=== PATIENT | male | born 1960 | race Caucasian/White ===

== ENCOUNTER 2017-11-04 10:55 | Inpatient (IN) | payer MEDICARE, OTHER ==
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
[2017-11-04 12:04] LABS: Glucose,Whole Blood 127 mg/dL (75-99)
[2017-11-04 12:29] LABS: Basophils % (A) 0 %; Eosinophils # (A) 0.2 k/uL (0-0.7); Eosinophils % (A) 1 %; HCT 42.1 % (39.0-53.0); HGB 14.4 gm/dL (13.0-17.5); Lymphocytes # (A) 0.7 k/uL (1.0-4.8); Lymphocytes % (A) 4 %; MCH 30.8 pg (25.0-35.0); MCHC 34.3 g/dL (31.0-37.0); MCV 89.8 fL (80.0-100.0); Mean Platelet Volume 7.4; Monocytes # (A) 1.1 k/uL (0-1.0); Monocytes % (A) 6 %; Neutrophils # (A) 15.5 k/uL (1.3-7.7); Neutrophils % (A) 88 %; Platelet Count 260 k/uL (150-450); RBC 4.69 m/uL (4.30-5.90); WBC 17.7 k/uL (3.8-10.6)
[2017-11-04 12:39] LABS: ALT 57 U/L (21-72); AST 167 U/L (17-59); Albumin 4.5 g/dL (3.5-5.0); Alcohol <10 mg/dL; Alkaline Phosphatase 85 U/L (38-126); Amylase 288 U/L (30-110); Anion Gap 14 mmol/L; Blood Urea Nitrogen 32 mg/dL (9-20); Calcium 9.9 mg/dL (8.4-10.2); Carbon Dioxide 22 mmol/L (22-30); Chloride 113 mmol/L (98-107); Glucose 109 mg/dL (74-99); Lipase 163 U/L (23-300); Magnesium 2.3 mg/dL (1.6-2.3); Potassium 4.5 mmol/L (3.5-5.1); Sodium 149 mmol/L (137-145); Total Bilirubin 1.2 mg/dL (0.2-1.3)
[2017-11-04] MEDS ORDERED: SODIUM CHLORIDE 0.9% 2,000 ML IV ONE ×2 (13:06→14:16)
--- NOTE | 2017-11-04 13:08 | CT ---
EXAMINATION TYPE: CT brain wo con DATE OF EXAM: 11/04/2017 COMPARISON: NONE HISTORY: Weakness CT DLP: 1015.9 mGycm Automated exposure control for dose reduction was used. FINDINGS: Central structures are midline. There is no evidence of hydrocephalus. No acute focal lesion, mass ef fect or midline shift is seen. I do not see evidence of intracranial blood. Visualized portions of the paranasal sinuses and mastoids are clear. The bony calvarium is intact. IMPRESSION: NO ACUTE INTRACRANIAL ABNORMALITY.
--- NOTE | 2017-11-04 13:34 | XR ---
EXAMINATION TYPE: XR chest 2V DATE OF EXAM: 11/04/2017 HISTORY: cough. REFERENCE: NONE. FINDINGS: The lungs are clear. Pleural space are clear. The heart is not enlarged. There is mild ignacia bronchial cuffing. IMPRESSION: FINDINGS CONSISTENT WITH BUT NOT DIAGNOSTIC OF BRONCHITIS.
[2017-11-04 14:04] LABS: Troponin I 0.091 ng/mL (0.000-0.034)
[2017-11-04] MEDS ORDERED: ACETAMINOPHEN TAB 325 MG TAB PO PRN (14:25)
[2017-11-04] MEDS ORDERED: NALOXONE 0.4 MG/ML 1 ML VIAL IV PRN (14:25)
[2017-11-04] MEDS ORDERED: HEPARIN SODIUM,PORCINE 5,000 UNIT/ML 1 ML VIAL IV ONE (14:30)
[2017-11-04] MEDS ORDERED: SODIUM CHLORIDE 0.9% 1,000 ML IV SCH (14:30)
[2017-11-04] MEDS ORDERED: SODIUM CHLORIDE 0.9% 1,000 ML IV STA (14:35)
[2017-11-04] MEDS: HEPARIN SOD,PORK IN 0.45% NACL 25,000 UNIT in 0.45% NACL 1 500ML.BAG IV SCH (15:28)
[2017-11-04] MEDS ORDERED: hydrALAZINE HCL 20 MG/ML 1 ML VIAL IVP PRN (16:32)
[2017-11-04 17:03] LABS: Glucose,Whole Blood 116 mg/dL (75-99)
[2017-11-04 18:08] VITALS: BMI 24.9
[2017-11-04] MEDS: SODIUM CHLORIDE 0.45% 1,000 ML IV SCH (18:48)
[2017-11-04 19:32] LABS: Hemoglobin A1C 5.2 % (4.0-6.0)
[2017-11-04 20:29] LABS: Appearance,Urine Clear (Clear); Bilirubin,Urine Negative (Negative); Blood,Urine Moderate (Negative); Color,Urine Yellow; Glucose,Urine (UA) Negative (Negative); Ketones,Urine 1+ (Negative); Leukocyte Esterase,Urine Negative (Negative); Mucus,Urine Rare /hpf; Nitrite,Urine Negative (Negative); PH, Urine 5.5 (5.0-8.0); Protein,Urine Trace (Negative); RBC,Urine 1 /hpf (0-5); Specific Gravity,Urine 1.022 (1.001-1.035); Sperm,Urine Occasional /hpf; Squamous Epithelial Cell,Urine <1 /hpf (0-4); Urobilinogen,Urine <2.0 mg/dL (<2.0); WBC,Urine 4 /hpf (0-5)
[2017-11-04 20:37] LABS: Amphetamine Screen,Urine Detected (NotDetected); Barbiturate Screen,Urine Not Detected (NotDetected); Benzodiazepines Screen,Urine Not Detected (NotDetected); Cocaine Screen,Urine Not Detected (NotDetected); Methadone Screen, Urine Not Detected (NotDetected); Opiate Screen,Urine Not Detected (NotDetected); Oxycodone Screen, Urine Not Detected (NotDetected); Phencyclidine Screen,Urine Not Detected (NotDetected); Tricyclic Antidepressant,Urine Not Detected (NotDetected); Urn Cannabinoid Scrn Not Detected (NotDetected)
[2017-11-04 20:39] LABS: Glucose,Whole Blood 115 mg/dL (75-99)
[2017-11-04] MEDS: cloNIDine HCL 0.1 MG TAB PO SCH (20:46)
[2017-11-04] MEDS: FAMOTIDINE 20 MG TAB PO SCH (20:46)
[2017-11-04] MEDS: BACLOFEN 10 MG TAB PO SCH (20:46)
[2017-11-04 21:23] LABS: Troponin I 0.059 ng/mL (0.000-0.034)
[2017-11-04 21:25] LABS: Creatine Kinase MB 19.5 ng/mL (0.0-2.4)
[2017-11-05 01:05] LABS: Creatine Kinase MB 22.8 ng/mL (0.0-2.4); Troponin I 0.045 ng/mL (0.000-0.034)
[2017-11-05] MEDS: SODIUM CHLORIDE 0.45% 1,000 ML IV SCH ×2 (02:01→14:13)
[2017-11-05 05:59] LABS: Glucose,Whole Blood 135 mg/dL (75-99)
[2017-11-05 07:50] LABS: Anion Gap 5 mmol/L; Blood Urea Nitrogen 21 mg/dL (9-20); Carbon Dioxide 22 mmol/L (22-30); Chloride 110 mmol/L (98-107); Glucose 82 mg/dL (74-99); Potassium 4.2 mmol/L (3.5-5.1); Sodium 137 mmol/L (137-145)
[2017-11-05 08:03] LABS: Basophils # (A) 0.1 k/uL (0-0.2); Basophils % (A) 1 %; Eosinophils # (A) 0.2 k/uL (0-0.7); Eosinophils % (A) 2 %; HCT 36.1 % (39.0-53.0); HGB 12.1 gm/dL (13.0-17.5); Lymphocytes # (A) 1.7 k/uL (1.0-4.8); Lymphocytes % (A) 17 %; MCH 30.2 pg (25.0-35.0); MCHC 33.6 g/dL (31.0-37.0); MCV 89.9 fL (80.0-100.0); Mean Platelet Volume 8.4; Monocytes # (A) 0.7 k/uL (0-1.0); Monocytes % (A) 7 %; Neutrophils # (A) 6.8 k/uL (1.3-7.7); Neutrophils % (A) 72 %; Platelet Count 205 k/uL (150-450); RBC 4.02 m/uL (4.30-5.90); RDW 13.8 % (11.5-15.5); WBC 9.5 k/uL (3.8-10.6)
[2017-11-05 08:31] LABS: Creatine Kinase 12932 U/L (55-170)
[2017-11-05] MEDS: cloNIDine HCL 0.1 MG TAB PO SCH ×2 (09:02→20:19)
[2017-11-05] MEDS: FAMOTIDINE 20 MG TAB PO SCH ×2 (09:02→20:19)
[2017-11-05] MEDS: BACLOFEN 10 MG TAB PO SCH ×2 (09:03→20:19)
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
[2017-11-05 12:09] LABS: Glucose,Whole Blood 92 mg/dL (75-99)
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
[2017-11-05] MEDS: TAMSULOSIN 0.4 MG CAP.ER.24H PO SCH (15:24)
[2017-11-05] MEDS: HEPARIN SOD,PORK IN 0.45% NACL 25,000 UNIT in 0.45% NACL 1 500ML.BAG IV SCH (15:24)
[2017-11-05] MEDS: SODIUM CHLORIDE 0.9% 1,000 ML IV SCH ×3 (15:38→23:29)
--- NOTE | 2017-11-05 16:38 | P.PN ---
Subjective Progress Note Date: 11/05/17 Principal diagnosis: Rhabdomyolysis, acute renal failure, elevated troponins This is a 56-year-old male history diabetes and history of seizures in the past who was [place] in a local pond area after manipulating himself; police was able to locate him. Unclear exactly how he got there though was reported he was including someone was after him. He had been missing since yesterday. He did admit to try to drink some pond water because he was thirsty. He states he hurts all over though he denies any particular trauma. He was brought in by EMS for evaluation. No witnessed seizures are reported. 11/05/2017 Patient is resting comfortably in the bed with family at bedside; patient does not have any further complaint of chest pain; cardiology recommendations are noted- elevation in cardiac enzymes most likely secondary to acute renal failure ; patient does have cardiac risk factors namely diabetes, hypertension, hyperlipidemia and significant family history; cardiology is recommending to treat medically while in the hospital till renal failure improves; metoprolol and aspirin is added to current medical regimen- patient is tolerating well; echocardiogram is recommended with possible stress test versus cardiac catheterization as outpatient Objective - Vital Signs Vital signs: Vital Signs Temp 97.9 F 11/05/17 08:00 Pulse 80 11/05/17 08:00 Resp 16 11/05/17 08:00 BP 130/80 11/05/17 08:00 Pulse Ox 96 11/05/17 08:00 Intake & Output 11/04/17 11/05/17 11/05/17 18:59 06:59 18:59 Intake Total 701.868 748.132 Balance 701.868 748.132 Weight 81 kg 88.6 kg Intake: Intake, IV Titration 101.868 398.132 Amount Heparin Sod,Pork in 0.45% 101.868 398.132 NaCl 25,000 unit In 0.45 % NaCl 1 500ml.bag @ 12 UNITS/KG/HR 19.59 mls/hr IV .Q24H [facility] Rx#: [id number] Oral 600 350 Other: Voiding Method Urinal Urinal Urinal # Voids 3 3 - Exam - Constitutional General appearance: Present: average body habitus, cooperative, no acute distress - EENT Eyes: Present: anicteric sclerae, EOMI, PERRLA, normal appearance ENT: Present: hearing grossly normal, normal oropharynx Ears: bilateral: normal - Neck Neck: Present: normal ROM. Absent: lymphadenopathy, rigidity, thyromegaly Carotids: negative: bruit present Thyroid: bilateral: normal size, negative: enlarged, nodule - Respiratory Respiratory: bilateral: CTA, negative: rales, rhonchi, wheezing - Cardiovascular Rhythm: regular Heart sounds: normal: S1, S2 Abnormal Heart Sounds: Absent: systolic murmur, diastolic murmur - Gastrointestinal General gastrointestinal: Present: normal bowel sounds, soft. Absent: distended , organomegaly, tenderness - Genitourinary Genitourinary Comment(s): deferred - Integumentary Integumentary: Present: normal turgor. Absent: jaundiced, rash, ulcer - Neurologic Neurologic: Present: CNII-XII intact. Absent: focal deficits - Musculoskeletal Musculoskeletal: Present: gait normal, strength equal bilaterally - Psychiatric Psychiatric: Present: A&O x's 3, appropriate affect, intact judgment & insight - Labs CBC & Chem 7: 11/05/17 06:45 11/05/17 06:45 Labs: Abnormal Lab Results - Last 24 Hours (Table) 11/04/17 11/04/17 11/04/17 Range/Units 16:58 18:35 20:00 RBC (4.30-5.90) m/uL Hgb (13.0-17.5) gm/dL Hct (39.0-53.0) % APTT (22.0-30.0) sec Chloride (98-107) mmol/L BUN (9-20) mg/dL POC Glucose (mg/dL) 116 H (75-99) mg/dL Calcium (8.4-10.2) mg/dL Creatine Kinase (55-170) U/L Total Creatine Kinase 29843 H (55-170) U/L CK-MB (CK-2) 19.5 H* (0.0-2.4) ng/mL Troponin I 0.059 H* (0.000-0.034) ng/mL Urine Protein Trace H (Negative) Urine Ketones 1+ H (Negative) Urine Blood Moderate H (Negative) Urine Mucus Rare H (None) /hpf Urine Sperm Occasional H (None) /hpf Ur Amphetamines Screen Detected H (NotDetected) U Methamphetamines Scrn Detected H (NotDetected) 11/04/17 11/04/17 11/05/17 Range/Units 20:38 23:47 02:29 RBC (4.30-5.90) m/uL Hgb (13.0-17.5) gm/dL Hct (39.0-53.0) % APTT 41.9 H (22.0-30.0) sec Chloride (98-107) mmol/L BUN (9-20) mg/dL POC Glucose (mg/dL) 115 H (75-99) mg/dL Calcium (8.4-10.2) mg/dL Creatine Kinase (55-170) U/L Total Creatine Kinase 15788 H (55-170) U/L CK-MB (CK-2) 22.8 H* (0.0-2.4) ng/mL Troponin I 0.045 H* (0.000-0.034) ng/mL Urine Protein (Negative) Urine Ketones (Negative) Urine Blood (Negative) Urine Mucus (None) /hpf Urine Sperm (None) /hpf Ur Amphetamines Screen (NotDetected) U Methamphetamines Scrn (NotDetected) 11/05/17 11/05/17 11/05/17 Range/Units 05:53 06:45 06:45 RBC 4.02 L (4.30-5.90) m/uL Hgb 12.1 L (13.0-17.5) gm/dL Hct 36.1 L (39.0-53.0) % APTT (22.0-30.0) sec Chloride 110 H (98-107) mmol/L BUN 21 H (9-20) mg/dL POC Glucose (mg/dL) 135 H (75-99) mg/dL Calcium 8.0 L (8.4-10.2) mg/dL Creatine Kinase 16882 H (55-170) U/L Total Creatine Kinase (55-170) U/L CK-MB (CK-2) (0.0-2.4) ng/mL Troponin I (0.000-0.034) ng/mL Urine Protein (Negative) Urine Ketones (Negative) Urine Blood (Negative) Urine Mucus (None) /hpf Urine Sperm (None) /hpf Ur Amphetamines Screen (NotDetected) U Methamphetamines Scrn (NotDetected) 11/05/17 Range/Units 12:10 RBC (4.30-5.90) m/uL Hgb (13.0-17.5) gm/dL Hct (39.0-53.0) % APTT 51.7 H (22.0-30.0) sec Chloride (98-107) mmol/L BUN (9-20) mg/dL POC Glucose (mg/dL) (75-99) mg/dL Calcium (8.4-10.2) mg/dL Creatine Kinase (55-170) U/L Total Creatine Kinase (55-170) U/L CK-MB (CK-2) (0.0-2.4) ng/mL Troponin I (0.000-0.034) ng/mL Urine Protein (Negative) Urine Ketones (Negative) Urine Blood (Negative) Urine Mucus (None) /hpf Urine Sperm (None) /hpf Ur Amphetamines Screen (NotDetected) U Methamphetamines Scrn (NotDetected) Microbiology - Last 24 Hours (Table) 11/04/17 13:35 Blood Culture - Preliminary Blood No Growth after 24 hours Assessment and Plan Plan: 1. Rhabdomyolysis - We will admit the patient to telemetry - Start patient on IV fluids half normal saline and run at 125 mL an hour - We will monitor strict LISA's and daily weights along with renal function and electrolytes - Monitor total CPK levels 2. Acute renal failure - IV fluids half-normal saline 125 mL an hour - Monitor strict I&O's and renal function and electrolytes - Avoid nephrotoxins and hypotension - Nephrology is consulted; patient's are pending 3. Hypernatremia/ dehydration; as above 4. Elevated troponin rule out ACS - Monitor EKG and trend troponins - Recommend 2-D echocardiogram - Cardiology is consulted and recommendations are pending 5. Febrile illness /Leukocytosis; rule out sepsis - Leukocytosis could be associated with stress - We will panculture patient and monitor closely and consult ID if white blood count remains elevated or patient remains febrile 6. Transaminitis - Etiology is unclear; we will trend closely and order ultrasound of liver if levels remain elevated 7. Diabetes mellitus; by history - Patient is not on any anti-hyperglycemic agents - We will monitor Accu-Cheks closely with insulin sliding scale 8. Uncontrolled Hypertension; - Patient takes clonidine 0.5 mg twice a day; we will resume home dose - We will monitor closely; order IV hydralazine when necessary 9. Seizure disorder; continue home dose of Neurontin
--- NOTE | 2017-11-05 16:44 | P.HPIM ---
History of Present Illness H&P Date: 11/04/17 Chief Complaint: Dehydration This is a 56-year-old male history diabetes and history of seizures in the past who was found in a local pond area after manipulating himself; police was able to locate him. Unclear exactly how he got there though was reported he was including someone was after him. He had been missing since yesterday. He did admit to try to drink some pond water because he was thirsty. He states he hurts all over though he denies any particular trauma. He was brought in by EMS for evaluation. No witnessed seizures are reported. Review of Systems Constitutional: Reports chills, Reports fatigue, Reports poor appetite, Reports weakness, Denies fever Eyes: denies blurred vision, denies discharge Ears, nose, mouth and throat: Denies bleeding gums, Denies epistaxis Respiratory: Reports cough with sputum, Denies congestion, Denies hemoptysis, Denies sleep apnea Gastrointestinal: Denies abdominal pain, Denies coffee ground emesis, Denies indigestion, Denies nausea, Denies vomiting Genitourinary: Denies dysuria, Denies hematuria, Denies nocturia Musculoskeletal: Reports low back pain Integumentary: Denies color changes Neurological: Reports numbness, Denies convulsions, Denies loss of vision, Denies memory loss, Denies visual changes Endocrine: Denies cold intolerance, Denies heat intolerance Hematologic/Lymphatic: Denies easy bruising, Denies lymphadenopathy Allergic/Immunologic: Denies angioedema, Denies persistent infections, Denies urticaria Past Medical History Past Medical History: Diabetes Mellitus, Hypertension, Seizure Disorder History of Any Multi-Drug Resistant Organisms: None Reported Past Surgical History: No Surgical Hx Reported Past Psychological History: Depression Smoking Status: Never smoker Past Alcohol Use History: None Reported Past Drug Use History: None Reported Medications and Allergies Home Medications Medication Instructions Recorded Confirmed Type buPROPion HCL [Wellbutrin XL] 300 mg PO DAILY 03/24/16 11/04/17 History Baclofen [Lioresal] 20 mg PO BID 11/04/17 11/04/17 History Meloxicam [Mobic] 15 mg PO DAILY 11/04/17 11/04/17 History Ranitidine HCl [Zantac] 300 mg PO HS 11/04/17 11/04/17 History Tamsulosin HCl [Flomax] 0.4 mg PO HS 11/04/17 11/04/17 History cloNIDine HCL [Catapres] 0.1 mg PO BID 11/04/17 11/04/17 History Allergies Allergy/AdvReac Type Severity Reaction Status Date / Time No Known Allergies Allergy Verified 11/04/17 14:37 Physical Exam Vitals: Vital Signs Temp Pulse Resp BP Pulse Ox 11/04/17 15:19 97.6 F 90 16 142/92 94 L 11/04/17 13:06 98.8 F 110 H 18 153/92 98 11/04/17 11:00 100.7 F H 121 H 18 159/100 97 Intake and Output 11/04/17 11/04/17 11/04/17 06:59 14:59 22:59 Other: Weight 81.647 kg Results CBC & Chem 7: 11/04/17 12:18 11/04/17 12:18 Labs: Abnormal Lab Results - Last 24 Hours (Table) 11/04/17 11/04/17 11/04/17 Range/Units 11:03 12:02 12:18 WBC (3.8-10.6) k/uL Neutrophils # (1.3-7.7) k/uL Lymphocytes # (1.0-4.8) k/uL Monocytes # (0-1.0) k/uL Sodium 149 H (137-145) mmol/L Chloride 113 H (98-107) mmol/L BUN 32 H (9-20) mg/dL Creatinine 1.56 H (0.66-1.25) mg/dL Glucose 109 H (74-99) mg/dL POC Glucose (mg/dL) 127 H (75-99) mg/dL AST 167 H (17-59) U/L Total Creatine Kinase 65790 H (55-170) U/L CK-MB (CK-2) 16.0 H* (0.0-2.4) ng/mL Troponin I 0.091 H* (0.000-0.034) ng/mL Amylase 288 H (30-110) U/L 11/04/17 Range/Units 12:18 WBC 17.7 H (3.8-10.6) k/uL Neutrophils # 15.5 H (1.3-7.7) k/uL Lymphocytes # 0.7 L (1.0-4.8) k/uL Monocytes # 1.1 H (0-1.0) k/uL Sodium (137-145) mmol/L Chloride (98-107) mmol/L BUN (9-20) mg/dL Creatinine (0.66-1.25) mg/dL Glucose (74-99) mg/dL POC Glucose (mg/dL) (75-99) mg/dL AST (17-59) U/L Total Creatine Kinase (55-170) U/L CK-MB (CK-2) (0.0-2.4) ng/mL Troponin I (0.000-0.034) ng/mL Amylase (30-110) U/L Assessment and Plan Plan: 1. Rhabdomyolysis - We will admit the patient to telemetry - Start patient on IV fluids half normal saline and run at 125 mL an hour - We will monitor strict LISA's and daily weights along with renal function and electrolytes - Monitor total CPK levels 2. Acute renal failure - IV fluids half-normal saline 125 mL an hour - Monitor strict I&O's and renal function and electrolytes - Avoid nephrotoxins and hypotension - Nephrology is consulted; patient's are pending 3. Hypernatremia/ dehydration; as above 4. Elevated troponin rule out ACS - Monitor EKG and trend troponins - Recommend 2-D echocardiogram - Cardiology is consulted and recommendations are pending 5. Febrile illness /Leukocytosis; rule out sepsis - Leukocytosis could be associated with stress - We will panculture patient and monitor closely and consult ID if white blood count remains elevated or patient remains febrile 6. Transaminitis - Etiology is unclear; we will trend closely and order ultrasound of liver if levels remain elevated 7. Diabetes mellitus; by history - Patient is not on any anti-hyperglycemic agents - We will monitor Accu-Cheks closely with insulin sliding scale 8. Uncontrolled Hypertension; - Patient takes clonidine 0.5 mg twice a day; we will resume home dose - We will monitor closely; order IV hydralazine when necessary 9. Seizure disorder; continue home dose of Neurontin Time with Patient: Greater than 30
--- NOTE | 2017-11-05 17:18 | XR ---
EXAMINATION TYPE: XR chest 2V DATE OF EXAM: 11/05/2017 COMPARISON: Prior chest x-ray 11/04/2017 HISTORY: Shortness of breath, decreased lung sounds TECHNIQUE: Frontal and lateral views of the chest are obtained. FINDINGS: There is a patchy density present at the left lung base. No pneumothorax or pleural effusi on evident. Cardiomediastinal silhouette, pulmonary vascularity and elma within normal limits. There are overlying cardiac leads. IMPRESSION: Correlate for left lower lobe atelectasis versus pneumonia. Follow-up recommended.
[2017-11-05 17:35] LABS: Glucose,Whole Blood 93 mg/dL (75-99)
[2017-11-05] MEDS: traMADol 50 MG TAB PO PRN (19:28)
[2017-11-05] MEDS: AZITHROMYCIN 500 MG in DEXTROSE 5% IN WATER 250 ML IVPB SCH ×2 (20:18)
[2017-11-05] MEDS: METOPROLOL TARTRATE 12.5 MG TAB PO SCH (20:19)
[2017-11-05 20:51] LABS: Glucose,Whole Blood 159 mg/dL (75-99)
[2017-11-06] MEDS: diphenhydrAMINE 25 MG CAP PO PRN ×2 (02:02→10:50)
[2017-11-06] MEDS: buPROPion XL 300 MG TAB.ER.24H PO PRN ×2 (02:02→21:21)
[2017-11-06] MEDS: SODIUM CHLORIDE 0.9% 1,000 ML IV SCH ×3 (06:23→20:32)
[2017-11-06 06:33] LABS: Glucose,Whole Blood 127 mg/dL (75-99)
[2017-11-06 08:09] LABS: Anion Gap 4 mmol/L; Blood Urea Nitrogen 15 mg/dL (9-20); Calcium 8.3 mg/dL (8.4-10.2); Carbon Dioxide 24 mmol/L (22-30); Chloride 109 mmol/L (98-107); Glucose 100 mg/dL (74-99); Magnesium 2.1 mg/dL (1.6-2.3); Potassium 4.3 mmol/L (3.5-5.1); Sodium 137 mmol/L (137-145)
--- NOTE | 2017-11-06 09:09 | P.PN ---
Subjective Patient is seen in follow-up for acute kidney injury and rhabdomyolysis. Creatinine is down to 0.93 today. CK level is pending. Apparently his IV came out last night and therefore he did not receive continuous IV fluids. Oral intake is good. No vomiting or diarrhea. Vital signs are stable. General: The patient appeared well nourished and normally developed. HEENT: Head exam is unremarkable. Neck is without jugular venous distension. LUNGS: Lungs are clear to auscultation and percussion. Breath sounds decreased. HEART: Rate and Rhythm are regular. First and second heart sounds normal. No murmurs, rubs or gallops. ABDOMEN: Abdominal exam reveals normal bowel sounds. Non-tender and non- distended. No evidence of peritonitis. EXTREMITITES: No clubbing, cyanosis, or edema. Objective - Vital Signs Vital signs: Vital Signs Temp 97.0 F L 11/06/17 04:00 Pulse 70 11/06/17 04:00 Resp 18 11/06/17 04:00 BP 104/62 11/06/17 04:00 Pulse Ox 97 11/06/17 04:00 Intake & Output 11/05/17 11/06/17 11/06/17 18:59 06:59 18:59 Intake Total 289.614 0512 Balance 177.918 5152 Weight 89.7 kg Intake: Intake, IV Titration 238.486 3022 Amount Azithromycin 500 mg In 250 Dextrose 5% in Water 250 ml @ 125 mls/hr IVPB DAILY [facility] Rx#:[id number] Heparin Sod,Pork in 0.45% 398.132 NaCl 25,000 unit In 0.45 % NaCl 1 500ml.bag @ 12 UNITS/KG/HR 19.59 mls/hr IV .Q24H [facility] Rx#: [id number] Sodium Chloride 0.9% 1, 1200 000 ml @ 150 mls/hr IV . Q6H40M [facility] Rx#:[id number] Oral 350 Other: Voiding Method Urinal Urinal # Voids 3 2 - Labs CBC & Chem 7: 11/05/17 06:45 11/06/17 07:20 Labs: Abnormal Lab Results - Last 24 Hours (Table) 11/05/17 11/05/17 11/06/17 Range/Units 12:10 20:49 06:26 APTT 51.7 H (22.0-30.0) sec Chloride (98-107) mmol/L Glucose (74-99) mg/dL POC Glucose (mg/dL) 159 H 127 H (75-99) mg/dL Calcium (8.4-10.2) mg/dL 11/06/17 Range/Units 07:20 APTT (22.0-30.0) sec Chloride 109 H (98-107) mmol/L Glucose 100 H (74-99) mg/dL POC Glucose (mg/dL) (75-99) mg/dL Calcium 8.3 L (8.4-10.2) mg/dL Microbiology - Last 24 Hours (Table) 11/04/17 13:35 Blood Culture - Preliminary Blood No Growth after 24 hours Assessment and Plan Plan: Assessment: 1. Nonoliguric acute kidney injury mostly prerenal secondary to rhabdomyolysis. Improved. 2. Rhabdomyolysis secondary to immobility. CK level peaked at 14,413 this admission and was down to 12,932 yesterday. 3. Hypernatremia secondary to lack of oral water intake. Resolved. Plan: Resume normal saline at 150 mL an hour once has IV access. Avoid nephrotoxins. Repeat electrolytes and CK level tomorrow morning. Encourage oral intake.
[2017-11-06 09:11] LABS: Creatine Kinase 4889 U/L (55-170)
[2017-11-06] MEDS ORDERED: REGADENOSON 0.4 MG/5 ML SYRINGE IV ONE (09:57)
[2017-11-06] MEDS ORDERED: AMINOPHYLLINE 500 MG/20 ML VIAL IV PRN (09:57)
--- NOTE | 2017-11-06 09:57 | P.PN ---
Subjective Progress Note Date: 11/06/17 Principal diagnosis: Acute non-ST This is a pleasant 56-year-old gentleman with a past medical history significant for diabetes not on any medications, hypertension, and dyslipidemia , was admitted to the hospital with rhabdomyolysis. The patient gave a story of being followed by a group of people and hiding himself in the chang. Apparently the patient was down for about 8 hours. He was diagnosed with rhabdomyolysis and started on IV fluid with significant improvement in his creatinine. The patient was in acute renal failure when he presented to the hospital. We get involved in his care because of mildly abnormal cardiac enzymes and mildly abnormal troponin. The troponin is less than 1. The EKG showed sinus rhythm without any significant ST or T-wave abnormalities. The patient describes intermittent episodes of chest discomfort for the last several months. The discomfort is a sharp kind of discomfort in the mid of the chest, without any radiation to the arm or neck or shoulders, and without any associated symptoms. The patient stated that he was in intermediate in [place] and he was admitted to the hospital one time and underwent testing with unknown details. He stated that the stent where on the heart. On follow-up with the patient today, he stated experiencing intermittent episodes of chest tightness. An echocardiogram is in process to be done. He is on aspirin and metoprolol since yesterday. I did not start him on statin because of the abnormal liver function tests. I am repeating them. I do feel that the patient need to undergo either a stress test or heart catheterization to rule out any severe underlying coronary artery disease. Objective - Vital Signs Vital signs: Vital Signs Temp 97.0 F L 11/06/17 04:00 Pulse 70 11/06/17 04:00 Resp 18 11/06/17 04:00 BP 104/62 11/06/17 04:00 Pulse Ox 97 11/06/17 04:00 Intake & Output 11/05/17 11/06/17 11/06/17 18:59 06:59 18:59 Intake Total 755.634 0730 Balance 540.712 7100 Weight 89.7 kg Intake: Intake, IV Titration 183.110 2688 Amount Azithromycin 500 mg In 250 Dextrose 5% in Water 250 ml @ 125 mls/hr IVPB DAILY [facility] Rx#:[id number] Heparin Sod,Pork in 0.45% 398.132 NaCl 25,000 unit In 0.45 % NaCl 1 500ml.bag @ 12 UNITS/KG/HR 19.59 mls/hr IV .Q24H [facility] Rx#: [id number] Sodium Chloride 0.9% 1, 1200 000 ml @ 150 mls/hr IV . Q6H40M [facility] Rx#:[id number] Oral 350 Other: Voiding Method Urinal Urinal # Voids 3 2 - Constitutional General appearance: Present: no acute distress - Respiratory Respiratory: bilateral: CTA - Cardiovascular Rhythm: regular Heart sounds: normal: S1, S2 - Labs CBC & Chem 7: 11/05/17 06:45 11/06/17 07:20 Labs: Abnormal Lab Results - Last 24 Hours (Table) 11/05/17 11/05/17 11/06/17 Range/Units 12:10 20:49 06:26 APTT 51.7 H (22.0-30.0) sec Chloride (98-107) mmol/L Glucose (74-99) mg/dL POC Glucose (mg/dL) 159 H 127 H (75-99) mg/dL Calcium (8.4-10.2) mg/dL Creatine Kinase (55-170) U/L 11/06/17 Range/Units 07:20 APTT (22.0-30.0) sec Chloride 109 H (98-107) mmol/L Glucose 100 H (74-99) mg/dL POC Glucose (mg/dL) (75-99) mg/dL Calcium 8.3 L (8.4-10.2) mg/dL Creatine Kinase 4889 H (55-170) U/L Microbiology - Last 24 Hours (Table) 11/05/17 06:45 Blood Culture - Preliminary Blood No Growth after 24 hours 11/04/17 13:35 Blood Culture - Preliminary Blood No Growth after 24 hours Assessment and Plan Assessment: Assessment #1 rhabdomyolysis #2 acute kidney injury secondary to the above #3 diabetes #4 hypertension #5 dyslipidemia Plan #1 the abnormal cardiac enzymes is likely secondary to acute kidney injury. #2 severe underlying coronary artery disease needs to be ruled out in this gentleman who does have multiple risk factors including diabetes, hypertension, dyslipidemia, and significant family history of coronary artery disease. More importantly the patient was experiencing chest discomfort as an outpatient. #3 I would consider medical treatment at this point in view of the acute kidney injury. I am going to add aspirin and metoprolol to the current medical regimen #4 obtain an echocardiogram was Doppler #5 I am going to obtain a stress test for him tomorrow morning.
[2017-11-06] MEDS: cefTRIAXone IN SWFI 1,000 MG/10 ML SYRINGE IVP SCH (10:34)
[2017-11-06] MEDS: AZITHROMYCIN 500 MG in DEXTROSE 5% IN WATER 250 ML IVPB SCH ×2 (10:34)
[2017-11-06] MEDS: METOPROLOL TARTRATE 12.5 MG TAB PO SCH ×2 (10:49→20:29)
[2017-11-06] MEDS: FAMOTIDINE 20 MG TAB PO SCH ×2 (10:50→20:29)
[2017-11-06] MEDS: ASPIRIN 81 MG PO SCH (10:50)
[2017-11-06] MEDS: cloNIDine HCL 0.1 MG TAB PO SCH ×2 (10:50→20:29)
[2017-11-06] MEDS: BACLOFEN 10 MG TAB PO SCH ×2 (10:50→20:29)
[2017-11-06 11:04] LABS: ALT 70 U/L (21-72); AST 167 U/L (17-59)
[2017-11-06 12:07] LABS: Glucose,Whole Blood 99 mg/dL (75-99)
--- NOTE | 2017-11-06 15:06 | ECHOF ---
Referral Reason:NSTEMI MEASUREMENTS -------- HEIGHT: 180.3 cm WEIGHT: 89.4 kg BP: 104/62 IVSd: 0.9 cm (0.6 - 1.1) LVIDd: 4.1 cm (3.9 - 5.3) LVPWd: 1.0 cm (0.6 - 1.1) IVSs: 1.6 cm LVIDs: 2.6 cm LVPWs: 1.4 cm Ao Diam: 3.7 cm (2.0 - 3.7) LA Diam: 2.2 cm (2.7 - 3.8) AV Cusp: 1.7 cm (1.5 - 2.6) EPSS: 0.4 cm MV E Skyler: 1.07 m/s MV DecT: 155 ms MV A Skyler: 0.97 m/s MV E/A Ratio: 1.10 RAP: 5.00 mmHg RVSP: 27.57 mmHg MV EF SLOPE: 235.50 mm/s (70 - 150) MV EXCURSION: 22.91 mm (> 18.000) FINDINGS -------- Sinus rhythm. This was a technically good study. The left ventricular size is normal. There is mild concentric left ventricular hypertrophy. Overa ll left ventricular systolic function is normal with, an EF between 55 - 60 %. The right ventricle is normal in size and function. The left atrium is normal in size. The right atrium is normal in size. The aortic valve is trileaflet, and appears structurally normal. No aortic stenosis or regurgitation. Mild mitral regurgitation is present. Mild tricuspid regurgitation present. The right ventricular systolic pressure, as measured by Doppl er, is 27.57mmHg. Pulmonic valve appears structurally normal. The aortic root size is normal. The pericardium is normal. CONCLUSIONS -------- 1. Sinus rhythm. 2. This was a technically good study. 3. The left ventricular size is normal. 4. There is mild concentric left ventricular hypertrophy. 5. Overall left ventricular systolic function is normal with, an EF between 55 - 60 %. 6. The right ventricle is normal in size and function. 7. The left atrium is normal in size. 8. The right atrium is normal in size. 9. The aortic valve is trileaflet, and appears structurally normal. No aortic stenosis or regurgitati on. 10. Mild mitral regurgitation is present. 11. Mild tricuspid regurgitation present. 12. The right ventricular systolic pressure, as measured by Doppler, is 27.57mmHg. 13. Pulmonic valve appears structurally normal. 14. The aortic root size is normal. 15. The pericardium is normal. [employer] STERILIZER: Mayra Mac RDCS
--- NOTE | 2017-11-06 15:14 | CDI ---
Last Revision, March 2017 Documentation Clarification Form Date: 11/06/2017 12:00:00 AM From: Odalys Luna RN, CCDS Admit Date: 11/04/2017 2:25:00 PM Patient Name: Checo Frey Visit Number: [id number] Discharge Date: ATTENTION: The Clinical Documentation Specialists (CDI) and [facility] Coding Staff appreciate your assistance in clarifying documentation. Please respond to the clarification below the line at the bottom and electronically sign. The CDI & [facility] Coding staff will review the response and follow-up if needed. Please note: Queries are made part of the Legal Health Record. If you have any questions, please contact the author of this message via ITS. Dr. Hazel Chavez/Dr. Bethel Frye/Dr. Alvarado Uncontrolled hypertension is documented in your H/P and ongoing progress notes. Patient history/risk factors: Diabetes mellitus, Hypertension, Seizure Disorder Clinical Indicators: Found in pond and complaints he hurts all over. Vital signs: 159/100 121 18 100.7, 153/92 110 18 , 142/92 90 16, 162/102 96 16 Lab findings: WBC 17.7, CR 1.56, [place] [address], CK-MB 136.0, UDS: Methamphetamines detected, Amphetamines Detected CT Brain: No acute intracranial abnormality Treatment: Lopressor PO Apresoline IVP (PRN) Catapres PO In your professional opinion, can you please further clarify Uncontrolled hypertension? Hypertensive crisis hypertensive Urgency Hypertensive Emergency Other, please specify Unable to determine Please continue to document in your progress notes and discharge summary in order to capture severity of illness and risk of mortality. Include clinical findings that support your diagnosis. None of the above MTDD
[2017-11-06] MEDS: AZITHROMYCIN 500 MG TAB PO SCH (16:58)
[2017-11-06 17:16] LABS: Glucose,Whole Blood 138 mg/dL (75-99)
[2017-11-06] MEDS: CALAMINE/ZINC OXIDE LOTION 177 ML BTL TOPICAL PRN ×2 (18:03→22:27)
[2017-11-06 18:17] VITALS: RESP 18
[2017-11-06] MEDS: traMADol 50 MG TAB PO PRN (18:52)
[2017-11-06] MEDS: TAMSULOSIN 0.4 MG CAP.ER.24H PO SCH (20:29)
[2017-11-06 21:11] LABS: Glucose,Whole Blood 105 mg/dL (75-99)
[2017-11-07] MEDS: SODIUM CHLORIDE 0.9% 1,000 ML IV SCH ×2 (02:45→05:59)
[2017-11-07 06:22] LABS: Glucose,Whole Blood 92 mg/dL (75-99)
[2017-11-07 07:33] LABS: Anion Gap 4 mmol/L; Blood Urea Nitrogen 12 mg/dL (9-20); Calcium 8.6 mg/dL (8.4-10.2); Carbon Dioxide 23 mmol/L (22-30); Chloride 107 mmol/L (98-107); Creatine Kinase 1414 U/L (55-170); Glucose 99 mg/dL (74-99); Potassium 4.4 mmol/L (3.5-5.1); Sodium 134 mmol/L (137-145)
[2017-11-07] MEDS: cefTRIAXone IN SWFI 1,000 MG/10 ML SYRINGE IVP SCH (08:43)
--- NOTE | 2017-11-07 09:12 | P.PN ---
Subjective Patient is seen in follow-up for acute kidney injury and rhabdomyolysis. Creatinine is down to 0.9 today. CK level is down to 1414. Patient's IV came out and unable to put a new access in. He is scheduled to get a midline placed. Admits to chest discomfort. He is scheduled for a stress test today. No vomiting or diarrhea. States he wants to sleep. Vital signs are stable. General: The patient appeared well nourished and normally developed. HEENT: Head exam is unremarkable. Neck is without jugular venous distension. LUNGS: Lungs are clear to auscultation and percussion. Breath sounds decreased. HEART: Rate and Rhythm are regular. First and second heart sounds normal. No murmurs, rubs or gallops. ABDOMEN: Abdominal exam reveals normal bowel sounds. Non-tender and non- distended. No evidence of peritonitis. EXTREMITITES: No clubbing, cyanosis, or edema. Objective - Vital Signs Vital signs: Vital Signs Temp 97.2 F L 11/07/17 04:00 Pulse 86 11/07/17 04:00 Resp 18 11/07/17 04:00 BP 132/78 11/07/17 04:00 Pulse Ox 95 11/07/17 04:00 Intake & Output 11/06/17 11/07/17 11/07/17 18:59 06:59 18:59 Intake Total 540 Balance 540 Weight 89.7 kg Intake: Oral 540 Other: Voiding Method Urinal Urinal # Voids 2 2 - Labs CBC & Chem 7: 11/05/17 06:45 11/07/17 06:21 Labs: Abnormal Lab Results - Last 24 Hours (Table) 11/06/17 11/06/17 11/06/17 Range/Units 07:20 07:20 17:13 Sodium (137-145) mmol/L POC Glucose (mg/dL) 138 H (75-99) mg/dL AST 167 H (17-59) U/L Creatine Kinase 4889 H (55-170) U/L 11/06/17 11/07/17 Range/Units 21:00 06:21 Sodium 134 L (137-145) mmol/L POC Glucose (mg/dL) 105 H (75-99) mg/dL AST (17-59) U/L Creatine Kinase 1414 H (55-170) U/L Microbiology - Last 24 Hours (Table) 11/04/17 13:35 Blood Culture - Preliminary Blood No Growth after 48 hours 11/05/17 06:45 Blood Culture - Preliminary Blood No Growth after 24 hours Assessment and Plan Plan: Assessment: 1. Nonoliguric acute kidney injury mostly prerenal secondary to rhabdomyolysis. Improved. 2. Rhabdomyolysis secondary to immobility. CK level peaked at 14,413 this admission and down to 1414 today. 3. Hypernatremia secondary to lack of oral water intake. Resolved. Plan: Avoid nephrotoxins. Encouraged oral intake. No changes from nephrology standpoint.
[2017-11-07 09:15] VITALS: PULSE 80
[2017-11-07] MEDS: NITROGLYCERIN SL TABS 0.4 MG TAB SUBLINGUAL PRN ×2 (09:17→09:27)
[2017-11-07] MEDS: FAMOTIDINE 20 MG TAB PO SCH (09:36)
[2017-11-07] MEDS: ASPIRIN 81 MG PO SCH (09:36)
[2017-11-07] MEDS: METOPROLOL TARTRATE 12.5 MG TAB PO SCH (09:37)
[2017-11-07] MEDS: BACLOFEN 10 MG TAB PO SCH (09:37)
--- NOTE | 2017-11-07 10:38 | PN ---
PROGRESS NOTE DATE OF SERVICE: 11/06/2017 This 56-year-old gentleman admitted with rhabdomyolysis and renal failure is being closely monitored. At this time, renal failure has recovered completely. Cardiology is also planning medical treatment at this time with possible stress test tomorrow. No chest pain. No palpitations. No fever. PHYSICAL EXAMINATION: On exam, alert and oriented x3. Pulse 77, blood pressure 143/85, respiration 18, temperature is normal, pulse ox 95% on room air. HEENT: Conjunctivae normal. NECK: No JVD. CARDIOVASCULAR: S1 and S2 muffled. RESPIRATORY: Breath sounds diminished at the bases. No rhonchi, no crackles. ABDOMEN: Soft, nontender. No mass palpable. LEGS: No edema, no swelling. NERVOUS SYSTEM: No focal deficits. LABS: Creatine kinase 4889. Other labs are noted. ASSESSMENT: 1. Acute rhabdomyolysis with acute renal failure. 2. Hyponatremia and dehydration. 3. Elevated troponin for . 4. Febrile leukocytosis. 5. Transaminitis. 6. Diabetes mellitus type 2. 7. Hypertension. 8. Seizure disorder. RECOMMENDATIONS AND DISCUSSION: Recommend to continue current medications, continue monitoring and symptomatic treatment. Otherwise closely monitor. Guarded prognosis. Further recommendations to follow. MMODL / IJN: [id number] / MTDD
--- NOTE | 2017-11-07 12:45 | NM ---
EXAMINATION TYPE: NM stress lexiscan cardiolite DATE OF EXAM: 11/07/2017 COMPARISON: NONE HISTORY: 56-year-old male with chest pain TECHNIQUE: After the intravenous administration of 9.44 mCi Tc 99m Sestamibi - Cardiolite resting SP ECT images acquired 45 minutes post injection. The patient received 0.4mg Lexiscan, 25 mCi Tc 99m Sestamibi - Stress images obtained 30 minutes post injection FINDINGS: Review of stress and rest SPECT images demonstrates decreased perfusion along the inferior wall, more pronounced on rest suggesting diaphragmatic attenuation. Otherwise, no distinct perfusion abnormalit y. Gated analysis shows normal wall motion with an estimated left ventricular ejection fraction of 5 0 %. TID is calculated at 1.11, within normal limits. IMPRESSION: Some diaphragmatic attenuation along the inferior wall. Borderline to mildly decreased LVEF (50%). N o convincing scintigraphic evidence for reversible ischemia.
[2017-11-07] MEDS ORDERED: methylPREDNISolone SOD SUCCI 125 MG/2 ML VIAL IV STA (12:48)
[2017-11-07 12:58] VITALS: BP 122/86; TEMP 98
[2017-11-07] MEDS: diphenhydrAMINE 25 MG CAP PO PRN (12:58)
[2017-11-07] MEDS: traMADol 50 MG TAB PO PRN (12:58)
--- NOTE | 2017-11-07 12:59 | P.PN ---
Subjective Progress Note Date: 11/07/17 Principal diagnosis: Acute non-ST This is a pleasant 56-year-old gentleman with a past medical history significant for diabetes not on any medications, hypertension, and dyslipidemia , was admitted to the hospital with rhabdomyolysis. The patient gave a story of being followed by a group of people and hiding himself in the chang. Apparently the patient was down for about 8 hours. He was diagnosed with rhabdomyolysis and started on IV fluid with significant improvement in his creatinine. The patient was in acute renal failure when he presented to the hospital. We get involved in his care because of mildly abnormal cardiac enzymes and mildly abnormal troponin. The troponin is less than 1. The EKG showed sinus rhythm without any significant ST or T-wave abnormalities. The patient describes intermittent episodes of chest discomfort for the last several months. The discomfort is a sharp kind of discomfort in the mid of the chest, without any radiation to the arm or neck or shoulders, and without any associated symptoms. The patient stated that he was in snf in [place] and he was admitted to the hospital one time and underwent testing with unknown details. He stated that the stent where on the heart. On follow-up with the patient today, he stated experiencing intermittent episodes of chest tightness. An echocardiogram is in process to be done. He is on aspirin and metoprolol since yesterday. The patient is going to undergo a stress test later on today. Objective - Vital Signs Vital signs: Vital Signs Temp 98.0 F 11/07/17 12:45 Pulse 80 11/07/17 08:00 Resp 18 11/07/17 12:45 BP 122/86 11/07/17 12:45 Pulse Ox 98 11/07/17 12:45 Intake & Output 11/06/17 11/07/17 11/07/17 18:59 06:59 18:59 Intake Total 540 Balance 540 Weight 89.7 kg 89.358 kg Intake: Oral 540 Other: Voiding Method Urinal Urinal # Voids 2 2 - Constitutional General appearance: Present: no acute distress - Respiratory Respiratory: bilateral: CTA - Cardiovascular Rhythm: regular Heart sounds: normal: S1, S2 - Labs CBC & Chem 7: 11/05/17 06:45 11/07/17 06:21 Labs: Abnormal Lab Results - Last 24 Hours (Table) 11/06/17 11/06/17 11/07/17 Range/Units 17:13 21:00 06:21 Sodium 134 L (137-145) mmol/L POC Glucose (mg/dL) 138 H 105 H (75-99) mg/dL Creatine Kinase 1414 H (55-170) U/L Microbiology - Last 24 Hours (Table) 11/05/17 06:45 Blood Culture - Preliminary Blood No Growth after 48 hours 11/04/17 13:35 Blood Culture - Preliminary Blood No Growth after 48 hours Assessment and Plan Assessment: Assessment #1 rhabdomyolysis #2 acute kidney injury secondary to the above #3 diabetes #4 hypertension #5 dyslipidemia Plan #1 the abnormal cardiac enzymes is likely secondary to acute kidney injury. #2 severe underlying coronary artery disease needs to be ruled out in this gentleman who does have multiple risk factors including diabetes, hypertension, dyslipidemia, and significant family history of coronary artery disease. More importantly the patient was experiencing chest discomfort as an outpatient. #3 the patient is going to have a stress test later on today.
[2017-11-07] MEDS: cloNIDine HCL 0.1 MG TAB PO SCH (13:01)
[2017-11-07 13:10] LABS: Glucose,Whole Blood 100 mg/dL (75-99)
[2017-11-07] MEDS: AZITHROMYCIN 500 MG TAB PO SCH (16:51)
--- NOTE | 2017-11-07 17:06 | P.STRESS ---
- Stress Test Note Stress Test Results/Findings: Exam Performed: NM stress lexiscan cardiolite Exam Date: 11/07/17 Reason for Exam: CHEST PAIN Height: 5 ft 11 in Weight: 89.358 kg Protocol: LEXISCAN Stage: NA Duration of Exercise: NA Resting Heart Rate: 68 Resting Blood Pressure: 111/83 Maximum Achieved Heart Rate: 78 Maximum Achieved Blood Pressure: 116/66 85% PMHR: NA 100% PMHR: NA METS: NA Technologist Comment: Stress Test Results/Findings: Baseline heart rate 68 beats a minute Baseline blood pressure 111/83 mmHg. Patient received Lexiscan infusion per protocol. Baseline telemetry ECG was normal there was no ECG evidence for ischemia and arrhythmias are noted heart rate and blood pressure remained stable. Nuclear portion of the stress is reported separately Impression No ECG evidence of ischemia or arrhythmias during Lexiscan infusion
[2017-11-07 17:07] LABS: Glucose,Whole Blood 144 mg/dL (75-99)
--- NOTE | 2017-11-07 20:38 | DS ---
DISCHARGE SUMMARY FINAL DIAGNOSES: 1. Acute rhabdomyolysis with acute renal failure. 2. Hyponatremia and dehydration. 3. Elevated troponin, indeterminate. 4. Negative stress test. 5. Febrile leukocytosis. 6. Transaminitis. 7. Diabetes mellitus type 2. 8. Hypertension. 9. Seizure disorder. 10.Allergic skin reaction. DISCHARGE DISPOSITION: The patient will be discharged in stable condition with guarded prognosis. HISTORY OF PRESENT ILLNESS: This 56-year-old gentleman with a past medical history of multiple medical problems as mentioned earlier, being followed by Dr. Washington in the outpatient setting, admitted with multiple medical issues as mentioned earlier. The patient had rhabdomyolysis. The patient also was found in a ditch. Apparently patient also allergic reaction. The patient was treated symptomatically and Cardiology performed a stress test which was negative and the patient was discharged in stable condition with a guarded prognosis. Total time taken 35 minutes. EXAM: Vitals are stable. CARDIOVASCULAR: S1, S2 muffled. ABDOMEN: Soft. NERVOUS SYSTEM: Normal. DISCHARGE ADVICE AND MEDICATIONS: Diet is cardiac. Activity is limited until followup. Follow up with Dr. Washington in 2-3 days. MEDICATION: 1. Lioresal 20 mg p.o. b.i.d. 2. Wellbutrin XL 300 mg p.o. b.i.d. 3. Catapres 0.1 p.o. b.i.d. 4. Zantac 150 mg q.h.s. 5. Flomax 4.4 mg q.a.m. 6. Aspirin 81 mg daily. 7. Calamine lotion. 8. Benadryl 25 mg b.i.d. 9. Lopressor 12.5 mg b.i.d. 10.Steroid prednisone taper that will be 30 mg for 3 days, 20 for 3 days, 10 for 3 days. Followup labs CBC, BMP to Dr. Washington's office. MMODL / IJN: [id number] /
== END 2017-11-07 18:48 | disposition home or self-care (01) | DRG 558 ==
LOC: EC 10:55 → 6SEL 14:25
PROVIDERS: ADMIT Internal Medicine; ATTEND Internal Medicine
PROC: 05HY33Z Insertion of Infusion Device into Upper Vein, Percutaneous Approach (ICD-10-PCS; principal; 2017-11-07 09:50)
DX: M62.82 Rhabdomyolysis (principal); E87.0 Hyperosmolality and hypernatremia; E87.1 Hypo-osmolality and hyponatremia; N17.9 Acute kidney failure, unspecified; D72.829 Elevated white blood cell count, unspecified; E11.9 Type 2 diabetes mellitus without complications; E78.5 Hyperlipidemia, unspecified; E86.0 Dehydration; F32.9 Major depressive disorder, single episode, unspecified; T78.40XA Allergy, unspecified, initial encounter; G40.909 Epilepsy, unspecified, not intractable, without status epilepticus; I10 Essential (primary) hypertension; N42.9 Disorder of prostate, unspecified; R50.9 Fever, unspecified; R77.9 Abnormality of plasma protein, unspecified; R94.5 Abnormal results of liver function studies; Z79.899 Other long term (current) drug therapy; Z85.9 Personal history of malignant neoplasm, unspecified; Z83.3 Family history of diabetes mellitus; Z82.49 Family history of ischemic heart disease and other diseases of the circulatory system; Z79.1 Long term (current) use of non-steroidal anti-inflammatories (NSAID); X58.XXXA Exposure to other specified factors, initial encounter
CPT/HCPCS: 36415; 36569; 70450; 71046; 76937; 78452; 80048; 80053; 80306; 80320; 81001; 82140; 82150; 82272; 82550; 82553; 83036; 83605; 83690; 83735; 84450; 84460; 84484; 85025; 85379; 85730; 87040; 93005; 93017; 93306; 96360; 96361; 99291

== ENCOUNTER 2019-08-09 10:49 | Inpatient (IN) | payer MEDICARE ==
[2019-08-09] MEDS ORDERED: ONDANSETRON 4 MG/2 ML VIAL IVP STA (11:28)
[2019-08-09] MEDS ORDERED: SODIUM CHLORIDE 0.9% 1,000 ML IV STA (11:28)
[2019-08-09] MEDS ORDERED: KETOROLAC 30 MG/ML 1 ML VIAL IVP STA (11:28)
--- NOTE | 2019-08-09 11:34 | ED ---
General Adult HPI - General Chief complaint: Dizziness Stated complaint: cancer pt/weakness Time Seen by Provider: 08/09/19 10:58 Source: patient, family Mode of arrival: wheelchair Limitations: no limitations - History of Present Illness Initial comments: Patient is a 58-year-old male, with history of hypertension, seizure disorder, presenting to the emergency Department with multiple complaints. Patient states that for the past few days has been having increasing abdominal pain, bloating, decreased urine output. Patient states he has not had a bowel movement in one week. Patient is also complaining of lightheadedness and shortness of breath f or the past 1-2 weeks. Patient states he has history of prostate cancer many years ago and did receive treatment with radiation, he states he has not followed up but is currently not receiving any other treatment. Patient denies history of any abdominal surgeries. He denies fever, chills, cough, chest pain. He does admit to mild nausea, no vomiting. He has not been able to eat and drink very much for the last week. 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 Patient has no other complaints at this time. Upon arrival to the ER, patient's BP is elevated at 180/108, rest of vitals normal. - Related Data Home Medications Medication Instructions Recorded Confirmed buPROPion HCL [Wellbutrin XL] 300 mg PO DAILY 03/24/16 11/04/17 Baclofen [Lioresal] 20 mg PO BID 11/04/17 11/04/17 Ranitidine HCl [Zantac] 300 mg PO HS 11/04/17 11/04/17 Tamsulosin HCl [Flomax] 0.4 mg PO HS 11/04/17 11/04/17 cloNIDine HCL [Catapres] 0.1 mg PO BID 11/04/17 11/04/17 Previous Rx's Medication Instructions Recorded Amoxicillin/Potassium Clav 1 tab PO Q12HR #10 tab 11/07/17 [Augmentin 875-125 Tablet] Aspirin 81 mg PO DAILY #30 chew 11/07/17 Calamine/Zinc Oxide Lotion 1 applic TOPICAL BID PRN applic 11/07/17 [Calamine Lotion] Metoprolol Tartrate [Lopressor] 12.5 mg PO BID #60 tab 11/07/17 diphenhydrAMINE [Benadryl] 25 mg PO TID #12 capsule 11/07/17 predniSONE 10 mg PO DIRECTED #18 tab 11/07/17 Allergies Allergy/AdvReac Type Severity Reaction Status Date / Time No Known Allergies Allergy Verified 08/09/19 10:56 Review of Systems ROS Statement: Those systems with pertinent positive or pertinent negative responses have been documented in the HPI. ROS Other: All systems not noted in ROS Statement are negative. Past Medical History Past Medical History: Cancer, Diabetes Mellitus, Hypertension, Seizure Disorder Additional Past Medical History / Comment(s): pt was dx cancer but never followed with anyone, does not remember where its at History of Any Multi-Drug Resistant Organisms: None Reported Past Surgical History: No Surgical Hx Reported Past Psychological History: Depression Smoking Status: Never smoker Past Alcohol Use History: None Reported Past Drug Use History: None Reported - Past Family History Mother Family Medical History: Diabetes Mellitus Father Family Medical History: Diabetes Mellitus, Hypertension General Exam - General Exam Comments Initial Comments: GENERAL: Patient appears anxious, in no acute distress. HEAD: Atraumatic, normocephalic. EYES: Pupils equal round and reactive to light, extraocular movements intact, sclera anicteric, conjunctiva are normal. ENT: TMs normal, nares patent, oropharynx clear without exudates. Moist mucous membranes. NECK: Normal range of motion, supple without lymphadenopathy or JVD. LUNGS: Breath sounds clear to auscultation bilaterally and equal. No wheezes rales or rhonchi. HEART: Regular rate and rhythm without murmurs, rubs or gallops. ABDOMEN: Generalized abdominal tenderness, increased on the left and right sides. Mild left flank pain. Abdomen seems mildly distended. Hypoactive bowel sounds. No masses appreciated. : Deferred EXTREMITIES: Normal range of motion, no pitting or edema. No clubbing or cyanosis. NEUROLOGICAL: Cranial nerves II through XII grossly intact. Normal speech, normal gait. PSYCH: Normal mood, normal affect. SKIN: Warm, Dry, normal turgor, no rashes or lesions noted. Limitations: no limitations Course Vital Signs 08/09/19 08/09/19 08/09/19 10:52 12:53 13:07 Temperature 98.9 F Pulse Rate 80 74 80 Respiratory 18 Rate Blood Pressure 180/108 O2 Sat by Pulse 96 Oximetry EKG Findings - EKG Comments: EKG Findings:: Ventricular rate 72, [place] interval 178, QTc 451. Normal sinus rhythm, normal ECG. No signs of acute ischemia. Medical Decision Making - Medical Decision Making Patient is a 58-year-old male here for abdominal pain as well as lightheadedness for the past few days. History of hypertension, seizure disorder. Patient was hypertensive upon arrival, rest of vitals normal. On exam patient has generalized abdominal pain, lightheadedness. EKG reveals no significant findings. Lab work reveals acute kidney failure with BUN 53, creatinine 8.96, potassium was 6.4. Carbon dioxide is 19. Lactic acid is 0.9. Chest x-ray shows subsegmental atelectatic changes, correlate to exclude pneumonia. 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 Patient was given fluids, hyperkalemia cocktail. Patient will be admitted for acute kidney failure. Patient was accepted by Dr. Heredia. Dr. Pickering was also contacted and will be on consult. Case discussed in detail with Dr. Pascual. - Lab Data Result diagrams: 08/09/19 11:30 08/09/19 12:38 Lab Results 08/09/19 08/09/19 08/09/19 Range/Units 11:30 11:30 11:30 WBC 6.9 (3.8-10.6) k/uL RBC 4.33 (4.30-5.90) m/uL Hgb 12.8 L (13.0-17.5) gm/dL Hct 38.1 L (39.0-53.0) % MCV 87.9 (80.0-100.0) fL MCH 29.6 (25.0-35.0) pg MCHC 33.6 (31.0-37.0) g/dL RDW 12.4 (11.5-15.5) % Plt Count 277 (150-450) k/uL Neutrophils % 79 % Lymphocytes % 11 % Monocytes % 7 % Eosinophils % 2 % Basophils % 0 % Neutrophils # 5.5 (1.3-7.7) k/uL Lymphocytes # 0.8 L (1.0-4.8) k/uL Monocytes # 0.5 (0-1.0) k/uL Eosinophils # 0.1 (0-0.7) k/uL Basophils # 0.0 (0-0.2) k/uL PT 9.8 (9.0-12.0) sec INR 0.9 (<1.2) APTT 24.4 (22.0-30.0) sec Sodium 136 L (137-145) mmol/L Potassium 6.4 H* (3.5-5.1) mmol/L Chloride 104 (98-107) mmol/L Carbon Dioxide 19 L (22-30) mmol/L Anion Gap 13 mmol/L BUN 53 H (9-20) mg/dL Creatinine 8.96 H* (0.66-1.25) mg/dL Est GFR (CKD-EPI)AfAm 7 (>60 ml/min/1.73 sqM) Est GFR (CKD-EPI)NonAf 6 (>60 ml/min/1.73 sqM) Glucose 123 H (74-99) mg/dL Plasma Lactic Acid Joesph (0.7-2.0) mmol/L Calcium 8.5 (8.4-10.2) mg/dL Total Bilirubin 0.9 (0.2-1.3) mg/dL AST 32 (17-59) U/L ALT 12 (4-49) U/L Alkaline Phosphatase 55 (38-126) U/L Total Protein 7.2 (6.3-8.2) g/dL Albumin 4.2 (3.5-5.0) g/dL Amylase 43 (30-110) U/L Lipase 73 (23-300) U/L Serum Alcohol <10 mg/dL 08/09/19 08/09/19 Range/Units 11:30 12:38 WBC (3.8-10.6) k/uL RBC (4.30-5.90) m/uL Hgb (13.0-17.5) gm/dL Hct (39.0-53.0) % MCV (80.0-100.0) fL MCH (25.0-35.0) pg MCHC (31.0-37.0) g/dL RDW (11.5-15.5) % Plt Count (150-450) k/uL Neutrophils % % Lymphocytes % % Monocytes % % Eosinophils % % Basophils % % Neutrophils # (1.3-7.7) k/uL Lymphocytes # (1.0-4.8) k/uL Monocytes # (0-1.0) k/uL Eosinophils # (0-0.7) k/uL Basophils # (0-0.2) k/uL PT (9.0-12.0) sec INR (<1.2) APTT (22.0-30.0) sec Sodium 138 (137-145) mmol/L Potassium 6.1 H* (3.5-5.1) mmol/L Chloride 105 (98-107) mmol/L Carbon Dioxide 24 (22-30) mmol/L Anion Gap 9 mmol/L BUN 53 H (9-20) mg/dL Creatinine 8.87 H* (0.66-1.25) mg/dL Est GFR (CKD-EPI)AfAm 7 (>60 ml/min/1.73 sqM) Est GFR (CKD-EPI)NonAf 6 (>60 ml/min/1.73 sqM) Glucose 94 (74-99) mg/dL Plasma Lactic Acid Joesph 0.9 (0.7-2.0) mmol/L Calcium 8.3 L (8.4-10.2) mg/dL Total Bilirubin (0.2-1.3) mg/dL AST (17-59) U/L ALT (4-49) U/L Alkaline Phosphatase (38-126) U/L Total Protein (6.3-8.2) g/dL Albumin (3.5-5.0) g/dL Amylase (30-110) U/L Lipase (23-300) U/L Serum Alcohol mg/dL Critical Care Time Critical Care Time: Yes Total Critical Care Time: 35 (Patient condition the ER complaining of abdominal pain, weakness, low appetite 3 days. Patient was found to be hyperkalemic at 6.9 with acute renal failure. Time was used to review patient's files, lab work , imaging. She was given hyperkalemic cocktail. Patient will be admitted.) Disposition Clinical Impression: Acute renal failure, Hyperkalemia Disposition: ADMITTED IP TO THIS HOSP Condition: Good Is patient prescribed a controlled substance at d/c from ED?: No Referrals: Kassandra Washington MD [Primary Care Provider] - 1-2 days Decision Date: 08/09/19 Decision Time: 13:09
[2019-08-09 11:49] LABS: Basophils % (A) 0 %; Eosinophils # (A) 0.1 k/uL (0-0.7); Eosinophils % (A) 2 %; HCT 38.1 % (39.0-53.0); HGB 12.8 gm/dL (13.0-17.5); Lymphocytes # (A) 0.8 k/uL (1.0-4.8); Lymphocytes % (A) 11 %; MCH 29.6 pg (25.0-35.0); MCHC 33.6 g/dL (31.0-37.0); MCV 87.9 fL (80.0-100.0); Mean Platelet Volume 8.5; Monocytes # (A) 0.5 k/uL (0-1.0); Monocytes % (A) 7 %; Neutrophils # (A) 5.5 k/uL (1.3-7.7); Neutrophils % (A) 79 %; Platelet Count 277 k/uL (150-450); RBC 4.33 m/uL (4.30-5.90); RDW 12.4 % (11.5-15.5); WBC 6.9 k/uL (3.8-10.6)
[2019-08-09 11:56] LABS: ALT 12 U/L (4-49); AST 32 U/L (17-59); African American GFR (CKD) 7 (>60 ml/min/1.73 sqM); Albumin 4.2 g/dL (3.5-5.0); Alcohol <10 mg/dL; Alkaline Phosphatase 55 U/L (38-126); Amylase 43 U/L (30-110); Anion Gap 13 mmol/L; Blood Urea Nitrogen 53 mg/dL (9-20); Calcium 8.5 mg/dL (8.4-10.2); Carbon Dioxide 19 mmol/L (22-30); Chloride 104 mmol/L (98-107); Glucose 123 mg/dL (74-99); INR 0.9 (<1.2); Non-African American GFR(CKD) 6 (>60 ml/min/1.73 sqM); Partial Thromboplastin Time 24.4 sec (22.0-30.0); Prothrombin Time 9.8 sec (9.0-12.0); Sodium 136 mmol/L (137-145); Total Bilirubin 0.9 mg/dL (0.2-1.3); Total Protein 7.2 g/dL (6.3-8.2)
--- NOTE | 2019-08-09 12:08 | XR ---
EXAMINATION TYPE: XR chest 2V DATE OF EXAM: 08/09/2019 COMPARISON: Prior chest x-ray dated 11/05/2017 HISTORY: Dizziness, shortness of breath and abdomen pain TECHNIQUE: Frontal and lateral views of the chest are obtained. FINDINGS: Lung volumes are low. Probable subsegmental basilar atelectatic changes are noted. Cardiac mediastinal silhouette, pulmonary vascularity and elma are within normal limits. No evident airspace disease, pneumothorax, or pleural effusion. There are overlying cardiac leads. IMPRESSION: Probable subsegmental basilar atelectatic changes or scarring, correlate to exclude pneu monia. Low lung volumes.
[2019-08-09 12:09] LABS: Potassium 6.4 mmol/L (3.5-5.1)
[2019-08-09] MEDS ORDERED: INSULIN REGULAR 100 UNIT/ML VIAL IV ONE ×3 (12:20→20:53)
[2019-08-09] MEDS ORDERED: DEXTROSE 50% SYRINGE 50 ML IVP ONE (12:20)
[2019-08-09] MEDS ORDERED: ALBUTEROL NEB (CONC) 2.5 MG/0.5 ML INHALATION ONE (12:20)
[2019-08-09] MEDS ORDERED: SODIUM CHLORIDE 0.9% 1,000 ML IV ONE (12:25)
[2019-08-09] MEDS ORDERED: CALCIUM GLUCONATE 1 GM in SODIUM CHLORIDE 0.9% 100 ML IVPB ONE (12:30)
[2019-08-09 13:00] LABS: Calcium 8.3 mg/dL (8.4-10.2)
--- NOTE | 2019-08-09 13:04 | CT ---
EXAMINATION TYPE: CT abdomen pelvis wo con DATE OF EXAM: 08/09/2019 COMPARISON: None INDICATION: Abdominal pain, acute, nonlocalized DLP: 961.3 mGycm, Automated exposure control for dose reduction was used. CONTRAST: 0 mL of Isovue 300. Study performed without Oral Contrast TECHNIQUE: Axial images were obtained from above the diaphragm to the pubic rami in the axial plane a t 5 mm thick sections. Reconstructed images are reviewed on the computer in the coronal plane. FINDINGS: Limited CT sections are obtained through the lung bases. The lung bases are clear. CT ABDOMEN: Liver: Normal Spleen: Couple of punctate calcifications are present within the spleen compatible with granuloma. Pancreas: Normal Adrenal glands: The adrenal glands are normal. 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 No masses are evident. No hydronephrosis is present. No cysts are present. No renal stones are eviden t. Aorta: Vascular calcification is within the aorta. Inferior vena cava: Normal. CT PELVIS: Loops of bowel within the abdomen and pelvis are normal. Study is performed without oral contrast limiting bowel evaluation Appendix: Normal as visualized. Urinary bladder: Normal. Genitourinary structures: Prostate is slightly prominent and contains calcification. Left inguinal he rnia containing mesenteric fat is present. Smaller inguinal hernia may be present on the right with m esenteric fat. Osseous structures: No suspicious lytic or sclerotic lesions. Facet hypertrophy is present. IMPRESSIONS: 1. No suspicious abnormality to account for patient's abdomen pain
[2019-08-09] MEDS ORDERED: NALOXONE 0.4 MG/ML 1 ML VIAL IV PRN (13:05)
[2019-08-09 13:11] LABS: Potassium 6.1 mmol/L (3.5-5.1)
[2019-08-09] MEDS: SODIUM CHLORIDE 0.9% 1,000 ML IV SCH ×2 (13:43→21:45)
--- NOTE | 2019-08-09 14:34 | P.NPCON ---
History of Present Illness - Reason for Consult acute renal failure, hyperkalemia - History of Present Illness Reason for consultation: Acute kidney injury and hyperkalemia History of present illness: Patient is a 58-year-old male seen in renal consultation for acute kidney injury and hyperkalemia. Patient's creatinine on admission was 8.96 and potassium level was 6.4. Patient denies any personal history of kidney disease. Creatinine in October 2017 was 0.9. Patient presented to the hospital due to not feeling well overall. Patient states he's been having abdominal discomfort and has not been eating much for the last 5-6 days. However he is able to tolerate liquids. Patient's does complain of intermittent shortness of breath. There is no evidence of hypotension. In fact his blood pressure has been on the higher side this admission. No evidence of fluid overload noted on chest x-ray. He denies fever or chills. He denies regular use of nonsteroidals. No history of diabetes. 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 Patient did receive nebulized albuterol, IV insulin as well as IV calcium gluconate in the emergency room for hyperkalemia management. It is also noted that he got 30 mg of Toradol in the ER. He received 2 L of IV bolus of normal saline and is now maintained on normal saline at 1 25 mL an hour. No edema. He has been voiding. No evidence of urinary retention. No hematuria or dysuria. He is refusing Sam catheter placement due to pain and irritation. Vital signs are stable. General: The patient appeared well nourished and normally developed. HEENT: Head exam is unremarkable. Neck is without jugular venous distension. LUNGS: Lungs are clear to auscultation and percussion. Breath sounds decreased. HEART: Rate and Rhythm are regular. First and second heart sounds normal. No murmurs, rubs or gallops. ABDOMEN: Abdominal exam reveals normal bowel sounds. Non-tender and non- distended. EXTREMITITES: No clubbing, cyanosis, or edema. Past Medical History Past Medical History: Cancer, Diabetes Mellitus, Hypertension, Seizure Disorder Additional Past Medical History / Comment(s): pt was dx cancer but never followed with anyone, does not remember where its at History of Any Multi-Drug Resistant Organisms: None Reported Past Surgical History: No Surgical Hx Reported Past Psychological History: Depression Smoking Status: Never smoker Past Alcohol Use History: None Reported Past Drug Use History: None Reported - Past Family History Mother Family Medical History: Diabetes Mellitus Father Family Medical History: Diabetes Mellitus, Hypertension Medications and Allergies Home Medications Medication Instructions Recorded Confirmed Type buPROPion HCL [Wellbutrin XL] 300 mg PO DAILY 03/24/16 11/04/17 History Baclofen [Lioresal] 20 mg PO BID 11/04/17 11/04/17 History Ranitidine HCl [Zantac] 300 mg PO HS 11/04/17 11/04/17 History Tamsulosin HCl [Flomax] 0.4 mg PO HS 11/04/17 11/04/17 History cloNIDine HCL [Catapres] 0.1 mg PO BID 11/04/17 11/04/17 History Amoxicillin/Potassium Clav 1 tab PO Q12HR #10 tab 11/07/17 Rx [Augmentin 875-125 Tablet] Aspirin 81 mg PO DAILY #30 chew 11/07/17 Rx Calamine/Zinc Oxide Lotion 1 applic TOPICAL BID PRN applic 11/07/17 Rx [Calamine Lotion] Metoprolol Tartrate [Lopressor] 12.5 mg PO BID #60 tab 11/07/17 Rx diphenhydrAMINE [Benadryl] 25 mg PO TID #12 capsule 11/07/17 Rx predniSONE 10 mg PO DIRECTED #18 tab 11/07/17 Rx Allergies Allergy/AdvReac Type Severity Reaction Status Date / Time No Known Allergies Allergy Verified 08/09/19 10:56 Physical Exam Vitals: Vital Signs Temp Pulse Resp BP Pulse Ox 08/09/19 13:45 98.3 F 94 18 143/96 94 L 08/09/19 13:07 80 08/09/19 12:53 74 08/09/19 10:52 98.9 F 80 18 180/108 96 Intake and Output 08/08/19 08/09/19 08/09/19 22:59 06:59 14:59 Other: Weight 99.79 kg Results - Lab Results Most recent lab results Calcium 8.3 mg/dL (8.4-10.2) L 08/09/19 12:38 08/09/19 11:30 08/09/19 12:38 Assessment and Plan Plan: Assessment: 1. Acute kidney injury. Unclear etiology. Need to rule out glomerulonephritis. There is no evidence of urinary retention or hydronephrosis. No evidence of hypotension. Creatinine 8.96 on admission. Prior creatinine 0.9 in October 2017. 2. Benign hypertension. 3. Hyperkalemia secondary to acute kidney injury and metabolic acidosis. Medically treated with IV calcium, IV insulin, nebulized albuterol in the ER. 4. Metabolic acidosis secondary to acute kidney injury. Plan: Maintain normal saline at 125 mL an hour. Follow-up repeat labs from this afternoon. Patient is currently refusing a Sam catheter. He'll be given a urinal for strict I's and O's. Bladder scan to be done twice a day to make sure no urinary retention. Check urinalysis and serologies. Check urine eosinophils. Check phosphorus level. Quantify proteinuria. Doubt nephrotic range proteinuria as his albumin is 4.2. Check CK level. Continue to assess on daily basis for need for renal replacement therapy. Thank you for the consultation. I will continue to follow the patient with you during his hospital stay.
[2019-08-09 15:28] LABS: Glucose,Whole Blood 84 mg/dL (75-99)
[2019-08-09 15:30] LABS: Calcium 8.4 mg/dL (8.4-10.2); Potassium 5.5 mmol/L (3.5-5.1)
[2019-08-09] MEDS: cloNIDine HCL 0.1 MG TAB PO SCH ×2 (16:10→22:00)
[2019-08-09] MEDS ORDERED: SODIUM BICARB 8.4% 50 ML SYR (1 MEQ/ML) IV STA (16:22)
[2019-08-09] MEDS ORDERED: DEXTROSE 50% SYRINGE 50 ML IVP STA ×2 (16:25→20:53)
[2019-08-09 16:35] LABS: Glucose,Whole Blood 106 mg/dL (75-99)
[2019-08-09] MEDS: HYDROcodone/APAP 5-325MG 1 EACH TAB PO PRN ×2 (16:57→22:00)
[2019-08-09] MEDS ORDERED: FUROSEMIDE 10 MG/ML 4 ML VIAL IV STA (21:11)
[2019-08-09] MEDS ORDERED: SODIUM POLYSTYRENE SULFONATE 15 GM/60 ML BOTTLE PO STA (21:13)
[2019-08-09 21:19] LABS: Glucose,Whole Blood 100 mg/dL (75-99)
--- NOTE | 2019-08-09 21:33 | P.HPIM ---
History of Present Illness H&P Date: 08/09/19 Chief Complaint: Weakness 58-year-old male, with history of hypertension, seizure disorder, presenting to the emergency Department with multiple complaints. Patient states that for the past few days has been having increasing abdominal pain, bloating, decreased urine output. Patient states he has not had a bowel movement in one week. Patient is also complaining of lightheadedness and shortness of breath for the past 1-2 weeks. Patient states he has history of prostate cancer many years ago and did receive treatment with radiation, he states he has not followed up but is currently not receiving any other treatment. Patient denies history of any abdominal surgeries. He denies fever, chills, cough, chest pain. He does admit to mild nausea, no vomiting. He has not been able to eat and drink very much for the last week. 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 Patient has no other complaints at this time. Upon arrival to the ER, patient's BP is elevated at 180/108, rest of vitals normal. 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 Patient did receive nebulized albuterol, IV insulin as well as IV calcium gluconate in the emergency room for hyperkalemia management. It is also noted that he got 30 mg of Toradol in the ER. He received 2 L of IV bolus of normal saline and is now maintained on normal saline at 1 25 mL an hour. No edema. He has been voiding. No evidence of urinary retention. No hematuria or dysuria. He is refusing Sam catheter placement due to pain and irritation. Review of Systems REVIEW OF SYSTEMS: CONSTITUTIONAL: No fever, no malaise, no fatigue. HEENT: No recent visual problems or hearing problems. Denied any sore throat. CARDIOVASCULAR: No chest pain, orthopnea, PND, no palpitations, no syncope. PULMONARY: No shortness of breath, no cough, no hemoptysis. GASTROINTESTINAL: No diarrhea, no nausea, no vomiting, no abdominal pain. NEUROLOGICAL: No headaches, no weakness, no numbness. HEMATOLOGICAL: Denies any bleeding or petechiae. GENITOURINARY: Denies any burning micturition, frequency, or urgency. MUSCULOSKELETAL/RHEUMATOLOGICAL: Denies any joint pain, swelling, or any muscle pain. ENDOCRINE: Denies any polyuria or polydipsia. The rest of the 14-point review of systems is negative. Past Medical History Past Medical History: Cancer, Diabetes Mellitus, Hypertension, Seizure Disorder Additional Past Medical History / Comment(s): Prostate cancer, states had Radiation seeds about 2009. States quit taking Metformin. History of Any Multi-Drug Resistant Organisms: None Reported Past Surgical History: No Surgical Hx Reported Past Anesthesia/Blood Transfusion Reactions: No Reported Reaction Past Psychological History: Depression Smoking Status: Never smoker Past Alcohol Use History: None Reported Past Drug Use History: None Reported - Past Family History Mother Family Medical History: Diabetes Mellitus Father Family Medical History: Diabetes Mellitus, Hypertension Medications and Allergies Home Medications Medication Instructions Recorded Confirmed Type buPROPion HCL [Wellbutrin XL] 300 mg PO DAILY 03/24/16 08/09/19 History Baclofen [Lioresal] 20 mg PO BID 11/04/17 08/09/19 History Tamsulosin HCl [Flomax] 0.4 mg PO HS 11/04/17 08/09/19 History cloNIDine HCL [Catapres] 0.1 mg PO TID 11/04/17 08/09/19 History Ranitidine HCl 150 mg PO BID 08/09/19 08/09/19 History buPROPion XL [Wellbutrin Xl] 150 mg PO DAILY 08/09/19 08/09/19 History Allergies Allergy/AdvReac Type Severity Reaction Status Date / Time No Known Allergies Allergy Verified 08/09/19 15:19 Physical Exam Vitals: Vital Signs Temp Pulse Pulse Resp BP BP Pulse Ox 08/09/19 14:00 98.9 F 99 16 132/62 94 L 08/09/19 13:45 98.3 F 94 18 143/96 94 L 08/09/19 13:07 80 08/09/19 12:53 74 08/09/19 10:52 98.9 F 80 18 180/108 96 Intake and Output 08/09/19 08/09/19 08/09/19 06:59 14:59 22:59 Intake Total 1999 Balance 1999 Intake: IV 1999 Sodium Chloride 0.9% 1, 1000 000 ml @ 999 mls/hr IV . Q1H1M ONE Rx#:[id number] Sodium Chloride 0.9% 1, 1000 000 ml @ 999 mls/hr IV . Q1H1M STA Rx#:[id number] Other: # Voids 0 Weight 99.79 kg PHYSICAL EXAMINATION: GENERAL: The patient is alert and oriented x3, not in any acute distress. Well developed, well nourished. HEENT: Pupils are round and equally reacting to light. EOMI. No scleral icterus. No conjunctival pallor. Normocephalic, atraumatic. No pharyngeal erythema. No thyromegaly. CARDIOVASCULAR: S1 and S2 present. No murmurs, rubs, or gallops. PULMONARY: Chest is clear to auscultation, no wheezing or crackles. ABDOMEN: Soft, nontender, nondistended, normoactive bowel sounds. No palpable organomegaly. MUSCULOSKELETAL: No joint swelling or deformity. EXTREMITIES: No cyanosis, clubbing, or pedal edema. NEUROLOGICAL: Gross neurological examination did not reveal any focal deficits. SKIN: No rashes. Results CBC & Chem 7: 08/09/19 11:30 08/09/19 12:38 Labs: Abnormal Lab Results - Last 24 Hours (Table) 08/09/19 08/09/19 08/09/19 Range/Units 11:30 11:30 12:38 Hgb 12.8 L (13.0-17.5) gm/dL Hct 38.1 L (39.0-53.0) % Lymphocytes # 0.8 L (1.0-4.8) k/uL Sodium 136 L (137-145) mmol/L Potassium 6.4 H* 6.1 H* (3.5-5.1) mmol/L Carbon Dioxide 19 L (22-30) mmol/L BUN 53 H 53 H (9-20) mg/dL Creatinine 8.96 H* 8.87 H* (0.66-1.25) mg/dL Glucose 123 H (74-99) mg/dL Calcium 8.3 L (8.4-10.2) mg/dL Thrombosis Risk Factor Assmnt - Choose All That Apply Each Factor Represents 1 point: Age 41-60 years, Obesity (BMI >25) Each Risk Factor Represents 2 Points: Malignancy Thrombosis Risk Factor Assessment Total Risk Factor Score: 4 Thrombosis Risk Factor Assessment Level: Moderate Risk Assessment and Plan Assessment: 1. Acute kidney injury. Unclear etiology. - There is no evidence of urinary retention or hydronephrosis on CT of abdomen and pelvis done in ED. No evidence of hypotension. Creatinine 8.96 on admission. Prior creatinine 0.9 in October 2017. - Nephrology is consulted and patient is recommended to continue with IV fluids in form of normal saline at a rate of 1 25 mL an hour; patient has been refusing Sam catheter; we will monitor strict LISA's and bladder scan per urology recommendations twice a day to insure no urinary retention; nephrology workup with UA, serologies, urine eosinophil and phosphorus levels are pending; nephrology recommending to quantify proteinuria and monitor CK levels 2. Uncontrolled hypertension; we will restart home antihypertensive therapy in form of clonidine 0.1 mg 3 times a day and continue to monitor blood pressure closely 3. Hyperkalemia secondary to acute kidney injury and metabolic acidosis. Medically treated with IV calcium, IV insulin, nebulized albuterol in the ER; continue to monitor electrolytes. 4. Metabolic acidosis secondary to acute kidney injury; management as above. 5. Depression; continue home dose of Wellbutrin DVT prophylaxis; subcu heparin CODE STATUS; full code Time with Patient: Greater than 30
[2019-08-09] MEDS: TAMSULOSIN 0.4 MG CAP.ER.24H PO SCH (22:00)
[2019-08-09] MEDS: BACLOFEN 10 MG TAB PO SCH (22:00)
[2019-08-09] MEDS: HEPARIN SODIUM,PORCINE 5,000 UNIT/ML 1 ML VIAL SQ SCH (22:15)
[2019-08-09 22:32] LABS: Appearance,Urine Clear (Clear); Bacteria,Urine Rare /hpf; Bilirubin,Urine Negative (Negative); Blood,Urine Trace (Negative); Color,Urine Yellow; Glucose,Urine (UA) Negative (Negative); Ketones,Urine Negative (Negative); Leukocyte Esterase,Urine Negative (Negative); Mucus,Urine Rare /hpf; Nitrite,Urine Negative (Negative); Protein,Urine Trace (Negative); RBC,Urine 2 /hpf (0-5); Specific Gravity,Urine 1.013 (1.001-1.035); Urobilinogen,Urine <2.0 mg/dL (<2.0); WBC,Urine 4 /hpf (0-5)
[2019-08-09 22:34] LABS: Creatinine,Urine Random 126.1 mg/dL
[2019-08-09 22:42] LABS: Amphetamine Screen,Urine Not Detected (NotDetected); Barbiturate Screen,Urine Not Detected (NotDetected); Benzodiazepines Screen,Urine Not Detected (NotDetected); Cocaine Screen,Urine Not Detected (NotDetected); Methadone Screen, Urine Not Detected (NotDetected); Opiate Screen,Urine Detected (NotDetected); Oxycodone Screen, Urine Not Detected (NotDetected); Phencyclidine Screen,Urine Not Detected (NotDetected); Tricyclic Antidepressant,Urine Not Detected (NotDetected); Urn Cannabinoid Scrn Not Detected (NotDetected)
[2019-08-09 23:29] LABS: Hepatitis A Antibody IgM Non-Reactive (Non-Reactive); Hepatitis B Core IgM Non-Reactive (Non-Reactive); Hepatitis B Surface Antigen Non-Reactive (Non-Reactive); Hepatitis C IgG Antibody Reactive (Non-Reactive)
[2019-08-10 02:26] LABS: Calcium 8.1 mg/dL (8.4-10.2); Potassium 5.7 mmol/L (3.5-5.1)
[2019-08-10] MEDS ORDERED: FUROSEMIDE 10 MG/ML 4 ML VIAL IV STA (02:47)
[2019-08-10] MEDS: SODIUM CHLORIDE 0.9% 1,000 ML IV SCH ×3 (03:29→22:20)
[2019-08-10 06:06] LABS: Glucose,Whole Blood 97 mg/dL (75-99)
[2019-08-10 07:18] LABS: Basophils % (A) 0 %; Eosinophils # (A) 0.1 k/uL (0-0.7); Eosinophils % (A) 1 %; HCT 36.1 % (39.0-53.0); Lymphocytes # (A) 0.9 k/uL (1.0-4.8); Lymphocytes % (A) 9 %; MCH 30.1 pg (25.0-35.0); MCHC 33.3 g/dL (31.0-37.0); MCV 90.2 fL (80.0-100.0); Mean Platelet Volume 8.3; Monocytes # (A) 0.9 k/uL (0-1.0); Monocytes % (A) 8 %; Neutrophils # (A) 8.3 k/uL (1.3-7.7); Neutrophils % (A) 80 %; Platelet Count 240 k/uL (150-450); RBC 4.01 m/uL (4.30-5.90); RDW 12.8 % (11.5-15.5); WBC 10.4 k/uL (3.8-10.6)
[2019-08-10 07:35] LABS: Albumin 3.9 g/dL (3.5-5.0); Calcium 8.2 mg/dL (8.4-10.2); Phosphorus 6.3 mg/dL (2.5-4.5); Potassium 5.7 mmol/L (3.5-5.1); Total Bilirubin 0.7 mg/dL (0.2-1.3); Total Protein 6.7 g/dL (6.3-8.2)
[2019-08-10] MEDS: cloNIDine HCL 0.1 MG TAB PO SCH ×3 (09:15→22:59)
[2019-08-10] MEDS: buPROPion XL 300 MG TAB.ER.24H PO SCH (09:16)
[2019-08-10] MEDS: buPROPion XL 150 MG TAB.ER.24H PO SCH (09:16)
[2019-08-10] MEDS: HEPARIN SODIUM,PORCINE 5,000 UNIT/ML 1 ML VIAL SQ SCH ×2 (09:16→23:07)
[2019-08-10] MEDS: BACLOFEN 10 MG TAB PO SCH ×2 (09:16→22:59)
[2019-08-10] MEDS: HYDROcodone/APAP 5-325MG 1 EACH TAB PO PRN ×2 (09:17→15:20)
--- NOTE | 2019-08-10 10:22 | P.PN ---
Subjective Progress Note Date: 08/10/19 Principal diagnosis: This is a 58-year-old male with severe acute kidney injury and hyperkalemia. Etiology is still not determined. Patient has had previously rhabdomyolysis 2018 with CKs in the 19,000 range at a creatinine of 1.56 but which he recovered and his creatinine was 0.9 on 11/06/2027. He came in with the Carafate 0.96. He does admit taking nonsteroidals on a daily basis because of aches and pains. 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 Since admission his creatinine has stayed in the 9 range. Urine output has picked up E Sam catheter was placed because of post void residual of 400-500 mL. He is on IV fluids as well as Lasix to improve his potassium.potassium remains at 5.7 He has a Sam catheter, last 8 hour shift. 800 mL@900 mL of urine output with a Sam catheter He feels somewhat better denies any nausea vomiting. No chest pain shortness of breath. Objective - Vital Signs Vital signs: Vital Signs Temp 98.7 F 08/10/19 09:28 Pulse 99 08/10/19 09:28 Resp 20 08/10/19 09:28 BP 153/86 08/10/19 09:28 Pulse Ox 94 L 08/10/19 09:28 Intake & Output 08/09/19 08/10/19 08/10/19 18:59 06:59 18:59 Intake Total 2000 3080 125 Output Total 300 1400 Balance 1700 1680 125 Weight 99.79 kg 102.5 kg Intake: IV 2000 1000 Sodium Chloride 0.9% 1, 1000 000 ml @ 999 mls/hr IV . Q1H1M ONE Rx#:[id number] Sodium Chloride 0.9% 1, 1000 1000 000 ml @ 999 mls/hr IV . Q1H1M STA Rx#:[id number] Intake, IV Titration 1000 Amount Sodium Chloride 0.9% 1, 1000 000 ml @ 125 mls/hr IV . Q8H MARILYN Rx#:[id number] Oral 1080 125 Output: Urine 300 1400 Uretheral (Sam) 400 Other: Voiding Method Indwelling Catheter Indwelling Catheter # Voids 0 Awake alert oriented 3 but fairly severe choreoathetoid movements. No asterixis. HEENT exam no JVP neck is supple no facial asymmetry Lungs are clear to auscultation with good air entry bilaterally Heart sounds are unremarkable No murmur rub gallop Abdomen soft nontender Extreme exam was no edema Awake alert oriented with choreoathetoid movements. No asterixis. No focal motor deficit - Labs CBC & Chem 7: 08/10/19 06:28 08/10/19 06:28 Labs: Abnormal Lab Results - Last 24 Hours (Table) 08/09/19 08/09/19 08/09/19 Range/Units 11:30 11:30 12:38 RBC (4.30-5.90) m/uL Hgb 12.8 L (13.0-17.5) gm/dL Hct 38.1 L (39.0-53.0) % Neutrophils # (1.3-7.7) k/uL Lymphocytes # 0.8 L (1.0-4.8) k/uL Sodium 136 L (137-145) mmol/L Potassium 6.4 H* 6.1 H* (3.5-5.1) mmol/L Carbon Dioxide 19 L (22-30) mmol/L BUN 53 H 53 H (9-20) mg/dL Creatinine 8.96 H* 8.87 H* (0.66-1.25) mg/dL Glucose 123 H (74-99) mg/dL POC Glucose (mg/dL) (75-99) mg/dL Calcium 8.3 L (8.4-10.2) mg/dL Phosphorus (2.5-4.5) mg/dL Total Protein (PEP) (6.2-8.2) g/dL Urine Protein (Negative) Urine Blood (Negative) Urine Bacteria (None) /hpf Urine Mucus (None) /hpf U Random Total Protein (<12) mg/dL Urine Opiates Screen (NotDetected) MARTIN Screen (NEGATIVE) Hep C IgG Ab (Non-Reactive) 08/09/19 08/09/19 08/09/19 Range/Units 14:43 14:43 16:33 RBC (4.30-5.90) m/uL Hgb (13.0-17.5) gm/dL Hct (39.0-53.0) % Neutrophils # (1.3-7.7) k/uL Lymphocytes # (1.0-4.8) k/uL Sodium (137-145) mmol/L Potassium 5.5 H (3.5-5.1) mmol/L Carbon Dioxide (22-30) mmol/L BUN 53 H (9-20) mg/dL Creatinine 9.01 H* (0.66-1.25) mg/dL Glucose 71 L (74-99) mg/dL POC Glucose (mg/dL) 106 H (75-99) mg/dL Calcium (8.4-10.2) mg/dL Phosphorus (2.5-4.5) mg/dL Total Protein (PEP) 6.0 L (6.2-8.2) g/dL Urine Protein (Negative) Urine Blood (Negative) Urine Bacteria (None) /hpf Urine Mucus (None) /hpf U Random Total Protein (<12) mg/dL Urine Opiates Screen (NotDetected) MARTIN Screen POSITIVE H (NEGATIVE) Hep C IgG Ab Reactive H (Non-Reactive) 08/09/19 08/09/19 08/09/19 Range/Units 20:02 21:14 22:08 RBC (4.30-5.90) m/uL Hgb (13.0-17.5) gm/dL Hct (39.0-53.0) % Neutrophils # (1.3-7.7) k/uL Lymphocytes # (1.0-4.8) k/uL Sodium (137-145) mmol/L Potassium 5.7 H (3.5-5.1) mmol/L Carbon Dioxide (22-30) mmol/L BUN (9-20) mg/dL Creatinine (0.66-1.25) mg/dL Glucose (74-99) mg/dL POC Glucose (mg/dL) 100 H (75-99) mg/dL Calcium (8.4-10.2) mg/dL Phosphorus (2.5-4.5) mg/dL Total Protein (PEP) (6.2-8.2) g/dL Urine Protein (Negative) Urine Blood (Negative) Urine Bacteria (None) /hpf Urine Mucus (None) /hpf U Random Total Protein 24 H (<12) mg/dL Urine Opiates Screen (NotDetected) MARTIN Screen (NEGATIVE) Hep C IgG Ab (Non-Reactive) 08/09/19 08/10/19 08/10/19 Range/Units 22:08 01:45 06:28 RBC (4.30-5.90) m/uL Hgb (13.0-17.5) gm/dL Hct (39.0-53.0) % Neutrophils # (1.3-7.7) k/uL Lymphocytes # (1.0-4.8) k/uL Sodium (137-145) mmol/L Potassium 5.7 H 5.7 H (3.5-5.1) mmol/L Carbon Dioxide (22-30) mmol/L BUN 52 H 54 H (9-20) mg/dL Creatinine 9.15 H* 9.25 H* (0.66-1.25) mg/dL Glucose 71 L (74-99) mg/dL POC Glucose (mg/dL) (75-99) mg/dL Calcium 8.1 L 8.2 L (8.4-10.2) mg/dL Phosphorus 6.3 H (2.5-4.5) mg/dL Total Protein (PEP) (6.2-8.2) g/dL Urine Protein Trace H (Negative) Urine Blood Trace H (Negative) Urine Bacteria Rare H (None) /hpf Urine Mucus Rare H (None) /hpf U Random Total Protein (<12) mg/dL Urine Opiates Screen Detected H (NotDetected) MARTIN Screen (NEGATIVE) Hep C IgG Ab (Non-Reactive) 08/10/19 Range/Units 06:28 RBC 4.01 L (4.30-5.90) m/uL Hgb 12.0 L (13.0-17.5) gm/dL Hct 36.1 L (39.0-53.0) % Neutrophils # 8.3 H (1.3-7.7) k/uL Lymphocytes # 0.9 L (1.0-4.8) k/uL Sodium (137-145) mmol/L Potassium (3.5-5.1) mmol/L Carbon Dioxide (22-30) mmol/L BUN (9-20) mg/dL Creatinine (0.66-1.25) mg/dL Glucose (74-99) mg/dL POC Glucose (mg/dL) (75-99) mg/dL Calcium (8.4-10.2) mg/dL Phosphorus (2.5-4.5) mg/dL Total Protein (PEP) (6.2-8.2) g/dL Urine Protein (Negative) Urine Blood (Negative) Urine Bacteria (None) /hpf Urine Mucus (None) /hpf U Random Total Protein (<12) mg/dL Urine Opiates Screen (NotDetected) MARTIN Screen (NEGATIVE) Hep C IgG Ab (Non-Reactive) Assessment and Plan Assessment: Impression 1. Severe acute kidney injury possibly nonsteroidal related , rule out rhabdomyolysis as he has significant uncontrollable movement disorder. check uric acid to rule out uric acid nephropathy. MARTIN is positive other serologies pending. Urine protein to creatinine ratio is 24/126, urinalysis rather benign 2. Severe hyperkalemia, secondary to acute kidney injury heart 3. Possible outlet obstruction as he is post void residual. Currently has a Sam catheter 4. Mild degree of gap and non-gap acidosis secondary to acute kidney injury 5. Movement disorder, chronic Recommendation 1. Continue IV fluids and Lasix to improve potassium 2. Monitor labs 3. educated about possible need for dialysis and they also may need a biopsy 4. Check uric acid and total CPK to rule out rhabdomyolysis
[2019-08-10 10:24] LABS: Uric Acid 9.6 mg/dL (3.5-8.5)
[2019-08-10 11:21] LABS: Glucose,Whole Blood 95 mg/dL (75-99)
[2019-08-10] MEDS ORDERED: LORazepam 2 MG/ML INJ IV PRN (15:38)
[2019-08-10] MEDS ORDERED: LORazepam 0.5 MG TAB PO PRN (15:39)
--- NOTE | 2019-08-10 15:56 | P.PN ---
Subjective Progress Note Date: 08/10/19 Principal diagnosis: Acute renal failure Uncontrolled hypertension Hyperlipidemia 58-year-old male patient admitted to the hospital with acute renal failure 08/10/2019 Patient is seen and evaluated in room at bedside; nursing staff concerns about patient being very anxious Vital signs remained stable with a temperature of 98.7, pulse 99, respiration 20 and blood pressure 153 today 6 Laboratory review shows a creatinine of 9.25, BUN 54 and potassium level of 5.7 Nephrology is recommending to rule out rhabdomyolysis due to patient having significant dyskinesia; uric acid levels to rule out uric acid nephropathy; serologies have been ordered and RAMYA's positive Patient will continue with IV fluids and Lasix; patient might need renal biopsy and dialysis if remains unchanged Objective - Vital Signs Vital signs: Vital Signs Temp 97.3 F L 08/10/19 11:50 Pulse 78 08/10/19 11:50 Resp 20 08/10/19 11:50 BP 140/72 08/10/19 11:50 Pulse Ox 96 08/10/19 11:50 Intake & Output 08/09/19 08/10/19 08/10/19 18:59 06:59 18:59 Intake Total 2000 3080 125 Output Total 300 1400 Balance 1700 1680 125 Weight 99.79 kg 102.5 kg Intake: IV 2000 1000 Sodium Chloride 0.9% 1, 1000 000 ml @ 999 mls/hr IV . Q1H1M ONE Rx#:[id number] Sodium Chloride 0.9% 1, 1000 1000 000 ml @ 999 mls/hr IV . Q1H1M STA Rx#:[id number] Intake, IV Titration 1000 Amount Sodium Chloride 0.9% 1, 1000 000 ml @ 125 mls/hr IV . Q8H MARILYN Rx#:[id number] Oral 1080 125 Output: Urine 300 1400 Uretheral (Sam) 400 Other: Voiding Method Indwelling Catheter Indwelling Catheter # Voids 0 - Exam GENERAL: The patient is alert and oriented x3, not in any acute distress. Well developed, well nourished. HEENT: Pupils are round and equally reacting to light. EOMI. No scleral icterus. No conjunctival pallor. Normocephalic, atraumatic. No pharyngeal erythema. No thyromegaly. CARDIOVASCULAR: S1 and S2 present. No murmurs, rubs, or gallops. PULMONARY: Chest is clear to auscultation, no wheezing or crackles. ABDOMEN: Soft, nontender, nondistended, normoactive bowel sounds. No palpable organomegaly. MUSCULOSKELETAL: No joint swelling or deformity. EXTREMITIES: No cyanosis, clubbing, or pedal edema. NEUROLOGICAL: Gross neurological examination did not reveal any focal deficits. SKIN: No rashes. - Labs CBC & Chem 7: 08/10/19 06:28 08/10/19 06:28 Labs: Abnormal Lab Results - Last 24 Hours (Table) 08/09/19 08/09/19 08/09/19 Range/Units 14:43 14:43 16:33 RBC (4.30-5.90) m/uL Hgb (13.0-17.5) gm/dL Hct (39.0-53.0) % Neutrophils # (1.3-7.7) k/uL Lymphocytes # (1.0-4.8) k/uL Potassium 5.5 H (3.5-5.1) mmol/L BUN 53 H (9-20) mg/dL Creatinine 9.01 H* (0.66-1.25) mg/dL Glucose 71 L (74-99) mg/dL POC Glucose (mg/dL) 106 H (75-99) mg/dL Uric Acid (3.5-8.5) mg/dL Calcium (8.4-10.2) mg/dL Phosphorus (2.5-4.5) mg/dL Creatine Kinase (55-170) U/L Total Protein (PEP) 6.0 L (6.2-8.2) g/dL Urine Protein (Negative) Urine Blood (Negative) Urine Bacteria (None) /hpf Urine Mucus (None) /hpf U Random Total Protein (<12) mg/dL Urine Opiates Screen (NotDetected) MARTIN Screen POSITIVE H (NEGATIVE) Hep C IgG Ab Reactive H (Non-Reactive) 08/09/19 08/09/19 08/09/19 Range/Units 20:02 21:14 22:08 RBC (4.30-5.90) m/uL Hgb (13.0-17.5) gm/dL Hct (39.0-53.0) % Neutrophils # (1.3-7.7) k/uL Lymphocytes # (1.0-4.8) k/uL Potassium 5.7 H (3.5-5.1) mmol/L BUN (9-20) mg/dL Creatinine (0.66-1.25) mg/dL Glucose (74-99) mg/dL POC Glucose (mg/dL) 100 H (75-99) mg/dL Uric Acid (3.5-8.5) mg/dL Calcium (8.4-10.2) mg/dL Phosphorus (2.5-4.5) mg/dL Creatine Kinase (55-170) U/L Total Protein (PEP) (6.2-8.2) g/dL Urine Protein (Negative) Urine Blood (Negative) Urine Bacteria (None) /hpf Urine Mucus (None) /hpf U Random Total Protein 24 H (<12) mg/dL Urine Opiates Screen (NotDetected) MARTIN Screen (NEGATIVE) Hep C IgG Ab (Non-Reactive) 08/09/19 08/10/19 08/10/19 Range/Units 22:08 01:45 06:28 RBC (4.30-5.90) m/uL Hgb (13.0-17.5) gm/dL Hct (39.0-53.0) % Neutrophils # (1.3-7.7) k/uL Lymphocytes # (1.0-4.8) k/uL Potassium 5.7 H 5.7 H (3.5-5.1) mmol/L BUN 52 H 54 H (9-20) mg/dL Creatinine 9.15 H* 9.25 H* (0.66-1.25) mg/dL Glucose 71 L (74-99) mg/dL POC Glucose (mg/dL) (75-99) mg/dL Uric Acid (3.5-8.5) mg/dL Calcium 8.1 L 8.2 L (8.4-10.2) mg/dL Phosphorus 6.3 H (2.5-4.5) mg/dL Creatine Kinase (55-170) U/L Total Protein (PEP) (6.2-8.2) g/dL Urine Protein Trace H (Negative) Urine Blood Trace H (Negative) Urine Bacteria Rare H (None) /hpf Urine Mucus Rare H (None) /hpf U Random Total Protein (<12) mg/dL Urine Opiates Screen Detected H (NotDetected) MARTIN Screen (NEGATIVE) Hep C IgG Ab (Non-Reactive) 08/10/19 08/10/19 Range/Units 06:28 06:28 RBC 4.01 L (4.30-5.90) m/uL Hgb 12.0 L (13.0-17.5) gm/dL Hct 36.1 L (39.0-53.0) % Neutrophils # 8.3 H (1.3-7.7) k/uL Lymphocytes # 0.9 L (1.0-4.8) k/uL Potassium (3.5-5.1) mmol/L BUN (9-20) mg/dL Creatinine (0.66-1.25) mg/dL Glucose (74-99) mg/dL POC Glucose (mg/dL) (75-99) mg/dL Uric Acid 9.6 H (3.5-8.5) mg/dL Calcium (8.4-10.2) mg/dL Phosphorus (2.5-4.5) mg/dL Creatine Kinase 428 H (55-170) U/L Total Protein (PEP) (6.2-8.2) g/dL Urine Protein (Negative) Urine Blood (Negative) Urine Bacteria (None) /hpf Urine Mucus (None) /hpf U Random Total Protein (<12) mg/dL Urine Opiates Screen (NotDetected) MARTIN Screen (NEGATIVE) Hep C IgG Ab (Non-Reactive) Assessment and Plan Assessment: 1. Acute kidney injury. Unclear etiology. - There is no evidence of urinary retention or hydronephrosis on CT of abdomen and pelvis done in ED. No evidence of hypotension. Creatinine 8.96 on admission. Prior creatinine 0.9 in October 2017. - Nephrology is consulted and patient is recommended to continue with IV fluids in form of normal saline at a rate of 1 25 mL an hour; patient has been refusing Sam catheter; we will monitor strict LISA's and bladder scan per urology recom mendations twice a day to insure no urinary retention; nephrology workup with UA, serologies, urine eosinophil and phosphorus levels are pending; nephrology recommending to quantify proteinuria and monitor CK levels 2. Uncontrolled hypertension; we will restart home antihypertensive therapy in form of clonidine 0.1 mg 3 times a day and continue to monitor blood pressure closely 3. Hyperkalemia secondary to acute kidney injury and metabolic acidosis. Medically treated with IV calcium, IV insulin, nebulized albuterol in the ER; continue to monitor electrolytes. 4. Metabolic acidosis secondary to acute kidney injury; management as above. 5. Depression; continue home dose of Wellbutrin DVT prophylaxis; subcu heparin CODE STATUS; full code
[2019-08-10 16:41] LABS: Glucose,Whole Blood 81 mg/dL (75-99)
--- NOTE | 2019-08-10 17:08 | CONS ---
CONSULTATION DATE OF SERVICE: 08/10/2019. REASON FOR CONSULTATION: Dysphagia. HISTORY OF PRESENT ILLNESS: The patient is a 58-year-old white male who came to the emergency room yesterday complaining of increasing abdominal pain, abdominal bloating, decreased urine output, severe constipation, lightheadedness and dysphagia on and off for the last few weeks duration. The patient has prior history of seizure disorder, hypertension, and prostate cancer for which he underwent radiation therapy several years ago. He was also noted to have elevated BUN and creatinine during this hospitalization which were completely normal a year ago. We are consulted in evaluation of dysphagia. The patient states that he has a severe dry mouth and he has been having difficulty swallowing for the last 2 weeks. He denies any odynophagia. He does have history of gastroesophageal reflux disease and is maintained on ranitidine on outpatient basis. No history of esophagitis in the past. In the ER he had a CT of the abdomen and pelvis done that showed no evidence of hydronephrosis. PAST MEDICAL HISTORY: Significant for hypertension, diabetes mellitus, seizure disorder, prostate cancer. PAST SURGICAL HISTORY: None. MEDICATIONS AT HOME: Wellbutrin, Lioresal, Flomax, Catapres, ranitidine. ALLERGIES: None. SOCIAL HISTORY: No smoking. No alcohol use. FAMILY HISTORY: Mother diabetes mellitus. Father hypertension. REVIEW OF SYSTEMS: CARDIOPULMONARY: No chest pain, no shortness of breath. No dysuria or hematuria. MUSCULOSKELETAL: Unremarkable. SKIN: Unremarkable. ENDOCRINE: Unremarkable. PSYCHIATRIC: Unremarkable other than anxiety and depression. NEUROLOGY: History of seizure disorder. HEMATOLOGY: Unremarkable. ENDOCRINE: Unremarkable. CONSTITUTIONAL: No recent weight loss. No fever, chills, night sweats. PHYSICAL EXAMINATION: He appears comfortable. Blood pressure 153/86, pulse rate 99, temperature 98.7. HEENT examination unremarkable. Conjunctivae pink. Sclerae anicteric. Oral cavity no lesions. NECK: No JVD or lymph node enlargement. CHEST: Clear to auscultation. HEART: Regular rate and rhythm. ABDOMEN: Soft. Bowel sounds are positive. No organomegaly. EXTREMITIES: No pedal edema. NEURO: He has multiple involuntary movements involving the upper extremities. He is alert and oriented x3. No focal deficits. LAB DATA: At the time of admission to the hospital: WBC 6.9, hemoglobin 12.8, platelets normal. Basic metabolic panel is within normal limits. BUN 53, creatinine 9.01. Today, BUN is 52, creatinine is 9.15. AST, ALT, T-bilirubin and alkaline phosphatase are within normal limits. WBC 10.4, hemoglobin 12, platelets normal. ASSESSMENT: 1. Dysphagia to solids for the last 2 weeks duration. The patient states this is mostly related to severe dryness of the mouth, probably as a side effect of medications. This morning was eating pancakes for breakfast and was able to swallow reasonably well. He has no problems swallowing liquids. 2. Acute kidney injury. Nephrology following the patient closely. The patient's baseline creatinine was 1.2 a year ago, now it is 9.15. 3. History of seizure disorder. 4. History of anxiety, depression. RECOMMENDATIONS: In regards to the dysphagia, we will continue to monitor his oral intake closely. If he continues to have persistent symptoms we will consider imaging studies with a barium esophagogram. I will re-evaluate the patient tomorrow and further recommendations will follow. For now continue with current management and will follow with you closely. Thank you for this consultation. NUVIA / KARENN: [id number] /
[2019-08-10 21:01] LABS: Glucose,Whole Blood 70 mg/dL (75-99)
[2019-08-10 21:23] LABS: Glucose,Whole Blood 81 mg/dL (75-99)
[2019-08-10] MEDS: TAMSULOSIN 0.4 MG CAP.ER.24H PO SCH (22:59)
[2019-08-10 23:12] LABS: Glucose,Whole Blood 123 mg/dL (75-99)
[2019-08-11] MEDS: SODIUM CHLORIDE 0.9% 1,000 ML IV SCH ×4 (05:48→20:51)
[2019-08-11 05:53] LABS: Glucose,Whole Blood 103 mg/dL (75-99)
[2019-08-11 07:46] LABS: Potassium 5.8 mmol/L (3.5-5.1)
[2019-08-11] MEDS: BACLOFEN 10 MG TAB PO SCH (09:07)
[2019-08-11] MEDS: cloNIDine HCL 0.1 MG TAB PO SCH (09:07)
[2019-08-11] MEDS: HEPARIN SODIUM,PORCINE 5,000 UNIT/ML 1 ML VIAL SQ SCH ×2 (09:07→20:04)
[2019-08-11] MEDS: buPROPion XL 300 MG TAB.ER.24H PO SCH (09:07)
[2019-08-11] MEDS: buPROPion XL 150 MG TAB.ER.24H PO SCH (09:07)
--- NOTE | 2019-08-11 11:03 | PN ---
PROGRESS NOTE DATE OF DICTATION: 08/11/2019 The patient is a 58-year-old, pleasant, white male admitted to the hospital with uncontrolled hypertension, acute kidney failure, and tardive dyskinesia. This morning, patient has been having severe involuntary movements involving the entire body and has been extremely restless and anxious. As per the nursing staff, he has been drinking liquids without any dysphagia but he is complaining of dysphagia to solids. He reports no abdominal pain. No nausea or vomiting. PHYSICAL EXAMINATION: VITAL SIGNS: Stable. Blood pressure is 160/95, pulse rate 105, temperature 97.6. HEENT: Unremarkable. Conjunctivae pink. Sclerae anicteric. Oral cavity, no lesions. Extreme amount of involuntary movements precluding adequate examination of the abdomen and extremities have restless movements noted. NEURO: Tardive dyskinesia. Awake, oriented x3. LABS: From today, BUN is 55, creatinine 9.33. IMPRESSION: 1. Dysphagia to solids, no problem with liquids, probably related to dryness in the mouth from side effects from multiple medications he is taking, cannot rule out esophageal stricture. 2. Severe tardive dyskinesia, probably medication related. 3. Acute kidney failure. Nephrology following the patient closely. 4. Uncontrolled hypertension, improving. RECOMMENDATIONS: 1. We will obtain barium esophagram tomorrow to evaluate the swallowing and rule out esophageal stricture and, based on that, we will decide if he needs any endoscopic intervention. 2. Continue with current medications. 3. We will follow with you closely. Thank you for this consultation. NUVIA / RIYA: [id number] /
--- NOTE | 2019-08-11 11:23 | P.PN ---
Subjective Progress Note Date: 08/11/19 Principal diagnosis: This is a 58-year-old male with severe acute kidney injury and hyperkalemia. Etiology is still not determined. Patient has had previously rhabdomyolysis in 2018 with CKs in the 19,000 range at a creatinine of 1.56 but which he recovered and his creatinine was 0.9 on 11/06/2027. He came in with a creatinine of 9 Urine drug screen is positive for opiates. Urine protein to creatinine ratio is minimal 24/126. Urinalysis was a benign. There is no evidence of any hydronephrosis On computed tomography scan. MARTIN is positive, complement C3 and complement 4 are normal platelet count is normal therefore unlikely to be TTP. Cognition parameters are normal. Initially there was possibility of nonsteroidal related acute kidney injury as Yesterday he did admit to taking nonsteroidals frequently but today I spoke to his who says there is no such medication in his medication cabinet, he's been taking Tylenol though for headaches. She confirmed that usually he is quiet and not behaving the way he is behaving today which is extremely restless thrashing around completely disoriented and almost violent. His confirmed that he was paranoid but on medication he was very well controlled. He does wear a ankle tether because he is on parole in remote past he used to be a drug addict but he as been checked every 2 weeks and supposedly he is free of any medications or substance abuse. He does admit taking nonsteroidals on a daily basis because of aches and pains. 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 Since admission his creatinine has stayed in the 9 range. Urine output has picked up E Sam catheter was placed because of post void residual of 400-500 mL. He is on IV fluids as well as Lasix to improve his potassium.potassium remains at 5.7 He has a Sam catheter, last 8 hour shift. 800 mL@900 mL of urine output with a Sam catheter He feels somewhat better denies any nausea vomiting. No chest pain shortness of breath. Objective - Vital Signs Vital signs: Vital Signs Temp 97.6 F 08/11/19 08:00 Pulse 105 H 08/11/19 08:00 Resp 20 04/19/20 08:00 BP 160/95 08/11/19 08:00 Pulse Ox 92 L 08/11/19 08:00 Intake & Output 08/10/19 08/11/19 08/11/19 18:59 06:59 18:59 Intake Total 125 150 Output Total 1250 600 Balance -1125 -450 Weight 99.2 kg Intake: Oral 125 150 Output: Urine 1250 600 Other: Voiding Method Indwelling Catheter Indwelling Catheter Indwelling Catheter Examination was difficult as he was thrashing around and not able to do a good exam There is no facial asymmetry Lungs are clear to auscultation Heart sounds are unremarkable Abdomen soft Extremity exam was no edema He is extremely agitated confused and thrashing around - Labs CBC & Chem 7: 08/10/19 06:28 08/11/19 07:10 Labs: Abnormal Lab Results - Last 24 Hours (Table) 08/10/19 08/10/19 08/11/19 Range/Units 20:50 23:11 05:34 Potassium (3.5-5.1) mmol/L BUN (9-20) mg/dL Creatinine (0.66-1.25) mg/dL Glucose (74-99) mg/dL POC Glucose (mg/dL) 70 L 123 H 103 H (75-99) mg/dL 08/11/19 Range/Units 07:10 Potassium 5.8 H (3.5-5.1) mmol/L BUN 55 H (9-20) mg/dL Creatinine 9.33 H* (0.66-1.25) mg/dL Glucose 70 L (74-99) mg/dL POC Glucose (mg/dL) (75-99) mg/dL Assessment and Plan Assessment: Impression 1. Severe acute kidney injury possibly nonsteroidal related, although the patie nt admitted taking it yesterday but his is saying there is no such medication in his medication cabinet Rhabdomyolysis was ruled out with CPK is mildly elevated at 428 and uric acid is 9.6. Computed tomography scan of the abdomen does not show any hydronephrosis. MARTIN is positive complement C3-C4 normal urine protein to creatinine ratio is minimal at 44/126. urinalysis rather benign 2. Severe hyperkalemia, secondary to acute kidney injury heart 3. Possible outlet obstruction as he is post void residual. Currently has a Sam catheter 4. Mild degree of gap and non-gap acidosis secondary to acute kidney injury 5. Movement disorder, chronic. 6. Paranoid disorder controlled on Wellbutrin Recommendation 1. Patient has pulled out his Sam catheter and IV fluids. 2. Discussed in detail with his . We'll proceed with dialysis. He will need a Lui catheter for dialysis as well as sedation for dialysis. 3. He might be possibly withdrawing from opiates. 4. He will need a kidney biopsy if he does not require the next few days but is very difficult given his current state
[2019-08-11] MEDS: HYDROcodone/APAP 5-325MG 1 EACH TAB PO PRN (11:49)
[2019-08-11 12:16] LABS: Glucose,Whole Blood 71 mg/dL (75-99)
[2019-08-11] MEDS: PROPOFOL 1,000 MG in EMPTY BAG 1 BAG IV SCH ×4 (13:14→22:31)
[2019-08-11] MEDS: CISATRACURIUM 2 MG/ML 5 ML VIAL IV ONE ×2 (13:26→16:38)
--- NOTE | 2019-08-11 13:44 | XR ---
EXAMINATION TYPE: XR chest 1V portable DATE OF EXAM: 08/11/2019 HISTORY: Tube placement. REFERENCE: Previous study dated 08/09/2019. FINDINGS: The patient is intubated. ET tube is well at the level of the jewels and peaking into the r ight mainstem bronchus. This should be withdrawn 2 to 3 cm. There is left basilar airspace disease. There is right basilar atelectasis. The heart is not enlarged . There is blunting of the left CP angle. I could not exclude a tiny effusion. IMPRESSION: 1. LOW-LYING ET TUBE. THIS SHOULD BE WITHDRAWN 2 TO 3 CM. 2. LEFT BASILAR AIRSPACE DISEASE. 3. I COULD NOT EXCLUDE A SMALL LEFT-SIDED EFFUSION. THIS REPORT WAS PHONED TO KATHERINE IN THE ICU AT THE TIME OF REPORTING.
--- NOTE | 2019-08-11 14:21 | CONS ---
DATE OF CONSULTATION: 08/11/2019 This is a 58-year-old gentleman. I was called in by Dr. Caraballo, the senior label specialist, for urgent placement of hemodialysis catheter. The patient has acute kidney injury with renal failure with high BUN, creatinine, and potassium. The patient was seen in his room. He has severe involuntary movement involving the entire body and has been very restless. He has some kind of tardive dyskinesia symptoms. His creatinine is 9.33 and BUN is 55. The patient came with some abdominal pain. He has history of prostate cancer and had no treatment done in the past. The patient was seen in his room. He was lying on his belly and he is restless and moving upper and lower extremities. He pulled his IV and Sam catheter. PHYSICAL EXAMINATION: CHEST: Clear. ABDOMEN: Soft. Femorals were present. PLAN: This patient needs to be intubated urgently and patient needs urgent dialysis catheter. We will transfer him to the intensive care unit and place a dialysis catheter. MMODL / KARENN: [id number] / JENNY
--- NOTE | 2019-08-11 14:49 | XR ---
EXAMINATION TYPE: XR chest 1V portable DATE OF EXAM: 08/11/2019 COMPARISON: Today HISTORY: Check line placement TECHNIQUE: FINDINGS: Endotracheal tube is 4 cm from the jewels. Left jugular catheter has tip in the right atriu m. There is nasogastric tube in the distal stomach. There is no heart failure. There is poor inspirat ion with atelectasis at the lung bases. Heart size is normal. IMPRESSION: Bilateral basilar atelectasis unchanged. Tubing in good position.
--- NOTE | 2019-08-11 14:51 | CONS ---
DATE OF CONSULTATION: 08/11/2019 PREOP: Acute on chronic renal failure. PROCEDURE PERFORMED: 1. Ultrasound-guided dialysis catheter placed in the right femoral approach. 2. Placement of a central line ultrasound-guided left jugular approach. DESCRIPTION OF PROCEDURE: This patient was seen in his room. The patient has been intubated. He has a history of chronic renal failure and tardive dyskinesia. The right groin was prepped and drapes applied in a sterile manner. 1% lidocaine went to the right groin. Micropuncture introduced right femoral vein. Ultrasound-guided micropuncture guidewire was passed and 4-Moldovan dilator advanced on the top of the guidewire. Then we passed a regular guidewire without any resistance. After that, we placed the dilator and then we placed a dialysis catheter on top of the guidewire, flushed with heparin saline and hep-locked, secured with 3-0 nylon. This was done under local anesthesia. After that, left side of the neck was prepped and drapes applied in the usual sterile manner. 1% lidocaine infiltrated. Ultrasound-guided micropuncture introducer left jugular vein. Micropuncture guidewire was passed and 4-Moldovan dilator advanced on top of the guidewire. Then we passed a regular guidewire. Then dilator was advanced and then a triple-lumen central line catheter advanced on the top of the guidewire which was flushed with heparin saline and hep-locked. Secured with 3-0 nylon. Dressing applied. Patient tolerated the procedure well. MMODL / IJN: [id number] / [id number]
[2019-08-11] MEDS: NOREPINEPHRINE 8 MG in SODIUM CHLORIDE 0.9% 250 ML IV SCH (15:42)
[2019-08-11] MEDS ORDERED: CISATRACURIUM 2 MG/ML 5 ML VIAL IV ONE (16:00)
[2019-08-11 16:16] LABS: ABG Base Excess -4.3 mmol/L; ABG HCO3 21 mmol/L (21-25); ABG PCO2 38 mmHg (35-45); ABG PH 7.36 (7.35-7.45); ABG PO2 >400 mmHg (83-108); ABG TCO2 22 mmol/L (19-24); Allen Test Performed? Yes
--- NOTE | 2019-08-11 16:54 | CONS ---
CONSULTATION PULMONARY/CRITICAL CARE CONSULTATION: DATE OF CONSULTATION: August 11, 2019 HISTORY OF PRESENT ILLNESS: This is a 58-year-old male with a history of high blood pressure, seizure disorder, who apparently came to the emergency room on August 08 at 10:49 complaining of multiple things including abdominal pain, abdominal bloating, decreased urine output, constipation, lightheadedness, and shortness of breath for 1-2 weeks. The patient apparently has a history of prostate cancer many years ago and he has received treatment on radiation. He apparently had not had any followup. He denied any fever, chills or chest pain. There is no nausea or vomiting. He apparently did not have much in the way of p.o. fluids or solid foods in a week or so prior to coming to the ER. He did mention that he was recovering addict, according to the ER herminio. He was admitted to the hospital. Today, I was called that he was apparently found to be having abnormal movements in what they thought were extrapyramidal side effects. He apparently was taking Artane in the past. Anyway, he was found to have rhabdomyolysis, by the mechanical maintenance instructor, and the mechanical maintenance instructor recommended an emergent hemodialysis. Dr. Soto was called and came in and put a hemodialysis catheter in the patient and was also kind enough to put a central line in for the patient. The patient was intubated for airway protection and for his safety and transferring the patient to the ICU and doing both the lines and providing hemodialysis. This is the first time I was called about the patient even though he has been here for a couple days now. My nurse practitioner, Dr. Garcia was here and did do a quick evaluation of the patient in the ICU. Currently, he is on the ventilator. His settings include the volume assist- control mode rate of 20, tidal volume 500, FiO2 100%, PEEP of 5. Gases yet to be done. He is on norepinephrine at 0.03 mcg/kg/per minute and Diprivan at 50 mcg/kg per minute. He did receive Nimbex as a 1 time order for safety and putting in the lines. Currently, he is receiving hemodialysis. HOME MEDS: His home medications include Wellbutrin, Baclofen, ranitidine, Flomax, Catapres, Augmentin, aspirin, calamine lotion, metoprolol, Benadryl, and prednisone. Also, apparently, although it is not listed on his med list, he was on trihexyphenidyl which is Artane. ALLERGIES: Denied. PAST MEDICAL HISTORY: Positive for prostate cancer, diabetes, hypertension, and seizure disorder. SURGICAL HISTORY: Surgical history is apparently not reported. SOCIAL HISTORY: The patient apparently is a lifelong nonsmoker. Does not use alcohol or drugs, although he is apparently recovering addict, according to the ER herminio. FAMILY HISTORY: Positive for mother with diabetes and father with diabetes and hypertension. REVIEW OF SYSTEMS: Cannot be obtained, he is currently on the mechanical ventilator. From the ER herminio and from what I heard today of the issues related to the multiple complaints as I mentioned in my chief complaint, as well as to the abnormal movements that he was apparently having not just today, but also over the last couple of days. PHYSICAL EXAMINATION: VITAL SIGNS: Current vital signs are reviewed. Temperature is 97.6, heart rate 82, respiratory rate 18, blood pressure 128/76. His room air saturation was 93% apparently on the floor. His current saturations are 100%. He is currently sedated on the ventilator. Both on propofol at 60 mcg/kg per minute and the norepinephrine as I mentioned at 0.03 mcg/kg/per minute. HEENT: Examination is grossly unremarkable. He has an orally placed endotracheal tube and NG tube. NECK: Supple. CARDIOVASCULAR examination reveals regular rhythm rate. Heart rate about 100 beats per minute. S1, S2 normal. LUNGS: Reveal relatively clear breath sounds. A few scattered rhonchi. ABDOMEN: Soft. EXTREMITIES are intact. SKIN: Without rash. NEUROLOGIC: Examination cannot be adequately assessed at this time as he is quite heavily sedated. LABS: Reviewed. The only labs of note were a sodium 143, potassium 5.8, chloride 102, CO2 22, anion gap 19, BUN and creatinine were 55 and 9.33. These electrolytes are consistent with an anion gap metabolic acidosis. His calcium was 9. His drug screen was positive for opiates. His MARTIN screen was positive. His hep C screen was also positive. From yesterday, white count was 10.4, hemoglobin 12, hematocrit 36.1, and platelet count was 240,000. Medications are reviewed. He is on baclofen, Wellbutrin, chlorhexidine, he got 1 dose and Nimbex, clonidine, Lasix but that was discontinued, subcu heparin, [place], Ativan, Narcan, norepinephrine, Protonix, propofol Flomax, and saline IV. That is running at 20 mL an hour. ASSESSMENT: 1. Acute kidney injury, of unclear etiology, currently being evaluated by Nephrology. 2. Anion gap metabolic acidosis, requiring urgent hemodialysis. 3. Elective intubation and mechanical ventilation for airway protection and ease of hemodialysis and line placement. 4. Hyperkalemia. 5. Benign essential hypertension. 6. Anion gap metabolic acidosis. 7. Apparent tardive dyskinesia and/or extrapyramidal side effects secondary to Artane. 8. History of prostate cancer. 9. Diabetes mellitus. 10.History of seizure disorder. 11.Hepatitis C. PLAN: The patient is currently undergoing emergent hemodialysis. A hemodialysis catheter was placed by Dr. Soto. A central line was also placed by Dr. Soto. An art line will be placed by myself. Stat blood gas will be done. The patient remains on norepinephrine and Diprivan. The patient's medication list will be reviewed and adjusted accordingly. He is on a couple of medications that he cannot take at this time because they will worsen his blood pressure. Overall prognosis is guarded. Additional recommendations and suggestions are forthcoming. He was intubated by Anesthesia. Additional recommendations and suggestions are forthcoming. Prognosis is guarded. MMODL / IJN: [id number] / JENNY
--- NOTE | 2019-08-11 17:18 | P.PN ---
Subjective Progress Note Date: 08/11/19 Principal diagnosis: Acute renal failure Uncontrolled hypertension Hyperlipidemia 58-year-old male patient admitted to the hospital with acute renal failure 08/10/2019 Patient is seen and evaluated in room at bedside; nursing staff concerns about patient being very anxious Vital signs remained stable with a temperature of 98.7, pulse 99, respiration 20 and blood pressure 153 today 6 Laboratory review shows a creatinine of 9.25, BUN 54 and potassium level of 5.7 Nephrology is recommending to rule out rhabdomyolysis due to patient having significant dyskinesia; uric acid levels to rule out uric acid nephropathy; serologies have been ordered and RAMYA's positive Patient will continue with IV fluids and Lasix; patient might need renal biopsy and dialysis if remains unchanged 08/11/2019 Patient is seen and evaluated in ICU; nephrology recommended emergent dialysis; vascular surgery was consulted and hemodialysis catheter was placed; due to abnormal movements patient was intubated for airway protection and transferred to ICU; patient is currently undergoing emergent hemodialysis; patient is cur rently on norepinephrine and Diprivan Objective - Vital Signs Vital signs: Vital Signs Temp 97.6 F 08/11/19 12:00 Pulse 82 08/11/19 12:00 Resp 20 08/11/19 12:00 BP 128/76 08/11/19 12:00 Pulse Ox 93 L 08/11/19 12:00 Intake & Output 08/10/19 08/11/19 08/11/19 18:59 06:59 18:59 Intake Total 125 150 200 Output Total 1250 600 Balance -1125 -450 200 Weight 99.2 kg Intake: Oral 125 150 200 Output: Urine 1250 600 Other: Voiding Method Indwelling Catheter Indwelling Catheter Indwelling Catheter - Exam GENERAL: The patient is intubated HEENT: Pupils are round and equally reacting to light. CARDIOVASCULAR: S1 and S2 present. No murmurs, rubs, or gallops. PULMONARY: Chest is clear to auscultation, no wheezing or crackles. ABDOMEN: Soft, nontender, nondistended, normoactive bowel sounds. No palpable organomegaly. MUSCULOSKELETAL: No joint swelling or deformity. EXTREMITIES: No cyanosis, clubbing, or pedal edema. NEUROLOGICAL: Gross neurological examination did not reveal any focal deficits. SKIN: No rashes. - Labs CBC & Chem 7: 08/10/19 06:28 08/11/19 07:10 Labs: Abnormal Lab Results - Last 24 Hours (Table) 08/10/19 08/10/19 08/11/19 Range/Units 20:50 23:11 05:34 Potassium (3.5-5.1) mmol/L BUN (9-20) mg/dL Creatinine (0.66-1.25) mg/dL Glucose (74-99) mg/dL POC Glucose (mg/dL) 70 L 123 H 103 H (75-99) mg/dL 08/11/19 08/11/19 Range/Units 07:10 11:59 Potassium 5.8 H (3.5-5.1) mmol/L BUN 55 H (9-20) mg/dL Creatinine 9.33 H* (0.66-1.25) mg/dL Glucose 70 L (74-99) mg/dL POC Glucose (mg/dL) 71 L (75-99) mg/dL Assessment and Plan Assessment: 1. Acute kidney injury. Unclear etiology. - There is no evidence of urinary retention or hydronephrosis on CT of abdomen and pelvis done in ED. No evidence of hypotension. Creatinine 8.96 on admission. Prior creatinine 0.9 in October 2017. - Nephrology is consulted and patient is recommended to continue with IV fluids in form of normal saline at a rate of 1 25 mL an hour; patient has been refusing Sam catheter; we will monitor strict LISA's and bladder scan per urology recommendations twice a day to insure no urinary retention; nephrology workup with UA, serologies, urine eosinophil and phosphorus levels are pending; nephrology recommending to quantify proteinuria and monitor CK levels 2. Uncontrolled hypertension; we will restart home antihypertensive therapy in form of clonidine 0.1 mg 3 times a day and continue to monitor blood pressure closely 3. Hyperkalemia secondary to acute kidney injury and metabolic acidosis. Medically treated with IV calcium, IV insulin, nebulized albuterol in the ER; continue to monitor electrolytes. 4. Metabolic acidosis secondary to acute kidney injury; management as above. 5. Depression; continue home dose of Wellbutrin DVT prophylaxis; subcu heparin CODE STATUS; full code
[2019-08-11] MEDS: CHLORHEXIDINE GLUCONATE 15 ML CUP MUCOUS MEM SCH (20:04)
[2019-08-11] MEDS ORDERED: cloNIDine 0.1 MG/24HR PATCH TRANSDERM SCH (23:30)
[2019-08-11 23:46] LABS: Glucose,Whole Blood 68 mg/dL (75-99)
[2019-08-11] MEDS ORDERED: DEXTROSE 50% SYRINGE 50 ML IVP STA (23:47)
[2019-08-12 00:18] LABS: Glucose,Whole Blood 134 mg/dL (75-99)
[2019-08-12] MEDS: PROPOFOL 1,000 MG in EMPTY BAG 1 BAG IV SCH ×9 (01:04→21:57)
[2019-08-12] MEDS ORDERED: hydrALAZINE HCL 20 MG/ML 1 ML VIAL IVP STA (01:08)
[2019-08-12 04:29] LABS: Basophils % (A) 0 %; Eosinophils # (A) 0.2 k/uL (0-0.7); Eosinophils % (A) 3 %; HCT 35.1 % (39.0-53.0); HGB 11.8 gm/dL (13.0-17.5); Lymphocytes % (A) 14 %; MCH 30.3 pg (25.0-35.0); MCHC 33.6 g/dL (31.0-37.0); MCV 90.4 fL (80.0-100.0); Mean Platelet Volume 8.4; Monocytes # (A) 0.7 k/uL (0-1.0); Monocytes % (A) 9 %; Neutrophils # (A) 5.3 k/uL (1.3-7.7); Neutrophils % (A) 72 %; Platelet Count 210 k/uL (150-450); RBC 3.88 m/uL (4.30-5.90); RDW 12.8 % (11.5-15.5); WBC 7.3 k/uL (3.8-10.6)
--- NOTE | 2019-08-12 04:36 | PCN ---
PROCEDURE NOTE PROCEDURE: Right radial arterial line. PREOPERATIVE DIAGNOSIS: Frequent blood draws and blood gas monitoring. POSTOPERATIVE DIAGNOSIS: Frequent blood draws and blood gas monitoring. APNS: Dr. James ARTERIAL LINE PLACEMENT: Indications: Hemodynamic monitoring. A time-out was completed verifying correct patient, procedure, site, positioning, and implant(s) or special equipment if applicable. Giovani's test was performed to ensure adequate perfusion. The patient's right wrist was prepped and draped in sterile fashion. 1% Lidocaine was used to anesthetize the area. An 18G Arrow arterial line was introduced into the right radial artery. The catheter was threaded over the guide wire and the needle was removed with appropriate pulsatile blood return. Blood loss was minimal. The catheter was then sutured in place to the skin and a sterile dressing applied. Perfusion to the extremity distal to the point of catheter insertion was checked and found to be adequate. The patient tolerated the procedure well and there were no complications. There was no immediate complication. There was good waveform and blood pressure reading. There was informed consent and universal timeout. There was no immediate complication. The catheter was sutured in place and sterile dressing was applied by the nurse. MMODL / IJN: [id number] /
[2019-08-12 04:38] LABS: Calcium 8.8 mg/dL (8.4-10.2); Potassium 4.4 mmol/L (3.5-5.1)
[2019-08-12 05:31] LABS: Glucose,Whole Blood 74 mg/dL (75-99)
[2019-08-12 05:40] LABS: ABG Base Excess -2.3 mmol/L; ABG HCO3 23 mmol/L (21-25); ABG Oxygen Saturation 98.5 % (94-97); ABG PCO2 40 mmHg (35-45); ABG PH 7.37 (7.35-7.45); ABG PO2 124 mmHg (83-108); ABG TCO2 24 mmol/L (19-24); Allen Test Performed? Yes
[2019-08-12] MEDS: SODIUM CHLORIDE 0.9% 1,000 ML IV SCH ×4 (06:26→20:36)
--- NOTE | 2019-08-12 07:31 | XR ---
EXAMINATION TYPE: XR chest 1V portable DATE OF EXAM: 08/12/2019 COMPARISON: NONE HISTORY: SOB, Follow Up FINDINGS: Indwelling tubes and catheters are unchanged. Scattered interstitial infiltrates persist. Additional atelectasis or infiltrate at the lung bases. N o significant change. Stable appearance of the cardio-mediastinal structures at this time. IMPRESSION: 1. Stable portable chest. Clinical correlation and follow up until resolution is recommended.
[2019-08-12 08:39] LABS: Glucose,Whole Blood 78 mg/dL (75-99)
[2019-08-12] MEDS: PANTOPRAZOLE 40 MG/10 ML VIAL IV SCH (09:05)
[2019-08-12] MEDS: CHLORHEXIDINE GLUCONATE 15 ML CUP MUCOUS MEM SCH ×2 (09:05→20:02)
[2019-08-12] MEDS: HEPARIN SODIUM,PORCINE 5,000 UNIT/ML 1 ML VIAL SQ SCH ×2 (09:05→20:02)
--- NOTE | 2019-08-12 10:11 | P.PN ---
Subjective Progress Note Date: 08/12/19 Is a 58-year-old male patient was Hospital as for multiple complaints of abdominal pain, abdominal bloating and decreased urine output in addition to shortness of breath a few weeks duration. The patient has history of prostate cancer of she years duration and the patient was being treated with radiation therapy. The patient at the time of admission denied having any fever or chills. He is on intake was quite diminished and he came into the hospital for those reason the patient was found to be having some abnormal body movements related to extrapyramidal side effects of medication. He was taking Artane in the past. In the hospital, the patient was found to have rhabdomyolysis and acute kidney injury. He was intubated for airway protection and he was transferred to the intensive care unit. The patient is a time of admission had acute kidney injury with hyperkalemia and his creatinine at time of admission was 8.9 with a potassium level of 6.4. He does not have any history of chronic kidney disease. 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 After being trialed on IV fluids, the patient's renal function got worse and the patient had to be dialyzed regarding his acute kidney failure. Note that the patient has had previous episodes of rhabdomyolysis. His urine toxin was positive for opiates. The rest of urinalysis was benign. MARTIN was positive and the complements including C3 and C4 were normal. his hepatitis C IgG antibodies were reactive. As such, the exact cause of his acute kidney injury was not known. It was suspected to be related to nonsteroidal anti-inflammatory medication. Dialysis was initiated via yesterday via Lui catheter was placed by vascular surgery. The patient is being contemplated also for a kidney biopsy.. In terms of his pulmonary status, he shouldn't is currently intubated on a mechanical ventilator. His assist-control mode of ventilation at the rate of 20 with tidal volume of 500 and a PEEP of 5 and FiO2 is being gradually titrated to maintain a saturation above 90%. He was also requiring a low dose norepinephrine infusion for blood pressure control. Is on Diprivan for sedation. The chest x-ray post intubation showed no significant abnormalities. ET tube was in a good location. The patient has a left IJ triple-lumen catheter in place and the blood gases showed adequate oxygenation. The patient was On IV fluids and he is receiving normal saline at the rate of 125 mL an hour. Norepinephrine for blood pressure control and propofol for sedation. On today's evaluation of 08/12/2019, the patient remains on a mechanical ventilator. He is on assist control of 20 with a tidal volume of 500 and a PEEP of 5 with an FiO2 of 40%. Blood gas show pH of 7.37 with a pCO2 of 40 and pO2 124. Chest x-ray shows some atelectatic changes and small effusion the lung bases. The patient remains on propofol at 75 g. The patient remains on normal saline at the rate 125 mL an hour. The plan is to proceed with dialysis today. The white cell count is at 7.3. The creatinine is at 6.4. Urine output has been in the order of 1.8 L over the past 24 hours. Objective - Vital Signs Vital signs: Vital Signs Temp 96.5 F L 08/12/19 04:00 Pulse 66 08/12/19 06:00 Resp 20 08/12/19 06:00 BP 167/88 08/12/19 06:00 Pulse Ox 99 08/12/19 06:00 Intake & Output 08/11/19 08/11/19 08/12/19 06:59 18:59 06:59 Intake Total 150 4137.507 5336.726 Output Total 600 1290 587 Balance -450 842.743 3271.726 Weight 99.2 kg 99.2 kg Intake: IV 750 1408 Pressure Bag 0.9NS 33 Sodium Chloride 0.9% 1, 750 1375 000 ml @ 125 mls/hr IV . Q8H MARILYN Rx#:[id number] Intake, IV Titration 109.278 480.726 Amount Norepinephrine 8 mg In 9.278 5.44 Sodium Chloride 0.9% 250 ml @ 0.05 MCG/KG/MIN 9. 598 mls/hr IV .Q24H MARILYN Rx#:[id number] Propofol 1,000 mg In 100.000 475.286 Empty Bag 1 bag @ Titrate IV .Q0M MARILYN Rx#: [id number] Oral 150 200 Hemodialysis 500 Output: Gastric Drainage 700 100 Urine 600 590 487 Other: Voiding Method Indwelling Catheter Indwelling Catheter Indwelling Catheter ABP, PAP, CO, CI - Last Documented Arterial Blood Pressure 200/81 - Exam GENERAL: The patient is intubatedand on the mechanical ventilator as well sedated for now, orogastric and orotracheal tube are both in place and the patient has a left IJ triple-lumen catheter in place. Head exam was generally normal. There was no scleral icterus or corneal arcus. Mucous membranes were moist. Neck was supple and without jugular venous distension, thyromegaly, or carotid bruits. Carotids were easily palpable bilaterally. There was no adenopathy. Cardiac exam revealed the PMI to be normally situated and sized. The rhythm was regular and no extrasystoles were noted during several minutes of auscultation. The first and second heart sounds were normal and physiologic splitting of the second heart sound was noted. There were no murmurs, rubs, clicks, or gallops. Abdominal exam revealed normal bowel sounds. The abdomen was soft, non-tender, and without masses, organomegaly, or appreciable enlargement of the abdominal aorta. Lungs were clear to auscultation and percussion, and with normal diaphragmatic excursion. No wheezes or rales were noted. Examination of the extremities revealed easily palpable radial, femoral and pedal pulses. There was no cyanosis, clubbing or edema. Examination of the skin revealed no evidence of significant rashes, suspicious appearing nevi or other concerning lesions. Neurologically the patient is sedated, comfortable - Labs CBC & Chem 7: 08/12/19 04:08/12/19 04:20 Labs: Abnormal Lab Results - Last 24 Hours (Table) 08/11/19 08/11/19 08/11/19 Range/Units 07:10 11:59 16:11 RBC (4.30-5.90) m/uL Hgb (13.0-17.5) gm/dL Hct (39.0-53.0) % ABG pO2 >400 H (83-108) mmHg ABG O2 Saturation 100.0 H (94-97) % Potassium 5.8 H (3.5-5.1) mmol/L BUN 55 H (9-20) mg/dL Creatinine 9.33 H* (0.66-1.25) mg/dL Glucose 70 L (74-99) mg/dL POC Glucose (mg/dL) 71 L (75-99) mg/dL 08/11/19 08/12/19 08/12/19 Range/Units 23:45 00:17 04:20 RBC 3.88 L (4.30-5.90) m/uL Hgb 11.8 L (13.0-17.5) gm/dL Hct 35.1 L (39.0-53.0) % ABG pO2 (83-108) mmHg ABG O2 Saturation (94-97) % Potassium (3.5-5.1) mmol/L BUN (9-20) mg/dL Creatinine (0.66-1.25) mg/dL Glucose (74-99) mg/dL POC Glucose (mg/dL) 68 L 134 H (75-99) mg/dL 08/12/19 08/12/19 08/12/19 Range/Units 04:20 05:30 05:35 RBC (4.30-5.90) m/uL Hgb (13.0-17.5) gm/dL Hct (39.0-53.0) % ABG pO2 124 H (83-108) mmHg ABG O2 Saturation 98.5 H (94-97) % Potassium (3.5-5.1) mmol/L BUN 37 H (9-20) mg/dL Creatinine 6.43 H (0.66-1.25) mg/dL Glucose (74-99) mg/dL POC Glucose (mg/dL) 74 L (75-99) mg/dL Assessment and Plan Plan: 1. acute respiratory failure, the patient was not hypoxic nor he was hypercapnic. The patient's was having abnormal movements and he was anxious and altered and the patient had to be intubated for airway protection and got transferred to the intensive care unit. For that reason pulmonary and critical care services were involved. Chest x-ray showed no evidence of an acute pneumonia. ET tube is in a good location. The patient is oxygenating and ventilating well for now. 2 acute kidney injury possibly nonsteroidal related, and there are no other obvious causes. No evidence of any significant rhabdomyolysis. CAT scan of the abdomen did not show any significant hydronephrosis. The patient has a positive MARTIN. The complements are within normal. He has hepatitis C IgG was reactive. N evertheless he doesn't have any significant proteinuria. He may need a kidney biopsy for further investigation. For now the patient is receiving dialysis for complications related to acute kidney injury. 3 Severe hyperkalemia, secondary to acute kidney injury , currently on hemodialysis for history of prostate cancer receiving radiation therapy with questionable outlet obstruction as high post void residual. Currently has a Sam catheternd the patient's risk of the abdomen did not show any significanth ydronephrosis 4. Mild degree of gap and non-gap acidosis secondary to acute kidney injury 5. Movement disorder, chronic. 6. Paranoid disorder controlled on Wellbutrin 7 hypertension 8 history of seizure disorder 9 history of diabetes mellitus Plan Continue vent support for another 24 hours Neurology evaluation in regards to the movement disorder prior to considering any extubation Chest x-ray and blood gases was noted The patient on propofol at 75 g Hemodialysis today We are seeing improvement in the urine output We'll continue to follow and will make further recommendations based on her progress. The patient will be also started on enteral feeding for nutritional support. This evaluation was done and more than 30 minutes and this is a critically care evaluation. Time with Patient: Greater than 30
[2019-08-12 10:31] LABS: C-ANCA <1:20 Titer (<1:20)
--- NOTE | 2019-08-12 12:17 | P.PN ---
Subjective 58-year-old male appears to have been admitted for acute renal failure which appears to be secondary to nonsteroidal anti-inflammatory medications patient has a movement disorder and appears to have some automatic movements because of which they were unable to place a dialysis catheter. Patient was subsequently intubated because of his mental status and his automatic movements. I'm unable to assess him neurologically. And a had a lengthy discussion with the nursing staff and neurologist patient that it appears to have had a movement disorder or cardiac dyskinesia in the past and has been, noncompliant with medications. Patient is also on high-dose of Wellbutrin which can cause myoclonus and seizures EEG is being obtained and neurology recommended an MRI to rule out any stroke that may have precipitated his movement disorder not clear what kind of movement disorder patient has, there possibility of hemibellismus, myoclonus or even seizure. Neurology will evaluate the patient once patient is extubated and off sedation. Patient most probably can be extubated today patient did receive her dialysis catheter and patient received hemodialysis. Review of systems: Unable to obtain due to her clinical condition All inpatient medications were reviewed and appropriate changes in these medications as dictated in the interval history and assessment and plan. Objective - Vital Signs Vital signs: Vital Signs Temp 98.2 F 08/12/19 08:00 Pulse 89 08/12/19 10:00 Resp 20 08/12/19 10:00 BP 158/106 08/12/19 10:00 Pulse Ox 98 08/12/19 10:00 Intake & Output 08/11/19 08/12/19 08/12/19 18:59 06:59 18:59 Intake Total 4320.644 1356.942 612 Output Total 1290 587 208 Balance 382.710 6429.942 404 Weight 99.2 kg 99.2 kg Intake: IV 750 1408 512 Pressure Bag 0.9NS 33 12 Sodium Chloride 0.9% 1, 750 1375 500 000 ml @ 125 mls/hr IV . Q8H [facility] Rx#:[id number] Intake, IV Titration 109.278 546.942 100 Amount Norepinephrine 8 mg In 9.278 5.44 Sodium Chloride 0.9% 250 ml @ 0.05 MCG/KG/MIN 9. 598 mls/hr IV .Q24H [facility] Rx#:[id number] Propofol 1,000 mg In 100.000 541.502 100 Empty Bag 1 bag @ Titrate IV .[facility] Rx#: [id number] Oral 200 Hemodialysis 500 Output: Gastric Drainage 700 100 Urine 590 487 208 Other: Voiding Method Indwelling Catheter Indwelling Catheter Indwelling Catheter ABP, PAP, CO, CI - Last Documented Arterial Blood Pressure 146/97 - Exam PHYSICAL EXAMINATION: GENERAL: Patient is intubated and sedated HEENT: Pupils are round and equally reacting to light. EOMI. No scleral icterus. No conjunctival pallor. Normocephalic, atraumatic. No pharyngeal erythema. No thyromegaly. CARDIOVASCULAR: S1 and S2 present. No murmurs, rubs, or gallops. PULMONARY: Chest is clear to auscultation, no wheezing or crackles. ABDOMEN: Soft, nontender, nondistended, normoactive bowel sounds. No palpable organomegaly. MUSCULOSKELETAL: No joint swelling or deformity. EXTREMITIES: No cyanosis, clubbing, or pedal edema. NEUROLOGICAL: Patient is sedated unable to assess SKIN: No rashes. - Labs CBC & Chem 7: 08/12/19 04:20 08/12/19 04:20 Labs: Abnormal Lab Results - Last 24 Hours (Table) 08/11/19 08/11/19 08/11/19 Range/Units 11:59 16:11 23:45 RBC (4.30-5.90) m/uL Hgb (13.0-17.5) gm/dL Hct (39.0-53.0) % ABG pO2 >400 H (83-108) mmHg ABG O2 Saturation 100.0 H (94-97) % BUN (9-20) mg/dL Creatinine (0.66-1.25) mg/dL POC Glucose (mg/dL) 71 L 68 L (75-99) mg/dL 08/12/19 08/12/19 08/12/19 Range/Units 00:17 04: 04:20 RBC 3.88 L (4.30-5.90) m/uL Hgb 11.8 L (13.0-17.5) gm/dL Hct 35.1 L (39.0-53.0) % ABG pO2 (83-108) mmHg ABG O2 Saturation (94-97) % BUN 37 H (9-20) mg/dL Creatinine 6.43 H (0.66-1.25) mg/dL POC Glucose (mg/dL) 134 H (75-99) mg/dL 08/12/19 08/12/19 Range/Units 05:30 05:35 RBC (4.30-5.90) m/uL Hgb (13.0-17.5) gm/dL Hct (39.0-53.0) % ABG pO2 124 H (83-108) mmHg ABG O2 Saturation 98.5 H (94-97) % BUN (9-20) mg/dL Creatinine (0.66-1.25) mg/dL POC Glucose (mg/dL) 74 L (75-99) mg/dL Microbiology - Last 24 Hours (Table) 08/11/19 22:30 Sputum Culture - Preliminary Sputum Assessment and Plan Plan: -Acute renal failure: Appears to be in a state induced patient was started on hemodialysis. She doesn't have eosinophilia him a trace proteinuria, anticoagulation has hepatitis C IgG antibody positive any positive. Patient received hemodialysis. Patient doesn't have rhabdomyolysis. Patient has a Sam catheter there was a concern about postobstructive uropathy -Hypertension uncontrolled patient was started on clonidine with better controlled blood pressures -Hyperkalemia secondary to renal failure which resolved -Possible myoclonus versus hemiballismus versus choreoathetoid movements versus tardive dyskinesia: Neurology will evaluate the patient will cut down the dose of Wellbutrin obtain an MRI and EEG will be obtained as well, rule out stroke -History of seizure disorder, Wellbutrin dose is being decreased as mentioned above -Depression
[2019-08-12 12:20] LABS: Glucose,Whole Blood 75 mg/dL (75-99)
[2019-08-12 13:02] LABS: DNA Double-Stranded NEGATIVE (NEGATIVE)
[2019-08-12] MEDS: cloNIDine 0.2 MG/24HR PATCH TRANSDERM SCH (13:29)
[2019-08-12 13:57] LABS: Albumin 3.42 g/dL (3.80-4.90); Gamma Globulin 0.74 g/dL (0.70-1.50)
--- NOTE | 2019-08-12 14:41 | P.PN ---
Subjective Progress Note Date: 08/12/19 Principal diagnosis: Dysphagia, hepatitis C antibody positive 58-year-old male who is been intubated since initial consultation yesterday. GI was called to evaluate for concerned over solid food dysphagia. Patient had required hemodialysis with his movement disorder prohibitive of catheter placement and was subsequently intubated. Swallow evaluation with x-ray esophagram had been ordered which has not been performed secondary to the above- mentioned. Objective - Vital Signs Vital signs: Vital Signs Temp 98.1 F 08/12/19 12:00 Pulse 82 08/12/19 13:00 Resp 20 08/12/19 13:00 BP 150/110 08/12/19 13:00 Pulse Ox 98 08/12/19 13:00 Intake & Output 08/11/19 08/12/19 08/12/19 18:59 06:59 18:59 Intake Total 2073.131 0569.942 968 Output Total 1290 587 308 Balance 092.938 3408.942 660 Weight 99.2 kg 99.2 kg Intake: IV 750 1408 768 Pressure Bag 0.9NS 33 18 Sodium Chloride 0.9% 1, 750 1375 750 000 ml @ 125 mls/hr IV . Q8H [facility] Rx#:[id number] Intake, IV Titration 109.278 546.942 200 Amount Norepinephrine 8 mg In 9.278 5.44 Sodium Chloride 0.9% 250 ml @ 0.05 MCG/KG/MIN 9. 598 mls/hr IV .Q24H [facility] Rx#:[id number] Propofol 1,000 mg In 100.000 541.502 200 Empty Bag 1 bag @ Titrate IV .Q0M [facility] Rx#: [id number] Oral 200 Hemodialysis 500 Output: Gastric Drainage 700 100 Urine 590 487 308 Other: Voiding Method Indwelling Catheter Indwelling Catheter Indwelling Catheter ABP, PAP, CO, CI - Last Documented Arterial Blood Pressure 174/96 - Exam On physical examination, patient appears comfortable in no apparent distress. HEAD: Normocephalic, atraumatic. EYES: No scleral icterus. No conjunctival injection. MOUTH: No lesions, tongue midline, endotracheal tube in place. NECK: Trachea midline, no gross abnormalities. CHEST: Coarse respiratory noises in all lung cheung ABDOMEN: Soft, nontender to palpation. Bowel sounds are positive. No organomegaly. No guarding or rigidity. EXTREMITIES: No pedal edema. SKIN: No rashes, no jaundice. NEUROLOGIC: Intubated and sedated. - Labs CBC & Chem 7: 08/12/19 04:20 08/12/19 04:20 Labs: Abnormal Lab Results - Last 24 Hours (Table) 08/09/19 08/11/19 08/11/19 Range/Units 14:43 16:11 23:45 RBC (4.30-5.90) m/uL Hgb (13.0-17.5) gm/dL Hct (39.0-53.0) % ABG pO2 >400 H (83-108) mmHg ABG O2 Saturation 100.0 H (94-97) % BUN (9-20) mg/dL Creatinine (0.66-1.25) mg/dL POC Glucose (mg/dL) 68 L (75-99) mg/dL Albumin (PEP) 3.42 L (3.80-4.90) g/dL 08/12/19 08/12/19 08/12/19 Range/Units 00:17 04:20 04:20 RBC 3.88 L (4.30-5.90) m/uL Hgb 11.8 L (13.0-17.5) gm/dL Hct 35.1 L (39.0-53.0) % ABG pO2 (83-108) mmHg ABG O2 Saturation (94-97) % BUN 37 H (9-20) mg/dL Creatinine 6.43 H (0.66-1.25) mg/dL POC Glucose (mg/dL) 134 H (75-99) mg/dL Albumin (PEP) (3.80-4.90) g/dL 08/12/19 08/12/19 Range/Units 05:30 05:35 RBC (4.30-5.90) m/uL Hgb (13.0-17.5) gm/dL Hct (39.0-53.0) % ABG pO2 124 H (83-108) mmHg ABG O2 Saturation 98.5 H (94-97) % BUN (9-20) mg/dL Creatinine (0.66-1.25) mg/dL POC Glucose (mg/dL) 74 L (75-99) mg/dL Albumin (PEP) (3.80-4.90) g/dL Microbiology - Last 24 Hours (Table) 08/11/19 22:30 Gram Stain - Preliminary Sputum Sputum Culture - Preliminary Assessment and Plan (1) Esophageal dysphagia Narrative/Plan: 58-year-old male with multiple medical comorbidities currently undergoing tr eatment for acute kidney failure requiring hemodialysis, rhabdomyolysis, movement disorder of unknown etiology was complained of solid food dysphagia. Swallow evaluation ordered with esophagram which is not then performed as the patient required intubation for catheter placement. Unknown etiology, with suspicion for medication effect with a stricture less likely. We'll hold off further evaluation until extubated. Current Visit: Yes Status: Acute Code(s): R13.10 - DYSPHAGIA, UNSPECIFIED SNOMED Code(s): 51947702 (2) Hepatitis C antibody positive in blood Narrative/Plan: Hepatitis C antibody positive in the patient's blood. Unknown hepatitis status, may be secondary to prior exposure and clearance or active infection with further evaluation ordered. Current Visit: Yes Status: Acute Code(s): R76.8 - OTHER SPECIFIED ABNORMAL IMMUNOLOGICAL FINDINGS IN SERUM SNOMED Code(s): 951969714 Plan: Supportive care Nothing by mouth at this time, intubated and sedated stated, but okay to initiate tube feeds as needed Defer swallow evaluation until patient is extubated Hepatitis C genotype and viral load ordered Defer management of movement disorder, acute kidney failure and other medical comorbidities to consulting services Thank you for allowing us to participate in the care of the patient we will continue to follow
--- NOTE | 2019-08-12 15:21 | PN ---
PROGRESS NOTE Patient is seen for followup for acute kidney injury. Patient was started on dialysis over the weekend. He will receive his second treatment today. Patient is seen on dialysis. Urology has been consulted for the mental status changes and abnormal movements that patient had prior to his intubation and sedation for dialysis. He has had good urine output with 24 hour output of about 1.8 L. The patient is stable on the vent. FiO2 is at 40%. His blood pressure has been slightly on the higher side. He is not on any pressors. PHYSICAL EXAMINATION: Today, patient is on the vent. He is sedated, comfortable. Bilateral breath sounds are heard. Abdomen is soft, nontender. Examination of lower extremities shows no significant edema. 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 LABS: Show hemoglobin 11.8, white cell count 7.3 sodium 142, potassium 4.2, chloride 104, BUN 37, creatinine 6.43. Hepatitis C antibody. IgG was positive. Other serologies negative except for MARTIN, which was high, which was positive. Complement levels are not low. ASSESSMENT: 1. Acute kidney injury, ATN versus underlying acute GN, currently started on dialysis. So far MARTIN is positive. All other serologies are negative. UA was quite benign appearing, therefore I doubt acute active GN. However, patient will need a kidney biopsy in the next few days. 2. Altered mentation, etiology unclear, possible withdrawal. Neurology has been consulted. 3. Severe hyperkalemia associated with acute kidney injury, now improved. 4. Mild metabolic acidosis, gap and non gap, currently improved with dialysis. 5. Paranoid disorder maintained on Wellbutrin with previous history of seizures. Rule out underlying seizures. PLAN: Repeat hemodialysis in a.m. Wean off sedation depending on the EEG result by tomorrow and consider kidney biopsy down the road. Continue to avoid nephrotoxic agents and will monitor for possible recovery of renal function. MMODL / IJN: [id number] /
[2019-08-12] MEDS ORDERED: buPROPion 75 MG TAB PO SCH (16:00)
--- NOTE | 2019-08-12 17:38 | P.CNNES ---
History of Present Illness Consult date: 08/12/19 Reason for Consult: Abnormal involuntary movements Chief complaint: Chorea-like movements. History of Present Illness: This is a new neurology consult requested for further advice and recommendations for a 58-year-old male who was admitted for abdominal pain and acute renal failure. The history provided is from the ICU nurse who acquired this history today directly from his spouse. This patient has past medical history significant for hepatitis C, hypertension and is in remission for prostate cancer. Patient also has a history of diabetes and is noncompliant with management. The history is also remarkable for substance abuse with primarily steroids marijuana and stimulants. The patient was incarcerated for 13 years for drug charges and is currently tethered with ankle bracelet. He reportedly undergoes drug testing every several weeks since the past 2 years. Urine drug screen does however show opioids. According to report this patient has a history of severe restless legs over the last several years. For reasons unclear he developed tardive dyskinesia with oral pupil dyskinesias several months ago. He has a history of abnormal movements in his hands which are observed to be chorea-like once off sedation. According to the spouse the abnormal hand movements in his arms and hands has been going on for the past year. He is known to be taking Wellbutrin and has been using this as an inhaling medication. There is also concerned by his spouse that he has overdosed on this. She reportedly has to lock up his medications so he will not over take them. He has a history of being put on Artane possibly during the incarceration. For paranoia. This only worsened his altered mental status and then was discontinued. The only other medication that his reports that he takes is Tylenol with caffeine, this could be possibly codeine. Past medical history as described above. Social history. Patient was to his current and then remarried again 2 years ago. They're known have 2 children he is disabled. Review of Systems Due to the patient being intubated a review of systems was not obtainable at this time. Past Medical History Past Medical History: Cancer, Diabetes Mellitus, Hypertension, Seizure Disorder Additional Past Medical History / Comment(s): Prostate cancer, states had Radiation seeds about 2009. States quit taking Metformin. History of Any Multi-Drug Resistant Organisms: None Reported Past Surgical History: No Surgical Hx Reported Past Anesthesia/Blood Transfusion Reactions: No Reported Reaction Past Psychological History: Depression Smoking Status: Never smoker Past Alcohol Use History: None Reported Past Drug Use History: None Reported - Past Family History Mother Family Medical History: Diabetes Mellitus Father Family Medical History: Diabetes Mellitus, Hypertension Medications and Allergies Home Medications Medication Instructions Recorded Confirmed Type buPROPion HCL [Wellbutrin XL] 300 mg PO DAILY 03/24/16 08/09/19 History Baclofen [Lioresal] 20 mg PO BID 11/04/17 08/09/19 History Tamsulosin HCl [Flomax] 0.4 mg PO HS 11/04/17 08/09/19 History cloNIDine HCL [Catapres] 0.1 mg PO TID 11/04/17 08/09/19 History Ranitidine HCl 150 mg PO BID 08/09/19 08/09/19 History buPROPion XL [Wellbutrin Xl] 150 mg PO DAILY 08/09/19 08/09/19 History Allergies Allergy/AdvReac Type Severity Reaction Status Date / Time No Known Allergies Allergy Verified 08/09/19 15:19 Physical Examination - Vital Signs Vital Signs: Vital Signs Temp Pulse Pulse Resp BP BP Pulse Ox 08/12/19 16:25 97.7 F 74 20 165/92 08/12/19 14:00 80 20 169/111 99 08/12/19 13:00 82 20 150/110 98 08/12/19 12:00 98.1 F 81 20 158/102 98 08/12/19 11:00 81 20 133/100 98 08/12/19 10:00 89 20 158/106 98 08/12/19 09:00 74 20 164/105 99 08/12/19 08:00 98.2 F 68 30 H 155/97 99 08/12/19 07:00 68 20 148/94 99 08/12/19 06:00 66 20 167/88 99 08/12/19 05:00 64 20 168/102 99 08/12/19 04:00 96.5 F L 62 20 137/92 99 08/12/19 03:00 69 20 136/84 99 08/12/19 02:00 70 20 137/81 98 08/12/19 01:00 64 20 169/104 98 08/12/19 00:00 96.1 F L 65 20 146/93 98 08/11/19 23:00 64 20 146/95 99 08/11/19 22:00 60 20 122/81 100 08/11/19 21:00 67 20 119/77 98 08/11/19 20:00 96.5 F L 62 20 119/78 99 08/11/19 19:00 66 20 120/73 99 08/11/19 18:00 70 20 123/76 99 Intake and Output 08/12/19 08/12/19 08/12/19 06:59 14:59 22:59 Intake Total 7548.720 5885 94.488 Output Total 543 587 3947 Balance 976.008 766 -1105.512 Intake: IV 1024 1024 Pressure Bag 0.9NS 24 24 Sodium Chloride 0.9% 1, 1000 1000 000 ml @ 125 mls/hr IV . Q8H [facility] Rx#:[id number] Intake, IV Titration 354.008 200 94.488 Amount Propofol 1,000 mg In 354.008 200 94.488 Empty Bag 1 bag @ Titrate IV .Q0M [facility] Rx#: [id number] Output: Urine 402 458 Hemodialysis 1200 Other: Voiding Method Indwelling Catheter Indwelling Catheter Weight 99.2 kg 99.2 kg ABP, PAP, CO, CI - Last 8 Hours Arterial Blood Pressure 156/96 Arterial Blood Pressure 174/96 Arterial Blood Pressure 210/96 Arterial Blood Pressure 183/98 Arterial Blood Pressure 146/97 Patient was taken off sedation to perform neurological exam. Mental status: Intubated. Unable to follow commands. Pupils: 3 mm symmetric sluggishly reactive to light. Cranial nerve examination: Roving eye movements. No purposeful tracking. Face appears symmetric. Very depressed gag reflex. Motor examination: Patient is moving all 4 extremities equally. Chorea-like movements are noted in the upper extremities involving the arms and hands. The lower extremities are notable restlessness flexion and extension frequently. No fasciculations or tremors noted. Deep tendon reflexes: Depressed throughout. Plantar responses are flexor bilate rally. No ankle clonus is elicited. Sensory examination: Patient does withdraw bilaterally on both feet with plantar stimulation. Gen. exam: HEENT: Mildly injected sclera. Pulses: Radial pedal pulses appear equal and symmetric. Extremities: No edema noted in the feet however mild edema nonpitting is noted in the hands bilaterally. Skin: Multiple bruises of different ages noted in the upper extremities. No rash petechia or hemorrhage noted. Results - Laboratory Findings CBC and BMP: 08/12/19 04:20 08/12/19 04:20 Abnormal Lab Findings: Abnormal Labs 08/09/19 08/09/19 08/09/19 11:30 11:30 12:38 RBC Hgb 12.8 L Hct 38.1 L Neutrophils # Lymphocytes # 0.8 L ABG pO2 ABG O2 Saturation Sodium 136 L Potassium 6.4 H* 6.1 H* Carbon Dioxide 19 L BUN 53 H 53 H Creatinine 8.96 H* 8.87 H* Glucose 123 H POC Glucose (mg/dL) Uric Acid Calcium 8.3 L Phosphorus Creatine Kinase Total Protein (PEP) Albumin (PEP) Urine Protein Urine Blood Urine Bacteria Urine Mucus U Random Total Protein Urine Opiates Screen MARTIN Screen Hep C IgG Ab 08/09/19 08/09/19 08/09/19 14:43 14:43 16:33 RBC Hgb Hct Neutrophils # Lymphocytes # ABG pO2 ABG O2 Saturation Sodium Potassium 5.5 H Carbon Dioxide BUN 53 H Creatinine 9.01 H* Glucose 71 L POC Glucose (mg/dL) 106 H Uric Acid Calcium Phosphorus Creatine Kinase Total Protein (PEP) 6.0 L Albumin (PEP) 3.42 L Urine Protein Urine Blood Urine Bacteria Urine Mucus U Random Total Protein Urine Opiates Screen MARTIN Screen POSITIVE H Hep C IgG Ab Reactive H 08/09/19 08/09/19 08/09/19 20:02 21:14 22:08 RBC Hgb Hct Neutrophils # Lymphocytes # ABG pO2 ABG O2 Saturation Sodium Potassium 5.7 H Carbon Dioxide BUN Creatinine Glucose POC Glucose (mg/dL) 100 H Uric Acid Calcium Phosphorus Creatine Kinase Total Protein (PEP) Albumin (PEP) Urine Protein Urine Blood Urine Bacteria Urine Mucus U Random Total Protein 24 H Urine Opiates Screen MARTIN Screen Hep C IgG Ab 08/09/19 08/10/19 08/10/19 22:08 01:45 06:28 RBC Hgb Hct Neutrophils # Lymphocytes # ABG pO2 ABG O2 Saturation Sodium Potassium 5.7 H 5.7 H Carbon Dioxide BUN 52 H 54 H Creatinine 9.15 H* 9.25 H* Glucose 71 L POC Glucose (mg/dL) Uric Acid Calcium 8.1 L 8.2 L Phosphorus 6.3 H Creatine Kinase Total Protein (PEP) Albumin (PEP) Urine Protein Trace H Urine Blood Trace H Urine Bacteria Rare H Urine Mucus Rare H U Random Total Protein Urine Opiates Screen Detected H MARTIN Screen Hep C IgG Ab 08/10/19 08/10/19 08/10/19 06:28 06:28 20:50 RBC 4.01 L Hgb 12.0 L Hct 36.1 L Neutrophils # 8.3 H Lymphocytes # 0.9 L ABG pO2 ABG O2 Saturation Sodium Potassium Carbon Dioxide BUN Creatinine Glucose POC Glucose (mg/dL) 70 L Uric Acid 9.6 H Calcium Phosphorus Creatine Kinase 428 H Total Protein (PEP) Albumin (PEP) Urine Protein Urine Blood Urine Bacteria Urine Mucus U Random Total Protein Urine Opiates Screen MARTIN Screen Hep C IgG Ab 08/10/19 08/11/19 08/11/19 23:11 05:34 07:10 RBC Hgb Hct Neutrophils # Lymphocytes # ABG pO2 ABG O2 Saturation Sodium Potassium 5.8 H Carbon Dioxide BUN 55 H Creatinine 9.33 H* Glucose 70 L POC Glucose (mg/dL) 123 H 103 H Uric Acid Calcium Phosphorus Creatine Kinase Total Protein (PEP) Albumin (PEP) Urine Protein Urine Blood Urine Bacteria Urine Mucus U Random Total Protein Urine Opiates Screen MARTIN Screen Hep C IgG Ab 08/11/19 08/11/19 08/11/19 11:59 16:11 23:45 RBC Hgb Hct Neutrophils # Lymphocytes # ABG pO2 >400 H ABG O2 Saturation 100.0 H Sodium Potassium Carbon Dioxide BUN Creatinine Glucose POC Glucose (mg/dL) 71 L 68 L Uric Acid Calcium Phosphorus Creatine Kinase Total Protein (PEP) Albumin (PEP) Urine Protein Urine Blood Urine Bacteria Urine Mucus U Random Total Protein Urine Opiates Screen MARTIN Screen Hep C IgG Ab 08/12/19 08/12/19 08/12/19 00:17 04:20 04:20 RBC 3.88 L Hgb 11.8 L Hct 35.1 L Neutrophils # Lymphocytes # ABG pO2 ABG O2 Saturation Sodium Potassium Carbon Dioxide BUN 37 H Creatinine 6.43 H Glucose POC Glucose (mg/dL) 134 H Uric Acid Calcium Phosphorus Creatine Kinase Total Protein (PEP) Albumin (PEP) Urine Protein Urine Blood Urine Bacteria Urine Mucus U Random Total Protein Urine Opiates Screen MARTIN Screen Hep C IgG Ab 08/12/19 08/12/19 05:30 05:35 RBC Hgb Hct Neutrophils # Lymphocytes # ABG pO2 124 H ABG O2 Saturation 98.5 H Sodium Potassium Carbon Dioxide BUN Creatinine Glucose POC Glucose (mg/dL) 74 L Uric Acid Calcium Phosphorus Creatine Kinase Total Protein (PEP) Albumin (PEP) Urine Protein Urine Blood Urine Bacteria Urine Mucus U Random Total Protein Urine Opiates Screen MARTIN Screen Hep C IgG Ab - Diagnostic Findings EKG: report reviewed Chest x-ray: report reviewed Abdominal x-ray: report reviewed Assessment and Plan Assessment: This is a 58 show male with a complicated past medical history admitted for abdominal pain and acute kidney injury. Patient is now for first time in his life on dialysis. He was required to be intubated sedated due to the abnormal involuntary movements and inability to sustain a line for dialysis. Based on this patient's history and age high on the differential would be Winkler's disease. In the 40s and 50s is the peak time when symptoms may begin the manifest. Other causes for chorea include metabolic disturbance as well as structural brain mass lesions in the extrapyramidal system and the brain such as the caudate. Summary 1. Abnormal involuntary movements characteristic of chorea 2. History of severe restless leg syndrome, confirmed on exam. 3. Acute kidney injury requiring dialysis. 4. Significant history for substance abuse and currently misusing Wellbutrin as inhalant with history of overdosing on Wellbutrin. 5. History suspicious for excessive serotonin syndrome. Plan: Recommendations 1. Obtain MRI of the brain without contrast to further evaluate for neurodegenerative disease or other intracranial pathology such as structural mass lesion. 2. MRA of the head and neck without contrast to rule out large vessel occlusion/aneurysm high-grade stenosis. 3. EEG to rule out subclinical seizure activity. 4. Anemia workup to rule out secondary etiology for restless leg syndrome. 5. Metabolic workup to further evaluate possible excessive serotonin syndrome. 6. CK to assess for muscle damage. This may be a reason for the increase creatinine leading to kidney failure. This patient's prognosis remains very guarded. Further recommendations will be made as this case evolves. Thank you for allowing me to produce pain in the care of your patient.
[2019-08-12 19:18] LABS: Glucose,Whole Blood 84 mg/dL (75-99)
[2019-08-12] MEDS: NOREPINEPHRINE 8 MG in SODIUM CHLORIDE 0.9% 250 ML IV SCH (19:21)
[2019-08-12] MEDS: buPROPion 75 MG TAB PO SCH (20:02)
[2019-08-12] MEDS ORDERED: hydrALAZINE HCL 50 MG TAB PO SCH (21:00)
[2019-08-13] MEDS: PROPOFOL 1,000 MG in EMPTY BAG 1 BAG IV SCH ×10 (00:07→21:52)
[2019-08-13 00:31] LABS: Glucose,Whole Blood 85 mg/dL (75-99)
[2019-08-13 04:48] LABS: Basophils % (A) 0 %; Eosinophils # (A) 0.2 k/uL (0-0.7); Eosinophils % (A) 2 %; HCT 38.8 % (39.0-53.0); HGB 12.8 gm/dL (13.0-17.5); Lymphocytes # (A) 0.6 k/uL (1.0-4.8); Lymphocytes % (A) 7 %; MCH 30.4 pg (25.0-35.0); MCHC 32.8 g/dL (31.0-37.0); MCV 92.6 fL (80.0-100.0); Mean Platelet Volume 8.8; Monocytes # (A) 0.7 k/uL (0-1.0); Monocytes % (A) 8 %; Neutrophils # (A) 7.2 k/uL (1.3-7.7); Neutrophils % (A) 81 %; Platelet Count 176 k/uL (150-450); RBC 4.19 m/uL (4.30-5.90); RDW 13.2 % (11.5-15.5); WBC 8.9 k/uL (3.8-10.6)
[2019-08-13 04:56] LABS: Calcium 8.3 mg/dL (8.4-10.2); Potassium 4.3 mmol/L (3.5-5.1)
[2019-08-13 05:14] LABS: ABG HCO3 20 mmol/L (21-25); ABG Oxygen Saturation 97.6 % (94-97); ABG PCO2 34 mmHg (35-45); ABG PH 7.38 (7.35-7.45); ABG PO2 101 mmHg (83-108); ABG TCO2 21 mmol/L (19-24)
[2019-08-13] MEDS: SODIUM CHLORIDE 0.9% 1,000 ML IV SCH ×3 (05:37→16:26)
[2019-08-13 06:16] LABS: Allen Test Performed? no
--- NOTE | 2019-08-13 08:08 | XR ---
EXAMINATION TYPE: XR chest 1V portable DATE OF EXAM: 08/13/2019 COMPARISON: 08/12/2019 INDICATION: Tube placement TECHNIQUE: Single frontal view of the chest is obtained. FINDINGS: The heart size is normal. The pulmonary vasculature is normal. Suspicious infiltrates are not evident. There are some mild stable scattered lung markings present Endotracheal tube tip is 8.7 cm above the jewels. This can be advanced. Nasogastric tube transverses the thorax the tip within the abdomen. Left central venous catheter is present with the tip in the ri ght atrium. IMPRESSION: 1. Endotracheal tube is been pulled back somewhat from the prior examination, currently 8.7 cm above the jewels. This can be advanced. 2. Remaining lines and catheters appear stable in position. 3. Minimal stable lung markings are present.
[2019-08-13] MEDS ORDERED: HEPARIN SODIUM,PORCINE 5,000 UNIT/ML 1 ML VIAL ONE (08:30)
[2019-08-13] MEDS: hydrALAZINE HCL 25 MG TAB PO SCH ×3 (08:34→20:13)
[2019-08-13] MEDS: CHLORHEXIDINE GLUCONATE 15 ML CUP MUCOUS MEM SCH ×2 (08:34→20:12)
[2019-08-13] MEDS: HEPARIN SODIUM,PORCINE 5,000 UNIT/ML 1 ML VIAL SQ SCH ×2 (08:34→20:13)
[2019-08-13] MEDS: PANTOPRAZOLE 40 MG/10 ML VIAL IV SCH (08:34)
[2019-08-13] MEDS: buPROPion 75 MG TAB PO SCH ×2 (08:36→20:12)
--- NOTE | 2019-08-13 11:28 | P.PN ---
Subjective Progress Note Date: 08/13/19 Is a 58-year-old male patient was Hospital as for multiple complaints of abdominal pain, abdominal bloating and decreased urine output in addition to shortness of breath a few weeks duration. The patient has history of prostate cancer of she years duration and the patient was being treated with radiation therapy. The patient at the time of admission denied having any fever or chills. He is on intake was quite diminished and he came into the hospital for those reason the patient was found to be having some abnormal body movements related to extrapyramidal side effects of medication. He was taking Artane in the past. In the hospital, the patient was found to have rhabdomyolysis and acute kidney injury. He was intubated for airway protection and he was transferred to the intensive care unit. The patient is a time of admission had acute kidney injury with hyperkalemia and his creatinine at time of admission was 8.9 with a potassium level of 6.4. He does not have any history of chronic kidney disease. 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 After being trialed on IV fluids, the patient's renal function got worse and the patient had to be dialyzed regarding his acute kidney failure. Note that the patient has had previous episodes of rhabdomyolysis. His urine toxin was positive for opiates. The rest of urinalysis was benign. MARTIN was positive and the complements including C3 and C4 were normal. his hepatitis C IgG antibodies were reactive. As such, the exact cause of his acute kidney injury was not known. It was suspected to be related to nonsteroidal anti-inflammatory medication. Dialysis was initiated via yesterday via Lui catheter was placed by vascular surgery. The patient is being contemplated also for a kidney biopsy.. In terms of his pulmonary status, he shouldn't is currently intubated on a mechanical ventilator. His assist-control mode of ventilation at the rate of 20 with tidal volume of 500 and a PEEP of 5 and FiO2 is being gradually titrated to maintain a saturation above 90%. He was also requiring a low dose norepinephrine infusion for blood pressure control. Is on Diprivan for sedation. The chest x-ray post intubation showed no significant abnormalities. ET tube was in a good location. The patient has a left IJ triple-lumen catheter in place and the blood gases showed adequate oxygenation. The patient was On IV fluids and he is receiving normal saline at the rate of 125 mL an hour. Norepinephrine for blood pressure control and propofol for sedation. On today's evaluation of 08/12/2019, the patient remains on a mechanical ventilator. He is on assist control of 20 with a tidal volume of 500 and a PEEP of 5 with an FiO2 of 40%. Blood gas show pH of 7.37 with a pCO2 of 40 and pO2 124. Chest x-ray shows some atelectatic changes and small effusion the lung bases. The patient remains on propofol at 75 g. The patient remains on normal saline at the rate 125 mL an hour. The plan is to proceed with dialysis today. The white cell count is at 7.3. The creatinine is at 6.4. Urine output has been in the order of 1.8 L over the past 24 hours. On today's evaluation of 08/13/2019 on seeing this patient for a follow-up in the intensive care unit. The patient remains intubated on a mechanical ventilator. This morning, the patient assist-control mode at the rate of 20 with tidal volume of 500 and FiO2 of 40% with a PEEP of 5. The blood gases showed a pH of 7.38 with a pCO2 of 34 and pO2 of 100. The patient's chest x-ray stable. The patient is on normal saline today to 125 mL an hour. Urine output is adequate. The patient underwent dialysis. The patient is on propofol at 75 g per KG per minute. I was inclined and extubating this patient. However I was told that he has significant amount of movement disorder which may essential ly and that our ability to dialyze him. Furthermore, on having further discussion with nephrology, it seems that the patient will ultimately have a permacath insertion and for that reason a delayed the extubation process. For now, the patient has a positive fluid balance of 1.8 L over the past 24 hours. He is afebrile. The urine output is in order of a liter or more on a daily basis. The BUN is at 31 with a creatinine of 4.3. The patient is quite comfortable was sedation with propofol and no movement disorder has been noted. 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 Objective - Vital Signs Vital signs: Vital Signs Temp 98.1 F 08/13/19 08:00 Pulse 99 04/21/20 11:00 Resp 18 08/13/19 11:00 BP 105/77 08/13/19 11:00 Pulse Ox 96 08/13/19 11:00 Intake & Output 08/12/19 08/13/19 08/13/19 18:59 06:59 18:59 Intake Total 0764.407 0728.000 564.048 Output Total 1658 836 145 Balance 993.067 0228.000 419.048 Weight 99.2 kg 99.2 kg Intake: IV 1533 1676 407 Pressure Bag 0.9NS 33 51 12 Sodium Chloride 0.9% 1, 1500 1625 395 000 ml @ 125 mls/hr IV . Q8H MARILYN Rx#:[id number] Intake, IV Titration 394.488 472.000 87.048 Amount Propofol 1,000 mg In 394.488 472.000 87.048 Empty Bag 1 bag @ Titrate IV .Q0M MARILYN Rx#: [id number] Tube Feeding 120 40 Other 120 30 Output: Urine 458 836 145 Hemodialysis 1200 Other: Voiding Method Indwelling Catheter Indwelling Catheter Indwelling Catheter ABP, PAP, CO, CI - Last Documented Arterial Blood Pressure 110/61 - Exam GENERAL: The patient is intubatedand on the mechanical ventilator as well sedated for now, orogastric and orotracheal tube are both in place and the mamie ent has a left IJ triple-lumen catheter in place. Head exam was generally normal. There was no scleral icterus or corneal arcus. Mucous membranes were moist. Neck was supple and without jugular venous distension, thyromegaly, or carotid bruits. Carotids were easily palpable bilaterally. There was no adenopathy. Cardiac exam revealed the PMI to be normally situated and sized. The rhythm was regular and no extrasystoles were noted during several minutes of auscultation. The first and second heart sounds were normal and physiologic splitting of the second heart sound was noted. There were no murmurs, rubs, clicks, or gallops. Abdominal exam revealed normal bowel sounds. The abdomen was soft, non-tender, and without masses, organomegaly, or appreciable enlargement of the abdominal aorta. Lungs were clear to auscultation and percussion, and with normal diaphragmatic excursion. No wheezes or rales were noted. Examination of the extremities revealed easily palpable radial, femoral and pedal pulses. There was no cyanosis, clubbing or edema. Examination of the skin revealed no evidence of significant rashes, suspicious appearing nevi or other concerning lesions. Neurologically the patient is sedated, comfortable - Labs CBC & Chem 7: 08/13/19 04:35 08/13/19 04:35 Labs: Abnormal Lab Results - Last 24 Hours (Table) 08/09/19 08/09/19 08/12/19 Range/Units 14:43 15:02 20:20 RBC (4.30-5.90) m/uL Hgb (13.0-17.5) gm/dL Hct (39.0-53.0) % Lymphocytes # (1.0-4.8) k/uL ABG pCO2 (35-45) mmHg ABG HCO3 (21-25) mmol/L ABG O2 Saturation (94-97) % Carbon Dioxide (22-30) mmol/L BUN (9-20) mg/dL Creatinine (0.66-1.25) mg/dL Calcium (8.4-10.2) mg/dL Ferritin 440.1 H (22.0-322.0) ng/mL CK-MB (CK-2) (0.0-2.4) ng/mL Albumin (PEP) 3.42 L (3.80-4.90) g/dL Tot Complement (CH50) >96 H (42 - 95) U/mL 08/12/19 08/13/19 08/13/19 Range/Units 20:20 04:35 04:35 RBC 4.19 L (4.30-5.90) m/uL Hgb 12.8 L (13.0-17.5) gm/dL Hct 38.8 L (39.0-53.0) % Lymphocytes # 0.6 L (1.0-4.8) k/uL ABG pCO2 (35-45) mmHg ABG HCO3 (21-25) mmol/L ABG O2 Saturation (94-97) % Carbon Dioxide 19 L (22-30) mmol/L BUN 31 H (9-20) mg/dL Creatinine 4.39 H (0.66-1.25) mg/dL Calcium 8.3 L (8.4-10.2) mg/dL Ferritin (22.0-322.0) ng/mL CK-MB (CK-2) 4.8 H (0.0-2.4) ng/mL Albumin (PEP) (3.80-4.90) g/dL Tot Complement (CH50) (42 - 95) U/mL 08/13/19 Range/Units 05:13 RBC (4.30-5.90) m/uL Hgb (13.0-17.5) gm/dL Hct (39.0-53.0) % Lymphocytes # (1.0-4.8) k/uL ABG pCO2 34 L (35-45) mmHg ABG HCO3 20 L (21-25) mmol/L ABG O2 Saturation 97.6 H (94-97) % Carbon Dioxide (22-30) mmol/L BUN (9-20) mg/dL Creatinine (0.66-1.25) mg/dL Calcium (8.4-10.2) mg/dL Ferritin (22.0-322.0) ng/mL CK-MB (CK-2) (0.0-2.4) ng/mL Albumin (PEP) (3.80-4.90) g/dL Tot Complement (CH50) (42 - 95) U/mL Microbiology - Last 24 Hours (Table) 08/11/19 22:30 Gram Stain - Preliminary Sputum Sputum Culture - Preliminary Presumptive Staph aureus Assessment and Plan Plan: 1. acute respiratory failure, the patient was not hypoxic nor he was hypercapnic. The patient's was having abnormal movements and he was anxious and altered and the patient had to be intubated for airway protection and got transferred to the intensive care unit. For that reason pulmonary and critical care services were involved. Chest x-ray showed no evidence of an acute pneumonia. ET tube needs to be pushed and as the patient's ET tube is sitting high in the trachea.. The patient is oxygenating and ventilating well for now. The chest echo was reviewed. Blood gases was reviewed. The reason the patient remains intubated because of his extensive movement disorder which would hinder our ability to dialyze and for that reason we The patient a mechanical ventilator pending further workup and possible permacath insertion. 2 acute kidney injury possibly nonsteroidal related, and there are no other obvious causes. No evidence of any significant rhabdomyolysis. CAT scan of the abdomen did not show any significant hydronephrosis. The patient has a positive MARTIN. The complements are within normal. He has hepatitis C IgG was reactive. Nevertheless he doesn't have any significant proteinuria. He may need a kidney biopsy for further investigation. For now, nephrology is considering a permacath insertion 3 Severe hyperkalemia, secondary to acute kidney injury , currently on hemodialysis 4 history of prostate cancer receiving radiation therapy with questionable outlet obstruction as high post void residual. Currently has a Sam catheter and the patient's risk of the abdomen did not show any significant hydronephrosis 5 Movement disorder, chronic. 6 Paranoid disorder controlled on Wellbutrin 7 hypertension 8 history of seizure disorder 9 history of diabetes mellitus 10 movement disorder, possibly related to underlying [place]'s chorea Plan Continue vent support for now , till the renal workup is completed. The patient is possibly looking for a permacath insertion would like him to stay quite comfortable without any significant movement disorder at a time of this procedure. For that reason I delayed extubation today. Proceed with also hemodialysis per nephrology recommendation The patient on propofol at 75 g Hemodialysis today, with possible permacath catheter insertion We are seeing improvement in the urine output We'll continue to follow and will make further recommendations based on her progress. The patient will be also started on enteral feeding for nutritional support. This evaluation was done and more than 30 minutes and this is a critically care evaluation. I am ready to extubate the patient was his neurologic workup is completed. Time with Patient: Greater than 30
[2019-08-13 12:08] LABS: Glucose,Whole Blood 93 mg/dL (75-99)
[2019-08-13 12:45] LABS: ANA Pattern Speckled
[2019-08-13] MEDS: NOREPINEPHRINE 8 MG in SODIUM CHLORIDE 0.9% 250 ML IV SCH (12:48)
[2019-08-13 14:23] LABS: C-ANCA <1:20 Titer (<1:20)
[2019-08-13] MEDS ORDERED: LIDOCAINE 1% INJ 10MG/ML (20 ML MDV) SQ ONE (14:24)
--- NOTE | 2019-08-13 14:59 | PN ---
PROGRESS NOTE Patient is seen for followup for acute kidney injury, currently he is hemodialysis dependent. Patient is having his third treatment today. He remains sedated and on the vent. Yesterday, sedation was decreased and patient had recurrence of his involuntary choreoathetoid movements. 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 MRI has been ordered. Patient will proceed with permanent dialysis catheter placement as he will continue to require dialysis and this should be done prior to his extubation as it will be easier while he is sedated. I have also requested the kidney biopsy to be performed before patient is extubated. We do not have a clear cut etiology for his underlying acute kidney injury at this time. PHYSICAL EXAMINATION: This morning, patient was seen while on dialysis. He is sedated, blood pressure about 100 mmHg systolic, diastolic about 50-54, heart rate 92 per minute patient is afebrile. Examination shows bilateral breath sounds are heard. Abdomen is soft, nontender. Examination of lower extremities shows no significant edema. HOME VIS[employer]OR [employer] START exam cannot be performed. LABS: Show hemoglobin 12.8 sodium 139, potassium 4.3, chloride 105, CO2 is 19, BUN 31, creatinine 4.39. ASSESSMENT: 1. Acute kidney injury, possible ATN, unlikely to be acute GN. However, since there is no clear-cut etiology for the acute kidney injury and with positive MARTIN, I will proceed with kidney biopsy. Hopefully, this will be done while patient is still sedated. Interventional Radiology can get it done tomorrow. 2. 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 3. Sputum culture growing Staph aureus, maintained currently not on any antibiotics. 4. Hypertension. Started on clonidine patch and maintained on oral hydralazine. 5. Severe hyperkalemia associated with acute kidney injury, now resolved. 6. Paranoid disorder maintained on Wellbutrin prior to admission. PLAN: Proceed with kidney biopsy while patient is on the vent and proceed with permanent dialysis catheter placement as well. We will assess his labs tomorrow for repeat dialysis treatment in a.m. MMODL / IJN: [id number] /
--- NOTE | 2019-08-13 15:20 | OP ---
OPERATIVE REPORT PREOPERATIVE DIAGNOSIS: Acute on chronic renal failure. PROCEDURE: Ultrasound-guided 23 cm dialysis catheter placement in right jugular vein. SEDATION TIME: Sedation time is 26 minutes. PROCEDURE DESCRIPTION: This patient was brought to the experimental machining lab manager. The patient had been intubated. The right side of the neck and chest was prepped and draped in a sterile manner. Lidocaine 1% was infiltrated. Ultrasound-guided micropuncture was introduced into the right jugular vein. Micropuncture guidewire was passed and a 4 [place] dilator was advanced on top of the guidewire. Then the tunnel was created. Through the tunnel we brought a 23 cm dialysis catheter. After the dilator was advanced, the sheath was advanced on the top of the guidewire. Through the sheath we introduced the dialysis catheter. Tip of the catheter was in the superior vena cava and atrial junction. Sheath was removed, flushed with heparin and saline and Hep-locked, secured with 3-0 nylon. Dressing was applied. Patient tolerated the procedure well. MMODL / IJN: [id number] /
[2019-08-13 15:46] LABS: INR 0.9 (<1.2); Prothrombin Time 9.5 sec (9.0-12.0)
--- NOTE | 2019-08-13 16:04 | P.PN ---
Subjective 58-year-old male appears to have been admitted for acute renal failure which appears to be secondary to nonsteroidal anti-inflammatory medications patient has a movement disorder and appears to have some automatic movements because of which they were unable to place a dialysis catheter. Patient was subsequently intubated because of his mental status and his automatic movements. I'm unable to assess him neurologically. And a had a lengthy discussion with the nursing staff and neurologist patient that it appears to have had a movement disorder or cardiac dyskinesia in the past and has been, noncompliant with medications. Patient is also on high-dose of Wellbutrin which can cause myoclonus and seizures EEG is being obtained and neurology recommended an MRI to rule out any stroke that may have precipitated his movement disorder not clear what kind of movement disorder patient has, there possibility of hemibellismus, myoclonus or even seizure. Neurology will evaluate the patient once patient is extubated and off sedation. Patient most probably can be extubated today patient did receive her dialysis catheter and patient received hemodialysis. Review of systems: Unable to obtain due to her clinical condition All inpatient medications were reviewed and appropriate changes in these medications as dictated in the interval history and assessment and plan. 08/13/2019 Patient remains to the ICU, intubated and sedated. Patient remains on normal saline at 75 mL/h and is getting dialysis. Patient kept on intubation and mechanical ventilation partly because of excessive twitching and muscular movement and he had a dialysis catheter placed today. Neurologist evaluated for possible cardiac versus other, left ventricular workup included an MRA of the brain, EEG, me any Water, CK level. While wood science professor recommended a biopsy in view of elevated creatinine with no clear cause other than history of NSAID use and elevated MARTIN level. Sputum culture is growing staph, mostly contaminant versus colonization, patient with no fever or leukocytosis Review of systems: N/a Active Medications Generic Name Dose Route Start Last Admin Trade Name Freq PRN Reason Stop Dose Admin Bupropion HCl 150 mg 08/12/19 21:00 08/13/19 08:36 Wellbutrin PO 150 mg BID MARILYN Administration Chlorhexidine Gluconate 15 ml 08/11/19 21:00 08/13/19 08:34 Peridex MUCOUS MEM 15 ml BID MARILYN Administration Clonidine HCl 1 patch 08/12/19 12:30 08/12/19 13:29 Catapres-Tts 0.2mg Patch TRANSDERM 1 patch Q7D MARILYN Administration Heparin Sodium (Porcine) 5,000 unit 08/09/19 21:00 08/13/19 08:34 Heparin SQ 5,000 unit Q12HR MARILYN Administration Hydralazine HCl 25 mg 08/13/19 09:00 08/13/19 08:34 Apresoline PO 25 mg TID MARILYN Administration Propofol 1,000 mg/ IV Solution 100 mls @ 0 mls/hr 08/11/19 13:15 08/13/19 12:47 IV 75 mcg/kg/min .Q0M MARILYN 44.64 mls/hr Administration Protocol Titrate Sodium Chloride 1,000 mls @ 20 mls/hr 08/11/19 13:15 08/12/19 19:22 Saline 0.9% IV Not Given .Q24H MARILYN Norepinephrine Bitartrate 8 mg 258 mls @ 9.598 mls/hr 08/11/19 15:15 08/13/19 12:48 / Sodium Chloride IV Not Given .Q24H MARILYN Protocol 0.05 MCG/KG/MIN Naloxone HCl 0.2 mg 08/09/19 13:05 Narcan IV Q2M PRN Opioid Reversal Pantoprazole Sodium 40 mg 08/12/19 09:00 08/13/19 08:34 Protonix IV 40 mg DAILY MARILYN Administration Objective - Vital Signs Vital signs: Vital Signs Temp 98.7 F 08/13/19 12:00 Pulse 90 08/13/19 13:00 Resp 14 08/13/19 13:00 BP 94/72 08/13/19 13:00 Pulse Ox 95 08/13/19 13:00 Intake & Output 08/12/19 08/13/19 08/13/19 18:59 06:59 18:59 Intake Total 5354.357 4556.000 760.048 Output Total 2312 074 7893 Balance 143.253 2930.000 -984.952 Weight 99.2 kg 99.2 kg 99.2 kg Intake: IV 1533 1676 453 Pressure Bag 0.9NS 33 51 18 Sodium Chloride 0.9% 1, 1500 1625 435 000 ml @ 125 mls/hr IV . Q8H MARILYN Rx#:[id number] Intake, IV Titration 394.488 472.000 187.048 Amount Propofol 1,000 mg In 394.488 472.000 187.048 Empty Bag 1 bag @ Titrate IV .Q0M [facility] Rx#: [id number] Tube Feeding 120 60 Other 120 60 Output: Urine 458 836 245 Hemodialysis 1200 1500 Other: Voiding Method Indwelling Catheter Indwelling Catheter Indwelling Catheter ABP, PAP, CO, CI - Last Documented Arterial Blood Pressure 108/55 - Exam -GENERAL: Intubated and sedated HEENT: Pupils are round and equally reacting to light. EOMI. No scleral icterus. No conjunctival pallor. Normocephalic, atraumatic. No pharyngeal erythema. No thyromegaly. CARDIOVASCULAR: S1 and S2 present. No murmurs, rubs, or gallops. PULMONARY: Chest is clear to auscultation, no wheezing or crackles. ABDOMEN: Soft, nontender, nondistended, normoactive bowel sounds. No palpable organomegaly. MUSCULOSKELETAL: No joint swelling or deformity. EXTREMITIES: No cyanosis, clubbing, or pedal edema. -NEUROLOGICAL: Gross neurological examination did not reveal any focal deficits. Multiple and involuntary muscle twitches SKIN: No rashes. No petechiae - Labs CBC & Chem 7: 08/13/19 04:35 08/13/19 04:35 Labs: Abnormal Lab Results - Last 24 Hours (Table) 08/09/19 08/12/19 08/12/19 Range/Units 15:02 20:20 20:20 RBC (4.30-5.90) m/uL Hgb (13.0-17.5) gm/dL Hct (39.0-53.0) % Lymphocytes # (1.0-4.8) k/uL ABG pCO2 (35-45) mmHg ABG HCO3 (21-25) mmol/L ABG O2 Saturation (94-97) % Carbon Dioxide (22-30) mmol/L BUN (9-20) mg/dL Creatinine (0.66-1.25) mg/dL Calcium (8.4-10.2) mg/dL Ferritin 440.1 H (22.0-322.0) ng/mL CK-MB (CK-2) 4.8 H (0.0-2.4) ng/mL Tot Complement (CH50) >96 H (42 - 95) U/mL 04/21/20 04/21/20 04/21/20 Range/Units 04:35 04:35 05:13 RBC 4.19 L (4.30-5.90) m/uL Hgb 12.8 L (13.0-17.5) gm/dL Hct 38.8 L (39.0-53.0) % Lymphocytes # 0.6 L (1.0-4.8) k/uL ABG pCO2 34 L (35-45) mmHg ABG HCO3 20 L (21-25) mmol/L ABG O2 Saturation 97.6 H (94-97) % Carbon Dioxide 19 L (22-30) mmol/L BUN 31 H (9-20) mg/dL Creatinine 4.39 H (0.66-1.25) mg/dL Calcium 8.3 L (8.4-10.2) mg/dL Ferritin (22.0-322.0) ng/mL CK-MB (CK-2) (0.0-2.4) ng/mL Tot Complement (CH50) (42 - 95) U/mL Microbiology - Last 24 Hours (Table) 08/11/19 22:30 Gram Stain - Preliminary Sputum Sputum Culture - Preliminary Presumptive Staph aureus Assessment and Plan Assessment: -Acute renal failure: Status post hemodialysis. Dialysis catheter was placed, nephrology following the case closely. And the planing for kidney biopsy -Involuntary muscle twitches, suspicious for chorea or smiley chorea neurologist on the case, recommend an MRA and EEG and workup. Patient remains intubated to protect airway -Hypertension uncontrolled patient was started on clonidine with better controlled blood pressures -Hyperkalemia secondary to renal failure, improving -History of seizure disorder -Depression, Wellbutrin dose is being decreased by my colleague DVT prophylaxis: Subcutaneous heparin GI prophylaxis: Pepcid Prognosis guarded
--- NOTE | 2019-08-13 16:26 | IR ---
EXAMINATION TYPE: IR cvc insert central tunneled DATE OF EXAM: 08/13/2019 CLINICAL HISTORY: Failed dialysis. TECHNIQUE: Fluoroscopy. COMPARISON: None. FINDINGS: Fluoroscopic guidance was provided during right internal jugular dialysis catheter inserti on procedure performed by Dr. Soto. A total of 1.6 minutes of fluoroscopic time was utilized duri ng the procedure and 3 spot images are acquired. Images acquired show placement of large bore right i nternal jugular dialysis catheter with tips terminating at cavoatrial junction and right atrium. IMPRESSION: As Above.
--- NOTE | 2019-08-13 16:30 | XR ---
EXAMINATION TYPE: XR chest 1V confirm line [facility] DATE OF EXAM: 08/13/2019 CLINICAL HISTORY: Hemodialysis catheter placement. TECHNIQUE: Single AP portable semiupright view of the chest is obtained. COMPARISON: Chest x-ray from earlier today an older studies FINDINGS: There is new dual-lumen right internal jugular dialysis catheter with tips terminating in SVC and caval atrial junction. Stable left internal jugular central venous catheter. Stable endotrach eal and orogastric tubes. Cardiac silhouette size stable and within normal limits. Persistent patchy left basilar opacity. Righ t lung remains clear. Stable low lung volumes. No pneumothorax. Osseous structures are intact. IMPRESSION: 1. New right internal jugular dual-lumen dialysis catheter with tips in SVC and cavoatrial junction. No pneumothorax noted. 2. Stable high positioning of endotracheal tube near cervicothoracic junction, advise advancing rough ly 5 cm to be more ideal position. 3. Persistent low lung volumes with small left pleural effusion and associated patchy left basilar at electasis and/or infiltrate.
[2019-08-13 18:03] LABS: Glucose,Whole Blood 78 mg/dL (75-99)
--- NOTE | 2019-08-13 18:27 | P.PN ---
Subjective Progress Note Date: 08/13/19 Principal diagnosis: Dysphagia, hepatitis C antibody positive 58-year-old male who is been intubated since initial consultation yesterday. GI was called to evaluate for concerned over solid food dysphagia. Patient had required hemodialysis with his movement disorder prohibitive of catheter placement and was subsequently intubated. Swallow evaluation with x-ray esophagram had been ordered which has not been performed secondary to the above- mentioned. Objective - Vital Signs Vital signs: Vital Signs Temp 98.1 F 08/13/19 08:00 Pulse 94 08/13/19 10:00 Resp 20 08/13/19 10:00 BP 117/86 08/13/19 10:00 Pulse Ox 96 08/13/19 10:00 Intake & Output 08/12/19 08/13/19 08/13/19 18:59 06:59 18:59 Intake Total 7304.954 4890.000 531.048 Output Total 1658 836 100 Balance 091.299 5783.000 431.048 Weight 99.2 kg 99.2 kg Intake: IV 1533 1676 384 Pressure Bag 0.9NS 33 51 9 Sodium Chloride 0.9% 1, 1500 1625 375 000 ml @ 125 mls/hr IV . Q8H MARILYN Rx#:[id number] Intake, IV Titration 394.488 472.000 87.048 Amount Propofol 1,000 mg In 394.488 472.000 87.048 Empty Bag 1 bag @ Titrate IV .Q0M MARILYN Rx#: [id number] Tube Feeding 120 30 Other 120 30 Output: Urine 458 836 100 Hemodialysis 1200 Other: Voiding Method Indwelling Catheter Indwelling Catheter Indwelling Catheter ABP, PAP, CO, CI - Last Documented Arterial Blood Pressure 139/72 - Exam On physical examination, patient appears comfortable in no apparent distress. HEAD: Normocephalic, atraumatic. EYES: No scleral icterus. No conjunctival injection. MOUTH: No lesions, tongue midline, endotracheal tube in place. NECK: Trachea midline, no gross abnormalities. CHEST: Coarse respiratory noises in all lung cheung ABDOMEN: Soft, nontender to palpation. Bowel sounds are positive. No organomega ly. No guarding or rigidity. EXTREMITIES: No pedal edema. SKIN: No rashes, no jaundice. NEUROLOGIC: Intubated and sedated. - Labs CBC & Chem 7: 08/13/19 04:35 08/13/19 04:35 Labs: Abnormal Lab Results - Last 24 Hours (Table) 08/09/19 08/09/19 08/12/19 Range/Units 14:43 15:02 20:20 RBC (4.30-5.90) m/uL Hgb (13.0-17.5) gm/dL Hct (39.0-53.0) % Lymphocytes # (1.0-4.8) k/uL ABG pCO2 (35-45) mmHg ABG HCO3 (21-25) mmol/L ABG O2 Saturation (94-97) % Carbon Dioxide (22-30) mmol/L BUN (9-20) mg/dL Creatinine (0.66-1.25) mg/dL Calcium (8.4-10.2) mg/dL Ferritin 440.1 H (22.0-322.0) ng/mL CK-MB (CK-2) (0.0-2.4) ng/mL Albumin (PEP) 3.42 L (3.80-4.90) g/dL Tot Complement (CH50) >96 H (42 - 95) U/mL 08/12/19 08/13/19 08/13/19 Range/Units 20:20 04:35 04:35 RBC 4.19 L (4.30-5.90) m/uL Hgb 12.8 L (13.0-17.5) gm/dL Hct 38.8 L (39.0-53.0) % Lymphocytes # 0.6 L (1.0-4.8) k/uL ABG pCO2 (35-45) mmHg ABG HCO3 (21-25) mmol/L ABG O2 Saturation (94-97) % Carbon Dioxide 19 L (22-30) mmol/L BUN 31 H (9-20) mg/dL Creatinine 4.39 H (0.66-1.25) mg/dL Calcium 8.3 L (8.4-10.2) mg/dL Ferritin (22.0-322.0) ng/mL CK-MB (CK-2) 4.8 H (0.0-2.4) ng/mL Albumin (PEP) (3.80-4.90) g/dL Tot Complement (CH50) (42 - 95) U/mL 08/13/19 Range/Units 05:13 RBC (4.30-5.90) m/uL Hgb (13.0-17.5) gm/dL Hct (39.0-53.0) % Lymphocytes # (1.0-4.8) k/uL ABG pCO2 34 L (35-45) mmHg ABG HCO3 20 L (21-25) mmol/L ABG O2 Saturation 97.6 H (94-97) % Carbon Dioxide (22-30) mmol/L BUN (9-20) mg/dL Creatinine (0.66-1.25) mg/dL Calcium (8.4-10.2) mg/dL Ferritin (22.0-322.0) ng/mL CK-MB (CK-2) (0.0-2.4) ng/mL Albumin (PEP) (3.80-4.90) g/dL Tot Complement (CH50) (42 - 95) U/mL Microbiology - Last 24 Hours (Table) 08/11/19 22:30 Gram Stain - Preliminary Sputum Sputum Culture - Preliminary Assessment and Plan (1) Esophageal dysphagia Narrative/Plan: 58-year-old male with multiple medical comorbidities currently undergoing treatment for acute kidney failure requiring hemodialysis, rhabdomyolysis, movement disorder of unknown etiology was complained of solid food dysphagia. Swallow evaluation ordered with esophagram which is not then performed as the patient required intubation for catheter placement. Unknown etiology, with suspicion for medication effect with a stricture less likely. We'll hold off further evaluation until extubated. Current Visit: Yes Status: Acute Code(s): R13.10 - DYSPHAGIA, UNSPECIFIED SNOMED Code(s): 04498663 (2) Hepatitis C antibody positive in blood Narrative/Plan: Hepatitis C antibody positive in the patient's blood. Unknown hepatitis status, may be secondary to prior exposure and clearance or active infection with further evaluation ordered. Current Visit: Yes Status: Acute Code(s): R76.8 - OTHER SPECIFIED ABNORMAL IMMUNOLOGICAL FINDINGS IN SERUM SNOMED Code(s): 195967316 Plan: Supportive care Nothing by mouth at this time, intubated and sedated stated, but okay to initiate tube feeds as needed Defer swallow evaluation until patient is extubated Hepatitis C genotype and viral load ordered, can follow-up after discharge for further evaluation with gastroenterology and possible treatment with antiviral medications Defer management of movement disorder, acute kidney failure and other medical comorbidities to consulting services Thank you for allowing us to participate in the care of the patient we will continue to follow
--- NOTE | 2019-08-13 19:31 | P.PN ---
Subjective Progress Note Date: 08/13/19 Principal diagnosis: Corrhea hemiballismus SUBJECTIVE: per nursing staff, patient has remained sedated throughout the day on ventilator intubated. Plan is for a renal biopsy to determine why this patient went into acute renal failure with no clear trigger. Nursing reports that when the sedation is taken off there is a return of chorea-like movements in the upper extremities with extensive movement of the legs. Objective - Vital Signs Vital signs: Vital Signs Temp 98 F 08/13/19 16:00 Pulse 87 08/13/19 19:00 Resp 21 08/13/19 19:00 BP 111/70 08/13/19 19:00 Pulse Ox 95 08/13/19 19:00 Intake & Output 08/13/19 08/13/19 08/14/19 06:59 18:59 06:59 Intake Total 2388.000 959.048 33 Output Total 836 1945 50 Balance 1552.000 -985.952 -17 Weight 99.2 kg 99.2 kg Intake: IV 1676 522 23 Pressure Bag 0.9NS 51 27 3 Sodium Chloride 0.9% 1, 1625 495 20 000 ml @ 125 mls/hr IV . Q8H MARILYN Rx#:[id number] Intake, IV Titration 472.000 287.048 Amount Propofol 1,000 mg In 472.000 287.048 Empty Bag 1 bag @ Titrate IV .Q0M MARILYN Rx#: [id number] Tube Feeding 120 90 10 Other 120 60 Output: Urine 836 445 50 Hemodialysis 1500 Other: Voiding Method Indwelling Catheter Indwelling Catheter ABP, PAP, CO, CI - Last Documented Arterial Blood Pressure 102/56 - Exam the patient was not formally examined today due to still being under sedation. - Labs CBC & Chem 7: 08/13/19 04:35 08/13/19 04:35 Labs: Abnormal Lab Results - Last 24 Hours (Table) 08/09/19 08/12/19 08/12/19 Range/Units 15:02 20:20 20:20 RBC (4.30-5.90) m/uL Hgb (13.0-17.5) gm/dL Hct (39.0-53.0) % Lymphocytes # (1.0-4.8) k/uL ABG pCO2 (35-45) mmHg ABG HCO3 (21-25) mmol/L ABG O2 Saturation (94-97) % Carbon Dioxide (22-30) mmol/L BUN (9-20) mg/dL Creatinine (0.66-1.25) mg/dL Calcium (8.4-10.2) mg/dL Ferritin 440.1 H (22.0-322.0) ng/mL CK-MB (CK-2) 4.8 H (0.0-2.4) ng/mL Tot Complement (CH50) >96 H (42 - 95) U/mL 08/13/19 08/13/19 08/13/19 Range/Units 04:35 04:35 05:13 RBC 4.19 L (4.30-5.90) m/uL Hgb 12.8 L (13.0-17.5) gm/dL Hct 38.8 L (39.0-53.0) % Lymphocytes # 0.6 L (1.0-4.8) k/uL ABG pCO2 34 L (35-45) mmHg ABG HCO3 20 L (21-25) mmol/L ABG O2 Saturation 97.6 H (94-97) % Carbon Dioxide 19 L (22-30) mmol/L BUN 31 H (9-20) mg/dL Creatinine 4.39 H (0.66-1.25) mg/dL Calcium 8.3 L (8.4-10.2) mg/dL Ferritin (22.0-322.0) ng/mL CK-MB (CK-2) (0.0-2.4) ng/mL Tot Complement (CH50) (42 - 95) U/mL Microbiology - Last 24 Hours (Table) 08/11/19 22:30 Gram Stain - Preliminary Sputum Sputum Culture - Preliminary Presumptive Staph aureus Assessment and Plan Assessment: This is a 58 show male with a complicated past medical history admitted for abdominal pain and acute kidney injury. Patient is now for first time in his life on dialysis. He was required to be intubated sedated due to the abnormal involuntary movements and inability to sustain a line for dialysis. Based on this patient's history and age high on the differential would be Ferry's disease. In the 40s and 50s is the peak time when symptoms may begin the manifest. Other causes for chorea include metabolic disturbance as well as structural brain mass lesions in the extrapyramidal system and the brain such as the caudate. Summary 1. Abnormal involuntary movements characteristic of chorea 2. History of severe restless leg syndrome, confirmed on exam. 3. Acute kidney injury requiring dialysis. 4. Significant history for substance abuse and currently misusing Wellbutrin as inhalant with history of overdosing on Wellbutrin. 5. History suspicious for excessive serotonin syndrome. Plan: plan:we'll proceed with starting a very low dose of an atypical antipsychotic such as olanzapine to help better control the chorea and hemiballismus-like movements. After review the literature this medication started at low dose seems to be the safest with a lower side effect profile for causing tardive dyskinesia. This medication is also hepatically cleared. Plan will be discharged on 5 mg tonight and continue with 5 mg daily. This can be given down his NG tube. Once the patient can be extubated and reassessed, we should proceed with an MRI of the brain without contrast due to renal impairment, as well as an EEG to rule out subclinical seizure activity. Next This patient's prognosis remains guarded. Recommendations will be made daily as the patient will be followed by neurology. We'll plan on family meeting this week to discuss further his symptom onset for these dyskinesias. There is a high probability based on the current history I have for suspicion for neurodegenerative disease such as Tenisha's.
[2019-08-13] MEDS: OLANZapine 5 MG TAB PO SCH (20:12)
[2019-08-13 23:49] LABS: Glucose,Whole Blood 105 mg/dL (75-99)
[2019-08-14] MEDS: PROPOFOL 1,000 MG in EMPTY BAG 1 BAG IV SCH ×7 (00:20→22:49)
[2019-08-14 04:51] LABS: ABG Base Excess -5.5 mmol/L; ABG HCO3 20 mmol/L (21-25); ABG Oxygen Saturation 95.3 % (94-97); ABG PCO2 32 mmHg (35-45); ABG PH 7.39 (7.35-7.45); ABG PO2 78 mmHg (83-108); ABG TCO2 21 mmol/L (19-24)
[2019-08-14 05:32] LABS: Basophils % (A) 0 %; Eosinophils # (A) 0.4 k/uL (0-0.7); Eosinophils % (A) 4 %; HCT 37.7 % (39.0-53.0); HGB 12.7 gm/dL (13.0-17.5); Lymphocytes # (A) 0.8 k/uL (1.0-4.8); Lymphocytes % (A) 8 %; MCH 30.8 pg (25.0-35.0); MCHC 33.6 g/dL (31.0-37.0); MCV 91.6 fL (80.0-100.0); Mean Platelet Volume 9.8; Monocytes # (A) 0.6 k/uL (0-1.0); Monocytes % (A) 7 %; Neutrophils # (A) 7.3 k/uL (1.3-7.7); Neutrophils % (A) 78 %; Platelet Count 173 k/uL (150-450); RBC 4.12 m/uL (4.30-5.90); RDW 12.9 % (11.5-15.5); WBC 9.4 k/uL (3.8-10.6)
[2019-08-14 05:41] LABS: Allen Test Performed? no
[2019-08-14 05:52] LABS: Calcium 8.8 mg/dL (8.4-10.2); Potassium 4.2 mmol/L (3.5-5.1)
[2019-08-14] MEDS: HEPARIN SODIUM,PORCINE 5,000 UNIT/ML 1 ML VIAL SQ SCH ×2 (07:44→20:17)
--- NOTE | 2019-08-14 08:42 | XR ---
EXAMINATION TYPE: XR chest 1V portable DATE OF EXAM: 08/14/2019 COMPARISON: 08/13/2019 HISTORY: Lines and tube placement. TECHNIQUE: Single frontal view of the chest is obtained. FINDINGS: The endotracheal tube is cephalad in position terminating in the cervical region and shoul d be advanced 5 to 6 cm for more optimal placement. Enteric tube courses off the distal [id number] is appropriately placed. Dual lumen hemodialysis right-sided internal jugular approach catheter and left-sided internal jugular central venous catheter are stable. Overall low lung volumes with bluntin g of the left costophrenic angle. No new focal consolidation. Partially obscured cardiomediastinal si lhouette also appears stable. IMPRESSION: 1. Again recommendation is for advancement of the endotracheal tube approximately 5 to 6 cm as it is currently cephalad in placement. 2. Trace left pleural effusion.
[2019-08-14] MEDS: buPROPion 75 MG TAB PO SCH ×2 (08:59→20:17)
[2019-08-14] MEDS: CHLORHEXIDINE GLUCONATE 15 ML CUP MUCOUS MEM SCH ×2 (08:59→20:17)
[2019-08-14] MEDS: OLANZapine 5 MG TAB PO SCH (09:00)
[2019-08-14] MEDS: hydrALAZINE HCL 25 MG TAB PO SCH ×3 (09:00→20:18)
[2019-08-14] MEDS: PANTOPRAZOLE 40 MG/10 ML VIAL IV SCH (09:00)
[2019-08-14] MEDS: ACETAMINOPHEN TAB 325 MG TAB PO PRN (09:50)
[2019-08-14] MEDS: CLEVIDIPINE BUTYRATE 25 MG in EMPTY BAG 1 BAG IV SCH ×2 (09:56→16:42)
[2019-08-14] MEDS ORDERED: MORPHINE SULFATE 2 MG/ML SYRINGE IVP STA ×2 (11:08→11:29)
[2019-08-14 11:16] LABS: % Iron Saturation 21.82 (15.00-50.00)
[2019-08-14 11:26] LABS: Folate, Serum 3.3 ng/mL
--- NOTE | 2019-08-14 11:27 | P.PN ---
Subjective 58-year-old male appears to have been admitted for acute renal failure which appears to be secondary to nonsteroidal anti-inflammatory medications patient has a movement disorder and appears to have some automatic movements because of which they were unable to place a dialysis catheter. Patient was subsequently intubated because of his mental status and his automatic movements. I'm unable to assess him neurologically. And a had a lengthy discussion with the nursing staff and neurologist patient that it appears to have had a movement disorder or cardiac dyskinesia in the past and has been, noncompliant with medications. Patient is also on high-dose of Wellbutrin which can cause myoclonus and seizures EEG is being obtained and neurology recommended an MRI to rule out any stroke that may have precipitated his movement disorder not clear what kind of movement disorder patient has, there possibility of hemibellismus, myoclonus or even seizure. Neurology will evaluate the patient once patient is extubated and off sedation. Patient most probably can be extubated today patient did receive her dialysis catheter and patient received hemodialysis. Review of systems: Unable to obtain due to her clinical condition All inpatient medications were reviewed and appropriate changes in these medications as dictated in the interval history and assessment and plan. 08/13/2019 Patient remains to the ICU, intubated and sedated. Patient remains on normal saline at 75 mL/h and is getting dialysis. Patient kept on intubation and mechanical ventilation partly because of excessive twitching and muscular movement and he had a dialysis catheter placed today. Neurologist evaluated for possible cardiac versus other, left ventricular workup included an MRA of the brain, EEG, me any Water, CK level. While emergency room technician recommended a biopsy in view of elevated creatinine with no clear cause other than history of NSAID use and elevated MARTIN level. Sputum culture is growing staph, mostly contaminant versus colonization, patient with no fever or leukocytosis 08/14/2019 Patient remains in the ICU intubated and sedated, his IV fluid was stopped. He is developing fever of 101 today, with tachycardia 101/117. The 2529. Blood pressure 135/85. Oxygen saturation 96% WBC is 9.4K, hemoglobin 12.7. Sodium 136, creatinine is slightly improving 3.35. Neurologist evaluated the patient and started on olanzapine Sputum chest x-ray: No focal infiltrate culture is growing MSSA, patient got 1 dose of Rocephin today. Chest x-ray: No acute infiltrate, recommend to advance the endotracheal tube in approximately 5-6 cm. Pulmonary service on the case. Review of systems: N/a Active Medications Generic Name Dose Route Start Last Admin Trade Name Freq PRN Reason Stop Dose Admin Bupropion HCl 150 mg 08/12/19 21:00 08/13/19 08:36 Wellbutrin PO 150 mg BID MARILYN Administration Chlorhexidine Gluconate 15 ml 08/11/19 21:00 08/13/19 08:34 Peridex MUCOUS MEM 15 ml BID MARILYN Administration Clonidine HCl 1 patch 08/12/19 12:30 08/12/19 13:29 Catapres-Tts 0.2mg Patch TRANSDERM 1 patch Q7D MARILYN Administration Heparin Sodium (Porcine) 5,000 unit 08/09/19 21:00 08/13/19 08:34 Heparin SQ 5,000 unit Q12HR MARILYN Administration Hydralazine HCl 25 mg 08/13/19 09:00 08/13/19 08:34 Apresoline PO 25 mg TID MARILYN Administration Propofol 1,000 mg/ IV Solution 100 mls @ 0 mls/hr 08/11/19 13:15 08/13/19 12:47 IV 75 mcg/kg/min .Q0M MARILYN 44.64 mls/hr Administration Protocol Titrate Sodium Chloride 1,000 mls @ 20 mls/hr 08/11/19 13:15 08/12/19 19:22 Saline 0.9% IV Not Given .Q24H MARILYN Norepinephrine Bitartrate 8 mg 258 mls @ 9.598 mls/hr 08/11/19 15:15 08/13/19 12:48 / Sodium Chloride IV Not Given .Q24H MARILYN Protocol 0.05 MCG/KG/MIN Naloxone HCl 0.2 mg 08/09/19 13:05 Narcan IV Q2M PRN Opioid Reversal Pantoprazole Sodium 40 mg 08/12/19 09:00 08/13/19 08:34 Protonix IV 40 mg DAILY MARILYN Administration Objective - Vital Signs Vital signs: Vital Signs Temp 101 F H 08/14/19 09:00 Pulse 117 H 08/14/19 10:00 Resp 29 H 08/14/19 10:00 BP 135/85 08/14/19 10:00 Pulse Ox 96 08/14/19 10:00 Intake & Output 08/13/19 08/14/19 08/14/19 18:59 06:59 18:59 Intake Total 1059.048 796.904 198.488 Output Total 1945 662 270 Balance -885.952 134.904 -71.512 Weight 99.2 kg 99.1 kg Intake: IV 522 309 104 Pressure Bag 0.9NS 27 69 24 Sodium Chloride 0.9% 1, 495 240 80 000 ml @ 125 mls/hr IV . Q8H MARILYN Rx#:[id number] Intake, IV Titration 387.048 397.904 94.488 Amount Propofol 1,000 mg In 387.048 397.904 94.488 Empty Bag 1 bag @ Titrate IV .Q0M MARILYN Rx#: [id number] Tube Feeding 90 60 0 Other 60 30 Output: Urine 445 662 270 Hemodialysis 1500 Other: Voiding Method Indwelling Catheter Indwelling Catheter ABP, PAP, CO, CI - Last Documented Arterial Blood Pressure 179/84 - Exam -GENERAL: Intubated and sedated HEENT: Pupils are round and equally reacting to light. EOMI. No scleral icterus. No conjunctival pallor. Normocephalic, atraumatic. No pharyngeal erythema. No thyromegaly. CARDIOVASCULAR: S1 and S2 present. No murmurs, rubs, or gallops. PULMONARY: Chest is clear to auscultation, no wheezing or crackles. ABDOMEN: Soft, nontender, nondistended, normoactive bowel sounds. No palpable organomegaly. MUSCULOSKELETAL: No joint swelling or deformity. EXTREMITIES: No cyanosis, clubbing, or pedal edema. -NEUROLOGICAL: Gross neurological examination did not reveal any focal deficits. Multiple and involuntary muscle twitches SKIN: No rashes. No petechiae - Labs CBC & Chem 7: 08/14/19 04:15 08/14/19 04:15 Labs: Abnormal Lab Results - Last 24 Hours (Table) 08/13/19 08/14/19 08/14/19 Range/Units 23:48 04:15 04:15 RBC 4.12 L (4.30-5.90) m/uL Hgb 12.7 L (13.0-17.5) gm/dL Hct 37.7 L (39.0-53.0) % Lymphocytes # 0.8 L (1.0-4.8) k/uL ABG pCO2 (35-45) mmHg ABG pO2 (83-108) mmHg ABG HCO3 (21-25) mmol/L Sodium 136 L (137-145) mmol/L Carbon Dioxide 18 L (22-30) mmol/L BUN 28 H (9-20) mg/dL Creatinine 3.35 H (0.66-1.25) mg/dL POC Glucose (mg/dL) 105 H (75-99) mg/dL 08/14/19 Range/Units 04:50 RBC (4.30-5.90) m/uL Hgb (13.0-17.5) gm/dL Hct (39.0-53.0) % Lymphocytes # (1.0-4.8) k/uL ABG pCO2 32 L (35-45) mmHg ABG pO2 78 L (83-108) mmHg ABG HCO3 20 L (21-25) mmol/L Sodium (137-145) mmol/L Carbon Dioxide (22-30) mmol/L BUN (9-20) mg/dL Creatinine (0.66-1.25) mg/dL POC Glucose (mg/dL) (75-99) mg/dL Microbiology - Last 24 Hours (Table) 08/11/19 22:30 Gram Stain - Preliminary Sputum Sputum Culture - Preliminary Staphylococcus aureus Assessment and Plan Assessment: -Acute renal failure: Status post hemodialysis. Dialysis catheter was placed, nephrology following the case closely. And the planing for kidney biopsy -Involuntary muscle twitches, suspicious for chorea or smiley chorea neurologist on the case, recommend an MRA and EEG and workup. Patient remains intubated to protect airway. Neurologist recommended small dose of antipsychotic -Fever with sputum culture growing MSSA, chest x-ray showing no consolidation. WBC is within normal limits. Patient got 1 dose of Rocephin. Follow-up temperature -Hypertension uncontrolled patient was started on clonidine with better controlled blood pressures -Hyperkalemia secondary to renal failure, improving -History of seizure disorder -Depression, Wellbutrin dose is being decreased by my colleague DVT prophylaxis: Subcutaneous heparin GI prophylaxis: Pepcid Prognosis guarded
--- NOTE | 2019-08-14 12:04 | XR ---
EXAMINATION TYPE: XR chest 1V portable DATE OF EXAM: 08/14/2019 COMPARISON: 08/14/2019 HISTORY: Endotracheal tube placement TECHNIQUE: Single frontal view of the chest is obtained. FINDINGS: Endotracheal tube has been slightly advanced in the interim now terminating just above the level of the clavicles. This is located approximately 8 cm from the jewels and continued advancement is recommended. This could be advanced 3 to 4 cm for optimal placement. Other lines and tubes appear similar. Again there are low lung volumes and a trace left pleural effusion. No new focal consolidat ion. IMPRESSION: Endotracheal tube has been slightly advanced in the interim although this could be advan luis daniel approximately 3 to 4 cm for optimal placement.
[2019-08-14] MEDS ORDERED: CISATRACURIUM 2 MG/ML 5 ML VIAL IV ONE (12:15)
[2019-08-14] MEDS ORDERED: VANCOMYCIN IV PER PHARMACY 1 EACH MISC MISCELLANE PRN (12:28)
[2019-08-14] MEDS ORDERED: VANCOMYCIN 1,500 MG in SODIUM CHLORIDE 0.9% 250 ML IVPB SCH (13:00)
[2019-08-14] MEDS: MORPHINE SULFATE 2 MG/ML SYRINGE IVP PRN ×2 (13:01→17:46)
--- NOTE | 2019-08-14 13:08 | P.PN ---
Subjective Progress Note Date: 08/14/19 Is a 58-year-old male patient was Hospital as for multiple complaints of abdominal pain, abdominal bloating and decreased urine output in addition to shortness of breath a few weeks duration. The patient has history of prostate cancer of she years duration and the patient was being treated with radiation therapy. The patient at the time of admission denied having any fever or chills. He is on intake was quite diminished and he came into the hospital for those reason the patient was found to be having some abnormal body movements related to extrapyramidal side effects of medication. He was taking Artane in the past. In the hospital, the patient was found to have rhabdomyolysis and acute kidney injury. He was intubated for airway protection and he was transferred to the intensive care unit. The patient is a time of admission had acute kidney injury with hyperkalemia and his creatinine at time of admission was 8.9 with a potassium level of 6.4. He does not have any history of chronic kidney disease. 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 After being trialed on IV fluids, the patient's renal function got worse and the patient had to be dialyzed regarding his acute kidney failure. Note that the patient has had previous episodes of rhabdomyolysis. His urine toxin was positive for opiates. The rest of urinalysis was benign. MARTIN was positive and the complements including C3 and C4 were normal. his hepatitis C IgG antibodies were reactive. As such, the exact cause of his acute kidney injury was not known. It was suspected to be related to nonsteroidal anti-inflammatory medication. Dialysis was initiated via yesterday via Lui catheter was placed by vascular surgery. The patient is being contemplated also for a kidney biopsy.. In terms of his pulmonary status, he shouldn't is currently intubated on a mechanical ventilator. His assist-control mode of ventilation at the rate of 20 with tidal volume of 500 and a PEEP of 5 and FiO2 is being gradually titrated to maintain a saturation above 90%. He was also requiring a low dose norepinephrine infusion for blood pressure control. Is on Diprivan for sedation. The chest x-ray post intubation showed no significant abnormalities. ET tube was in a good location. The patient has a left IJ triple-lumen catheter in place and the blood gases showed adequate oxygenation. The patient was On IV fluids and he is receiving normal saline at the rate of 125 mL an hour. Norepinephrine for blood pressure control and propofol for sedation. On today's evaluation of 08/12/2019, the patient remains on a mechanical ventilator. He is on assist control of 20 with a tidal volume of 500 and a PEEP of 5 with an FiO2 of 40%. Blood gas show pH of 7.37 with a pCO2 of 40 and pO2 124. Chest x-ray shows some atelectatic changes and small effusion the lung bases. The patient remains on propofol at 75 g. The patient remains on normal saline at the rate 125 mL an hour. The plan is to proceed with dialysis today. The white cell count is at 7.3. The creatinine is at 6.4. Urine output has been in the order of 1.8 L over the past 24 hours. On today's evaluation of 08/13/2019 on seeing this patient for a follow-up in the intensive care unit. The patient remains intubated on a mechanical ventilator. This morning, the patient assist-control mode at the rate of 20 with tidal volume of 500 and FiO2 of 40% with a PEEP of 5. The blood gases showed a pH of 7.38 with a pCO2 of 34 and pO2 of 100. The patient's chest x-ray stable. The patient is on normal saline today to 125 mL an hour. Urine output is adequate. The patient underwent dialysis. The patient is on propofol at 75 g per KG per minute. I was inclined and extubating this patient. However I was told that he has significant amount of movement disorder which may essential ly and that our ability to dialyze him. Furthermore, on having further discussion with nephrology, it seems that the patient will ultimately have a permacath insertion and for that reason a delayed the extubation process. For now, the patient has a positive fluid balance of 1.8 L over the past 24 hours. He is afebrile. The urine output is in order of a liter or more on a daily basis. The BUN is at 31 with a creatinine of 4.3. The patient is quite comfortable was sedation with propofol and no movement disorder has been noted. 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 On 08/12/2019, the patient is being seen in follow-up. The plan is to proceed with a kidney biopsy today for this patient. For that reason the patient was still Intubated on a mechanical ventilator. He underwent his permacath insertion yesterday without any complication. Chest x-ray following Insertion shows no complications. This morning, the patient remains on a mechanical ventilator. He remains on assist control mode at the rate of 20 with tidal volume of 500 and FiO2 of 40% with a PEEP of 5. He is pH of 7.39 with a pCO2 of 32 and pO2 of 78. He was having significant amount of rest or secretions in the sputum culture came back presumptive staph aureus. Subsequently, the patient started having increased fever and increased respiratory distress while being on a mechanical ventilator. Based on that, the patient was started on a combination of Rocephin and vancomycin as broad- spectrum antibiotic coverage pending further cultures from the sputum analysis. The patient's white cell count of 9.4 and hemoglobin is at 12.7. Urine output is normal to 30-40 mL an hour and the patient underwent hemodialysis yesterday and the patient's creatinine is down to 3.35 with a BUN of 28. Serum bicarb is at 18. The neck fluid balance over the past 24 hours has been -1 L over the past 24 hours including dialysis ultrafiltration. Monitor the patient's temperature investigation with some tachycardia with a heart rate and up to 120. There was also drop in her pulse ox down to 91%. The series of chest x-rays showed the no orotracheal tube was high in the trachea. Adjustments were made and that she was pushed and accordingly. The tube was advanced. Again the lung volume is were low and there was a trace left-sided pleural effusion without any new focal consolidation. Objective - Vital Signs Vital signs: Vital Signs Temp 101.4 F H 08/14/19 11:00 Pulse 121 H 08/14/19 12:00 Resp 28 H 08/14/19 12:00 BP 117/76 08/14/19 12:00 Pulse Ox 91 L 08/14/19 12:00 Intake & Output 08/13/19 08/14/19 08/14/19 18:59 06:59 18:59 Intake Total 1059.048 796.904 350.488 Output Total 1945 662 345 Balance -885.952 134.904 5.488 Weight 99.2 kg 99.1 kg Intake: IV 522 309 156 Pressure Bag 0.9NS 27 69 36 Sodium Chloride 0.9% 1, 495 240 120 000 ml @ 125 mls/hr IV . Q8H MARILYN Rx#:[id number] Intake, IV Titration 387.048 397.904 194.488 Amount Propofol 1,000 mg In 387.048 397.904 194.488 Empty Bag 1 bag @ Titrate IV .Q0M MARILYN Rx#: [id number] Tube Feeding 90 60 0 Other 60 30 Output: Urine 445 662 345 Hemodialysis 1500 Other: Voiding Method Indwelling Catheter Indwelling Catheter ABP, PAP, CO, CI - Last Documented Arterial Blood Pressure 179/84 - Exam GENERAL: The patient is intubatedand on the mechanical ventilator as well sedat ed for now, orogastric and orotracheal tube are both in place and the patient has a left IJ triple-lumen catheter in place. The patient has increased secretions and orotracheal tube. The patient has a permacath over the right IJ area. Head exam was generally normal. There was no scleral icterus or corneal arcus. Mucous membranes were moist. Neck was supple and without jugular venous distension, thyromegaly, or carotid bruits. Carotids were easily palpable bilaterally. There was no adenopathy. Cardiac exam revealed the PMI to be normally situated and sized. The rhythm was regular and no extrasystoles were noted during several minutes of auscultation. The first and second heart sounds were normal and physiologic splitting of the second heart sound was noted. There were no murmurs, rubs, clicks, or gallops. Abdominal exam revealed normal bowel sounds. The abdomen was soft, non-tender, and without masses, organomegaly, or appreciable enlargement of the abdominal aorta. Lungs were clear to auscultation and percussion, and with normal diaphragmatic excursion. No wheezes or rales were noted. Examination of the extremities revealed easily palpable radial, femoral and pedal pulses. There was no cyanosis, clubbing or edema. Examination of the skin revealed no evidence of significant rashes, suspicious appearing nevi or other concerning lesions. Neurologically the patient is sedated, comfortable - Labs CBC & Chem 7: 08/14/19 04:15 08/14/19 04:15 Labs: Abnormal Lab Results - Last 24 Hours (Table) 08/13/19 08/14/19 08/14/19 Range/Units 23:48 04:15 04:15 RBC 4.12 L (4.30-5.90) m/uL Hgb 12.7 L (13.0-17.5) gm/dL Hct 37.7 L (39.0-53.0) % Lymphocytes # 0.8 L (1.0-4.8) k/uL ABG pCO2 (35-45) mmHg ABG pO2 (83-108) mmHg ABG HCO3 (21-25) mmol/L Sodium (137-145) mmol/L Carbon Dioxide (22-30) mmol/L BUN (9-20) mg/dL Creatinine (0.66-1.25) mg/dL POC Glucose (mg/dL) 105 H (75-99) mg/dL Iron 48 L (65-175) ug/dL TIBC 220 L (228-460) ug/dL Ferritin 428.0 H (22.0-322.0) ng/mL Vitamin B12 114.0 L (200.0-944.0) pg/mL 08/14/19 08/14/19 Range/Units 04:15 04:50 RBC (4.30-5.90) m/uL Hgb (13.0-17.5) gm/dL Hct (39.0-53.0) % Lymphocytes # (1.0-4.8) k/uL ABG pCO2 32 L (35-45) mmHg ABG pO2 78 L (83-108) mmHg ABG HCO3 20 L (21-25) mmol/L Sodium 136 L (137-145) mmol/L Carbon Dioxide 18 L (22-30) mmol/L BUN 28 H (9-20) mg/dL Creatinine 3.35 H (0.66-1.25) mg/dL POC Glucose (mg/dL) (75-99) mg/dL Iron (65-175) ug/dL TIBC (228-460) ug/dL Ferritin (22.0-322.0) ng/mL Vitamin B12 (200.0-944.0) pg/mL Microbiology - Last 24 Hours (Table) 08/11/19 22:30 Gram Stain - Final Sputum Sputum Culture - Final Staphylococcus aureus Assessment and Plan Plan: 1. acute respiratory failure, the patient was not hypoxic nor he was h ypercapnic. The patient's was having abnormal movements and he was anxious and altered and the patient had to be intubated for airway protection and got transferred to the intensive care unit. For that reason pulmonary and critical care services were involved. The patient was kept intubated on mechanical ventilator as the patient had some renal workup needs to be done. He was placed on the mechanical ventilator upon the request of the veterinary technician assistant wanted a permacath insertion and a kidney biopsy done on this patient. Noted the patient is an extensive movement disorder and was not possible to undergo this procedure unless the patient was sedated on mechanical ventilator. For that reason, The patient on a mechanical ventilator. Nevertheless, there is a concern of developing a pneumonia. Sputum is showing presumptive staph aureus. The patient be started on broad-spectrum antibiotics especially the patient is having increased fever. He is going to restart and accommodation Rocephin and vancomycin. Permacath is already been inserted. 2 acute kidney injury possibly nonsteroidal related, and there are no other obvious causes. No evidence of any significant rhabdomyolysis. CAT scan of the abdomen did not show any significant hydronephrosis. The patient has a positive MARTIN. The complements are within normal. He has hepatitis C IgG was reactive. Nevertheless he doesn't have any significant proteinuria. He may need a kidney biopsy for further investigation The permacath as been inserted and the patient is looking for a kidney biopsy today. 3 Severe hyperkalemia, secondary to acute kidney injury , currently on hemodialysis 4 history of prostate cancer receiving radiation therapy with questionable outlet obstruction as high post void residual. Currently has a Sam catheter and the patient's risk of the abdomen did not show any significant hydronephrosis 5 Movement disorder, chronic. 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 We'll continue to follow. Condition is critical and case was discussed with various consultants including interventional radiology This evaluation was done and more than 30 minutes and this is a critically care evaluation. I am ready to extubate the patient was his neurologic workup is completed. Time with Patient: Greater than 30
[2019-08-14 13:32] LABS: Glucose,Whole Blood 80 mg/dL (75-99)
[2019-08-14 13:38] LABS: Anti-Glomerular Basement Memb 3 UNITS (0-20)
--- NOTE | 2019-08-14 13:52 | XR ---
EXAMINATION TYPE: XR chest 1V portable DATE OF EXAM: 08/14/2019 CLINICAL HISTORY: ET tube adjustment. TECHNIQUE: Single AP portable frontal view of the chest is obtained. COMPARISON: Chest x-ray from earlier today an older studies FINDINGS: Further advancement of endotracheal tube now terminating superior aspect of the aortic kno b roughly 2 to 3 cm above jewels. Orogastric tube terminates in the duodenum. Stable left internal ju gular and large bore right internal jugular dialysis catheters. Persistent low lung volumes with mild central vascular congestion. No new suspicious focal airspace o pacity. Patchy left basilar atelectasis. Cardiac silhouette size is stable and upper limits of normal . Osseous structures are intact. IMPRESSION: Improved positioning of endotracheal tube after advancing. Other findings stable with low lung volumes along with patchy left basilar atelectasis and perhaps mild central vascular congestion .
--- NOTE | 2019-08-14 13:55 | PN ---
PROGRESS NOTE Patient is seen for followup for acute kidney injury, currently hemodialysis dependent. He continues to have fair amount of urine output with 100-40 mL an hour. The patient has had 3 consecutive treatments. This morning he had fever. Patient is scheduled for kidney biopsy. Hopefully, it can be performed. He continues to have the involuntary movements on and off, particularly when the sedation is decreased. PHYSICAL EXAMINATION: Today, patient is on the vent. He is sedated. Blood pressure this morning 140/86, heart rate 125 per minute. He is running a fever of 101.4 degrees this morning. Examination shows abdomen is soft, nontender. Examination of the lower extremities shows no significant edema. Patient is currently on the vent. LABS: Show sodium 136, potassium 4.2, chloride 105, CO2 is 18, BUN 28, creatinine 3.35. ASSESSMENT: 1. Acute kidney injury ATN most likely; however, in view of positive MARTIN and unclear etiology for the acute kidney injury, a kidney biopsy is being considered. If we are able to get the kidney biopsy today, it will be better for the patient as I doubt that we will be able to perform it down the road due to his significant involuntary movements. 2. 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 3. Metabolic acidosis, status post sodium bicarb, expect further improvement with ongoing dialysis. 4. Hypertension, currently on Cleviprex drip, maintained on a clonidine patch as well, add oral calcium channel blockers if patient remains hypertensive. 5. Fever most likely from pneumonia. Sputum culture is growing Staphylococcus aureus. Okay to use vancomycin for now. 6. History of paranoid disorder maintained on Wellbutrin prior to admission, currently discontinued. PLAN: 1. Try to obtain kidney biopsy today while patient is still intubated and sedated. I will plan for hemodialysis tomorrow. 2. Continue to avoid nephrotoxic medications. Okay to use vancomycin given the ongoing fever and Staph aureus in the sputum. Patient has fair urine output. Therefore, he still has a good chance for renal recovery. MMODL / IJN: [id number] /
[2019-08-14] MEDS ORDERED: ACETAMINOPHEN IV (For NPO) 1,000 MG in EMPTY BAG 1 BAG IVPB PRN (14:02)
[2019-08-14 15:11] LABS: HCV Qualitative Result Not detected (Not detected); HCV Quant Log <1.08 (<1.08); HCV Quantitative Result <12 IU/mL (<12)
[2019-08-14] MEDS: SODIUM CHLORIDE 0.9% 1,000 ML IV SCH (16:44)
[2019-08-14] MEDS: NOREPINEPHRINE 8 MG in SODIUM CHLORIDE 0.9% 250 ML IV SCH (16:45)
[2019-08-14 18:59] LABS: Glucose,Whole Blood 89 mg/dL (75-99)
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
[2019-08-15 00:41] LABS: Glucose,Whole Blood 95 mg/dL (75-99)
[2019-08-15] MEDS: PROPOFOL 1,000 MG in EMPTY BAG 1 BAG IV SCH ×5 (00:48→10:10)
[2019-08-15 04:15] LABS: HCT 37.9 % (39.0-53.0); HGB 12.5 gm/dL (13.0-17.5); MCH 30.6 pg (25.0-35.0); MCV 92.8 fL (80.0-100.0); Mean Platelet Volume 8.9; Platelet Count 159 k/uL (150-450); RBC 4.08 m/uL (4.30-5.90); RDW 13.2 % (11.5-15.5); WBC 16.4 k/uL (3.8-10.6)
[2019-08-15 04:26] LABS: Calcium 8.9 mg/dL (8.4-10.2)
[2019-08-15 05:26] LABS: ABG Base Excess -7.9 mmol/L; ABG HCO3 18 mmol/L (21-25); ABG Oxygen Saturation 95.2 % (94-97); ABG PCO2 31 mmHg (35-45); ABG PH 7.36 (7.35-7.45); ABG PO2 80 mmHg (83-108); ABG TCO2 19 mmol/L (19-24); Allen Test Performed? Yes
--- NOTE | 2019-08-15 07:24 | XR ---
EXAMINATION TYPE: XR chest 1V portable DATE OF EXAM: 08/15/2019 CLINICAL HISTORY: Difficulty breathing progress study. TECHNIQUE: Single AP portable supine view of the chest is obtained. COMPARISON: Chest x-ray from one day earlier and older studies. FINDINGS: Redemonstration of endotracheal tube, orogastric tube, left internal jugular central venou s catheter, and large bore right internal jugular dialysis catheter. Unable to visualize tip of oroga stric tube on current study. Other tubes and catheters stable. Persistent low lung volumes with patchy left basilar linear atelectasis. No new suspicious focal airs pace opacity, pleural effusion, or pneumothorax seen bilaterally. Cardiac silhouette size is stable a nd upper limits of normal. Osseous structures are intact. IMPRESSION: Overall stable findings, low lung volumes with patchy left basilar atelectasis remain p resent.
[2019-08-15] MEDS: hydrALAZINE HCL 25 MG TAB PO SCH ×3 (08:29→20:02)
[2019-08-15] MEDS: PANTOPRAZOLE 40 MG/10 ML VIAL IV SCH (08:30)
[2019-08-15] MEDS: HEPARIN SODIUM,PORCINE 5,000 UNIT/ML 1 ML VIAL SQ SCH ×2 (08:30→20:02)
[2019-08-15] MEDS: OLANZapine 5 MG TAB PO SCH (08:30)
[2019-08-15] MEDS: buPROPion 75 MG TAB PO SCH ×2 (08:30→20:02)
[2019-08-15] MEDS: CHLORHEXIDINE GLUCONATE 15 ML CUP MUCOUS MEM SCH (08:30)
[2019-08-15 11:41] LABS: Glucose,Whole Blood 105 mg/dL (75-99)
--- NOTE | 2019-08-15 13:18 | P.PN ---
Subjective Progress Note Date: 08/15/19 Is a 58-year-old male patient was Hospital as for multiple complaints of abdominal pain, abdominal bloating and decreased urine output in addition to shortness of breath a few weeks duration. The patient has history of prostate cancer of she years duration and the patient was being treated with radiation therapy. The patient at the time of admission denied having any fever or chills. He is on intake was quite diminished and he came into the hospital for those reason the patient was found to be having some abnormal body movements related to extrapyramidal side effects of medication. He was taking Artane in the past. In the hospital, the patient was found to have rhabdomyolysis and acute kidney injury. He was intubated for airway protection and he was transferred to the intensive care unit. The patient is a time of admission had acute kidney injury with hyperkalemia and his creatinine at time of admission was 8.9 with a potassium level of 6.4. He does not have any history of chronic kidney disease. 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 After being trialed on IV fluids, the patient's renal function got worse and the patient had to be dialyzed regarding his acute kidney failure. Note that the patient has had previous episodes of rhabdomyolysis. His urine toxin was positive for opiates. The rest of urinalysis was benign. MARTIN was positive and the complements including C3 and C4 were normal. his hepatitis C IgG antibodies were reactive. As such, the exact cause of his acute kidney injury was not known. It was suspected to be related to nonsteroidal anti-inflammatory medication. Dialysis was initiated via yesterday via Lui catheter was placed by vascular surgery. The patient is being contemplated also for a kidney biopsy.. In terms of his pulmonary status, he shouldn't is currently intubated on a mechanical ventilator. His assist-control mode of ventilation at the rate of 20 with tidal volume of 500 and a PEEP of 5 and FiO2 is being gradually titrated to maintain a saturation above 90%. He was also requiring a low dose norepinephrine infusion for blood pressure control. Is on Diprivan for sedation. The chest x-ray post intubation showed no significant abnormalities. ET tube was in a good location. The patient has a left IJ triple-lumen catheter in place and the blood gases showed adequate oxygenation. The patient was On IV fluids and he is receiving normal saline at the rate of 125 mL an hour. Norepinephrine for blood pressure control and propofol for sedation. On today's evaluation of 08/12/2019, the patient remains on a mechanical ventilator. He is on assist control of 20 with a tidal volume of 500 and a PEEP of 5 with an FiO2 of 40%. Blood gas show pH of 7.37 with a pCO2 of 40 and pO2 124. Chest x-ray shows some atelectatic changes and small effusion the lung bases. The patient remains on propofol at 75 g. The patient remains on normal saline at the rate 125 mL an hour. The plan is to proceed with dialysis today. The white cell count is at 7.3. The creatinine is at 6.4. Urine output has been in the order of 1.8 L over the past 24 hours. On today's evaluation of 08/13/2019 on seeing this patient for a follow-up in the intensive care unit. The patient remains intubated on a mechanical ventilator. This morning, the patient assist-control mode at the rate of 20 with tidal volume of 500 and FiO2 of 40% with a PEEP of 5. The blood gases showed a pH of 7.38 with a pCO2 of 34 and pO2 of 100. The patient's chest x-ray stable. The patient is on normal saline today to 125 mL an hour. Urine output is adequate. The patient underwent dialysis. The patient is on propofol at 75 g per KG per minute. I was inclined and extubating this patient. However I was told that he has significant amount of movement disorder which may essential ly and that our ability to dialyze him. Furthermore, on having further discussion with nephrology, it seems that the patient will ultimately have a permacath insertion and for that reason a delayed the extubation process. For now, the patient has a positive fluid balance of 1.8 L over the past 24 hours. He is afebrile. The urine output is in order of a liter or more on a daily basis. The BUN is at 31 with a creatinine of 4.3. The patient is quite comfortable was sedation with propofol and no movement disorder has been noted. 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 On 08/14/2019, the patient is being seen in follow-up. The plan is to proceed with a kidney biopsy today for this patient. For that reason the patient was still Intubated on a mechanical ventilator. He underwent his permacath insertion yesterday without any complication. Chest x-ray following Insertion shows no complications. This morning, the patient remains on a mechanical ventilator. He remains on assist control mode at the rate of 20 with tidal volume of 500 and FiO2 of 40% with a PEEP of 5. He is pH of 7.39 with a pCO2 of 32 and pO2 of 78. He was having significant amount of rest or secretions in the sputum culture came back presumptive staph aureus. Subsequently, the patient started having increased fever and increased respiratory distress while being on a mechanical ventilator. Based on that, the patient was started on a combination of Rocephin and vancomycin as broad- spectrum antibiotic coverage pending further cultures from the sputum analysis. The patient's white cell count of 9.4 and hemoglobin is at 12.7. Urine output is normal to 30-40 mL an hour and the patient underwent hemodialysis yesterday and the patient's creatinine is down to 3.35 with a BUN of 28. Serum bicarb is at 18. The neck fluid balance over the past 24 hours has been -1 L over the past 24 hours including dialysis ultrafiltration. Monitor the patient's temperature investigation with some tachycardia with a heart rate and up to 120. There was also drop in her pulse ox down to 91%. The series of chest x-rays showed the no orotracheal tube was high in the trachea. Adjustments were made and that she was pushed and accordingly. The tube was advanced. Again the lung volume is were low and there was a trace left-sided pleural effusion without any new focal consolidation. On 08/15/2019, patient is being seen for a follow-up in the intensive care unit. I had a lengthy discussion with the patient's neurologist. There is a concern that the patient may have had movement disorder due to chronic snorting of Wellbutrin. In any rate, no kidney biopsy was done and the patient is producing a good urine output and the patient will not have hemodialysis today and the plan is to wean him off the mechanical ventilator today. Note that the patient was doing poorly yesterday. He had several spikes of temperature and further cultures from the sputum showed positive MSSA. Chest exit shows some limited atelectasis in the left lung base. ET tube is in a good location. He was covered with broad-spectrum antibiotics including a combination of Rocephin and vancomycin. Vancomycin can be discontinued today and the patient sputum cultures positive for MSSA. Note that the patient earlier this morning was on a Diprivan at the rate of 75 mg per KG per minute. The patient is also on assist control mode at the rate of 20 with tidal volume of 500 and FiO2 of 40% with a PEEP of 5. He is patient of 7.36 with a pCO2 of 31 and pO2 of 80. He was also recommended to restart baclofen as the patient could potentially go with rapid baclofen withdrawal once this medications been discontinued and the patient has a negative fluid balance of 751 mL. This is based on a 24-hour fluid balance. Objective - Vital Signs Vital signs: Vital Signs Temp 98.3 F 08/15/19 08:00 Pulse 93 08/15/19 11:00 Resp 25 H 08/15/19 11:00 BP 123/78 08/15/19 11:00 Pulse Ox 98 08/15/19 11:00 Intake & Output 08/14/19 08/15/19 08/15/19 18:59 06:59 18:59 Intake Total 670.021 857.647 477.369 Output Total 1330 847 460 Balance -659.979 10.647 17.369 Weight 104.6 kg Intake: IV 192 266 156 Pressure Bag 0.9NS 72 66 36 Sodium Chloride 0.9% 1, 120 000 ml @ 125 mls/hr IV . Q8H MARILYN Rx#:[id number] Sodium Chloride 0.9% 1, 200 120 000 ml @ 20 mls/hr IV . Q24H MARILYN Rx#:[id number] Intake, IV Titration 458.021 401.647 251.369 Amount ACETAMINOPHEN IV (For NPO 100 ) 1,000 mg In Empty Bag 1 bag @ 400 mls/hr IVPB Q6HR PRN Rx#:[id number] Clevidipine Butyrate 25 13.533 13.2 mg In Empty Bag 1 bag @ 1 MG/HR 2 mls/hr IV .Q24H MARILYN Rx#:[id number] Propofol 1,000 mg In 294.488 388.447 251.369 Empty Bag 1 bag @ Titrate IV .Q0M MARILYN Rx#: [id number] cefTRIAXone 1 gm In 50 Sodium Chloride 0.9% 50 ml @ 100 mls/hr IVPB ONCE STA Rx#:[id number] Tube Feeding 20 100 70 Other 90 Output: Gastric Drainage 500 Urine 830 847 460 Other: Voiding Method Indwelling Catheter Indwelling Catheter Indwelling Catheter ABP, PAP, CO, CI - Last Documented Arterial Blood Pressure 169/65 - Exam GENERAL: The patient is intubatedand on the mechanical ventilator as well sedated for now, orogastric and orotracheal tube are both in place and the patient has a left IJ triple-lumen catheter in place. The patient has increased secretions and orotracheal tube. The patient has a permacath over the right IJ area. Head exam was generally normal. There was no scleral icterus or corneal arcus. Mucous membranes were moist. Neck was supple and without jugular venous distension, thyromegaly, or carotid bruits. Carotids were easily palpable bilaterally. There was no adenopathy. Cardiac exam revealed the PMI to be normally situated and sized. The rhythm was regular and no extrasystoles were noted during several minutes of auscultation. The first and second heart sounds were normal and physiologic splitting of the second heart sound was noted. There were no murmurs, rubs, clicks, or gallops. Abdominal exam revealed normal bowel sounds. The abdomen was soft, non-tender, and without masses, organomegaly, or appreciable enlargement of the abdominal aorta. Lungs were clear to auscultation and percussion, and with normal diaphragmatic excursion. No wheezes or rales were noted. Examination of the extremities revealed easily palpable radial, femoral and peda l pulses. There was no cyanosis, clubbing or edema. Examination of the skin revealed no evidence of significant rashes, suspicious appearing nevi or other concerning lesions. Neurologically the patient is sedated, comfortable while on sedation. We've noted that the movement disorder with restart once the patient is off sedation. When the process of giving this patient sedation holiday in anticipation for extubation today. - Labs CBC & Chem 7: 08/15/19 04:00 08/15/19 04:00 Labs: Abnormal Lab Results - Last 24 Hours (Table) 08/15/19 08/15/19 08/15/19 Range/Units 04:00 04:00 05:23 WBC 16.4 H (3.8-10.6) k/uL RBC 4.08 L (4.30-5.90) m/uL Hgb 12.5 L (13.0-17.5) gm/dL Hct 37.9 L (39.0-53.0) % ABG pCO2 31 L (35-45) mmHg ABG pO2 80 L (83-108) mmHg ABG HCO3 18 L (21-25) mmol/L Carbon Dioxide 16 L (22-30) mmol/L BUN 30 H (9-20) mg/dL Creatinine 2.87 H (0.66-1.25) mg/dL POC Glucose (mg/dL) (75-99) mg/dL 08/15/19 Range/Units 11:39 WBC (3.8-10.6) k/uL RBC (4.30-5.90) m/uL Hgb (13.0-17.5) gm/dL Hct (39.0-53.0) % ABG pCO2 (35-45) mmHg ABG pO2 (83-108) mmHg ABG HCO3 (21-25) mmol/L Carbon Dioxide (22-30) mmol/L BUN (9-20) mg/dL Creatinine (0.66-1.25) mg/dL POC Glucose (mg/dL) 105 H (75-99) mg/dL Microbiology - Last 24 Hours (Table) 08/14/19 12:20 Gram Stain - Preliminary Sputum Sputum Culture - Preliminary Presumptive Staph aureus 08/14/19 12:45 Urine Culture - Preliminary Urine,Catheterized 08/11/19 22:30 Gram Stain - Final Sputum Sputum Culture - Final Staphylococcus aureus Assessment and Plan Plan: 1. acute respiratory failure, the patient was not hypoxic nor he was hypercapnic. The patient's was having abnormal movements and he was anxious and altered and the patient had to be intubated for airway protection and got transferred to the intensive care unit. For that reason pulmonary and critical care services were involved. On 08/15/2019, the patient remains intubated on a mechanical ventilator. The sputum was copious and the cultures revealed MSSA. The chest x-ray still free of any pulmonary infiltrates. The patient was given Rocephin and vancomycin and vancomycin can be discontinued. The patient was febrile and currently his fever broke and no temperature spikes have been witnessed over the past 8-12 hours. He remains hemodynamically stable. 2 acute kidney injury possibly nonsteroidal related, and there are no other obvious causes. No evidence of any significant rhabdomyolysis. CAT scan of the abdomen did not show any significant hydronephrosis. The patient has a positive MARTIN. The complements are within normal. He has hepatitis C IgG was reactive. Nevertheless he doesn't have any significant proteinuria. He may need a kidney biopsy for further investigation The permacath as been inserted and the patient was supposed to undergo a kidney biopsy, however, this current canceled by nephrology and interventional radiology as the patient's urine output improved and the patient started producing better urine output and the creatinine is down to 2.8 with a BUN of 30. 3 Severe hyperkalemia, secondary to acute kidney injury , currently on hemodialysis, potassium level is normalized 4 history of prostate cancer receiving radiation therapy with questionable outlet obstruction as high post void residual. Currently has a Sam catheter and the patient's risk of the abdomen did not show any significant hydronephrosis 5 Movement disorder, chronic. 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 Plan Stop the sedation and check a set of weaning parameters in intensive patient for extubation. One concern is that the patient is going to have extensive movement disorder and going to work with neurology in this regard. Baclofen was restarted to prevent any baclofen related withdrawal effect Monitor the fever pattern The sputum culture was positive for MSSA. We'll continue the Rocephin and will discontinue the vancomycin Keep the permacath in place and hold dialysis for now, no plans for kidney biopsy Hold enteral feeding for nutritional support in anticipation for extubation Possible weaning and extubation Monitor blood pressure and use clevidipine drip for blood pressure control. The patient is currently on no pressors. Neurology follow-up Nephrology follow-up We'll continue to follow. Condition is critical and case was discussed with various consultants including a phone call that was done with poison control This evaluation was done and more than 30 minutes and this is a critically care evaluation. I am ready to extubate the patient hopefully today and we'll nai nue monitoring him clinically. Time with Patient: Greater than 30
[2019-08-15] MEDS: BACLOFEN 10 MG TAB PO SCH ×2 (14:28→20:02)
[2019-08-15] MEDS: NOREPINEPHRINE 8 MG in SODIUM CHLORIDE 0.9% 250 ML IV SCH (14:28)
--- NOTE | 2019-08-15 15:48 | PN ---
PROGRESS NOTE Patient is seen for followup for acute kidney injury. He did not have the biopsy yesterday, patient was unstable. However, today his creatinine has improved further without dialysis. He continues to have good urine output at about 100-50 mL an hour. Patient remains on sedation. He remains on the vent. Cleviprex drip is discontinued. PHYSICAL EXAMINATION: This morning, blood pressure 163/83, heart rate 112 per minute, patient is afebrile. Examination of the lower extremities shows no evidence of edema. Patient is tolerating tube feeds. Abdomen is soft, nontender. Breath sounds are present. BOIL[employer]OM [employer]ATOR exam cannot be performed as patient is sedated. LABS: Show sodium 137, potassium 4.0, chloride 106, CO2 is 16, BUN 30, creatinine 2.87. ASSESSMENT: 1. Acute kidney injury most likely acute tubular necrosis. Patient did have positive MARTIN with mild proteinuria and hematuria and therefore kidney biopsy was ordered; however, patient was unstable and could not go for a biopsy. This morning, his renal function has improved. He continues to have good urine output and we will hold off on dialysis for now. 2. Metabolic acidosis associated with renal failure, maintained on oral sodium bicarb. Initially; however, this was discontinued, but now as patient was on dialysis; however, now since patient will not be dialyzed, I will add oral sodium bicarb tablets. 3. Pneumonia Staphylococcus aureus growing in sputum cultures, maintained on antibiotics, status post vancomycin as well. 4. 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 The patient has not had the MRI yet as he has been unstable. PLAN: Hold hemodialysis. Add oral sodium bicarb, continue off of IV fluids for now and repeat labs in a.m. I would like to avoid nephrotoxic medications as there is recovery of renal function. I see that vancomycin has now been discontinued, which is appropriate. MMODL / IJN: [id number] /
[2019-08-15 18:09] LABS: Glucose,Whole Blood 106 mg/dL (75-99)
--- NOTE | 2019-08-15 19:40 | P.PN ---
Subjective 58-year-old male appears to have been admitted for acute renal failure which appears to be secondary to nonsteroidal anti-inflammatory medications patient has a movement disorder and appears to have some automatic movements because of which they were unable to place a dialysis catheter. Patient was subsequently intubated because of his mental status and his automatic movements. I'm unable to assess him neurologically. And a had a lengthy discussion with the nursing staff and neurologist patient that it appears to have had a movement disorder or cardiac dyskinesia in the past and has been, noncompliant with medications. Patient is also on high-dose of Wellbutrin which can cause myoclonus and seizures EEG is being obtained and neurology recommended an MRI to rule out any stroke that may have precipitated his movement disorder not clear what kind of movement disorder patient has, there possibility of hemibellismus, myoclonus or even seizure. Neurology will evaluate the patient once patient is extubated and off sedation. Patient most probably can be extubated today patient did receive her dialysis catheter and patient received hemodialysis. Review of systems: Unable to obtain due to her clinical condition All inpatient medications were reviewed and appropriate changes in these medications as dictated in the interval history and assessment and plan. 08/13/2019 Patient remains to the ICU, intubated and sedated. Patient remains on normal saline at 75 mL/h and is getting dialysis. Patient kept on intubation and mechanical ventilation partly because of excessive twitching and muscular movement and he had a dialysis catheter placed today. Neurologist evaluated for possible cardiac versus other, left ventricular workup included an MRA of the brain, EEG, me any Water, CK level. While mirror machine feeder recommended a biopsy in view of elevated creatinine with no clear cause other than history of NSAID use and elevated MARTIN level. Sputum culture is growing staph, mostly contaminant versus colonization, patient with no fever or leukocytosis 08/14/2019 Patient remains in the ICU intubated and sedated, his IV fluid was stopped. He is developing fever of 101 today, with tachycardia 101/117. The 2529. Blood pressure 135/85. Oxygen saturation 96% WBC is 9.4K, hemoglobin 12.7. Sodium 136, creatinine is slightly improving 3.35. Neurologist evaluated the patient and started on olanzapine Sputum chest x-ray: No focal infiltrate culture is growing MSSA, patient got 1 dose of Rocephin today. Chest x-ray: No acute infiltrate, recommend to advance the endotracheal tube in approximately 5-6 cm. Pulmonary service on the case. 08/15/2019 Patient in the ICU, yet still undergoing weaning trial and closely by pulmonary team. Patient showing gradual improvement. Kidney function is also improving and his creatinine down to 2.87, no kidney biopsy done. Patient was restarted on baclofen to prevent withdrawal Patient was continued on Rocephin and review of MSSA and sputum culture with fever yesterday 100-102 with increased WBC 16.4 K Review of systems: N/a Active Medications Generic Name Dose Route Start Last Admin Trade Name Freq PRN Reason Stop Dose Admin Acetaminophen 650 mg 08/14/19 09:12 08/14/19 09:50 Tylenol Tab PO 650 mg Q6HR PRN Administration Fever and/ or Pain Baclofen 20 mg 08/15/19 11:30 08/15/19 14:28 Lioresal PO Not Given BID MARILYN Bupropion HCl 150 mg 08/12/19 21:00 08/15/19 08:30 Wellbutrin PO 150 mg BID MARILYN Administration Clonidine HCl 1 patch 08/12/19 12:30 08/12/19 13:29 Catapres-Tts 0.2mg Patch TRANSDERM 1 patch Q7D MARILYN Administration Heparin Sodium (Porcine) 5,000 unit 08/09/19 21:00 08/15/19 08:30 Heparin SQ 5,000 unit Q12HR MARILYN Administration Hydralazine HCl 25 mg 08/13/19 09:00 08/15/19 16:17 Apresoline PO Not Given TID MARILYN Sodium Chloride 1,000 mls @ 20 mls/hr 08/11/19 13:15 08/14/19 16:44 Saline 0.9% IV 20 mls/hr .Q24H MARILYN Administration Norepinephrine Bitartrate 8 mg 258 mls @ 9.598 mls/hr 08/11/19 15:15 08/15/19 14:28 / Sodium Chloride IV Not Given .Q24H MARILYN Protocol 0.05 MCG/KG/MIN Clevidipine 25 mg/ IV Solution 50 mls @ 2 mls/hr 08/14/19 09:30 08/14/19 20:00 IV 0 mg/hr .Q24H MARILYN 0 mls/hr Titration Protocol 1 MG/HR Ceftriaxone Sodium 2 gm/ 50 mls @ 100 mls/hr 08/15/19 09:00 08/15/19 10:11 Sodium Chloride IVPB 100 mls/hr Q24HR MARILYN Administration Morphine Sulfate 2 mg 08/14/19 12:27 08/14/19 17:46 Morphine Sulfate (Inj) IVP 2 mg Q4H PRN Administration Pain/Discomfort Naloxone HCl 0.2 mg 08/09/19 13:05 Narcan IV Q2M PRN Opioid Reversal Olanzapine 5 mg 08/13/19 19:30 08/15/19 08:30 Zyprexa PO 5 mg DAILY MARILYN Administration Pantoprazole Sodium 40 mg 08/12/19 09:00 08/15/19 08:30 Protonix IV 40 mg DAILY MARILYN Administration Sodium Bicarbonate 650 mg 08/15/19 21:00 Sodium Bicarbonate Tab PO BID [facility] Objective - Vital Signs Vital signs: Vital Signs Temp 98.7 F 08/15/19 12:00 Pulse 112 H 08/15/19 14:00 Resp 20 08/15/19 14:00 BP 132/87 08/15/19 14:00 Pulse Ox 95 08/15/19 14:00 Intake & Output 08/14/19 08/15/19 08/15/19 18:59 06:59 18:59 Intake Total 670.021 857.647 529.369 Output Total 1330 847 560 Balance -659.979 10.647 -30.631 Weight 104.6 kg 104.6 kg Intake: IV 192 266 208 Pressure Bag 0.9NS 72 66 48 Sodium Chloride 0.9% 1, 120 000 ml @ 125 mls/hr IV . Q8H MARILYN Rx#:[id number] Sodium Chloride 0.9% 1, 200 160 000 ml @ 20 mls/hr IV . Q24H MARILYN Rx#:[id number] Intake, IV Titration 458.021 401.647 251.369 Amount ACETAMINOPHEN IV (For NPO 100 ) 1,000 mg In Empty Bag 1 bag @ 400 mls/hr IVPB Q6HR PRN Rx#:[id number] Clevidipine Butyrate 25 13.533 13.2 mg In Empty Bag 1 bag @ 1 MG/HR 2 mls/hr IV .Q24H MARILYN Rx#:[id number] Propofol 1,000 mg In 294.488 388.447 251.369 Empty Bag 1 bag @ Titrate IV .Q0M MARILYN Rx#: [id number] cefTRIAXone 1 gm In 50 Sodium Chloride 0.9% 50 ml @ 100 mls/hr IVPB ONCE [facility] Rx#:[id number] Tube Feeding 20 100 70 Other 90 Output: Gastric Drainage 500 Urine 830 847 560 Other: Voiding Method Indwelling Catheter Indwelling Catheter Indwelling Catheter ABP, PAP, CO, CI - Last Documented Arterial Blood Pressure 187/80 - Exam -GENERAL: Intubated and sedated HEENT: Pupils are round and equally reacting to light. EOMI. No scleral icterus. No conjunctival pallor. Normocephalic, atraumatic. No pharyngeal erythema. No thyromegaly. CARDIOVASCULAR: S1 and S2 present. No murmurs, rubs, or gallops. PULMONARY: Chest is clear to auscultation, no wheezing or crackles. ABDOMEN: Soft, nontender, nondistended, normoactive bowel sounds. No palpable organomegaly. MUSCULOSKELETAL: No joint swelling or deformity. EXTREMITIES: No cyanosis, clubbing, or pedal edema. -NEUROLOGICAL: Gross neurological examination did not reveal any focal deficits. Multiple and involuntary muscle twitches SKIN: No rashes. No petechiae - Labs CBC & Chem 7: 08/15/19 04:00 08/15/19 04:00 Labs: Abnormal Lab Results - Last 24 Hours (Table) 08/15/19 08/15/19 08/15/19 Range/Units 04:00 04:00 05:23 WBC 16.4 H (3.8-10.6) k/uL RBC 4.08 L (4.30-5.90) m/uL Hgb 12.5 L (13.0-17.5) gm/dL Hct 37.9 L (39.0-53.0) % ABG pCO2 31 L (35-45) mmHg ABG pO2 80 L (83-108) mmHg ABG HCO3 18 L (21-25) mmol/L Carbon Dioxide 16 L (22-30) mmol/L BUN 30 H (9-20) mg/dL Creatinine 2.87 H (0.66-1.25) mg/dL POC Glucose (mg/dL) (75-99) mg/dL 08/15/19 Range/Units 11:39 WBC (3.8-10.6) k/uL RBC (4.30-5.90) m/uL Hgb (13.0-17.5) gm/dL Hct (39.0-53.0) % ABG pCO2 (35-45) mmHg ABG pO2 (83-108) mmHg ABG HCO3 (21-25) mmol/L Carbon Dioxide (22-30) mmol/L BUN (9-20) mg/dL Creatinine (0.66-1.25) mg/dL POC Glucose (mg/dL) 105 H (75-99) mg/dL Microbiology - Last 24 Hours (Table) 08/14/19 12:28 Blood Culture - Preliminary Blood No Growth after 24 hours 08/14/19 12:20 Gram Stain - Preliminary Sputum Sputum Culture - Preliminary Presumptive Staph aureus 08/14/19 12:45 Urine Culture - Preliminary Urine,Catheterized 08/11/19 22:30 Gram Stain - Final Sputum Sputum Culture - Final Staphylococcus aureus Assessment and Plan Assessment: -Acute renal failure: Status post hemodialysis. Dialysis catheter was placed, nephrology following the case closely. And the planing for kidney biopsy -Involuntary muscle twitches, suspicious for chorea or smiley chorea neurologist on the case, recommend an MRA and EEG and workup. Patient remains intubated to protect airway. Neurologist recommended small dose of antipsychotic. restarted on baclofen -Fever with sputum culture growing MSSA, chest x-ray showing no consolidation. WBC is elevated. Continue with of Rocephin. Follow-up temperature -Hypertension uncontrolled patient was started on clonidine with better cont rolled blood pressures -Hyperkalemia secondary to renal failure, improving -History of seizure disorder -Depression, Wellbutrin dose is being decreased by my colleague DVT prophylaxis: Subcutaneous heparin GI prophylaxis: Pepcid Prognosis guarded
[2019-08-15] MEDS: ACETAMINOPHEN TAB 325 MG TAB PO PRN (20:01)
[2019-08-15] MEDS: CYANOCOBALAMIN 1,000 MCG/ML 1 ML VIAL IM SCH (20:01)
[2019-08-15] MEDS: SODIUM BICARBONATE TAB 650 MG TAB PO SCH (20:02)
[2019-08-15] MEDS: SODIUM CHLORIDE 0.9% 1,000 ML IV SCH (20:03)
[2019-08-16 00:07] LABS: Glucose,Whole Blood 89 mg/dL (75-99)
[2019-08-16] MEDS: ACETAMINOPHEN TAB 325 MG TAB PO PRN (03:46)
[2019-08-16] MEDS: MORPHINE SULFATE 2 MG/ML SYRINGE IVP PRN (03:46)
[2019-08-16 05:21] LABS: Calcium 8.9 mg/dL (8.4-10.2); Potassium 3.9 mmol/L (3.5-5.1)
[2019-08-16 05:28] LABS: Basophils # (A) 0.1 k/uL (0-0.2); Basophils % (A) 0 %; Eosinophils # (A) 0.3 k/uL (0-0.7); Eosinophils % (A) 2 %; HCT 36.3 % (39.0-53.0); HGB 11.9 gm/dL (13.0-17.5); Lymphocytes # (A) 0.6 k/uL (1.0-4.8); Lymphocytes % (A) 4 %; MCH 31.1 pg (25.0-35.0); MCHC 32.8 g/dL (31.0-37.0); MCV 94.9 fL (80.0-100.0); Mean Platelet Volume 9.9; Monocytes # (A) 0.9 k/uL (0-1.0); Monocytes % (A) 6 %; Neutrophils # (A) 13.9 k/uL (1.3-7.7); Neutrophils % (A) 87 %; Platelet Count 153 k/uL (150-450); RBC 3.83 m/uL (4.30-5.90); RDW 13.1 % (11.5-15.5); WBC 15.9 k/uL (3.8-10.6)
[2019-08-16 05:53] LABS: Glucose,Whole Blood 173 mg/dL (75-99)
--- NOTE | 2019-08-16 07:12 | XR ---
EXAMINATION TYPE: XR chest 1V portable DATE OF EXAM: 08/16/2019 Comparison: 08/15/2019 Clinical History: 58-year-old male Tube placement Findings: Right-sided double-lumen hemodialysis catheter with tips in the upper right atrium. The left CVC tip at the cavoatrial junction. Low lung volumes with mild patchy bibasilar opacity, probably atelectasis . Heart upper limits of normal in size. Visualized upper and mid lungs are clear. Impression: Relatively stable; hypoventilatory changes with mild patchy bibasilar opacity, probable atelectasis.
[2019-08-16 09:06] VITALS: BMI 31.6
[2019-08-16] MEDS ORDERED: LORazepam 2 MG/ML INJ IV STA (09:33)
[2019-08-16] MEDS: SODIUM BICARBONATE TAB 650 MG TAB PO SCH ×2 (09:48→20:59)
[2019-08-16] MEDS: OLANZapine 5 MG TAB PO SCH (09:48)
[2019-08-16] MEDS: buPROPion 75 MG TAB PO SCH ×2 (09:48→21:25)
[2019-08-16] MEDS: BACLOFEN 10 MG TAB PO SCH ×2 (09:48→20:59)
[2019-08-16] MEDS: hydrALAZINE HCL 25 MG TAB PO SCH ×3 (09:48→21:41)
[2019-08-16] MEDS: HEPARIN SODIUM,PORCINE 5,000 UNIT/ML 1 ML VIAL SQ SCH ×2 (09:49→21:00)
[2019-08-16] MEDS: PANTOPRAZOLE 40 MG/10 ML VIAL IV SCH (09:49)
[2019-08-16] MEDS: CLEVIDIPINE BUTYRATE 25 MG in EMPTY BAG 1 BAG IV SCH (09:50)
--- NOTE | 2019-08-16 11:17 | PN ---
PROGRESS NOTE Patient is seen for followup for acute kidney injury. Patient's renal function has started to improve, he has had good urine output. We did not dialyze him yesterday and his creatinine has further decreased to about 2.7 from 2.87 yesterday. Patient was extubated yesterday. He is currently doing fairly well. He does not have significant choreoathetoid movements at this point. PHYSICAL EXAMINATION: On examination, blood pressure this morning 124/59, heart rate 105 per minute. He is afebrile. Discussed with nursing staff. No edema noted. Patient is comfortable. Abdomen is soft, nontender. He is maintained on clear liquids. Patient is following commands. LABS: Show sodium 140, potassium 3.9, chloride 111, CO2 is 16, BUN 31, creatinine 2.71, hemoglobin 11.9 g/dL. ASSESSMENT: 1. Acute kidney injury, most likely acute tubular necrosis. Patient did have positive MARTIN and there was trace blood and protein in the urine and initially kidney biopsy was scheduled. However, renal function started to improve and we are currently holding off on dialysis as well as a kidney biopsy for now. 2. Uremia on initial admission, currently improved significantly. 3. 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 These have improved significantly. Current at this time. Patient is off the vent and sedation and he seems to be doing well. 4. Metabolic acidosis associated with renal failure, maintained on oral sodium bicarb. 5. Respiratory failure, mainly patient was intubated secondary to significant abnormal movements and we were not able to dialyze him or place dialysis catheter. He is currently extubated and doing well. 6. Pneumonia with sputum culture growing Staphylococcus aureus, maintained on ceftriaxone. 7. Hypertension, currently controlled blood pressure increases when patient is agitated. PLAN: Continue with oral sodium bicarb. Continue off of IV fluids. Avoid nephrotoxic medications. Continue to watch for renal recovery and we will continue to hold off on dialysis and a kidney biopsy as well for now. MMODL / IJN: [id number] /
--- NOTE | 2019-08-16 11:29 | MR ---
EXAMINATION TYPE: MR brain wo con DATE OF EXAM: 08/16/2019 COMPARISON: Correlation CT 11/04/2017 HISTORY: 58-year-old male [place] TECHNIQUE: Multiplanar, multisequence images of the brain and brainstem were acquired without IV con trast. Diffusion weighted imaging is performed. FINDINGS: Mild motion degradation of the exam. No evidence for acute infarction, hemorrhage, mass, mass effect, midline shift, herniation, effacemen t of basal cisterns, or extra-axial fluid collection. The ventricles and sulci are age-appropriate. Major intracranial flow voids are intact. T2/FLAIR weighted sequences show moderate scattered burden of bright white matter changes particularl y in the subcortical deep white matter regions of the cerebral hemispheres, most numerous in the bifr ontal lobes but also within the right parietal lobe and left subinsular region. Midline structures demonstrate normal morphology. The craniocervical junction is normal. Mild to moderate mucosal thickening ethmoid air cells and maxillary sinuses. IMPRESSION: 1. No acute intracranial abnormality seen. 2. Moderate scattered burden of white white matter change likely relating to chronic small vessel isc hemic disease. Chronic migraines, demyelinating disease, vasculitis, and Lyme's disease or some other differential considerations.
--- NOTE | 2019-08-16 11:36 | MR ---
EXAMINATION TYPE: MR angio head/neck wo con DATE OF EXAM: 08/16/2019 COMPARISON: Correlation MRI brain same day HISTORY: 58-year-old male [place] TECHNIQUE: High resolution 3-D [id number] images focusing on the [place] of [place] were performed without contrast.. Additional 2-D and 3-D [id number] imaging of the neck vasculature. 3-D recons tructions generated on a dedicated independent workstation. FINDINGS: HEAD: Vertebral and basilar arteries are patent. Prominent left posterior communicating artery. The internal carotid arteries are patent as is the remainder of the anterior circulation. No aneurysmal changes. NECK: There appears to be bovine configuration to the aortic arch. The vertebral arteries appear codominant with preserved flow related enhancement throughout the cours e. The right common and internal carotid arteries appear patent. Left common and internal carotid arteries appear patent. No loss of flow-related enhancement. IMPRESSION: 1. Head: No large vessel intracranial arterial occlusion or aneurysmal change. 2. Neck: Preserved flow related enhancement within the carotid and vertebral arteries of the neck wit hout any evident narrowing.
--- NOTE | 2019-08-16 11:42 | EEG ---
ELECTROENCEPHALOGRAM REPORT DATE OF SERVICE: 08/15/2019. DATE OF INTERPRETATION: 08/16/2019. HISTORY: This is an inpatient EEG performed in the intensive care unit on a 58-year-old gentleman who presented with acute kidney injury, altered mental status and severe abnormal involuntary movements consistent with chorea-like movements. The patient required intubation in order to undergo hemodialysis due to the severity of his abnormal involuntary movements. This patient was abusing Wellbutrin by inhalation, which is thought to have lowered his potential seizure threshold. The patient also suffers from severe history of restless legs syndrome. No prior EEG is available for comparison. MEDICATIONS: Baclofen. Wellbutrin. Zyprexa. TECHNICAL REPORT: This is an inpatient EEG performed on the Plink EEG monitor with electrodes placed according to the International 10-20 system and a single EKG channel. Simultaneous video EEG monitoring was performed. This EEG was reviewed in both the longitudinal bipolar, common average referential and transverse montages. Photic stimulation was performed. Hyperventilation was not performed due to the patient's underlying medical condition. The recording begins with the patient awake, the technologist reports that she is unable to get the patient to relax. There is excessive motion movement artifact with intermittent periods where the background attenuates. The wake background consists of an 8 to maximum 9 Hz posterior dominant rhythm that is of low amplitude. Increased beta activity is prominent over the anterior and central head regions. Frequently during the first portion of the study, there was excessive artifact over the left frontal head region. Photic stimulation was performed at various flash frequencies and failed to elicit consistent driving response. Following photic stimulation, the patient appears to transition in drowsiness. This is associated with an attenuation of the background rhythm. The appearance is slow rolling eye movements and increase in beta activity anteriorly and centrally. This is consistent with stage 1 sleep report/drowsiness. At 13:41:57 there is increased abrupt muscle artifact noted consistent with an arousal. The posterior dominant rhythm resumes to 8 Hz of low amplitude, symmetric, consistent with wakefulness. At 13:45:37 a significant increase in motion and movement artifact occur in the patient; however, there is an increase in muscle artifact occurring; however, the patient by video appears to be clinically quiet and sleeping. This obscures the background. Following this, there continues to be increased motion movement artifact now associated with the patient moving. Deeper stages of sleep were not achieved. IMPRESSION: This overall appears to be a normal awake and drowsy EEG study. The study at times was difficult to interpret due to excessive motion and movement artifact. No asymmetry was noted between the hemispheres. No epileptiform discharges occurred, electrographic seizures, nor clinical seizures. No abnormalities were noted during photic stimulation, nor in the EKG tracing. CLINICAL CORRELATION: A normal awake, drowsy EEG does not preclude an underlying seizure tendency. Further clinical correlation is needed. If clinically indicated, serial EEGs are recommended and/or a more prolonged overnight study. MMODL / IJN: [id number] / MTDD
[2019-08-16 12:28] LABS: Glucose,Whole Blood 116 mg/dL (75-99)
--- NOTE | 2019-08-16 13:36 | P.PN ---
Subjective Progress Note Date: 08/16/19 Is a 58-year-old male patient was Hospital as for multiple complaints of abdominal pain, abdominal bloating and decreased urine output in addition to shortness of breath a few weeks duration. The patient has history of prostate cancer of she years duration and the patient was being treated with radiation therapy. The patient at the time of admission denied having any fever or chills. He is on intake was quite diminished and he came into the hospital for those reason the patient was found to be having some abnormal body movements related to extrapyramidal side effects of medication. He was taking Artane in the past. In the hospital, the patient was found to have rhabdomyolysis and acute kidney injury. He was intubated for airway protection and he was transferred to the intensive care unit. The patient is a time of admission had acute kidney injury with hyperkalemia and his creatinine at time of admission was 8.9 with a potassium level of 6.4. He does not have any history of chronic kidney disease. 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 After being trialed on IV fluids, the patient's renal function got worse and the patient had to be dialyzed regarding his acute kidney failure. Note that the patient has had previous episodes of rhabdomyolysis. His urine toxin was positive for opiates. The rest of urinalysis was benign. MARTIN was positive and the complements including C3 and C4 were normal. his hepatitis C IgG antibodies were reactive. As such, the exact cause of his acute kidney injury was not known. It was suspected to be related to nonsteroidal anti-inflammatory medication. Dialysis was initiated via yesterday via Lui catheter was placed by vascular surgery. The patient is being contemplated also for a kidney biopsy.. In terms of his pulmonary status, he shouldn't is currently intubated on a mechanical ventilator. His assist-control mode of ventilation at the rate of 20 with tidal volume of 500 and a PEEP of 5 and FiO2 is being gradually titrated to maintain a saturation above 90%. He was also requiring a low dose norepinephrine infusion for blood pressure control. Is on Diprivan for sedation. The chest x-ray post intubation showed no significant abnormalities. ET tube was in a good location. The patient has a left IJ triple-lumen catheter in place and the blood gases showed adequate oxygenation. The patient was On IV fluids and he is receiving normal saline at the rate of 125 mL an hour. Norepinephrine for blood pressure control and propofol for sedation. On today's evaluation of 08/12/2019, the patient remains on a mechanical ventilator. He is on assist control of 20 with a tidal volume of 500 and a PEEP of 5 with an FiO2 of 40%. Blood gas show pH of 7.37 with a pCO2 of 40 and pO2 124. Chest x-ray shows some atelectatic changes and small effusion the lung bases. The patient remains on propofol at 75 g. The patient remains on normal saline at the rate 125 mL an hour. The plan is to proceed with dialysis today. The white cell count is at 7.3. The creatinine is at 6.4. Urine output has been in the order of 1.8 L over the past 24 hours. On today's evaluation of 08/13/2019 on seeing this patient for a follow-up in the intensive care unit. The patient remains intubated on a mechanical ventilator. This morning, the patient assist-control mode at the rate of 20 with tidal volume of 500 and FiO2 of 40% with a PEEP of 5. The blood gases showed a pH of 7.38 with a pCO2 of 34 and pO2 of 100. The patient's chest x-ray stable. The patient is on normal saline today to 125 mL an hour. Urine output is adequate. The patient underwent dialysis. The patient is on propofol at 75 g per KG per minute. I was inclined and extubating this patient. However I was told that he has significant amount of movement disorder which may essential ly and that our ability to dialyze him. Furthermore, on having further discussion with nephrology, it seems that the patient will ultimately have a permacath insertion and for that reason a delayed the extubation process. For now, the patient has a positive fluid balance of 1.8 L over the past 24 hours. He is afebrile. The urine output is in order of a liter or more on a daily basis. The BUN is at 31 with a creatinine of 4.3. The patient is quite comfortable was sedation with propofol and no movement disorder has been noted. 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 On 08/14/2019, the patient is being seen in follow-up. The plan is to proceed with a kidney biopsy today for this patient. For that reason the patient was still Intubated on a mechanical ventilator. He underwent his permacath insertion yesterday without any complication. Chest x-ray following Insertion shows no complications. This morning, the patient remains on a mechanical ventilator. He remains on assist control mode at the rate of 20 with tidal volume of 500 and FiO2 of 40% with a PEEP of 5. He is pH of 7.39 with a pCO2 of 32 and pO2 of 78. He was having significant amount of rest or secretions in the sputum culture came back presumptive staph aureus. Subsequently, the patient started having increased fever and increased respiratory distress while being on a mechanical ventilator. Based on that, the patient was started on a combination of Rocephin and vancomycin as broad- spectrum antibiotic coverage pending further cultures from the sputum analysis. The patient's white cell count of 9.4 and hemoglobin is at 12.7. Urine output is normal to 30-40 mL an hour and the patient underwent hemodialysis yesterday and the patient's creatinine is down to 3.35 with a BUN of 28. Serum bicarb is at 18. The neck fluid balance over the past 24 hours has been -1 L over the past 24 hours including dialysis ultrafiltration. Monitor the patient's temperature investigation with some tachycardia with a heart rate and up to 120. There was also drop in her pulse ox down to 91%. The series of chest x-rays showed the no orotracheal tube was high in the trachea. Adjustments were made and that she was pushed and accordingly. The tube was advanced. Again the lung volume is were low and there was a trace left-sided pleural effusion without any new focal consolidation. On 08/15/2019, patient is being seen for a follow-up in the intensive care unit. I had a lengthy discussion with the patient's neurologist. There is a concern that the patient may have had movement disorder due to chronic snorting of Wellbutrin. In any rate, no kidney biopsy was done and the patient is producing a good urine output and the patient will not have hemodialysis today and the plan is to wean him off the mechanical ventilator today. Note that the patient was doing poorly yesterday. He had several spikes of temperature and further cultures from the sputum showed positive MSSA. Chest exit shows some limited atelectasis in the left lung base. ET tube is in a good location. He was covered with broad-spectrum antibiotics including a combination of Rocephin and vancomycin. Vancomycin can be discontinued today and the patient sputum cultures positive for MSSA. Note that the patient earlier this morning was on a Diprivan at the rate of 75 mg per KG per minute. The patient is also on assist control mode at the rate of 20 with tidal volume of 500 and FiO2 of 40% with a PEEP of 5. He is patient of 7.36 with a pCO2 of 31 and pO2 of 80. He was also recommended to restart baclofen as the patient could potentially go with rapid baclofen withdrawal once this medications been discontinued and the patient has a negative fluid balance of 751 mL. This is based on a 24-hour fluid balance. On 08/16/2019, the patient is extubated and he is awake and alert and following commands. In fact his body movements has improved significantly and I was not able to appreciate any significant abnormality body movements and this morning's evaluation. He is taking clear liquid diet and this can be easily advanced. The patient was found to have MSSA in the sputum and the patient was given IV Rocephin. He is afebrile this morning. Chest x-ray showed no evidence of any pneumonia. He is producing adequate amount of urine output. Kidney biopsy has not been done. The patient is alert and appropriate. The serum bicarb is at 16. BUN is at 31 with a creatinine of 2.7. With that fluid balance is -649 mL over the past 24 hours. The MRA of the brain was completed and showed no evidence of any large vessel intracranial abnormalities. MRI of the brain showed some scattered burden of white matter changes likely related to chronic small vessel ischemia. EEG was also done this morning under the care of neurology and this was a awake and drowsy EEG and he was within normal limits. No seizure activity has been noted. Objective - Vital Signs Vital signs: Vital Signs Temp 99.0 F 08/16/19 09:00 Pulse 100 08/16/19 10:00 Resp 14 08/16/19 10:00 BP 137/72 08/16/19 12:00 Pulse Ox 94 L 08/16/19 10:00 Intake & Output 08/15/19 08/16/19 08/16/19 18:59 06:59 18:59 Intake Total 627.369 276 92 Output Total 960 830 270 Balance -332.631 -554 -178 Weight 104.6 kg 103 kg 103 kg Intake: IV 306 276 92 Pressure Bag 0.9NS 66 36 12 Sodium Chloride 0.9% 1, 240 240 80 000 ml @ 20 mls/hr IV . Q24H [facility] Rx#:[id number] Intake, IV Titration 251.369 Amount Propofol 1,000 mg In 251.369 Empty Bag 1 bag @ Titrate IV .Q0M [facility] Rx#: [id number] Tube Feeding 70 Output: Urine 960 830 270 Other: Voiding Method Indwelling Catheter Indwelling Catheter Indwelling Catheter ABP, PAP, CO, CI - Last Documented Arterial Blood Pressure 154/55 - Exam GENERAL: The patient is extubated and currently is on oxygen by nasal cannula has a left IJ triple-lumen catheter in place. The patient has increased secretions and orotracheal tube. The patient has a permacath over the right IJ area. Head exam was generally normal. There was no scleral icterus or corneal arcus. Mucous membranes were moist. Neck was supple and without jugular venous distension, thyromegaly, or carotid bruits. Carotids were easily palpable bilaterally. There was no adenopathy. Cardiac exam revealed the PMI to be normally situated and sized. The rhythm was regular and no extrasystoles were noted during several minutes of auscultation. The first and second heart sounds were normal and physiologic splitting of the second heart sound was noted. There were no murmurs, rubs, clicks, or gallops. Abdominal exam revealed normal bowel sounds. The abdomen was soft, non-tender, and without masses, organomegaly, or appreciable enlargement of the abdominal aorta. Lungs were clear to auscultation and percussion, and with normal diaphragmatic excursion. No wheezes or rales were noted. Examination of the extremities revealed easily palpable radial, femoral and pedal pulses. There was no cyanosis, clubbing or edema. Examination of the skin revealed no evidence of significant rashes, suspicious appearing nevi or other concerning lesions. Neurologically the patient is awake and appropriate and following commands and answering questions appropriately. No focal neurological deficit. I was not able to appreciate any abnormal movement disorder on this patient. - Labs CBC & Chem 7: 08/16/19 04:25 08/16/19 04:25 Labs: Abnormal Lab Results - Last 24 Hours (Table) 08/15/19 08/16/19 08/16/19 Range/Units 18:08 04:25 04:25 WBC 15.9 H (3.8-10.6) k/uL RBC 3.83 L (4.30-5.90) m/uL Hgb 11.9 L (13.0-17.5) gm/dL Hct 36.3 L (39.0-53.0) % Neutrophils # 13.9 H (1.3-7.7) k/uL Lymphocytes # 0.6 L (1.0-4.8) k/uL Chloride 111 H (98-107) mmol/L Carbon Dioxide 16 L (22-30) mmol/L BUN 31 H (9-20) mg/dL Creatinine 2.71 H (0.66-1.25) mg/dL Glucose 126 H (74-99) mg/dL POC Glucose (mg/dL) 106 H (75-99) mg/dL 08/16/19 08/16/19 Range/Units 05:52 12:26 WBC (3.8-10.6) k/uL RBC (4.30-5.90) m/uL Hgb (13.0-17.5) gm/dL Hct (39.0-53.0) % Neutrophils # (1.3-7.7) k/uL Lymphocytes # (1.0-4.8) k/uL Chloride (98-107) mmol/L Carbon Dioxide (22-30) mmol/L BUN (9-20) mg/dL Creatinine (0.66-1.25) mg/dL Glucose (74-99) mg/dL POC Glucose (mg/dL) 173 H 116 H (75-99) mg/dL Microbiology - Last 24 Hours (Table) 08/14/19 12:20 Gram Stain - Final Sputum Sputum Culture - Final Staphylococcus aureus 08/14/19 12:45 Urine Culture - Final Urine,Catheterized 08/14/19 12:28 Blood Culture - Preliminary Blood No Growth after 24 hours Assessment and Plan Plan: 1. acute respiratory failure, the patient was not hypoxic nor he was hypercapnic. The patient's was having abnormal movements and he was anxious and altered and the patient had to be intubated for airway protection and got transferred to the intensive care unit. For that reason pulmonary and critical care services were involved. On 08/16/2019, the patient is extubated. The patient was found to have MSSA in the sputum and there was no evidence of any pneumonia on today's chest x-ray. There are antibiotic as well as simplifies IV Rocephin and vancomycin has been discontinued. I had to cover him with antibiotics as the patient developed fever and there was a concern of a ventilator. Pneumonia. For that reason he was still done Rocephin for an MSSA cultured in his sputum. He is currently ex tubated on oxygen by nasal cannula. Oxygen is flowing at 4 L per minute. 2 acute kidney injury possibly nonsteroidal related, and there are no other obvious causes. No evidence of any significant rhabdomyolysis. CAT scan of the abdomen did not show any significant hydronephrosis. The patient has a positive MARTIN. The complements are within normal. He has hepatitis C IgG was reactive. Nevertheless he doesn't have any significant proteinuria. The kidney biopsy was not done. This was postponed today later stage. The patient is producing adequate amount of urine output. Nephrology is on the case and the patient was placed on oral bicarbonate for non-anion gap metabolic acidosis. 3 Severe hyperkalemia, secondary to acute kidney injury , currently on hemodialysis, potassium level is normalized 4 history of prostate cancer receiving radiation therapy with questionable outlet obstruction as high post void residual. Currently has a Sam catheter and the patient's risk of the abdomen did not show any significant hydronephrosis 5 Movement disorder, chronic. 6 Paranoid disorder controlled on Wellbutrin 7 hypertension 8 history of seizure disorder 9 history of diabetes mellitus 10 movement disorder, possibly related to underlying [place]'s chorea versus a drug induced [employer] injury causing an underlying movement disorder.MRI/MRA of the brain was negative. EEG was negative. Movement disorder is improved on today's evaluation of the patient was taken off sedation. Plan Keep the patient extubated on 4 L per minute nasal cannula Continue IV Rocephin Monitor fever pattern Keep the permacath in place for now and there is no need for hemodialysis. Put the patient oral bicarb Monitor blood pressure and utilizes clonidine transdermal patch for blood pressure control Advance diet as tolerated EEG and MRI/MRA of the brain has been negative Follow-up with neurology The patient can reach respiratory medical surgical floor with remote telemetry. Consult physical therapy We'll continue to follow.
[2019-08-16] MEDS: CYANOCOBALAMIN 1,000 MCG/ML 1 ML VIAL IM SCH (15:53)
[2019-08-16 18:55] LABS: Glucose,Whole Blood 119 mg/dL (75-99)
[2019-08-16] MEDS: SODIUM CHLORIDE 0.9% 1,000 ML IV SCH (19:35)
[2019-08-16] MEDS ORDERED: CYANOCOBALAMIN 1,000 MCG/ML 1 ML VIAL IM STA (20:52)
--- NOTE | 2019-08-16 20:54 | P.PN ---
Subjective 58-year-old male appears to have been admitted for acute renal failure which appears to be secondary to nonsteroidal anti-inflammatory medications patient has a movement disorder and appears to have some automatic movements because of which they were unable to place a dialysis catheter. Patient was subsequently intubated because of his mental status and his automatic movements. I'm unable to assess him neurologically. And a had a lengthy discussion with the nursing staff and neurologist patient that it appears to have had a movement disorder or cardiac dyskinesia in the past and has been, noncompliant with medications. Patient is also on high-dose of Wellbutrin which can cause myoclonus and seizures EEG is being obtained and neurology recommended an MRI to rule out any stroke that may have precipitated his movement disorder not clear what kind of movement disorder patient has, there possibility of hemibellismus, myoclonus or even seizure. Neurology will evaluate the patient once patient is extubated and off sedation. Patient most probably can be extubated today patient did receive her dialysis catheter and patient received hemodialysis. Review of systems: Unable to obtain due to her clinical condition All inpatient medications were reviewed and appropriate changes in these medications as dictated in the interval history and assessment and plan. 08/13/2019 Patient remains to the ICU, intubated and sedated. Patient remains on normal saline at 75 mL/h and is getting dialysis. Patient kept on intubation and mechanical ventilation partly because of excessive twitching and muscular movement and he had a dialysis catheter placed today. Neurologist evaluated for possible cardiac versus other, left ventricular workup included an MRA of the brain, EEG, me any Water, CK level. While language asst recommended a biopsy in view of elevated creatinine with no clear cause other than history of NSAID use and elevated MARTIN level. Sputum culture is growing staph, mostly contaminant versus colonization, patient with no fever or leukocytosis 08/14/2019 Patient remains in the ICU intubated and sedated, his IV fluid was stopped. He is developing fever of 101 today, with tachycardia 101/117. The 2529. Blood pressure 135/85. Oxygen saturation 96% WBC is 9.4K, hemoglobin 12.7. Sodium 136, creatinine is slightly improving 3.35. Neurologist evaluated the patient and started on olanzapine Sputum chest x-ray: No focal infiltrate culture is growing MSSA, patient got 1 dose of Rocephin today. Chest x-ray: No acute infiltrate, recommend to advance the endotracheal tube in approximately 5-6 cm. Pulmonary service on the case. 08/15/2019 Patient in the ICU, yet still undergoing weaning trial and closely by pulmonary team. Patient showing gradual improvement. Kidney function is also improving and his creatinine down to 2.87, no kidney biopsy done. Patient was restarted on baclofen to prevent withdrawal Patient was continued on Rocephin and review of MSSA and sputum culture with fever yesterday 100-102 with increased WBC 16.4 K 08/16/2019 Patient is more awake today he answers some questions appropriately, however it was back to sleep thereafter so. No muscle twitches was noted Patient is a status post extubation and currently on 4 L oxygen via nasal cannula, he had fever of 1 or 2 yesterday and 100 today. White cell count slightly trending down, sputum culture is growing MSSA and he remains on Huey ephin for now. EEG showing no seizure MRI showing moderate white matter disease and MRA of the brain is negative for aneurysm or stenosis Objective - Vital Signs Vital signs: Vital Signs Temp 98.9 F 08/16/19 15:45 Pulse 105 H 08/16/19 15:45 Resp 17 08/16/19 15:45 BP 115/71 08/16/19 15:45 Pulse Ox 95 08/16/19 15:45 Intake & Output 08/16/19 08/16/19 08/17/19 06:59 18:59 06:59 Intake Total 276 292 Output Total 830 1005 Balance -554 713 Weight 103 kg 103 kg Intake: IV 276 92 Pressure Bag 0.9NS 36 12 Sodium Chloride 0.9% 1, 240 80 000 ml @ 20 mls/hr IV . Q24H [facility] Rx#:[id number] Oral 200 Output: Urine 830 1005 Other: Voiding Method Indwelling Catheter Indwelling Catheter ABP, PAP, CO, CI - Last Documented Arterial Blood Pressure 154/55 - Exam -GENERAL: Intubated and sedated HEENT: Pupils are round and equally reacting to light. EOMI. No scleral icterus. No conjunctival pallor. Normocephalic, atraumatic. No pharyngeal erythema. No thyromegaly. CARDIOVASCULAR: S1 and S2 present. No murmurs, rubs, or gallops. PULMONARY: Chest is clear to auscultation, no wheezing or crackles. ABDOMEN: Soft, nontender, nondistended, normoactive bowel sounds. No palpable organomegaly. MUSCULOSKELETAL: No joint swelling or deformity. EXTREMITIES: No cyanosis, clubbing, or pedal edema. -NEUROLOGICAL: Gross neurological examination did not reveal any focal deficits. Multiple and involuntary muscle twitches SKIN: No rashes. No petechiae - Labs CBC & Chem 7: 08/16/19 04:25 08/16/19 04:25 Labs: Abnormal Lab Results - Last 24 Hours (Table) 08/16/19 08/16/19 08/16/19 Range/Units 04:25 04:25 05:52 WBC 15.9 H (3.8-10.6) k/uL RBC 3.83 L (4.30-5.90) m/uL Hgb 11.9 L (13.0-17.5) gm/dL Hct 36.3 L (39.0-53.0) % Neutrophils # 13.9 H (1.3-7.7) k/uL Lymphocytes # 0.6 L (1.0-4.8) k/uL Chloride 111 H (98-107) mmol/L Carbon Dioxide 16 L (22-30) mmol/L BUN 31 H (9-20) mg/dL Creatinine 2.71 H (0.66-1.25) mg/dL Glucose 126 H (74-99) mg/dL POC Glucose (mg/dL) 173 H (75-99) mg/dL 08/16/19 08/16/19 Range/Units 12:26 18:44 WBC (3.8-10.6) k/uL RBC (4.30-5.90) m/uL Hgb (13.0-17.5) gm/dL Hct (39.0-53.0) % Neutrophils # (1.3-7.7) k/uL Lymphocytes # (1.0-4.8) k/uL Chloride (98-107) mmol/L Carbon Dioxide (22-30) mmol/L BUN (9-20) mg/dL Creatinine (0.66-1.25) mg/dL Glucose (74-99) mg/dL POC Glucose (mg/dL) 116 H 119 H (75-99) mg/dL Microbiology - Last 24 Hours (Table) 08/14/19 12:28 Blood Culture - Preliminary Blood No Growth after 48 hours 08/14/19 12:20 Gram Stain - Final Sputum Sputum Culture - Final Staphylococcus aureus 08/14/19 12:45 Urine Culture - Final Urine,Catheterized Assessment and Plan Assessment: -Acute renal failure: Status post hemodialysis. Dialysis catheter was placed, nephrology following the case closely. And the planing for kidney biopsy -Involuntary muscle twitches, suspicious for chorea or smiley chorea jossie rologist on the case, MRA and EEG were done showing white matter disease with no seizure activity. Neurologist following the patient. restarted on baclofen -Possible pneumonia with Fever with sputum culture growing MSSA, chest x-ray showing no consolidation. WBC is elevated. Continue with of Rocephin. Follow- up temperature -Hypertension uncontrolled patient was started on clonidine with better controlled blood pressures -Hyperkalemia secondary to renal failure, improving -History of seizure disorder -Depression, Wellbutrin dose is being decreased by my colleague DVT prophylaxis: Subcutaneous heparin GI prophylaxis: Pepcid Prognosis guarded
[2019-08-16] MEDS: ONDANSETRON 4 MG/2 ML VIAL IVP PRN (21:29)
[2019-08-17 00:08] LABS: Glucose,Whole Blood 99 mg/dL (75-99)
--- NOTE | 2019-08-17 01:06 | PN ---
PROGRESS NOTE DATE OF SERVICE: 08/16/2019 SUBJECTIVE: The patient reports that he has been feeling quite nauseated throughout the day, even more so now. He was transferred from ICU today and reports that he feels extremely weak and not well. OBJECTIVE: Review of the MRI of the brain shows evidence of moderate scattered white matter changes in the subcortical deep white matter in both cerebral hemispheres. This involves primarily the bifrontal lobes along with the right parietal lobe and the left subinsular region. There appears to be no acute intracranial pathology. The MRA of the head and neck did not show any evidence of high-grade stenosis, large vessel occlusion or dissection. EXAMINATION: The exam was limited due to the patient's nausea. MENTAL STATUS: The patient is drowsy, but able to follow commands. His speech is slow, but fluent. He is oriented to time, place, and person. Pupils are 2 mm, equally reactive to light and accommodation. CRANIAL NERVE EXAMINATION: Patient is able to track well. No nystagmus is noted on vertical or horizontal gaze. His face appears symmetric. There is some mild tongue protrusion, but no fasciculations. No deviation of the tongue noted. Shoulder shrug is symmetric. Motor examination is limited due to the patient's nausea. There is some very mild chorea-like movements noted in his hands, left greater than right. When his arms are held outstretched, there is an exacerbation of chorea-like movements in the left upper arm. Throughout the examination he was having repetitive flexion and extension of the legs consistent with restless legs syndrome. No fasciculations were noted in the muscles. No distal wasting noted. Overall, his strength appears normal but formal testing was deferred due to the patient's nausea. Due to the patient's nausea, both deep tendon reflexes, sensory exam and gait examination will be deferred until tomorrow. ASSESSMENT: SUMMARY: 1. Acute renal failure of undetermined etiology, status post hemodialysis, slowly resolving. 2. 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 3. Confirmed vitamin B12 deficiency. 4. Hypertension. 5. Mood disorder with substance abuse addiction history. RECOMMENDATIONS: 1. Start Zofran 4 mg IV now q.4 to q.6 hours p.r.n. nausea. 2. Continue with neuro checks q.4 hours while awake. 3. Continue with behavioral health recommendations. 4. Continue with Zyprexa at low dose 5 mg at bedtime for movement disorder. 5. Maintain lower dose of Wellbutrin at 150 mg b.i.d. Wellbutrin is a combination of both dopaminergic and norepinephrine receptor stimulation. Excessive dopaminergic activation can actually exacerbate chorea. 6. Maintain baclofen at current lower dose. 7. B12 1000 mcg IM for a total 5 days and then transition to 100 mg thereafter. Followup level prior to discharge. 8. Case management to assist the patient to transfer to acute rehab within the next week if possible. 9. Begin Feosol liquid 300 mg b.i.d. with meals for anemia. This is the most common secondary cause for restless legs syndrome. This patient's iron level and total iron-binding capacity were abnormally low. This patient's prognosis continues to remain guarded. Neurology will be following closely and communicating with family and staff management plans and prognosis. NUVIA / RIYA: [id number] /
[2019-08-17 07:01] LABS: Glucose,Whole Blood 161 mg/dL (75-99)
[2019-08-17] MEDS: buPROPion XL 150 MG TAB.ER.24H PO SCH (07:07)
[2019-08-17] MEDS: cloNIDine HCL 0.1 MG TAB PO SCH (07:07)
[2019-08-17] MEDS: buPROPion XL 300 MG TAB.ER.24H PO SCH (07:07)
[2019-08-17] MEDS: CYANOCOBALAMIN 1,000 MCG/ML 1 ML VIAL IM SCH (07:29)
[2019-08-17] MEDS: PANTOPRAZOLE 40 MG/10 ML VIAL IV SCH (07:29)
[2019-08-17] MEDS: buPROPion 75 MG TAB PO SCH ×2 (07:29→20:09)
[2019-08-17] MEDS: FERROUS SULFATE ORAL ELIXIR 300 MG/5 ML CUP PO SCH ×2 (07:29→17:06)
[2019-08-17] MEDS: HEPARIN SODIUM,PORCINE 5,000 UNIT/ML 1 ML VIAL SQ SCH ×2 (07:30→20:09)
[2019-08-17] MEDS: BACLOFEN 10 MG TAB PO SCH ×2 (07:30→20:09)
[2019-08-17] MEDS: hydrALAZINE HCL 25 MG TAB PO SCH ×3 (07:30→20:08)
[2019-08-17] MEDS: SODIUM BICARBONATE TAB 650 MG TAB PO SCH ×2 (07:30→20:09)
[2019-08-17] MEDS: OLANZapine 5 MG TAB PO SCH (07:31)
--- NOTE | 2019-08-17 07:43 | XR ---
EXAMINATION TYPE: XR chest 1V portable DATE OF EXAM: 08/17/2019 HISTORY: Tube placement. REFERENCE: Previous study dated 08/16/2019. FINDINGS: A large-bore, double-lumen catheter is in place via a right internal jugular approach. Its tip is in the right atrium. The patient has taken a relatively poor inspiration. There is some atelectasis or early infiltrate at the left lung base. The right lung is clear. Heart size upper limits of normal. I cannot exclude a s mall left effusion. IMPRESSION: ATELECTASIS VERSUS LIMITED INFILTRATE, LEFT LUNG BASE.
[2019-08-17] MEDS: ACETAMINOPHEN TAB 325 MG TAB PO PRN ×2 (07:46→19:30)
[2019-08-17 08:07] LABS: Basophils # (A) 0.1 k/uL (0-0.2); Basophils % (A) 0 %; Eosinophils # (A) 0.3 k/uL (0-0.7); Eosinophils % (A) 3 %; HCT 33.3 % (39.0-53.0); HGB 10.8 gm/dL (13.0-17.5); Lymphocytes # (A) 0.4 k/uL (1.0-4.8); Lymphocytes % (A) 4 %; MCH 30.1 pg (25.0-35.0); MCHC 32.3 g/dL (31.0-37.0); Mean Platelet Volume 8.6; Monocytes # (A) 0.6 k/uL (0-1.0); Monocytes % (A) 5 %; Neutrophils % (A) 87 %; Platelet Count 169 k/uL (150-450); RBC 3.57 m/uL (4.30-5.90); WBC 11.5 k/uL (3.8-10.6)
[2019-08-17 08:18] LABS: Calcium 9.1 mg/dL (8.4-10.2); Potassium 3.7 mmol/L (3.5-5.1)
[2019-08-17] MEDS: CLEVIDIPINE BUTYRATE 25 MG in EMPTY BAG 1 BAG IV SCH (09:56)
[2019-08-17 11:27] LABS: Glucose,Whole Blood 159 mg/dL (75-99)
--- NOTE | 2019-08-17 12:07 | P.PN ---
Subjective Progress Note Date: 08/17/19 Principal diagnosis: Acute renal failure Is a 58-year-old male patient was Hospital as for multiple complaints of abdominal pain, abdominal bloating and decreased urine output in addition to shortness of breath a few weeks duration. The patient has history of prostate cancer of she years duration and the patient was being treated with radiation therapy. The patient at the time of admission denied having any fever or chills. He is on intake was quite diminished and he came into the hospital for those reason the patient was found to be having some abnormal body movements related to extrapyramidal side effects of medication. He was taking Artane in the past. In the hospital, the patient was found to have rhabdomyolysis and acute kidney injury. He was intubated for airway protection and he was transferred to the intensive care unit. The patient is a time of admission had acute kidney injury with hyperkalemia and his creatinine at time of admission was 8.9 with a potassium level of 6.4. He does not have any history of chronic kidney disease. 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 After being trialed on IV fluids, the patient's renal function got worse and the patient had to be dialyz ed regarding his acute kidney failure. Note that the patient has had previous episodes of rhabdomyolysis. His urine toxin was positive for opiates. The rest of urinalysis was benign. MARTIN was positive and the complements including C3 and C4 were normal. his hepatitis C IgG antibodies were reactive. As such, the exact cause of his acute kidney injury was not known. It was suspected to be related to nonsteroidal anti-inflammatory medication. Dialysis was initiated via yesterday via Lui catheter was placed by vascular surgery. The patient is being contemplated also for a kidney biopsy.. In terms of his pulmonary status, he shouldn't is currently intubated on a mechanical ventilator. His assist-control mode of ventilation at the rate of 20 with tidal volume of 500 and a PEEP of 5 and FiO2 is being gradually titrated to maintain a saturation above 90%. He was also requiring a low dose norepinephrine infusion for blood pressure control. Is on Diprivan for sedation. The chest x-ray post intubation showed no significant abnormalities. ET tube was in a good location. The mamie ent has a left IJ triple-lumen catheter in place and the blood gases showed adequate oxygenation. The patient was On IV fluids and he is receiving normal saline at the rate of 125 mL an hour. Norepinephrine for blood pressure control and propofol for sedation. On today's evaluation of 08/12/2019, the patient remains on a mechanical ventilator. He is on assist control of 20 with a tidal volume of 500 and a PEEP of 5 with an FiO2 of 40%. Blood gas show pH of 7.37 with a pCO2 of 40 and pO2 124. Chest x-ray shows some atelectatic changes and small effusion the lung bases. The patient remains on propofol at 75 g. The patient remains on normal saline at the rate 125 mL an hour. The plan is to proceed with dialysis today. The white cell count is at 7.3. The creatinine is at 6.4. Urine output has been in the order of 1.8 L over the past 24 hours. On today's evaluation of 08/13/2019 on seeing this patient for a follow-up in the intensive care unit. The patient remains intubated on a mechanical ventilator. This morning, the patient assist-control mode at the rate of 20 with tidal volume of 500 and FiO2 of 40% with a PEEP of 5. The blood gases showed a pH of 7.38 with a pCO2 of 34 and pO2 of 100. The patient's chest x-ray stable. The patient is on normal saline today to 125 mL an hour. Urine output is adequate. The patient underwent dialysis. The patient is on propofol at 75 g per KG per minute. I was inclined and extubating this patient. However I was told that he has significant amount of movement disorder which may essentially and that our ability to dialyze him. Furthermore, on having further discussion with nephrology, it seems that the patient will ultimately have a permacath insertion and for that reason a delayed the extubation process. For now, the patient has a positive fluid balance of 1.8 L over the past 24 hours. He is afebrile. The urine output is in order of a liter or more on a daily basis. The BUN is at 31 with a creatinine of 4.3. The patient is quite comfortable was sedation with propofol and no movement disorder has been noted. 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 On 08/14/2019, the patient is being seen in follow-up. The plan is to proceed with a kidney biopsy today for this patient. For that reason the patient was still Intubated on a mechanical ventilator. He underwent his permacath insertion yesterday without any complication. Chest x-ray following Insertion shows no complications. This morning, the patient remains on a mechanical ventilator. He remains on assist control mode at the rate of 20 with tidal volume of 500 and FiO2 of 40% with a PEEP of 5. He is pH of 7.39 with a pCO2 of 32 and pO2 of 78. He was having significant amount of rest or secretions in the sputum culture came back presumptive staph aureus. Subsequently, the patient started having increased fever and increased respiratory distress while being on a mechanical ventilator. Based on that, the patient was started on a combination of Rocephin and vancomycin as broad- spectrum antibiotic coverage pending further cultures from the sputum analysis. The patient's white cell count of 9.4 and hemoglobin is at 12.7. Urine output is normal to 30-40 mL an hour and the patient underwent hemodialysis yesterday and the patient's creatinine is down to 3.35 with a BUN of 28. Serum bicarb is at 18. The neck fluid balance over the past 24 hours has been -1 L over the pas t 24 hours including dialysis ultrafiltration. Monitor the patient's temperature investigation with some tachycardia with a heart rate and up to 120. There was also drop in her pulse ox down to 91%. The series of chest x-rays showed the no orotracheal tube was high in the trachea. Adjustments were made and that she was pushed and accordingly. The tube was advanced. Again the lung volume is were low and there was a trace left-sided pleural effusion without any new focal consolidation. On 08/15/2019, patient is being seen for a follow-up in the intensive care unit. I had a lengthy discussion with the patient's neurologist. There is a concern that the patient may have had movement disorder due to chronic snorting of Wellbutrin. In any rate, no kidney biopsy was done and the patient is producing a good urine output and the patient will not have hemodialysis today and the plan is to wean him off the mechanical ventilator today. Note that the patient was doing poorly yesterday. He had several spikes of temperature and further cultures from the sputum showed positive MSSA. Chest exit shows some limited atelectasis in the left lung base. ET tube is in a good location. He was covered with broad-spectrum antibiotics including a combination of Rocephin and vancomycin. Vancomycin can be discontinued today and the patient sputum cultures positive for MSSA. Note that the patient earlier this morning was on a Diprivan at the rate of 75 mg per KG per minute. The patient is also on assist control mode at the rate of 20 with tidal volume of 500 and FiO2 of 40% with a PEEP of 5. He is patient of 7.36 with a pCO2 of 31 and pO2 of 80. He was also recommended to restart baclofen as the patient could potentially go with rapid baclofen withdrawal once this medications been discontinued and the patient has a negative fluid balance of 751 mL. This is based on a 24-hour fluid balance. On 08/16/2019, the patient is extubated and he is awake and alert and following commands. In fact his body movements has improved significantly and I was not able to appreciate any significant abnormality body movements and this morning's evaluation. He is taking clear liquid diet and this can be easily advanced. The patient was found to have MSSA in the sputum and the patient was given IV Rocephin. He is afebrile this morning. Chest x-ray showed no evidence of any pneumonia. He is producing adequate amount of urine output. Kidney biopsy has not been done. The patient is alert and appropriate. The serum bicarb is at 16. BUN is at 31 with a creatinine of 2.7. With that fluid balance is -649 mL over the past 24 hours. The MRA of the brain was completed and showed no evidence of any large vessel intracranial abnormalities. MRI of the brain showed some scattered burden of white matter changes likely related to chronic small vessel ischemia. EEG was also done this morning under the care of neurology and this was a awake and drowsy EEG and he was within normal limits. No seizure activity has been noted. The patient was seen today 08/17/2019 in follow-up on the regular medical floor. He is awake and alert in no acute distress. He is drifting off to sleep e asily. He is having some abnormal movements again today though not as severe as previous. He is maintaining good O2 saturations in the mid 90s on 4 L/m per nasal cannula. He's been afebrile. Hemodynamically stable. Chest x-ray reveals some atelectatic changes and left lung base right lung is clear. Sputum cultures positive for Staphylococcus aureus. Urine culture reveals no growth. Catheter tip culture is pending. White count 11.5. Hemoglobin 10.8. Sodium 142. Potassium 3.7. Bicarb 24. Creatinine 2.59. He is continued on ceftriaxone. Continued on sodium bicarb tablets. Objective - Vital Signs Vital signs: Vital Signs Temp 98.5 F 08/17/19 07:00 Pulse 98 08/17/19 07:00 Resp 18 08/17/19 07:00 BP 141/67 08/17/19 07:00 Pulse Ox 95 08/17/19 07:00 Intake & Output 08/16/19 08/17/19 08/17/19 18:59 06:59 18:59 Intake Total 292 Output Total 1005 1200 Balance -713 -1200 Weight 103 kg Intake: IV 92 Pressure Bag 0.9NS 12 Sodium Chloride 0.9% 1, 80 000 ml @ 20 mls/hr IV . Q24H MARILYN Rx#:[id number] Oral 200 Output: Urine 1005 1200 Other: Voiding Method Indwelling Catheter Indwelling Catheter Indwelling Catheter ABP, PAP, CO, CI - Last Documented Arterial Blood Pressure 154/55 - Exam GENERAL: Alert, pleasant 58-year-old gentleman, on oxygen at 4 L/m per by nasal cannula. With some abnormal movements today. has a left IJ triple-lumen catheter in place. The patient has increased sec retions and orotracheal tube. The patient has a permacath over the right IJ area. Head exam was generally normal. There was no scleral icterus or corneal arcus. Mucous membranes were moist. Neck was supple and without jugular venous distension, thyromegaly, or carotid bruits. Carotids were easily palpable bilaterally. There was no adenopathy. Cardiac exam revealed the PMI to be normally situated and sized. The rhythm was regular and no extrasystoles were noted during several minutes of auscultation. The first and second heart sounds were normal and physiologic splitting of the second heart sound was noted. There were no murmurs, rubs, clicks, or gallops. Abdominal exam revealed normal bowel sounds. The abdomen was soft, non-tender, and without masses, organomegaly, or appreciable enlargement of the abdominal aorta. Lungs with crackles in the left lung base. Right lung clear. Examination of the extremities revealed easily palpable radial, femoral and pedal pulses. There was no cyanosis, clubbing or edema. Examination of the skin revealed no evidence of significant rashes, suspicious appearing nevi or other concerning lesions. Neurologically the patient is awake and appropriate and following commands and answering questions appropriately. No focal neurological deficit. Today with some abnormal movements. - Labs CBC & Chem 7: 08/17/19 07:34 08/17/19 07:34 Labs: Abnormal Lab Results - Last 24 Hours (Table) 08/16/19 08/16/19 08/17/19 Range/Units 12:26 18:44 07:00 WBC (3.8-10.6) k/uL RBC (4.30-5.90) m/uL Hgb (13.0-17.5) gm/dL Hct (39.0-53.0) % Neutrophils # (1.3-7.7) k/uL Lymphocytes # (1.0-4.8) k/uL Chloride (98-107) mmol/L BUN (9-20) mg/dL Creatinine (0.66-1.25) mg/dL Glucose (74-99) mg/dL POC Glucose (mg/dL) 116 H 119 H 161 H (75-99) mg/dL 08/17/19 08/17/19 08/17/19 Range/Units 07:34 07:34 11:26 WBC 11.5 H (3.8-10.6) k/uL RBC 3.57 L (4.30-5.90) m/uL Hgb 10.8 L (13.0-17.5) gm/dL Hct 33.3 L (39.0-53.0) % Neutrophils # 10.0 H (1.3-7.7) k/uL Lymphocytes # 0.4 L (1.0-4.8) k/uL Chloride 108 H (98-107) mmol/L BUN 34 H (9-20) mg/dL Creatinine 2.59 H (0.66-1.25) mg/dL Glucose 144 H (74-99) mg/dL POC Glucose (mg/dL) 159 H (75-99) mg/dL Microbiology - Last 24 Hours (Table) 08/16/19 15:20 Catheter Tip Culture - Preliminary Catheter Tip 08/14/19 12:28 Blood Culture - Preliminary Blood No Growth after 48 hours 08/14/19 12:20 Gram Stain - Final Sputum Sputum Culture - Final Staphylococcus aureus Assessment and Plan Assessment: 1. acute respiratory failure, the patient was not hypoxic nor he was hypercapnic. The patient's was having abnormal movements and he was anxious and altered and the patient had to be intubated for airway protection and got transferred to the intensive care unit. For that reason pulmonary and critical care services were involved. He was successfully extubated and currently on the regular medical floor. 4 L/m per nasal cannula 2 acute kidney injury possibly nonsteroidal related, and there are no other obvious causes. No evidence of any significant rhabdomyolysis. CAT scan of the abdomen did not show any significant hydronephrosis. The patient has a positive MARTIN. The complements are within normal. He has hepatitis C IgG was reactive. Nevertheless he doesn't have any significant proteinuria. The kidney biopsy was not done. This was postponed until a later stage. The patient is producing adequate amount of urine output. Nephrology is on the case and the patient was placed on oral bicarbonate for non-anion gap metabolic acidosis., Improved. Creatinine 2.59. Bicarb 24. 3 Severe hyperkalemia, secondary to acute kidney injury , potassium level is normalized currently 3.7 4 history of prostate cancer receiving radiation therapy with questionable outlet obstruction as high post void residual. Currently has a Sam catheter and the patient's risk of the abdomen did not show any significant hydronephrosis 5 Movement disorder, chronic. 6 Paranoid disorder controlled on Wellbutrin 7 hypertension 8 history of seizure disorder 9 history of diabetes mellitus 10 movement disorder, possibly related to underlying Cheshire's chorea versus a drug induced [employer] injury causing an underlying movement disorder. MRI/MRA of the brain was negative. EEG was negative. Plan The patient was seen and evaluated by Dr. Spencer Chest x-ray reviewed With a bit more abnormal movements today compared to yesterday Able to protect his airway well on 4 L nasal cannula Bicarb improving Creatinine improving Nephrology and neurology on the case We'll continue to follow I, the cosigning physician, performed a history & physical examination of the patient. Lungs sounds with crackles in the left lung base. Maintaining good O2 saturations in the 90s on 4 L/m per nasal cannula I discussed the assessment and plan of care with my nurse practitioner, Ann Garcia. I attest to the above note as dictated by her.
--- NOTE | 2019-08-17 13:13 | PN ---
PROGRESS NOTE He was started on hemodialysis as he was uremic. Renal function has started to improve and patient's last dialysis was on . He has good urine output. Patient was extubated and transferred out of the ICU. Serum creatinine today is down to 2.59 from 2.7 yesterday. The patient does not have any further involuntary movements or movement suggestive of extrapyramidal side effects, mostly drug effect. He is comfortable. He denies any significant complaints. PHYSICAL EXAMINATION: Blood pressure this morning was 141/67, heart rate 98 per minute. Patient is afebrile. Examination shows no significant edema bilateral lower extremities. Abdomen is soft, nontender. The patient is awake. He is answering questions. Does not appear to have any significant involuntary movements. LABS: Show sodium 142, potassium 3.7, chloride 108, BUN 34, serum creatinine 2.59. ASSESSMENT: 1. Acute kidney injury most likely acute tubular necrosis, currently improving. MARTIN was positive. UA showed trace protein, trace blood. Initially, kidney biopsy was scheduled, but it was not done as renal function started to improve. The patient had been on hemodialysis with last dialysis on 08/13/2019. He had 3 treatments, currently dialysis is on hold and renal function continues to improve. 2. Hypertension, controlled. 3. Metabolic acidosis maintained on oral sodium bicarb and improving. 4. Pneumonia with sputum culture growing Staph aureus, maintained on ceftriaxone, status post vancomycin initially. PLAN: Continue to encourage increased oral intake. I will likely discontinue the sodium bicarb tomorrow. Continue off IV fluids for now. MMODL / IJN: [id number] /
--- NOTE | 2019-08-17 13:32 | P.PN ---
Subjective 58-year-old male appears to have been admitted for acute renal failure which appears to be secondary to nonsteroidal anti-inflammatory medications patient has a movement disorder and appears to have some automatic movements because of which they were unable to place a dialysis catheter. Patient was subsequently intubated because of his mental status and his automatic movements. I'm unable to assess him neurologically. And a had a lengthy discussion with the nursing staff and neurologist patient that it appears to have had a movement disorder or cardiac dyskinesia in the past and has been, noncompliant with medications. Patient is also on high-dose of Wellbutrin which can cause myoclonus and seizures EEG is being obtained and neurology recommended an MRI to rule out any stroke that may have precipitated his movement disorder not clear what kind of movement disorder patient has, there possibility of hemibellismus, myoclonus or even seizure. Neurology will evaluate the patient once patient is extubated and off sedation. Patient most probably can be extubated today patient did receive her dialysis catheter and patient received hemodialysis. Review of systems: Unable to obtain due to her clinical condition All inpatient medications were reviewed and appropriate changes in these medications as dictated in the interval history and assessment and plan. 08/13/2019 Patient remains to the ICU, intubated and sedated. Patient remains on normal saline at 75 mL/h and is getting dialysis. Patient kept on intubation and mechanical ventilation partly because of excessive twitching and muscular movement and he had a dialysis catheter placed today. Neurologist evaluated for possible cardiac versus other, left ventricular workup included an MRA of the brain, EEG, me any Water, CK level. While lube man recommended a biopsy in view of elevated creatinine with no clear cause other than history of NSAID use and elevated MARTIN level. Sputum culture is growing staph, mostly contaminant versus colonization, patient with no fever or leukocytosis 08/14/2019 Patient remains in the ICU intubated and sedated, his IV fluid was stopped. He is developing fever of 101 today, with tachycardia 101/117. The 2529. Blood pressure 135/85. Oxygen saturation 96% WBC is 9.4K, hemoglobin 12.7. Sodium 136, creatinine is slightly improving 3.35. Neurologist evaluated the patient and started on olanzapine Sputum chest x-ray: No focal infiltrate culture is growing MSSA, patient got 1 dose of Rocephin today. Chest x-ray: No acute infiltrate, recommend to advance the endotracheal tube in approximately 5-6 cm. Pulmonary service on the case. 08/15/2019 Patient in the ICU, yet still undergoing weaning trial and closely by pulmonary team. Patient showing gradual improvement. Kidney function is also improving and his creatinine down to 2.87, no kidney biopsy done. Patient was restarted on baclofen to prevent withdrawal Patient was continued on Rocephin and review of MSSA and sputum culture with fever yesterday 100-102 with increased WBC 16.4 K 08/16/2019 Patient is more awake today he answers some questions appropriately, however it was back to sleep thereafter so. No muscle twitches was noted Patient is a status post extubation and currently on 4 L oxygen via nasal cannula, he had fever of 1 or 2 yesterday and 100 today. White cell count slightly trending down, sputum culture is growing MSSA and he remains on Huey ephin for now. EEG showing no seizure MRI showing moderate white matter disease and MRA of the brain is negative for aneurysm or stenosis 08/17/2019 Patient has improvement mentation and he follows, however he's more drowsy today. No muscle twitches, he remains on 4 L oxygen via nasal cannula Down to 11.5 K, and creatinine showed slight improvement down to 2.5 He had low-grade temperature yesterday of 100.4, patient remains on Rocephin for now. Patient follow up closely by from a GI and pulmonary services. Objective - Vital Signs Vital signs: Vital Signs Temp 98.5 F 08/17/19 07:00 Pulse 98 08/17/19 07:00 Resp 18 08/17/19 07:00 BP 141/67 08/17/19 07:00 Pulse Ox 95 08/17/19 07:00 Intake & Output 08/16/19 08/17/19 08/17/19 18:59 06:59 18:59 Intake Total 292 Output Total 1005 1200 Balance -713 -1200 Weight 103 kg Intake: IV 92 Pressure Bag 0.9NS 12 Sodium Chloride 0.9% 1, 80 000 ml @ 20 mls/hr IV . Q24H [facility] Rx#:[id number] Oral 200 Output: Urine 1005 1200 Other: Voiding Method Indwelling Catheter Indwelling Catheter Indwelling Catheter ABP, PAP, CO, CI - Last Documented Arterial Blood Pressure 154/55 - Exam -GENERAL: Intubated and sedated HEENT: Pupils are round and equally reacting to light. EOMI. No scleral icterus. No conjunctival pallor. Normocephalic, atraumatic. No pharyngeal erythema. No thyromegaly. CARDIOVASCULAR: S1 and S2 present. No murmurs, rubs, or gallops. PULMONARY: Chest is clear to auscultation, no wheezing or crackles. ABDOMEN: Soft, nontender, nondistended, normoactive bowel sounds. No palpable organomegaly. MUSCULOSKELETAL: No joint swelling or deformity. EXTREMITIES: No cyanosis, clubbing, or pedal edema. -NEUROLOGICAL: Gross neurological examination did not reveal any focal deficits. Multiple and involuntary muscle twitches SKIN: No rashes. No petechiae - Labs CBC & Chem 7: 08/17/19 07:34 08/17/19 07:34 Labs: Abnormal Lab Results - Last 24 Hours (Table) 08/16/19 08/17/19 08/17/19 Range/Units 18:44 07:00 07:34 WBC (3.8-10.6) k/uL RBC (4.30-5.90) m/uL Hgb (13.0-17.5) gm/dL Hct (39.0-53.0) % Neutrophils # (1.3-7.7) k/uL Lymphocytes # (1.0-4.8) k/uL Chloride 108 H (98-107) mmol/L BUN 34 H (9-20) mg/dL Creatinine 2.59 H (0.66-1.25) mg/dL Glucose 144 H (74-99) mg/dL POC Glucose (mg/dL) 119 H 161 H (75-99) mg/dL 08/17/19 08/17/19 Range/Units 07:34 11:26 WBC 11.5 H (3.8-10.6) k/uL RBC 3.57 L (4.30-5.90) m/uL Hgb 10.8 L (13.0-17.5) gm/dL Hct 33.3 L (39.0-53.0) % Neutrophils # 10.0 H (1.3-7.7) k/uL Lymphocytes # 0.4 L (1.0-4.8) k/uL Chloride (98-107) mmol/L BUN (9-20) mg/dL Creatinine (0.66-1.25) mg/dL Glucose (74-99) mg/dL POC Glucose (mg/dL) 159 H (75-99) mg/dL Microbiology - Last 24 Hours (Table) 08/16/19 15:20 Catheter Tip Culture - Preliminary Catheter Tip 08/14/19 12:28 Blood Culture - Preliminary Blood No Growth after 48 hours Assessment and Plan Assessment: -Acute renal failure: Status post hemodialysis. Dialysis catheter was placed, nephrology following the case closely. And the planing for kidney biopsy -Involuntary muscle twitches, suspicious for chorea or smiley chorea neurologist on the case, MRA and EEG were done showing white matter disease with no seizure activity. Neurologist following the patient. restarted on baclofen -Possible pneumonia with Fever with sputum culture growing MSSA, chest x-ray showing no consolidation. WBC is elevated. Continue with of Rocephin. Follow- up temperature -Hypertension uncontrolled patient was started on clonidine with better controlled blood pressures -Hyperkalemia secondary to renal failure, improving -History of seizure disorder -Depression, Wellbutrin dose is being decreased by my colleague DVT prophylaxis: Subcutaneous heparin GI prophylaxis: Pepcid Prognosis guarded
[2019-08-17] MEDS: SODIUM CHLORIDE 0.9% 1,000 ML IV SCH (13:35)
[2019-08-17 16:39] LABS: Glucose,Whole Blood 125 mg/dL (75-99)
[2019-08-17 17:18] LABS: Hepatitis B Surface AB- Quant 3.5 mIU/mL; Hepatitis B Surface Antibody Non-Reactive (Non-Reactive)
[2019-08-18 03:50] LABS: Glucose,Whole Blood 110 mg/dL (75-99)
[2019-08-18] MEDS: ONDANSETRON 4 MG/2 ML VIAL IVP PRN (04:47)
[2019-08-18] MEDS: ACETAMINOPHEN TAB 325 MG TAB PO PRN (06:16)
[2019-08-18 07:08] LABS: Glucose,Whole Blood 136 mg/dL (75-99)
[2019-08-18] MEDS: PANTOPRAZOLE 40 MG/10 ML VIAL IV SCH (07:27)
[2019-08-18] MEDS: FERROUS SULFATE ORAL ELIXIR 300 MG/5 ML CUP PO SCH ×2 (07:27→17:08)
[2019-08-18] MEDS: buPROPion 75 MG TAB PO SCH ×2 (07:28→22:51)
[2019-08-18] MEDS: OLANZapine 5 MG TAB PO SCH (07:28)
[2019-08-18] MEDS: SODIUM BICARBONATE TAB 650 MG TAB PO SCH ×2 (07:28→22:51)
[2019-08-18] MEDS: BACLOFEN 10 MG TAB PO SCH ×2 (07:28→22:51)
[2019-08-18] MEDS: hydrALAZINE HCL 25 MG TAB PO SCH ×3 (07:28→22:50)
[2019-08-18] MEDS: HEPARIN SODIUM,PORCINE 5,000 UNIT/ML 1 ML VIAL SQ SCH ×2 (07:29→22:51)
[2019-08-18] MEDS: CLEVIDIPINE BUTYRATE 25 MG in EMPTY BAG 1 BAG IV SCH (07:43)
[2019-08-18 08:05] LABS: Basophils # (A) 0.1 k/uL (0-0.2); Basophils % (A) 1 %; Eosinophils # (A) 0.3 k/uL (0-0.7); Eosinophils % (A) 3 %; HCT 33.6 % (39.0-53.0); Lymphocytes # (A) 0.5 k/uL (1.0-4.8); Lymphocytes % (A) 5 %; MCH 29.9 pg (25.0-35.0); MCHC 32.6 g/dL (31.0-37.0); MCV 91.9 fL (80.0-100.0); Mean Platelet Volume 8.8; Monocytes # (A) 0.9 k/uL (0-1.0); Monocytes % (A) 9 %; Neutrophils # (A) 8.6 k/uL (1.3-7.7); Neutrophils % (A) 80 %; Platelet Count 213 k/uL (150-450); RBC 3.66 m/uL (4.30-5.90); RDW 12.9 % (11.5-15.5); WBC 10.7 k/uL (3.8-10.6)
[2019-08-18 08:12] LABS: Calcium 9.2 mg/dL (8.4-10.2)
[2019-08-18] MEDS: CYANOCOBALAMIN 1,000 MCG/ML 1 ML VIAL IM SCH (09:25)
--- NOTE | 2019-08-18 11:50 | P.PN ---
Subjective Progress Note Date: 08/18/19 Principal diagnosis: Acute renal failure Is a 58-year-old male patient was Hospital as for multiple complaints of abdominal pain, abdominal bloating and decreased urine output in addition to shortness of breath a few weeks duration. The patient has history of prostate cancer of she years duration and the patient was being treated with radiation therapy. The patient at the time of admission denied having any fever or chills. He is on intake was quite diminished and he came into the hospital for those reason the patient was found to be having some abnormal body movements related to extrapyramidal side effects of medication. He was taking Artane in the past. In the hospital, the patient was found to have rhabdomyolysis and acute kidney injury. He was intubated for airway protection and he was transferred to the intensive care unit. The patient is a time of admission had acute kidney injury with hyperkalemia and his creatinine at time of admission was 8.9 with a potassium level of 6.4. He does not have any history of chronic kidney disease. 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 After being trialed on IV fluids, the patient's renal function got worse and the patient had to be dialyz ed regarding his acute kidney failure. Note that the patient has had previous episodes of rhabdomyolysis. His urine toxin was positive for opiates. The rest of urinalysis was benign. MARTIN was positive and the complements including C3 and C4 were normal. his hepatitis C IgG antibodies were reactive. As such, the exact cause of his acute kidney injury was not known. It was suspected to be related to nonsteroidal anti-inflammatory medication. Dialysis was initiated via yesterday via Lui catheter was placed by vascular surgery. The patient is being contemplated also for a kidney biopsy.. In terms of his pulmonary status, he shouldn't is currently intubated on a mechanical ventilator. His assist-control mode of ventilation at the rate of 20 with tidal volume of 500 and a PEEP of 5 and FiO2 is being gradually titrated to maintain a saturation above 90%. He was also requiring a low dose norepinephrine infusion for blood pressure control. Is on Diprivan for sedation. The chest x-ray post intubation showed no significant abnormalities. ET tube was in a good location. The mamie ent has a left IJ triple-lumen catheter in place and the blood gases showed adequate oxygenation. The patient was On IV fluids and he is receiving normal saline at the rate of 125 mL an hour. Norepinephrine for blood pressure control and propofol for sedation. On today's evaluation of 08/12/2019, the patient remains on a mechanical ventilator. He is on assist control of 20 with a tidal volume of 500 and a PEEP of 5 with an FiO2 of 40%. Blood gas show pH of 7.37 with a pCO2 of 40 and pO2 124. Chest x-ray shows some atelectatic changes and small effusion the lung bases. The patient remains on propofol at 75 g. The patient remains on normal saline at the rate 125 mL an hour. The plan is to proceed with dialysis today. The white cell count is at 7.3. The creatinine is at 6.4. Urine output has been in the order of 1.8 L over the past 24 hours. On today's evaluation of 08/13/2019 on seeing this patient for a follow-up in the intensive care unit. The patient remains intubated on a mechanical ventilator. This morning, the patient assist-control mode at the rate of 20 with tidal volume of 500 and FiO2 of 40% with a PEEP of 5. The blood gases showed a pH of 7.38 with a pCO2 of 34 and pO2 of 100. The patient's chest x-ray stable. The patient is on normal saline today to 125 mL an hour. Urine output is adequate. The patient underwent dialysis. The patient is on propofol at 75 g per KG per minute. I was inclined and extubating this patient. However I was told that he has significant amount of movement disorder which may essentially and that our ability to dialyze him. Furthermore, on having further discussion with nephrology, it seems that the patient will ultimately have a permacath insertion and for that reason a delayed the extubation process. For now, the patient has a positive fluid balance of 1.8 L over the past 24 hours. He is afebrile. The urine output is in order of a liter or more on a daily basis. The BUN is at 31 with a creatinine of 4.3. The patient is quite comfortable was sedation with propofol and no movement disorder has been noted. 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 On 08/14/2019, the patient is being seen in follow-up. The plan is to proceed with a kidney biopsy today for this patient. For that reason the patient was still Intubated on a mechanical ventilator. He underwent his permacath insertion yesterday without any complication. Chest x-ray following Insertion shows no complications. This morning, the patient remains on a mechanical ventilator. He remains on assist control mode at the rate of 20 with tidal volume of 500 and FiO2 of 40% with a PEEP of 5. He is pH of 7.39 with a pCO2 of 32 and pO2 of 78. He was having significant amount of rest or secretions in the sputum culture came back presumptive staph aureus. Subsequently, the patient started having increased fever and increased respiratory distress while being on a mechanical ventilator. Based on that, the patient was started on a combination of Rocephin and vancomycin as broad- spectrum antibiotic coverage pending further cultures from the sputum analysis. The patient's white cell count of 9.4 and hemoglobin is at 12.7. Urine output is normal to 30-40 mL an hour and the patient underwent hemodialysis yesterday and the patient's creatinine is down to 3.35 with a BUN of 28. Serum bicarb is at 18. The neck fluid balance over the past 24 hours has been -1 L over the pas t 24 hours including dialysis ultrafiltration. Monitor the patient's temperature investigation with some tachycardia with a heart rate and up to 120. There was also drop in her pulse ox down to 91%. The series of chest x-rays showed the no orotracheal tube was high in the trachea. Adjustments were made and that she was pushed and accordingly. The tube was advanced. Again the lung volume is were low and there was a trace left-sided pleural effusion without any new focal consolidation. On 08/15/2019, patient is being seen for a follow-up in the intensive care unit. I had a lengthy discussion with the patient's neurologist. There is a concern that the patient may have had movement disorder due to chronic snorting of Wellbutrin. In any rate, no kidney biopsy was done and the patient is producing a good urine output and the patient will not have hemodialysis today and the plan is to wean him off the mechanical ventilator today. Note that the patient was doing poorly yesterday. He had several spikes of temperature and further cultures from the sputum showed positive MSSA. Chest exit shows some limited atelectasis in the left lung base. ET tube is in a good location. He was covered with broad-spectrum antibiotics including a combination of Rocephin and vancomycin. Vancomycin can be discontinued today and the patient sputum cultures positive for MSSA. Note that the patient earlier this morning was on a Diprivan at the rate of 75 mg per KG per minute. The patient is also on assist control mode at the rate of 20 with tidal volume of 500 and FiO2 of 40% with a PEEP of 5. He is patient of 7.36 with a pCO2 of 31 and pO2 of 80. He was also recommended to restart baclofen as the patient could potentially go with rapid baclofen withdrawal once this medications been discontinued and the patient has a negative fluid balance of 751 mL. This is based on a 24-hour fluid balance. On 08/16/2019, the patient is extubated and he is awake and alert and following commands. In fact his body movements has improved significantly and I was not able to appreciate any significant abnormality body movements and this morning's evaluation. He is taking clear liquid diet and this can be easily advanced. The patient was found to have MSSA in the sputum and the patient was given IV Rocephin. He is afebrile this morning. Chest x-ray showed no evidence of any pneumonia. He is producing adequate amount of urine output. Kidney biopsy has not been done. The patient is alert and appropriate. The serum bicarb is at 16. BUN is at 31 with a creatinine of 2.7. With that fluid balance is -649 mL over the past 24 hours. The MRA of the brain was completed and showed no evidence of any large vessel intracranial abnormalities. MRI of the brain showed some scattered burden of white matter changes likely related to chronic small vessel ischemia. EEG was also done this morning under the care of neurology and this was a awake and drowsy EEG and he was within normal limits. No seizure activity has been noted. The patient was seen today 08/17/2019 in follow-up on the regular medical floor. He is awake and alert in no acute distress. He is drifting off to sleep e asily. He is having some abnormal movements again today though not as severe as previous. He is maintaining good O2 saturations in the mid 90s on 4 L/m per nasal cannula. He's been afebrile. Hemodynamically stable. Chest x-ray reveals some atelectatic changes and left lung base right lung is clear. Sputum cultures positive for Staphylococcus aureus. Urine culture reveals no growth. Catheter tip culture is pending. White count 11.5. Hemoglobin 10.8. Sodium 142. Potassium 3.7. Bicarb 24. Creatinine 2.59. He is continued on ceftriaxone. Continued on sodium bicarb tablets. The patient is seen today 08/18/2019 in follow-up on the regular medical floor. He arouses to verbal stimuli. He is denying any shortness of breath, cough or congestion. He is maintaining O2 saturations in the 90s on room air. He's been afebrile. Hemodynamically stable. Less abnormal movements today. Sputum culture was positive for Staphylococcus aureus, oxacillin sensitive. White count 10.7. Hemoglobin 11.0. Sodium 140. Potassium 4.0. Bicarb 25. Creatinine 2.05. Objective - Vital Signs Vital signs: Vital Signs Temp 98 F 08/18/19 07:00 Pulse 109 H 08/18/19 07:00 Resp 18 08/18/19 07:00 BP 149/85 08/18/19 07:00 Pulse Ox 92 L 08/18/19 07:00 Intake & Output 08/17/19 08/18/19 08/18/19 18:59 06:59 18:59 Intake Total 120 Output Total 1000 1675 Balance -1000 -1555 Weight 103.2 kg Intake: Oral 120 Output: Urine 1000 1675 Other: Voiding Method Indwelling Catheter Indwelling Catheter Indwelling Catheter # Bowel Movements 1 ABP, PAP, CO, CI - Last Documented Arterial Blood Pressure 154/55 - Exam GENERAL: Alert, pleasant 58-year-old gentleman, on room air. No noted abnormal movements today. has a left IJ triple-lumen catheter in place. The patient has increased secretions and orotracheal tube. The patient has a permacath over the right IJ area. Head exam was generally normal. There was no scleral icterus or corneal arcus. Mucous membranes were moist. Neck was supple and without jugular venous distension, thyromegaly, or carotid bruits. Carotids were easily palpable bilaterally. There was no adenopathy. Cardiac exam revealed the PMI to be normally situated and sized. The rhythm was regular and no extrasystoles were noted during several minutes of auscultation. The first and second heart sounds were normal and physiologic splitting of the second heart sound was noted. There were no murmurs, rubs, clicks, or gallops. Abdominal exam revealed normal bowel sounds. The abdomen was soft, non-tender, and without masses, organomegaly, or appreciable enlargement of the abdominal aorta. Lungs with crackles in the left lung base. Right lung clear. Examination of the extremities revealed easily palpable radial, femoral and pedal pulses. There was no cyanosis, clubbing or edema. Examination of the skin revealed no evidence of significant rashes, suspicious appearing nevi or other concerning lesions. Neurologically the patient is awake and appropriate and following commands and answering questions appropriately. No focal neurological deficit. - Labs CBC & Chem 7: 08/18/19 07:39 08/18/19 07:39 Labs: Abnormal Lab Results - Last 24 Hours (Table) 08/17/19 08/18/19 08/18/19 Range/Units 16:37 03:49 07:06 WBC (3.8-10.6) k/uL RBC (4.30-5.90) m/uL Hgb (13.0-17.5) gm/dL Hct (39.0-53.0) % Neutrophils # (1.3-7.7) k/uL Lymphocytes # (1.0-4.8) k/uL BUN (9-20) mg/dL Creatinine (0.66-1.25) mg/dL Glucose (74-99) mg/dL POC Glucose (mg/dL) 125 H 110 H 136 H (75-99) mg/dL 08/18/19 08/18/19 Range/Units 07:39 07:39 WBC 10.7 H (3.8-10.6) k/uL RBC 3.66 L (4.30-5.90) m/uL Hgb 11.0 L (13.0-17.5) gm/dL Hct 33.6 L (39.0-53.0) % Neutrophils # 8.6 H (1.3-7.7) k/uL Lymphocytes # 0.5 L (1.0-4.8) k/uL BUN 35 H (9-20) mg/dL Creatinine 2.05 H (0.66-1.25) mg/dL Glucose 117 H (74-99) mg/dL POC Glucose (mg/dL) (75-99) mg/dL Microbiology - Last 24 Hours (Table) 08/14/19 12:28 Blood Culture - Preliminary Blood No Growth after 72 hours Assessment and Plan Assessment: 1. acute respiratory failure, the patient was not hypoxic nor he was hypercapnic. The patient's was having abnormal movements and he was anxious and altered and the patient had to be intubated for airway protection and got transferred to the intensive care unit. For that reason pulmonary and critical care services were involved. He was successfully extubated and currently on the regular medical floor. Recovered currently on room air. 2 acute kidney injury possibly nonsteroidal related, and there are no other obvious causes. No evidence of any significant rhabdomyolysis. CAT scan of the abdomen did not show any significant hydronephrosis. The patient has a positive MARTIN. The complements are within normal. He has hepatitis C IgG was reactive. Nevertheless he doesn't have any significant proteinuria. The kidney biopsy was not done. This was postponed until a later stage. The patient is producing adequate amount of urine output. Nephrology is on the case and the patient was placed on oral bicarbonate for non-anion gap metabolic acidosis., Improved. Creatinine 2.05. 3 Severe hyperkalemia, secondary to acute kidney injury , potassium level is normalized currently 4.0 4 history of prostate cancer receiving radiation therapy with questionable outlet obstruction as high post void residual. Currently has a Sam catheter and the patient's risk of the abdomen did not show any significant hydronephrosis 5 Movement disorder, chronic. 6 Paranoid disorder controlled on Wellbutrin 7 hypertension 8 history of seizure disorder 9 history of diabetes mellitus 10 movement disorder, possibly related to underlying Tenisha's chorea versus a drug induced CHANGE AGENT injury causing an underlying movement disorder. MRI/MRA of the brain was negative. EEG was negative. Plan The patient was seen and evaluated by Dr. Spencer Able to protect his airway, on room air Bicarb improving Creatinine improving Nephrology and neurology on the case We'll continue to follow I, the cosigning physician, performed a history & physical examination of the patient. Lungs sounds with crackles in the left lung base. Maintaining good O2 saturations in the 90s on room air. I discussed the assessment and plan of care with my nurse practitioner, Ann Garcia. I attest to the above note as dictated by her.
[2019-08-18 12:00] LABS: Glucose,Whole Blood 98 mg/dL (75-99)
--- NOTE | 2019-08-18 12:18 | PN ---
PROGRESS NOTE Patient is seen for followup for acute kidney injury, most likely acute tubular necrosis. Initially, the patient's etiology of renal failure was not clear. He did have positive MARTIN with mild proteinuria and hematuria on UA and therefore kidney biopsy was being considered. The patient was also started on hemodialysis. He had three treatments and then and his kidney function started to improve with increased urine output and serum creatinine now down to 2.0 from initial reading of about 9 prior to starting dialysis. The patient also had significant abnormal movements which appeared to be mostly extrapyramidal effects and these have improved. He is being followed by Neurology. He continues to have some slow movements as well and there was consideration for possible underlying [place]'s phoria. Mentation has improved significantly. Currently patient is sitting up in a bedside chair. He is comfortable. He has been eating. He denies any significant complaints. PHYSICAL EXAMINATION: On examination, blood pressure 149/85, heart rate 109 per minute. he is afebrile. Examination shows patient is euvolemic with no evidence of edema bilateral lower extremities. He still has some slow movements of his trunk and extremities, but not like on admission. Abdomen is soft, nontender. Lungs are clear. LABS: Show sodium 140, potassium 4.0, CO2 is 25, BUN 35, creatinine 2.05, hemoglobin 11. ASSESSMENT: 1. Acute kidney injury, acute tubular necrosis, currently improved. There was concern for possible glomerulonephritis initially. However, the patient's renal function started to improve. He has had three treatments of dialysis and then dialysis has been on hold. MARTIN was positive. All other serologies are negative. CK was not significantly elevated to cause significant rhabdomyolysis and acute kidney injury. We will need to discontinue the PermCath prior to discharge. 2. Severe involuntary movements on initial admission, most likely extrapyramidal effects of possibly a drug reaction, currently resolved. 3. Uremia on initial admission, improved with dialysis. 4. Pneumonia with sputum culture growing Staphylococcus aureus, maintained on antibiotics, currently improved. 5. Respiratory failure. Patient was intubated mainly to place dialysis catheter and to start dialysis as he was quite agitated with severe uncontrolled movements. Currently he is extubated and doing well. PLAN: Discontinue PermCath prior to discharge. Continue to hold off on dialysis. Patient will need followup as outpatient for the acute kidney injury. Encourage increased oral intake. MMODL / IJN: [id number] /
--- NOTE | 2019-08-18 12:55 | P.PN ---
Subjective 58-year-old male appears to have been admitted for acute renal failure which appears to be secondary to nonsteroidal anti-inflammatory medications patient has a movement disorder and appears to have some automatic movements because of which they were unable to place a dialysis catheter. Patient was subsequently intubated because of his mental status and his automatic movements. I'm unable to assess him neurologically. And a had a lengthy discussion with the nursing staff and neurologist patient that it appears to have had a movement disorder or cardiac dyskinesia in the past and has been, noncompliant with medications. Patient is also on high-dose of Wellbutrin which can cause myoclonus and seizures EEG is being obtained and neurology recommended an MRI to rule out any stroke that may have precipitated his movement disorder not clear what kind of movement disorder patient has, there possibility of hemibellismus, myoclonus or even seizure. Neurology will evaluate the patient once patient is extubated and off sedation. Patient most probably can be extubated today patient did receive her dialysis catheter and patient received hemodialysis. Review of systems: Unable to obtain due to her clinical condition All inpatient medications were reviewed and appropriate changes in these medications as dictated in the interval history and assessment and plan. 08/13/2019 Patient remains to the ICU, intubated and sedated. Patient remains on normal saline at 75 mL/h and is getting dialysis. Patient kept on intubation and mechanical ventilation partly because of excessive twitching and muscular movement and he had a dialysis catheter placed today. Neurologist evaluated for possible cardiac versus other, left ventricular workup included an MRA of the brain, EEG, me any Water, CK level. While controller operations and hr manager recommended a biopsy in view of elevated creatinine with no clear cause other than history of NSAID use and elevated MARTIN level. Sputum culture is growing staph, mostly contaminant versus colonization, patient with no fever or leukocytosis 08/14/2019 Patient remains in the ICU intubated and sedated, his IV fluid was stopped. He is developing fever of 101 today, with tachycardia 101/117. The 2529. Blood pressure 135/85. Oxygen saturation 96% WBC is 9.4K, hemoglobin 12.7. Sodium 136, creatinine is slightly improving 3.35. Neurologist evaluated the patient and started on olanzapine Sputum chest x-ray: No focal infiltrate culture is growing MSSA, patient got 1 dose of Rocephin today. Chest x-ray: No acute infiltrate, recommend to advance the endotracheal tube in approximately 5-6 cm. Pulmonary service on the case. 08/15/2019 Patient in the ICU, yet still undergoing weaning trial and closely by pulmonary team. Patient showing gradual improvement. Kidney function is also improving and his creatinine down to 2.87, no kidney biopsy done. Patient was restarted on baclofen to prevent withdrawal Patient was continued on Rocephin and review of MSSA and sputum culture with fever yesterday 100-102 with increased WBC 16.4 K 08/16/2019 Patient is more awake today he answers some questions appropriately, however it was back to sleep thereafter so. No muscle twitches was noted Patient is a status post extubation and currently on 4 L oxygen via nasal cannula, he had fever of 1 or 2 yesterday and 100 today. White cell count slightly trending down, sputum culture is growing MSSA and he remains on Huey ephin for now. EEG showing no seizure MRI showing moderate white matter disease and MRA of the brain is negative for aneurysm or stenosis 08/17/2019 Patient has improvement mentation and he follows, however he's more drowsy today. No muscle twitches, he remains on 4 L oxygen via nasal cannula Down to 11.5 K, and creatinine showed slight improvement down to 2.5 He had low-grade temperature yesterday of 100.4, patient remains on Rocephin for now. Patient follow up closely by from a GI and pulmonary services. 08/18/2019 Patient is fully awake and oriented today, he is even more active. Vitals are stable and he is saturating 92% on room air. No muscle twitches noted anymore today. WBC is 10.7 K which is slightly elevated, creatinine down to 2.0. So labs are improving Objective - Vital Signs Vital signs: Vital Signs Temp 98 F 08/18/19 07:00 Pulse 109 H 08/18/19 07:00 Resp 18 08/18/19 07:00 BP 149/85 08/18/19 07:00 Pulse Ox 92 L 08/18/19 07:00 Intake & Output 08/17/19 08/18/19 08/18/19 18:59 06:59 18:59 Intake Total 120 Output Total 1000 1675 Balance -1000 -1555 Weight 103.2 kg Intake: Oral 120 Output: Urine 1000 1675 Other: Voiding Method Indwelling Catheter Indwelling Catheter Indwelling Catheter # Bowel Movements 1 ABP, PAP, CO, CI - Last Documented Arterial Blood Pressure 154/55 - Exam -GENERAL: Intubated and sedated HEENT: Pupils are round and equally reacting to light. EOMI. No scleral icterus. No conjunctival pallor. Normocephalic, atraumatic. No pharyngeal erythema. No thyromegaly. CARDIOVASCULAR: S1 and S2 present. No murmurs, rubs, or gallops. PULMONARY: Chest is clear to auscultation, no wheezing or crackles. ABDOMEN: Soft, nontender, nondistended, normoactive bowel sounds. No palpable organomegaly. MUSCULOSKELETAL: No joint swelling or deformity. EXTREMITIES: No cyanosis, clubbing, or pedal edema. -NEUROLOGICAL: Gross neurological examination did not reveal any focal deficits. Multiple and involuntary muscle twitches SKIN: No rashes. No petechiae - Labs CBC & Chem 7: 08/18/19 07:39 08/18/19 07:39 Labs: Abnormal Lab Results - Last 24 Hours (Table) 08/17/19 08/18/19 08/18/19 Range/Units 16:37 03:49 07:06 WBC (3.8-10.6) k/uL RBC (4.30-5.90) m/uL Hgb (13.0-17.5) gm/dL Hct (39.0-53.0) % Neutrophils # (1.3-7.7) k/uL Lymphocytes # (1.0-4.8) k/uL BUN (9-20) mg/dL Creatinine (0.66-1.25) mg/dL Glucose (74-99) mg/dL POC Glucose (mg/dL) 125 H 110 H 136 H (75-99) mg/dL 08/18/19 08/18/19 Range/Units 07:39 07:39 WBC 10.7 H (3.8-10.6) k/uL RBC 3.66 L (4.30-5.90) m/uL Hgb 11.0 L (13.0-17.5) gm/dL Hct 33.6 L (39.0-53.0) % Neutrophils # 8.6 H (1.3-7.7) k/uL Lymphocytes # 0.5 L (1.0-4.8) k/uL BUN 35 H (9-20) mg/dL Creatinine 2.05 H (0.66-1.25) mg/dL Glucose 117 H (74-99) mg/dL POC Glucose (mg/dL) (75-99) mg/dL Microbiology - Last 24 Hours (Table) 08/14/19 12:28 Blood Culture - Preliminary Blood No Growth after 72 hours Assessment and Plan Assessment: -Acute renal failure: Status post hemodialysis. Dialysis catheter was placed, nephrology following the case closely. And the planing for kidney biopsy -Involuntary muscle twitches, suspicious for chorea or smiley chorea neurologist on the case, MRA and EEG were done showing white matter disease with no seizure activity. Neurologist following the patient. restarted on baclofen -Possible pneumonia with Fever with sputum culture growing MSSA, chest x-ray showing no consolidation. WBC is elevated. Continue with of Rocephin. Follow- up temperature -Hypertension uncontrolled patient was started on clonidine with better controlled blood pressures -Hyperkalemia secondary to renal failure, improving -History of seizure disorder -Depression, Wellbutrin dose is being decreased by my colleague DVT prophylaxis: Subcutaneous heparin GI prophylaxis: Pepcid Prognosis guarded
[2019-08-18] MEDS: SODIUM CHLORIDE 0.9% 1,000 ML IV SCH (14:30)
[2019-08-18 17:05] LABS: Glucose,Whole Blood 136 mg/dL (75-99)
[2019-08-18 20:17] LABS: Glucose,Whole Blood 109 mg/dL (75-99)
--- NOTE | 2019-08-19 03:46 | P.EN ---
I got called from the bedside nurse the patient wanted to leave stating that one of the staff told him about comment. However patient refused duration which member the staff and what his been told , when I talked to the patient a deformed he was alert, awake and oriented, continue his at [facility] [place], he thought it was July and continue the name of the president Jeremias, he knew that he was in the hospital for kidney failure and his been treated in the ICU however he did not other information like he had muscle twitches and that his psychiatric medication Wellbutrin were lowered , I had lengthy discussion with the patient more than 20-30 minutes, patient passed talking continuously muscles and time. Stating his appreciation to the staff was treated him and even he brought them dinner to the staff on the floor, which is confirmed by staff. And however headaches suppress his feeling of frustration about the bad comment he thinks he heard, also patient was thinking everybody knows about his current criminal record, also patient was referring to burn hemphill in his arms stating "I cannot handle that that hurts very bad". When asked patient denies depression, he denies suicidal ideation. However patient himself clearly telling me "my paranoia is off"" adding that " I need to go to see my mental health Doctor" Based on that I feel patient expression signs and symptoms of coronary with possible psychosis given he is on psych medication, therefore I think patient needed to be monitored carefully, I discussed with the staff and bedside nurse f or a sitter at bedside Also I talked to the patient to [facility] tomorrow, he agreed but he states he wants to leave and come back to the hospital tomorrow. However it was felt that the patient is NOT safe to leave the hospital for his mental and medical problems (for example catheter tip culture, high creatinine), however family including and son came and statin with the patient and he agreeable to stay in the hospital for now, however discussed with the bedside nurse that patient if he tries to leave AMA then we need to petition him. Also will call infectious disease consult for positive tip culture currently is negative staph, and review of history of postoperative sputum. Patient currently on ceftriaxone. He has mild leukocytosis 10.7-16.4 K, and he had fever on admission
[2019-08-19 04:06] VITALS: RESP 18
[2019-08-19 06:40] LABS: Glucose,Whole Blood 128 mg/dL (75-99)
[2019-08-19 07:20] LABS: Basophils # (A) 0.1 k/uL (0-0.2); Basophils % (A) 1 %; Eosinophils # (A) 0.4 k/uL (0-0.7); Eosinophils % (A) 4 %; HCT 33.3 % (39.0-53.0); HGB 11.6 gm/dL (13.0-17.5); Lymphocytes # (A) 0.9 k/uL (1.0-4.8); Lymphocytes % (A) 8 %; MCH 30.7 pg (25.0-35.0); MCHC 34.8 g/dL (31.0-37.0); MCV 88.1 fL (80.0-100.0); Mean Platelet Volume 8.8; Monocytes # (A) 1.3 k/uL (0-1.0); Monocytes % (A) 11 %; Neutrophils # (A) 8.1 k/uL (1.3-7.7); Neutrophils % (A) 73 %; Platelet Count 286 k/uL (150-450); RBC 3.78 m/uL (4.30-5.90); WBC 11.2 k/uL (3.8-10.6)
[2019-08-19 07:27] VITALS: BP 143/65; PULSE 115; TEMP 98.3
--- NOTE | 2019-08-19 08:09 | P.PN ---
Subjective Patient is seen in follow-up for acute kidney injury. Creatinine was over 9 on admission and he underwent 3 treatments of hemodialysis. Subsequently his kidney function improved and he is now nonoliguric. Currently is a 40 catheter. Creatinine 2.05 as of yesterday. Denies chest pain or shortness of breath. Oral intake is good. Vital signs are stable. General: The patient appeared well nourished and normally developed. HEENT: Head exam is unremarkable. Neck is without jugular venous distension. LUNGS: Lungs are clear to auscultation and percussion. Breath sounds decreased. HEART: Rate and Rhythm are regular. ABDOMEN: Nontender nondistended. EXTREMITITES: No clubbing, cyanosis, or edema. Objective - Vital Signs Vital signs: Vital Signs Temp 98.3 F 08/19/19 07:00 Pulse 115 H 08/19/19 07:00 Resp 18 08/19/19 07:00 BP 143/65 08/19/19 07:00 Pulse Ox 95 08/19/19 07:00 Intake & Output 08/18/19 08/19/19 08/19/19 18:59 06:59 18:59 Intake Total 592 500 Output Total 600 1850 Balance -8 -1350 Intake: Oral 592 500 Output: Urine 600 1850 Other: Voiding Method Indwelling Catheter # Bowel Movements 1 ABP, PAP, CO, CI - Last Documented Arterial Blood Pressure 154/55 - Labs CBC & Chem 7: 08/19/19 07:00 08/18/19 07:39 Labs: Abnormal Lab Results - Last 24 Hours (Table) 08/18/19 08/18/19 08/18/19 Range/Units 07:39 07:39 17:04 WBC 10.7 H (3.8-10.6) k/uL RBC 3.66 L (4.30-5.90) m/uL Hgb 11.0 L (13.0-17.5) gm/dL Hct 33.6 L (39.0-53.0) % Neutrophils # 8.6 H (1.3-7.7) k/uL Lymphocytes # 0.5 L (1.0-4.8) k/uL Monocytes # (0-1.0) k/uL BUN 35 H (9-20) mg/dL Creatinine 2.05 H (0.66-1.25) mg/dL Glucose 117 H (74-99) mg/dL POC Glucose (mg/dL) 136 H (75-99) mg/dL 08/18/19 08/19/19 08/19/19 Range/Units 20:15 06:39 07:00 WBC 11.2 H (3.8-10.6) k/uL RBC 3.78 L (4.30-5.90) m/uL Hgb 11.6 L (13.0-17.5) gm/dL Hct 33.3 L (39.0-53.0) % Neutrophils # 8.1 H (1.3-7.7) k/uL Lymphocytes # 0.9 L (1.0-4.8) k/uL Monocytes # 1.3 H (0-1.0) k/uL BUN (9-20) mg/dL Creatinine (0.66-1.25) mg/dL Glucose (74-99) mg/dL POC Glucose (mg/dL) 109 H 128 H (75-99) mg/dL Microbiology - Last 24 Hours (Table) 08/16/19 15:20 Catheter Tip Culture - Final Catheter Tip Coagulase Negative Staph 08/14/19 12:28 Blood Culture - Preliminary Blood No Growth after 96 hours Assessment and Plan Plan: Assessment: 1. Acute kidney injury secondary to ATN. He did have positive MARTIN but rest of the serologies were negative. Renal function has improved since admission. Creatinine 2.05 as of yesterday. Nonoliguric. Prior creatinine 0.9 in October 2017. 2. Benign hypertension. Controlled. 3. Hyperkalemia secondary to acute kidney injury and metabolic acidosis. Resolved. 4. Metabolic acidosis secondary to acute kidney injury. Improved. 5. Involuntary movements and jerking, possibly extrapyramidal effects of medication. 6. Uremia improved postdialysis. 7. Pneumonia maintained on antibiotics. Plan: Encourage oral intake. Discontinue Sam catheter. Monitor serial postvoid residuals. Follow-up morning labs. If renal function stable, discontinue dialysis catheter. Follow up outpatient in 1-2 weeks.
[2019-08-19 08:17] LABS: Calcium 9.5 mg/dL (8.4-10.2)
[2019-08-19 08:25] LABS: Potassium 4.2 mmol/L (3.5-5.1)
[2019-08-19 08:26] LABS: Magnesium 2.1 mg/dL (1.6-2.3)
[2019-08-19] MEDS ORDERED: PANTOPRAZOLE 40 MG TABLET PO SCH (09:00)
[2019-08-19] MEDS: HEPARIN SODIUM,PORCINE 5,000 UNIT/ML 1 ML VIAL SQ SCH (09:02)
[2019-08-19] MEDS: FERROUS SULFATE ORAL ELIXIR 300 MG/5 ML CUP PO SCH (09:04)
[2019-08-19] MEDS: SODIUM BICARBONATE TAB 650 MG TAB PO SCH (09:05)
[2019-08-19] MEDS: BACLOFEN 10 MG TAB PO SCH (09:05)
[2019-08-19] MEDS: hydrALAZINE HCL 25 MG TAB PO SCH (09:05)
[2019-08-19] MEDS: buPROPion 75 MG TAB PO SCH (09:06)
[2019-08-19] MEDS: cloNIDine 0.2 MG/24HR PATCH TRANSDERM SCH (09:06)
[2019-08-19] MEDS: CYANOCOBALAMIN 1,000 MCG/ML 1 ML VIAL IM SCH (09:06)
[2019-08-19] MEDS: OLANZapine 5 MG TAB PO SCH (09:06)
[2019-08-19 11:09] LABS: Glucose,Whole Blood 112 mg/dL (75-99)
--- NOTE | 2019-08-19 12:10 | P.PN ---
Subjective Progress Note Date: 08/19/19 Principal diagnosis: Acute kidney injury Is a 58-year-old male patient was Hospital as for multiple complaints of abdominal pain, abdominal bloating and decreased urine output in addition to shortness of breath a few weeks duration. The patient has history of prostate cancer of she years duration and the patient was being treated with radiation therapy. The patient at the time of admission denied having any fever or chills. He is on intake was quite diminished and he came into the hospital for those reason the patient was found to be having some abnormal body movements related to extrapyramidal side effects of medication. He was taking Artane in the past. In the hospital, the patient was found to have rhabdomyolysis and acute kidney injury. He was intubated for airway protection and he was transferred to the intensive care unit. The patient is a time of admission had acute kidney injury with hyperkalemia and his creatinine at time of admission was 8.9 with a potassium level of 6.4. He does not have any history of chronic kidney disease. 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 After being trialed on IV fluids, the patient's renal function got worse and the patient had to be dialyz ed regarding his acute kidney failure. Note that the patient has had previous episodes of rhabdomyolysis. His urine toxin was positive for opiates. The rest of urinalysis was benign. MARTIN was positive and the complements including C3 and C4 were normal. his hepatitis C IgG antibodies were reactive. As such, the exact cause of his acute kidney injury was not known. It was suspected to be related to nonsteroidal anti-inflammatory medication. Dialysis was initiated via yesterday via Lui catheter was placed by vascular surgery. The patient is being contemplated also for a kidney biopsy.. In terms of his pulmonary status, he shouldn't is currently intubated on a mechanical ventilator. His assist-control mode of ventilation at the rate of 20 with tidal volume of 500 and a PEEP of 5 and FiO2 is being gradually titrated to maintain a saturation above 90%. He was also requiring a low dose norepinephrine infusion for blood pressure control. Is on Diprivan for sedation. The chest x-ray post intubation showed no significant abnormalities. ET tube was in a good location. The mamie ent has a left IJ triple-lumen catheter in place and the blood gases showed adequate oxygenation. The patient was On IV fluids and he is receiving normal saline at the rate of 125 mL an hour. Norepinephrine for blood pressure control and propofol for sedation. On today's evaluation of 08/12/2019, the patient remains on a mechanical ventilator. He is on assist control of 20 with a tidal volume of 500 and a PEEP of 5 with an FiO2 of 40%. Blood gas show pH of 7.37 with a pCO2 of 40 and pO2 124. Chest x-ray shows some atelectatic changes and small effusion the lung bases. The patient remains on propofol at 75 g. The patient remains on normal saline at the rate 125 mL an hour. The plan is to proceed with dialysis today. The white cell count is at 7.3. The creatinine is at 6.4. Urine output has been in the order of 1.8 L over the past 24 hours. On today's evaluation of 08/13/2019 on seeing this patient for a follow-up in the intensive care unit. The patient remains intubated on a mechanical ventilator. This morning, the patient assist-control mode at the rate of 20 with tidal volume of 500 and FiO2 of 40% with a PEEP of 5. The blood gases showed a pH of 7.38 with a pCO2 of 34 and pO2 of 100. The patient's chest x-ray stable. The patient is on normal saline today to 125 mL an hour. Urine output is adequate. The patient underwent dialysis. The patient is on propofol at 75 g per KG per minute. I was inclined and extubating this patient. However I was told that he has significant amount of movement disorder which may essentially and that our ability to dialyze him. Furthermore, on having further discussion with nephrology, it seems that the patient will ultimately have a permacath insertion and for that reason a delayed the extubation process. For now, the patient has a positive fluid balance of 1.8 L over the past 24 hours. He is afebrile. The urine output is in order of a liter or more on a daily basis. The BUN is at 31 with a creatinine of 4.3. The patient is quite comfortable was sedation with propofol and no movement disorder has been noted. The neurologist evaluated the patient for abnormal involuntary movements and this is characteristic is apparently of coronary and the patient is being considered for [place]'s chorea syndrome. On 08/14/2019, the patient is being seen in follow-up. The plan is to proceed with a kidney biopsy today for this patient. For that reason the patient was still Intubated on a mechanical ventilator. He underwent his permacath insertion yesterday without any complication. Chest x-ray following Insertion shows no complications. This morning, the patient remains on a mechanical ventilator. He remains on assist control mode at the rate of 20 with tidal volume of 500 and FiO2 of 40% with a PEEP of 5. He is pH of 7.39 with a pCO2 of 32 and pO2 of 78. He was having significant amount of rest or secretions in the sputum culture came back presumptive staph aureus. Subsequently, the patient started having increased fever and increased respiratory distress while being on a mechanical ventilator. Based on that, the patient was started on a combination of Rocephin and vancomycin as broad- spectrum antibiotic coverage pending further cultures from the sputum analysis. The patient's white cell count of 9.4 and hemoglobin is at 12.7. Urine output is normal to 30-40 mL an hour and the patient underwent hemodialysis yesterday and the patient's creatinine is down to 3.35 with a BUN of 28. Serum bicarb is at 18. The neck fluid balance over the past 24 hours has been -1 L over the pas t 24 hours including dialysis ultrafiltration. Monitor the patient's temperature investigation with some tachycardia with a heart rate and up to 120. There was also drop in her pulse ox down to 91%. The series of chest x-rays showed the no orotracheal tube was high in the trachea. Adjustments were made and that she was pushed and accordingly. The tube was advanced. Again the lung volume is were low and there was a trace left-sided pleural effusion without any new focal consolidation. On 08/15/2019, patient is being seen for a follow-up in the intensive care unit. I had a lengthy discussion with the patient's neurologist. There is a concern that the patient may have had movement disorder due to chronic snorting of Wellbutrin. In any rate, no kidney biopsy was done and the patient is producing a good urine output and the patient will not have hemodialysis today and the plan is to wean him off the mechanical ventilator today. Note that the patient was doing poorly yesterday. He had several spikes of temperature and further cultures from the sputum showed positive MSSA. Chest exit shows some limited atelectasis in the left lung base. ET tube is in a good location. He was covered with broad-spectrum antibiotics including a combination of Rocephin and vancomycin. Vancomycin can be discontinued today and the patient sputum cultures positive for MSSA. Note that the patient earlier this morning was on a Diprivan at the rate of 75 mg per KG per minute. The patient is also on assist control mode at the rate of 20 with tidal volume of 500 and FiO2 of 40% with a PEEP of 5. He is patient of 7.36 with a pCO2 of 31 and pO2 of 80. He was also recommended to restart baclofen as the patient could potentially go with rapid baclofen withdrawal once this medications been discontinued and the patient has a negative fluid balance of 751 mL. This is based on a 24-hour fluid balance. On 08/16/2019, the patient is extubated and he is awake and alert and following commands. In fact his body movements has improved significantly and I was not able to appreciate any significant abnormality body movements and this morning's evaluation. He is taking clear liquid diet and this can be easily advanced. The patient was found to have MSSA in the sputum and the patient was given IV Rocephin. He is afebrile this morning. Chest x-ray showed no evidence of any pneumonia. He is producing adequate amount of urine output. Kidney biopsy has not been done. The patient is alert and appropriate. The serum bicarb is at 16. BUN is at 31 with a creatinine of 2.7. With that fluid balance is -649 mL over the past 24 hours. The MRA of the brain was completed and showed no evidence of any large vessel intracranial abnormalities. MRI of the brain showed some scattered burden of white matter changes likely related to chronic small vessel ischemia. EEG was also done this morning under the care of neurology and this was a awake and drowsy EEG and he was within normal limits. No seizure activity has been noted. The patient was seen today 08/17/2019 in follow-up on the regular medical floor. He is awake and alert in no acute distress. He is drifting off to sleep e asily. He is having some abnormal movements again today though not as severe as previous. He is maintaining good O2 saturations in the mid 90s on 4 L/m per nasal cannula. He's been afebrile. Hemodynamically stable. Chest x-ray reveals some atelectatic changes and left lung base right lung is clear. Sputum cultures positive for Staphylococcus aureus. Urine culture reveals no growth. Catheter tip culture is pending. White count 11.5. Hemoglobin 10.8. Sodium 142. Potassium 3.7. Bicarb 24. Creatinine 2.59. He is continued on ceftriaxone. Continued on sodium bicarb tablets. The patient is seen today 08/18/2019 in follow-up on the regular medical floor. He arouses to verbal stimuli. He is denying any shortness of breath, cough or congestion. He is maintaining O2 saturations in the 90s on room air. He's been afebrile. Hemodynamically stable. Less abnormal movements today. Sputum culture was positive for Staphylococcus aureus, oxacillin sensitive. White count 10.7. Hemoglobin 11.0. Sodium 140. Potassium 4.0. Bicarb 25. Creatinine 2.05. On 08/19/2019 patient seen in follow-up on general medical floor, he is awake and alert, in no acute distress room air pulse ox is 95%, afebrile, hemodynamically stable, he still has a right subclavian dialysis catheter in [facility] however does not require dialysis since 08/13/2019. He is voiding. He is tolerating oral intake, no nausea vomiting or diarrhea, today's labs have been reviewed showing liquid silk on 11.2, hemoglobin is 11.6, sodium is 141, potassium is 4.2, CO2 is 18, B1 is 39 creatinine is 2.15. Kidney function has improved since admission. He remains on empiric antibiotics in the form of Rocephin, sputum culture showed MSSA. Clinically stable, he is supposed to have his hemodialysis catheter removed today, no acute events overnight, is anticipated to be discharged home today. Objective - Vital Signs Vital signs: Vital Signs Temp 98.3 F 08/19/19 07:00 Pulse 115 H 08/19/19 07:00 Resp 18 08/19/19 07:00 BP 143/65 08/19/19 07:00 Pulse Ox 95 08/19/19 07:00 Intake & Output 08/18/19 08/19/19 08/19/19 18:59 06:59 18:59 Intake Total 592 500 222 Output Total 600 1850 1999 Balance -8 -[phone] -7692 Intake: Oral 592 500 222 Output: Urine 600 1850 1999 Uretheral (Sam) 1000 Other: Voiding Method Indwelling Catheter # Bowel Movements 1 ABP, PAP, CO, CI - Last Documented Arterial Blood Pressure 154/55 - Exam GENERAL EXAM: Alert, very pleasant 58-year-old white male, on room air with a pulse ox of 95% comfortable in no apparent distress. HEAD: Normocephalic/atraumatic. EYES: Normal reaction of pupils, equal size. Conjunctiva pink, sclera white. NOSE: Clear with pink turbinates. THROAT: No erythema or exudates. NECK: No masses, no JVD, no thyroid enlargement, no adenopathy. CHEST: No chest wall deformity. Symmetrical expansion. Right chest hemodialysis catheter in place LUNGS: Equal air entry with no crackles, wheeze, rhonchi or dullness. CVS: Regular rate and rhythm, normal S1 and S2, no gallops, no murmurs, no rubs ABDOMEN: Soft, nontender. No hepatosplenomegaly, normal bowel sounds, no guarding or rigidity. EXTREMITIES: No clubbing, no edema, no cyanosis, 2+ pulses and upper and lower extremities. MUSCULOSKELETAL: Muscle strength and tone normal. SPINE: No scoliosis or deformity SKIN: No rashes CENTRAL NERVOUS SYSTEM: Alert and oriented -3. No focal deficits, tone is normal in all 4 extremities. PSYCHIATRIC: Alert and oriented -3. Appropriate affect. Intact judgment and insight. - Labs CBC & Chem 7: 08/19/19 07:00 08/19/19 07:00 Labs: Abnormal Lab Results - Last 24 Hours (Table) 08/18/19 08/18/19 08/19/19 Range/Units 17:04 20:15 06:39 WBC (3.8-10.6) k/uL RBC (4.30-5.90) m/uL Hgb (13.0-17.5) gm/dL Hct (39.0-53.0) % Neutrophils # (1.3-7.7) k/uL Lymphocytes # (1.0-4.8) k/uL Monocytes # (0-1.0) k/uL Carbon Dioxide (22-30) mmol/L BUN (9-20) mg/dL Creatinine (0.66-1.25) mg/dL Glucose (74-99) mg/dL POC Glucose (mg/dL) 136 H 109 H 128 H (75-99) mg/dL 08/19/19 08/19/19 08/19/19 Range/Units 07:00 07:00 11:08 WBC 11.2 H (3.8-10.6) k/uL RBC 3.78 L (4.30-5.90) m/uL Hgb 11.6 L (13.0-17.5) gm/dL Hct 33.3 L (39.0-53.0) % Neutrophils # 8.1 H (1.3-7.7) k/uL Lymphocytes # 0.9 L (1.0-4.8) k/uL Monocytes # 1.3 H (0-1.0) k/uL Carbon Dioxide 18 L (22-30) mmol/L BUN 39 H (9-20) mg/dL Creatinine 2.15 H (0.66-1.25) mg/dL Glucose 115 H (74-99) mg/dL POC Glucose (mg/dL) 112 H (75-99) mg/dL Microbiology - Last 24 Hours (Table) 08/16/19 15:20 Catheter Tip Culture - Final Catheter Tip Coagulase Negative Staph 08/14/19 12:28 Blood Culture - Preliminary Blood No Growth after 96 hours Assessment and Plan Plan: Assessment: 1. acute respiratory failure, the patient was not hypoxic nor he was hypercapnic. The patient's was having abnormal movements and he was anxious and altered and the patient had to be intubated for airway protection and got transferred to the intensive care unit. For that reason pulmonary and critical care services were involved. He was successfully extubated and currently on the regular medical floor. Recovered currently on room air. 2 acute kidney injury possibly nonsteroidal related, and there are no other obvious causes. No evidence of any significant rhabdomyolysis. CAT scan of the abdomen did not show any significant hydronephrosis. The patient has a positive MARTIN. The complements are within normal. He has hepatitis C IgG was reactive. Nevertheless he doesn't have any significant proteinuria. The kidney biopsy was not done. This was postponed until a later stage. The patient is producing adequate amount of urine output. Nephrology is on the case and the patient was placed on oral bicarbonate for non-anion gap metabolic acidosis., Improved. Creatinine 2.15. 3 Severe hyperkalemia, secondary to acute kidney injury , potassium level is normalized currently 4.2 4 history of prostate cancer receiving radiation therapy with questionable outlet obstruction as high post void residual. Currently has a Sam catheter and the patient's risk of the abdomen did not show any significant hydronephrosis 5 Movement disorder, chronic. 6 Paranoid disorder controlled on Wellbutrin 7 hypertension 8 history of seizure disorder 9 history of diabetes mellitus 10 movement disorder, possibly related to underlying [place]'s chorea versus a drug induced CAN SLIDER injury causing an underlying movement disorder. MRI/MRA of the brain was negative. EEG was negative. Plan: Patient is clinically stable, no acute events overnight, he is on room air, he is participating with physical therapy. Kidney function is improving, no nausea vomiting diarrhea, has not required hemodialysis in the last several days since 08/13/2019. He is voiding. He is anticipated to have his hemodialysis catheter removed and possible discharge home today, pulmonary/critical care service will sign off and follow on as-needed basis I performed a history & physical examination of the patient and discussed their management with my nurse practitioner, Haleigh Zhu. I reviewed the nurse practitioner's note and agree with the documented findings and plan of care. Lung sounds are positive for clear breath sounds. The findings and the impression was discussed with the patient. I attest to the documentation by the nurse practitioner. Time with Patient: Less than 30
[2019-08-19] MEDS ORDERED: LIDOCAINE 1% INJ 10MG/ML (20 ML MDV) SQ ONE (13:29)
--- NOTE | 2019-08-19 14:14 | P.CN ---
Psychiatric Consult - . Consult date: 08/19/19 Consult:: IDENTIFYING DATA: The patient is a 58-year-old male admitted to medicine service for evaluation and treatment of acute kidney injury with a creatinine of 8.96. HISTORY OF PRESENT ILLNESS: The hospitalist consult to psychiatry to evaluate competency and ability to provide informed consent. On 08/18/2019 and became paranoid and demanded to leave the hospital. He told his nurse that he did not want anew I.V. and he thought that "people were talking about him." He told the nurse that he thought someone knew about his past and was making rude comments about him. The hospitalist spoke with him and felt that at that time he was not competent to make informed consent. The patient spoke with his , returned to his room and agreed to remain in hospital until he meets with a psychiatrist. I reviewed the medical record and interviewed the patient. He also had his on the telephone who provided additional information. The patient denied that he was feeling frightened or felt that other people were talking about him. He complained that he has been in hospital "too long" and wants to return home to be with his family. He understood that the problems he was having that led him to Hospital where due to kidney failure. He reports that these problems have since resolved and "a doctor"" told him that his "numbers" are much better (his kidney function has improved and that his most recent creatinine was 2.15). He does not want to remain in hospital and wants to follow up with outpatient treatment. During the interview he received a call from a home health coordinator. He understood that his physicians have not to determine the cause of his acute kidney injury. He denied feeling depressed or having thoughts of or suicide. He denied chronic and persistent anxiety that he is unable to control. He perseverated about discharge but did not express clear obsessions or demonstrate compulsive behaviors. He denied that he was abusing drugs and could not explain the reason for the positive opiates screen. However, he admitted to abusing bupropion where he went Crossing insufflate the pills. He denied that he is currently experiencing auditory, visual or olfactory hallucinations, ideas reference, thought insertion, thought broadcasting or thought control. PAST PSYCHIATRIC HISTORY: He has a history of mental health treatment including psychiatric hospitalizations. His believes that his last psychiatric hospitalization was "about 20 or 25 years ago". He is prescribed Zyprexa and Wellbutrin by his primary care provider for the treatment of his mood and impulsivity. He has not met with a mental health provider "in several years". PAST MEDICAL HISTORY: According to the record he has history of diabetes mellitus, hypertension and a seizure disorder. His outpatient medications include tamsulosin, baclofen, Gabby Tashia, clonidine, Protonix and vitamin B12. ALLERGIES: NO KNOWN DRUG ALLERGIES. SUBSTANCE USE HISTORY: She admitted a history of use of heroin and methamphetamine. He last used these medications before he went to [facility]. He has been in substance abuse treatment programs. FAMILY PSYCHIATRIC/SUBSTANCE USE HISTORY: He stated that his mother and father had history of alcohol use problems. SOCIAL HISTORY: He was born in [place] and alleged that he was raised by his father and "man down the street." He "never knew" his mother. He is developmentally disabled and was in special education throughout school. He graduated from high school. 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 He was released from [facility] in [place] after serving 10 years for criminal sexual conduct. According to the [place] Public Sex Offender Registry he has criminal sexual conduct convictions beginning in 1995 including lasciviousness with children, child molestation, false imprisonment (which involves a victim was less than 14 years old) and enticing a child for indecent purposes. He was in [facility] for 10 years in [place] for the latter 3 charges. He is currently on probation in [place]. His probation was transferred from [place] to [place] 4 years ago when he was granted permission to move to [place] to care for his father who was dying. He currently lives with his . He receives social security disability and works intermittently. MENTAL STATUS EXAM: He presented as a casually groomed elderly female who had marked choreiform movements of the arms and legs and trunk. The movements prevented him from the remaining seated calmly. He had a reactive facial expression. He was alert and oriented to person, place and time. His speech was spontaneous with normal rate and rhythm. His affect was anxious but stable and appropriate. He denied suicidal ideation, wishes or homicidal ideation. He did not express feelings of hopelessness, helplessness or worthlessness. He ruminated about the duration of this hospitalization and his desire to leave the hospital. He did not express ideas reference, paranoid i deation or delusions. His thinking was concrete but his associations were coherent and logical. He denied hallucinations and did not appear to be responding to internal stimuli. Global impression of intellect is below average.. We completed the Mini-Mental Status Examination. His total score was 28/30. He showed no impairment in orientation, concentration or attention. He made one error on immediate recall. IMPRESSIONS: He is a 58-year-old male was a history of a developmental disability, substance use disorder and criminal sexual conduct. [facility]. The hospitalist consult to psychiatry because he became acutely paranoid, express ideas reference and demanded to leave the hospital. During our interview he comp lained about duration of hospitalization and maintained that the doctors have told him that his condition has improved. He wishes to continue treatment as outpatient with the remain in the hospital. He has marked choreiform movements for which neurology had been consulted. His history significant for abuse of bupropion. I suspect that the choreiform movements are related to his past abuse of amphetamines and bupropion. He had a rudimentary understanding of his illness and the treatment recommended by his physician. His performance on the Mini-Mental state exam does not show gross impairment of cognitive functioning. I suspect the abrupt changes in behavior was related to the duration of hospitalization, extended separation from his and his developmental disability. At this time, he is competent to provide informed consent. 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 He would benefit from referral for outpatient mental health services to monitor his use of his psychotropic medications. Psychiatry will sign off on the case. Please for this consult. 08/19/19 13:38
--- NOTE | 2019-08-19 16:58 | PCN ---
PROCEDURE NOTE PREOPERATIVE DIAGNOSIS: Acute chronic renal failure. PROCEDURE: Removal of dialysis catheter right jugular approach. This patient has history of chronic renal failure and had a dialysis and now they call me for removal of the dialysis catheter. The right side of the chest was prepped and draped for vaginal usual sterile manner. 1% lidocaine were infected. Dissection was carried out to remove the catheter. The catheter was removed and pressure dressing was applied. PLAN: Patient going home today. Advised to do leave the dressing for 3 days. MMODL / IJN: [id number] /
[2019-08-19] MEDS: SODIUM CHLORIDE 0.9% 1,000 ML IV SCH (17:07)
--- NOTE | 2019-08-19 21:39 | CONS ---
CONSULTATION DATE OF SERVICE: 08/19/2019 REASON FOR CONSULTATION: Positive sputum and catheter tip culture. HISTORY OF PRESENT ILLNESS: The patient is a 58-year-old male who presented to the hospital about 10 days ago on 08/09/2019 for evaluation of abdominal bloating, decreased urine output and shortness of breath. Symptoms were going on for about a week before he presented to the hospital. The patient on admission to the hospital was afebrile; however, the patient did spike a fever of 102 degrees Fahrenheit on 08/14/2019, for which the patient did have a sputum culture obtained on 08/10 as well as on 08/13, which came back positive with MSSA. Blood culture on 08/13 has been negative. The patient on admission to the hospital was noted to be in acute renal failure with a creatinine of 8.96, for which the patient had a right IJ dialysis catheter placed on 08/13/2019. In the computer section, it does show a catheter tip culture; however, it is not very clear where that specific catheter tip was, and the patient himself is unable to provide any history. Nurse is unable to tell me the same; where this catheter tip is coming from. On today's evaluation, the patient is afebrile. The patient overall is feeling much better and he is anxious to go home. He is already dressed up. The patient denies having any headache. No chest pain or shortness of breath. No cough. No nausea, no vomiting. No abdominal pain or diarrhea and no urinary symptoms. The patient did have overall improvement in his kidney function and the right IJ catheter is planned to be discontinued by the vascular surgeon today. The patient has had no fever since 08/14/2019. REVIEW OF SYSTEMS: Positive points have been mentioned in HPI. The rest of the systems are negative. PAST MEDICAL HISTORY: Past medical history is significant for prostate cancer, for which the patient did have radiation seeds. He has diabetes mellitus, hypertension and seizure disorder. PAST SURGICAL HISTORY: Prostate biopsy and radiation seed placement. SOCIAL HISTORY: Denies smoking, drinking or drug use. FAMILY HISTORY: Mother with history of diabetes. Father with history of diabetes and hypertension. ALLERGIES: NO KNOWN DRUG ALLERGIES. MEDICATIONS: The patient is currently on baclofen, Wellbutrin, Tylenol, Rocephin 2 grams daily, vitamin B12, iron sulfate, hydralazine, Narcan, Zofran, Protonix, IV fluid. PHYSICAL EXAMINATION: Blood pressure is 143/65 with a pulse of 75, temperature 98.3. He is 95% on room air. General description is a middle-aged male lying in bed in no distress. No tachypnea or accessory muscle of respiration use. HEENT EXAMINATION: Slight pallor. Oral mucosa membrane is dry. NECK: Trachea is central. No thyromegaly. LUNGS: Unlabored breathing. Decreased breath sounds at the bases. No wheeze. HEART: S1, S2. Regular rate and rhythm. ABDOMEN: Soft. No tenderness. No guarding or rigidity. EXTREMITIES: No edema of the feet. SKIN EXAMINATION: No rash or mass palpable. Neurologically the patient is awake, alert, oriented. Mood and affect normal. LABS/IMAGING: Hemoglobin 11.6, white count 11.2 as of this morning. BUN of 39, creatinine 2.15. Sputum culture from 08/14/2019 and 08/11/2019 with MSSA. Blood culture from 08/13 has been negative. Catheter tip, unknown source, 08/15, is coagulase-negative Staph. The patient's chest x-ray last done on 08/17/2019: Atelectasis versus limited infiltrate, left lung base. DIAGNOSTIC IMPRESSION AND PLAN: 1. Patient presented to hospital with multiple symptoms in this patient who has been diagnosed with acute renal failure. Subsequently the patient did have right IJ dialysis catheter placement and the patient did spike a fever the next day of 102 degrees Fahrenheit. The patient's fever has resolved. The patient's sputum cultures done on 08/13 as well as 08/10 show MSSA. Chest x-ray done on 08/14/2019 shows some left basilar atelectasis, possible pneumonia, and the patient seemed to be clinically responding to the Rocephin. 2. Positive catheter tip culture with coagulase-negative staphylococcus in this patient currently with no clear history of where that catheter tip is. The patient was unable to tell me; nor could the nursing staff or admitting team, if the patient still has right IJ. PLAN: 1. We will obtain blood culture x1. 2. We will also obtain catheter tip culture from the right IJ when it is removed today. 3. Ideally would keep the patient hospitalized until cultures are finalized. However, the patient is really insisting on going home. If that is the case, he will be given a one-week course of oral Keflex for his positive sputum culture with MSSA with concern for possible mild MSSA pneumonia. Thank you for this consultation. Plan of care was discussed with the admitting team working on discharge. NUVIA / RIYA: [id number] /
--- NOTE | 2019-08-20 09:37 | P.DS ---
Providers Date of admission: 08/09/19 12:51 Expected date of discharge: 08/19/19 Attending physician: Bethel Frye MD Consults: 08/09/19 13:05 Consult Physician Stat Consulting Provider: Aneudy Pickering Consult Reason/Comments: Acute renal failure Do you want consulting provider notified?: Already Contacted 08/11/19 11:24 Consult Physician Stat Consulting Provider: Tesfaye Soto Consult Reason/Comments: jovita Do you want consulting provider notified?: Yes 08/11/19 12:28 Consult Physician Stat Consulting Provider: Guillermo James Consult Reason/Comments: emergency dialysis Do you want consulting provider notified?: Already Contacted 08/12/19 07:38 Consult Physician Routine Consulting Provider: Denise Fields Consult Reason/Comments: involuntary movement Do you want consulting provider notified?: Yes 08/18/19 22:50 Consult Physician Routine Consulting Provider: Chalo Santiago Consult Reason/Comments: paranoia, assess capacity Do you want consulting provider notified?: Yes 08/19/19 14:23 Consult Physician Routine Consulting Provider: Kayla Smith Consult Reason/Comments: cath tip culture/ abx recommendation Do you want consulting provider notified?: Yes Primary care physician: Padmini Cannon Hospital Course: Final diagnosis -Acute renal failure: Status post hemodialysis. Temporary Dialysis catheter was placed -Involuntary muscle twitches, suspicious for chorea or smiley chorea -Possible pneumonia with Fever with sputum culture growing MSSA -Hypertension uncontrolled -Hyperkalemia secondary to renal failure -History of seizure disorder -Depression -DVT prophylaxis -GI prophylaxis Discharge disposition Patient is being discharged in a stable condition with guarded prognosis to home and will follow-up with Dr. Washington in the outpatient setting upon discharge. Patient will continue with home care and also follow-up with nephrology and pulmonary in the outpatient setting. Patient will continue a short course of oral antibiotics in the form of Keflex 500 mg 3 times daily for the next 1 week. Total time taken is 35 minutes. History of present illness This is a 58-year-old male who was recently admitted with acute renal failure and altered mental status and was being closely monitored. Multiple medical consultations following. Patient was closely monitored in the ICU requiring intubation and also emergency temporary dialysis cath placement for hemodialysis. Nephrology following closely. Patient has a history of being noncompliant with medications and experiencing altered mental status along with autonomic movements there were uncontrolled which may have been due to medications. Neurology was following. Patient received hemodialysis and showed marked improvement in renal functions and were being closely monitored. Patient will need close follow follow-up with nephrology in the outpatient setting and was provided a prescription for repeat labs in a few days to monitor kidney functions. Patient was extubated a few days later and was more awake and appropriate responding to questions and commands appropriately. Muscle twitching improved also. During hospitalization patient's sputum culture grew MSSA and was treated with IV antibiotics in the form of ceftriaxone and finalized showing Staphylococcus aureus and will continue with oral Keflex 500 mg 3 times daily for the next week. Patient is really adamant about going home and awaiting to have dialysis catheter removed by Dr. Soto today. Currently no reports of chest pain, shortness of breath, or palpitations. Patient is afebrile. No reports of nausea or vomiting and patient is tolerating diet. Patient will be discharged today. Her to prognosis. On exam vital signs are stable. Temp is 98.0F, 75 is the pulse, respirations are 18, blood pressure is 118/75, oxygen saturation is 97% on room air. Cardio S1, S2 are muffled. Respiratory shows diminished breath sounds at the bases with a few scattered rhonchi noted. Abdomen is soft and nontender. Nervous system shows no focal deficits. Please refer to medication reconciliation sheet for a list of medications. Patient Condition at Discharge: Good Plan - Discharge Summary Discharge Rx Participant: Yes New Discharge Prescriptions: New hydrALAZINE HCL [Apresoline] 25 mg PO TID 30 Days #90 tab cloNIDine 0.2 MG/24HR PATCH [Catapres-TTS] 1 patch TRANSDERM Q7D 30 Days #4 patch Pantoprazole [Protonix] 40 mg PO DAILY 30 Days #30 tablet. Sodium Bicarbonate Tab 650 mg PO BID 30 Days #60 tab Acetaminophen Tab [Tylenol] 650 mg PO Q6HR PRN tab PRN Reason: Fever And/ Or Pain Cyanocobalamin [Vitamin B-12] 500 mcg PO DAILY 30 Days #30 tab OLANZapine [ZyPREXA] 5 mg PO DAILY 30 Days #30 tab Cephalexin [Keflex] 500 mg PO Q8HR 7 Days #21 cap buPROPion [Wellbutrin] 150 mg PO BID 30 Days #120 tablet Continue Baclofen [Lioresal] 20 mg PO BID Tamsulosin HCl [Flomax] 0.4 mg PO HS Discontinued buPROPion HCL [Wellbutrin XL] 300 mg PO DAILY cloNIDine HCL [Catapres] 0.1 mg PO TID buPROPion XL [Wellbutrin Xl] 150 mg PO DAILY Ranitidine HCl 150 mg PO BID Discharge Medication List Baclofen [Lioresal] 20 mg PO BID 11/04/17 [History] Tamsulosin HCl [Flomax] 0.4 mg PO HS 11/04/17 [History] Acetaminophen Tab [Tylenol] 650 mg PO Q6HR PRN tab 08/19/19 [Rx] Cephalexin [Keflex] 500 mg PO Q8HR 7 Days #21 cap 08/19/19 [Rx] Cyanocobalamin [Vitamin B-12] 500 mcg PO DAILY 30 Days #30 tab 08/19/19 [Rx] OLANZapine [ZyPREXA] 5 mg PO DAILY 30 Days #30 tab 08/19/19 [Rx] Pantoprazole [Protonix] 40 mg PO DAILY 30 Days #30 tablet.dr 08/19/19 [Rx] Sodium Bicarbonate Tab 650 mg PO BID 30 Days #60 tab 08/19/19 [Rx] buPROPion [Wellbutrin] 150 mg PO BID 30 Days #120 tablet 08/19/19 [Rx] cloNIDine 0.2 MG/24HR PATCH [Catapres-TTS] 1 patch TRANSDERM Q7D 30 Days #4 patch 08/19/19 [Rx] hydrALAZINE HCL [Apresoline] 25 mg PO TID 30 Days #90 tab 08/19/19 [Rx] Follow up Appointment(s)/Referral(s): Kassandra Washington MD [Primary Care Provider] - 1-2 days (office not answering. Please call to make appointment) [facility], [NON-STAFF] - As Needed Aneudy Pickering DO [STAFF PHYSICIAN] - 2 Weeks (will see at Dialysis Center) Shweta Spencer MD [STAFF PHYSICIAN] - 1 Week (office not answering Please call to make appointment) Ambulatory/Diagnostic Orders: Basic Metabolic Panel [LAB.AMB] Time Frame: 2 Days, Location: None Selected Complete Blood Count w/diff [LAB.AMB] Time Frame: 2 Days, Location: None Selected Patient Instructions/Handouts: Acute Kidney Injury (DC) Activity/Diet/Wound Care/Special Instructions: Activity Limited until follow-up Follow-up with primary care provider Continue antibiotics until finished Repeat labs in 2-3 days Follow-up with specialists as discussed and scheduled Follow-up with [facility] Continue taking medications as prescribed Discharge Disposition: HOME WITH HOME HEALTH SERVICES
--- NOTE | 2019-08-20 14:00 | CDI ---
Documentation Clarification Form Date: 08/20/19 From: Jennifer Dave Phone: If you have a question about this query, please contact Sarah Tovar, Conversion Developer at [phone] between 8am and 5pm. Admit Date: 08/09/19 Discharge Date: 08/19/19 Patient Name: BOOGIE DIAZ Visit Number: [id number] ATTENTION: The Clinical Documentation Specialists (CDI) and [facility] Coding Staff appreciate your assistance in clarifying documentation. Please respond to the clarification below the line at the bottom and electronically sign. The CDI & [facility] Coding staff will review the response and follow-up if needed. Please note: Queries are made part of the Legal Health Record. If you have any questions, please contact the author of this message via ITS. Dear Dr. Darin Alvarado, CKD is documented in the Dr Soto's consult and procedure notes. No history of CKD per H&P, Dr Spencer's PNs and Dr Hilario's PN. History/Risk Factors: HTN Clinical Indicators: BUN: 53, 53, 53, 52, 54, 55, 37, 31, 28, 30, 31, 34, 35, 39 GFR: 6, 6, 6, 6, 6, 6, 14, 19, 23, 25, 27, 35, 33 Cr: 8.96, 8.87, 9.01, 9.15, 9.25, 9.33, 6.43, 4.39, 3.35, 2.87, 2.71, 2.59, 2.05, 2.15 Treatment: Dialysis, IV fluids Consults: Acute kidney injury.Unclear etiology. Need to rule out glomerulonephritis.There is no evidence of urinary retention or hydronephrosis.No evidence of hypotension.Creatinine 8.96 on admission.Prior creatinine 0.9 in October 2017. 2.Benign hypertension. 3.Hyperkalemia secondary to acute kidney injury and metabolic acidosis. Medically treated with IV calcium, IV insulin, nebulized albuterol in the ER. 4.Metabolic acidosis secondary to acute kidney injury. In order to capture the severity of condition, please clarify the stage of the CKD, if known: No chronic renal failure CKD Stage 1 (GFR > 90) CKD Stage 2 (GFR 60-89) CKD Stage 3 (GFR 30-59) CKD Stage 4 (GFR 15-29) CKD Stage 5 (GFR <15) ESRD Other, please specify Unable to determine No chronic renal failure MTDD
--- NOTE | 2019-08-21 07:21 | CDI ---
Documentation Clarification Form Date: 08/21/19 From: Jennifer Dave Phone: If you have a question about this query, please contact Sarah Tovar, Student Education Specialist at [phone] between 8am and 5pm. Admit Date: 08/09/19 Discharge Date: 08/19/19 Patient Name: BOOGIE DIAZ Visit Number: [id number] ATTENTION: The Clinical Documentation Specialists (CDI) and [facility] Coding Staff appreciate your assistance in clarifying documentation. Please respond to the clarification below the line at the bottom and electronically sign. The CDI & [facility] Coding staff will review the response and follow-up if needed. Please note: Queries are made part of the Legal Health Record. If you have any questions, please contact the author of this message via ITS. Dear The patient presented with the following uncontrolled HTN. History/Risk Factors: Hx prostate ca, DM, seizure disorder, depression Clinical Indicators: Patient is also complaining of lightheadedness and shortness of breath for the past 1-2 weeks. BP: 180/108, 165/111 Treatment: Restart home antihypertensive therapy in form of Clonidine 0.1 mg 3 times a day and continue to monitor BP closely In your professional opinion, can you please clarify uncontrolled hypertension? Hypertensive urgency Hypertensive emergency Other, please specify Unable to determine Other, please specify uncontrolled hypertension MTDD
[2019-08-21] MEDS ORDERED: CYANOCOBALAMIN 500 MCG TAB PO SCH (09:00)
--- NOTE | 2019-08-22 11:08 | CDI ---
Documentation Clarification Form Date: 08/22/2019 10:52:47 AM From: Simin Nevarez RN, CCDS Admit Date: 08/09/2019 12:51:00 PM Patient Name: Checo Frey Visit Number: [id number] Discharge Date: 08/19/2019 05:21:00 PM ATTENTION: The Clinical Documentation Specialists (CDI) and [facility] Coding Staff appreciate your assistance in clarifying documentation. Please respond to the clarification below the line at the bottom and electronically sign. The CDI & [facility] Coding staff will review the response and follow-up if needed. Please note: Queries are made part of the Legal Health Record. If you have any questions, please contact the author of this message via ITS. Dr. Darin Guevara results must be documented in the medical record on all patients screened. Please provide appropriate documentation. Patient history/risk factors: Prostate cancer in 2009, DM, HTN Clinical Indicators: Chief complaint: light headedness and shortness of breath for 1-2 weeks 08/18 D/C Summary: ARF, temporary HD cath placed for HD, Possible pneumonia with fever with sputum CX growing MSSA 08/08 CXR:" Probable subsegmental basilar atelectatic changes or scarring, correlate to exclude pneumonia." 08/08 Labs: + ROGER, Hep C IgG Ab reactive 08/10 ABGs: PH 7.36, PCO2 38, Po2 >400, HCO3 22, O2 Sat 100% Base excess -4.3 08/13 Coronavirus (PCR) not detected 08/08 1052 Vital Signs: Temp 98.9, HR 80, RR 18, B/P 180/108, Spo2 96% ra Treatment: Ceftriaxone 2gm IVPB Q 24 hrs IV Vancomycin PTD 08/08 2L 0.9% NS IVF bolus In order to capture the severity of condition, please clarify if the above treatment/clinical indicators signify: COVID-19 ruled out Other, please specify (Last Form Revision: June 2019) COVID-19 ruled out AGAD
== END 2019-08-19 17:21 | disposition home health service (06) | DRG 682 ==
LOC: EC 10:49 → 3SCARD 12:51 → 2SICU 08-11 12:47 → 4SSUR 08-16 15:48
PROVIDERS: ADMIT Internal Medicine; ATTEND Internal Medicine
PROC: 02H633Z Insertion of Infusion Device into Right Atrium, Percutaneous Approach (ICD-10-PCS; principal; 2019-08-11)
PROC: 06HY33Z Insertion of Infusion Device into Lower Vein, Percutaneous Approach (ICD-10-PCS; principal; 2019-08-11)
PROC: 0BH17EZ Insertion of Endotracheal Airway into Trachea, Via Natural or Artificial Opening (ICD-10-PCS; principal; 2019-08-11)
PROC: 5A1D70Z Performance of Urinary Filtration, Intermittent, Less than 6 Hours Per Day (ICD-10-PCS; 2019-08-11)
PROC: 3E043XZ Introduction of Vasopressor into Central Vein, Percutaneous Approach (ICD-10-PCS; 2019-08-11)
PROC: 4A133B1 Monitoring of Arterial Pressure, Peripheral, Percutaneous Approach (ICD-10-PCS; 2019-08-11)
PROC: 03HY32Z Insertion of Monitoring Device into Upper Artery, Percutaneous Approach (ICD-10-PCS; 2019-08-11)
PROC: 5A1945Z Respiratory Ventilation, 24-96 Consecutive Hours (ICD-10-PCS; 2019-08-11)
PROC: 4A133J1 Monitoring of Arterial Pulse, Peripheral, Percutaneous Approach (ICD-10-PCS; 2019-08-11)
PROC: 0D9670Z Drainage of Stomach with Drainage Device, Via Natural or Artificial Opening (ICD-10-PCS; 2019-08-11)
PROC: 3E0G76Z Introduction of Nutritional Substance into Upper GI, Via Natural or Artificial Opening (ICD-10-PCS; 2019-08-12)
PROC: 02HV33Z Insertion of Infusion Device into Superior Vena Cava, Percutaneous Approach (ICD-10-PCS; 2019-08-13)
PROC: 05PYX3Z Removal of Infusion Device from Upper Vein, External Approach (ICD-10-PCS; 2019-08-19)
DX: N17.0 Acute kidney failure with tubular necrosis (principal); J96.00 Acute respiratory failure, unspecified whether with hypoxia or hypercapnia; J15.211 Pneumonia due to Methicillin susceptible Staphylococcus aureus; E87.2 Acidosis; M62.82 Rhabdomyolysis; J98.11 Atelectasis; G10 Huntington's disease; R13.14 Dysphagia, pharyngoesophageal phase; Z20.828 Contact with and (suspected) exposure to other viral communicable diseases; N14.1 Nephropathy induced by other drugs, medicaments and biological substances; T39.395A Adverse effect of other nonsteroidal anti-inflammatory drugs [NSAID], initial encounter; G24.01 Drug induced subacute dyskinesia; T44.3X5A Adverse effect of other parasympatholytics [anticholinergics and antimuscarinics] and spasmolytics, initial encounter; B19.20 Unspecified viral hepatitis C without hepatic coma; F43.25 Adjustment disorder with mixed disturbance of emotions and conduct; E11.9 Type 2 diabetes mellitus without complications; I10 Essential (primary) hypertension; E78.5 Hyperlipidemia, unspecified; E87.5 Hyperkalemia; K59.00 Constipation, unspecified; E53.8 Deficiency of other specified B group vitamins; G25.81 Restless legs syndrome; K21.9 Gastro-esophageal reflux disease without esophagitis; F41.9 Anxiety disorder, unspecified; F32.9 Major depressive disorder, single episode, unspecified; G40.909 Epilepsy, unspecified, not intractable, without status epilepticus; Q63.1 Lobulated, fused and horseshoe kidney; R76.8 Other specified abnormal immunological findings in serum; T43.291A Poisoning by other antidepressants, accidental (unintentional), initial encounter; T50.916A Underdosing of multiple unspecified drugs, medicaments and biological substances, initial encounter; Z91.19 Patient's noncompliance with other medical treatment and regimen; Z91.128 Patient's intentional underdosing of medication regimen for other reason; F11.11 Opioid abuse, in remission; F15.11 Other stimulant abuse, in remission; Z79.899 Other long term (current) drug therapy; Z92.3 Personal history of irradiation; Z85.46 Personal history of malignant neoplasm of prostate; Z82.49 Family history of ischemic heart disease and other diseases of the circulatory system; Z83.3 Family history of diabetes mellitus
CPT/HCPCS: 36415; 36558; 70544; 70547; 70551; 71045; 71046; 74176; 76937; 77001; 80048; 80053; 80074; 80306; 80320; 81001; 82150; 82550; 82553; 82570; 82607; 82728; 82746; 82805; 83516; 83540; 83550; 83605; 83690; 83735; 84100; 84132; 84156; 84165; 84260; 84550; 85025; 85027; 85610; 85730; 86038; 86039; 86140; 86160; 86162; 86225; 86255; 86334; 86335; 86706; 86850; 86900; 86901; 87040; 87070; 87077; 87086; 87186; 87205; 87522; 87635; 90935; 93005; 94002; 94003; 94640; 94770; 95819; 96361; 96365; 96374; 96375; 99291